=== PATIENT | male | born 1960 | race African-American/Black ===

== ENCOUNTER 2017-11-09 18:44 | Observation (INO) | payer SELFPAY ==
[~2017-11-09 18:44] MED LIST: ISOVUE-370 76%-LOCM 1 ML ONE
[2017-11-09 19:13] LABS: #Basophils 0.1 thou/uL (0.0-0.2); #Eosinphils 0.1 thou/uL (0.0-0.7); #Lymphocytes 1.9 thou/uL (1.20-3.40); #Monocytes 0.5 thou/uL (0.11-0.59); %Basophils 0.5 % (0.0-1.0); %Eosinophils 0.8 % (0.0-10.0); %Lymphocytes 18.4 % (21.0-51.0); %Monocytes 4.2 % (0.0-10.0); Hemoglobin 11.2 g/dL (14.0-18.0); Mean Corpuscular HGB CONC 32.8 g/dL (32.0-36.0); Mean Corpuscular Hemoglobin 28.1 pg (27.0-31.0); Mean Corpuscular Volume 85.7 fl (80.0-94.0); Mean Platelet Volume 6.6 fL (7.4-10.4); Platelet Count 538 thou/uL (130-400); RBC Distribution Width 12.1 % (11.5-14.5); White Blood Cell (WBC) Count 10.5 thou/uL (4.8-10.8)
[2017-11-09] MEDS ORDERED: Aspirin 81 mg Enteric Coated Tablet ONE (19:34)
[2017-11-09] MEDS ORDERED: Nitroglycerin 0.4 MG TAB (25 Tab Bottle) ONE (19:34)
[2017-11-09] MEDS ORDERED: Milk Of Magnesia 30 ML UDCUP ONE (19:34)
[2017-11-09] MEDS ORDERED: Lidocaine Viscous Sol 2% 15 ml UD Cup ONE ×2 (19:34→19:35)
[2017-11-09] MEDS ORDERED: Nitroglycerin 2% Ointment 1 INCH/1 GM Packet ONE (19:34)
[2017-11-09 19:37] LABS: ALT (SGPT) 12 U/L (8-55); AST (SGOT) 11 U/L (5-34); Albumin 4.2 g/dL (3.5-5.0); Alkaline Phosphatase 64 U/L (40-150); Anion Gap 16 mmol/L (10-20); BUN (Urea Nitrogen) 11 mg/dL (8.4-25.7); Bilirubin, Total 0.6 mg/dL (0.2-1.2); CK (CPK) 248 U/L (30-200); Calc. Creatinine Clearance 0 mL/min (70-130); Calcium 10.1 mg/dL (7.8-10.44); Carbon Dioxide 24 mmol/L (22-29); Chloride 96 mmol/L (98-107); Estimated GFR-MDRD 53; Globulin 4.1 g/dL (2.4-3.5); Glucose 246 mg/dL (70-105); Lipase 15 U/L (8-78); Potassium 3.9 mmol/L (3.5-5.1); Protein, Total 8.3 g/dL (6.0-8.3); Sodium 132 mmol/L (136-145)
--- NOTE | 2017-11-09 19:51 | RAD ---
CHEST ONE VIEW: History: Chest pain Comparison: 01-11-15 FINDINGS: Mild blunting of the left costophrenic sulcus is likely sequellae of mediastinal fat. Lungs are other delgado clear. No pneumothorax or effusion. Cardiomediastinal silhouette and mediastinal contours are no rmal. IMPRESSION: No acute intrathoracic abnormality. POS: [facility]
--- NOTE | 2017-11-09 21:19 | CT ---
CTA CHEST WITH CONTRAST: History: Chest pain. Comparison: Chest radiograph same day. FINDINGS: Pulmonary trunk size is upper limits of normal. The right and left main pulmonary arteries are mildly dilated. No pulmonary arterial filling defect. No pericardial effusion. Upper abdomen is unremarkable. Aortic size is normal. There is some bronchiectasis in the right lower lobe with patchy peripheral op acity. Skeleton is unremarkable. IMPRESSION: 1. Patchy airspace opacity in the left lower lobe. This has an unusual appearance and may represent a resolving pneumonia vs malignany process. Given its absence of visualization on radiography, a follo w up CT examination three months after treatment is recommended. 2. No proximal pulmonary arterial filling defect. 3. The left and right pulmonary artery are upper limits of normal in size and may reflect early pulmo nary arterial hypertension. POS: [facility]
[2017-11-09 23:08] LABS: Troponin I 0.023 ng/mL (< 0.028)
[2017-11-09 23:40] VITALS: BMI 34.9
[2017-11-09] MEDS ORDERED: Acetaminophen 325 MG TAB PO PRN (23:55)
[2017-11-09] MEDS ORDERED: Ondansetron ODT 4 MG TAB SL PRN (23:55)
[2017-11-09] MEDS ORDERED: Ondansetron HCl/PF 4 MG/2 ML Vial IVP PRN (23:55)
[2017-11-10 01:31] LABS: Troponin I 0.021 ng/mL (< 0.028)
[2017-11-10] MEDS ORDERED: Nitroglycerin 2% Ointment 1 INCH/1 GM Packet TOP SCH (06:00)
--- NOTE | 2017-11-10 06:41 | HP ---
CHIEF COMPLAINT: Chest pain. HISTORY OF PRESENT ILLNESS: He is 57-year-old man with history of hypertension , diabetes. He came in because of some chest pain starting this morning. Chest pain is in the left side of the chest. He said it feels like dull in nature and 5/10 radiation to the left arm and there is no relationship with activity. No diaphoresis, no nausea, no vomiting, no pain, no orthopnea. Pain is associated with some kind of cough symptom. When he came to the ER, his vital signs, pulse 88, blood pressure 155/85, respirations 16, temperature 98.4. In the ER, he was given nitroglycerin, aspirin, and pain relieved to some extent. PAST MEDICAL HISTORY: History of hypertension, hyperlipidemia. PAST SURGICAL HISTORY: No surgical history. SOCIAL HISTORY: Denies alcohol, drug use, no smoking history. FAMILY HISTORY: Positive for heart disease in the mother. ALLERGIES: He is not allergic to any medications. CURRENT MEDICATIONS: He is taking lisinopril 20/25 daily, amlodipine 10 mg daily, aspirin 81 daily, hydralazine 50 mg 3 times daily, atorvastatin 40 mg daily, Coreg 12.5 daily, glimepiride 2 mg daily, metformin 1000 daily. REVIEW OF SYSTEMS: Constitutional: Denies any fever. No chills, low grade fever. Denies any malaise. ENT: Denies any rhinorrhea, sore throat or vision changes. Cardiovascular: Has some chest pain. Respiratory: Some cough, no short of breath, no wheezing. Gastrointestinal: No nausea, no vomiting, no abdominal pain. Genitourinary: Denies any dysuria, urgency. Endocrine: Denies any polydipsia. Skin: Denies any rash. PHYSICAL EXAMINATION: GENERAL: He is a middle aged male lying in the bed, not in distress. VITAL SIGNS: Pulse 80, blood pressure 147/86, respiration rate 14, temperature 98.8, saturation 95 on room air. HEENT: Head is atraumatic, normocephalic. Eyes: Pupils are round and reactive. Extraocular muscles are intact. Ear, nose, and throat normal. Tongue mucosa moist. NECK: Supple, no JVD, no thyromegaly, no carotid bruit. LUNGS: Chest has normal vesicular breathing, no added sound. No chest wall tenderness noted. CARDIOVASCULAR: S1, S2 audible. No S3 or S4. ABDOMEN: Soft. Bowel sounds audible, no organomegaly, no guarding, no rigidity. EXTREMITIES: No pedal edema. No cyanosis or clubbing. CENTRAL NERVOUS SYSTEM: Alert and oriented x3. No focal deficit. Cranial nerves II through 12 normal. SKIN: Normal turgor, no rash. PSYCHIATRIC: Normal affect and judgment. LABORATORY DATA: Her lab shows WBC of 10.5, hemoglobin 11.2, hematocrit 34.2, platelets 538. D-dimer 0.7. Sodium 132, potassium 3.9, chloride 96, carbon dioxide 24, anion gap of 16, creatinine 1.6, BUN 11, GFR 53, glucose 246, calcium 10.1, total bilirubin 0.6, AST 11, AST 12. Creatine kinase 248. Troponin 0.023. Serum total protein 8.3, albumin 4.2, globulin 4.1, lipase 15. Chest x-ray shows no acute intrathoracic abnormality. Chest CT shows patchy airspace opacity in the left lower lobe, may be pneumonia or malignancy. Followup CT scan needed. No pulmonary or filling defect, pulmonary hypertension possible. ASSESSMENT AND PLAN: 1. Chest pain with history of respect to hypertension, diabetes. We will plan to rule out myocardial infarction by serial CK and troponin. Echocardiogram in the morning. Use aspirin and nitroglycerin p.r.n., IV morphine and continue Coreg. 2. Possible pneumonia with a CT scan finding with history of mild cough and short of breath. We will continue Rocephin 1 gram daily. Follow him closely. 3. Type 2 diabetes. Continue sliding scale, holding metformin because contrast to prevent contrast nephropathy. 4. Hyperlipidemia. Continue his Lipitor. 5. Acute kidney injury on chronic kidney disease stage 3. We will continue to monitor. 6. Deep venous thrombosis prophylaxis, Lovenox. [facility]
[2017-11-10 08:04] VITALS: TEMP 98
[2017-11-10 08:09] VITALS: BP 175/85
[2017-11-10] MEDS ORDERED: FLU VACC QS2017-18 36 mo. & older 0.5 ML SYRINGE IM ONE (09:00)
[2017-11-10] MEDS ORDERED: Enoxaparin Sodium 40 MG/0.4 ML SYRINGE SC SCH (09:00)
[2017-11-10] MEDS ORDERED: Carvedilol 3.125 MG TAB PO SCH (09:00)
[2017-11-10] MEDS ORDERED: Aspirin 325 MG TAB PO SCH (09:00)
--- NOTE | 2017-11-10 10:15 | PDOC.PN ---
- Subjective Encounter Start Date: 11/10/17 Encounter Start Time: 10:13 Mr. Ndiaye was seen today in follow-up of chest pain. He says the pain is much better. He denies any shortness of breath. - Objective MAR Reviewed: Yes Vital Signs & Weight: Vital Signs (12 hours) Temp Pulse Resp BP BP Pulse Ox 11/10/17 08:00 98 F 71 18 11/10/17 07:14 98.3 F 55 L 18 175/85 H 95 11/10/17 04:15 71 18 157/89 H Result Diagrams: 11/09/17 19:09 11/09/17 19:09 Phys Exam - Physical Examination HEENT: PERRLA + rhonchi / rales in the left upper chest Cardiovascular: RRR, no significant murmur, no rub Gastrointestinal: soft, non-tender, positive bowel sounds Musculoskeletal: no edema Dx/Plan (1) Chest pain Code(s): R07.9 - CHEST PAIN, UNSPECIFIED Status: Acute (2) Pneumonia, community acquired Code(s): J18.9 - PNEUMONIA, UNSPECIFIED ORGANISM Status: Acute (3) Dyslipidemia Code(s): E78.5 - HYPERLIPIDEMIA, UNSPECIFIED Status: Acute (4) Diabetes mellitus type 2 in obese Code(s): E11.69 - TYPE 2 DIABETES MELLITUS WITH OTHER SPECIFIED COMPLICATION; E66.9 - OBESITY, UNSPECIFIED Status: Acute (5) Hypertension Code(s): I10 - ESSENTIAL (PRIMARY) HYPERTENSION Status: Chronic - Plan * Pneumonia- Community Acquired- improved overnight * Troponins, have trended back down- old records reviewed, and he had a negative stress test a few years back. * Echo pending * HTN- blood pressure is elevated- but he has not bee re-started on his home medications * stable for discharge home, with close outpatient follow-up.
--- NOTE | 2017-11-10 10:55 | DIS ---
PRIMARY CARE PHYSICIAN: Patient does not remember the name. DATE OF ADMISSION: 11/09/2017 DATE OF DISCHARGE: 11/10/2017 DISCHARGE DISPOSITION: Home. PRIMARY DISCHARGE DIAGNOSES: 1. Chest pain. 2. Community-acquired pneumonia. 3. Hypertension. 4. Hyperlipidemia. 5. Diabetes mellitus, type 2. DISCHARGE MEDICATIONS: Omnicef 300 mg twice a day for 7 days as well as Zithromax Z-Corey at discharge . He is to continue Zantac 150 mg daily, thiamine 250 mg daily, metformin 500 mg twice a day, memant ine 5 mg daily, lisinopril/hydrochlorothiazide 20/25 daily, hydralazine 50 mg t.i.d., Amaryl 2 mg yoni ly, Lexapro 10 mg daily, vitamin B12 1000 mcg daily, carvedilol 12.5 mg twice a day, Lipitor 40 mg da eugene, aspirin 81 mg daily, amlodipine 10 mg daily, acetaminophen as needed. PROCEDURES DONE DURING ADMISSION: The patient had a CT angiogram of the chest which was positive for patchy airspace opacity in the left lower lobe. It had an unusual appearance and could be resolving pneumonia versus malignancy and recommended followup in [address] There was no pulmonar y embolism. The patient also had an echocardiogram, which was pending at the time of discharge. CODE STATUS: FULL CODE. ALLERGIES: No known drug allergies. HOSPITAL COURSE: Mr. Ndiaye is a pleasant 57-year-old gentleman who presented to the emergency room wi th complaints of chest pain. No associated symptoms. Apparently, the pain was associated with cough . CT angiogram demonstrated left lower lobe pneumonia. Suspected that this was likely the cause of the patient's symptoms. He will be treated with oral antibiotics if the patient is afebrile. There is no significant leukocytosis. His oxygen saturations have been 95% on room air. He is ambulatory and keeping food down. He will need to have a followup CT scan in 2-3 months to make sure the pneumo anatoliy has completely resolved. He will also need to follow up on the echo results as well. It was not ed that the patient had a normal stress test back in 2014.
[2017-11-10] MEDS ORDERED: cefTRIAXone\\ROCEPHIN 1 GM in Sodium Chloride 0.9% 100 ML IVPB SCH (19:30)
[2017-11-10] MEDS ORDERED: cefTRIAXone\\ROCEPHIN 1 GM, Syringe 0.4 ML in Sterile Water 9.6 ML SLOW IVP SCH (20:00)
== END 2017-11-10 12:34 | disposition home or self-care (01) ==
LOC: ERS 18:44 → 2SW 23:34
PROVIDERS: ADMIT Family Medicine; ATTEND Family Medicine
DX: R07.9 Chest pain, unspecified (principal); J18.9 Pneumonia, unspecified organism; E78.5 Hyperlipidemia, unspecified; I12.9 Hypertensive chronic kidney disease with stage 1 through stage 4 chronic kidney disease, or unspecified chronic kidney disease; E11.22 Type 2 diabetes mellitus with diabetic chronic kidney disease; N18.3 Chronic kidney disease, stage 3 (moderate); N17.9 Acute kidney failure, unspecified; I25.10 Atherosclerotic heart disease of native coronary artery without angina pectoris; I25.2 Old myocardial infarction; E66.9 Obesity, unspecified; Z68.35 Body mass index [BMI] 35.0-35.9, adult; Z79.82 Long term (current) use of aspirin; Z79.84 Long term (current) use of oral hypoglycemic drugs; Z79.899 Other long term (current) drug therapy
CPT/HCPCS: 36415; 71045; 71275; 80053; 80061; 82553; 83690; 84484; 85025; 85379; 93005; 93306; 94760; 96374; G0378; J0696

== ENCOUNTER 2019-01-19 16:35 | Inpatient (IN) | payer SELFPAY ==
--- NOTE | 2019-01-19 16:57 | CT ---
FCT brain noncontrast: 01/19/2019 4:47 PM HISTORY: 58-year-old male with acute stroke: Acute onset left upper extremity weakness, left lower extremity w eakness, and left facial droop. Dr. Ring verbally gave this acute Level One stroke protocol report to Dr. Hernandez of the emergency Depart ment at 4:52 PM on 01/19/2019. COMPARISON: 08/05/2010 FINDINGS: Since the previous CT, there is a new finding of multiple small and tiny old lacunar infarctions invo lving the bilateral basal ganglia, bilateral caudate heads, and left external capsule. There has been interval involutional changes of the brain since the previous CT. No obstructive hydrocephalus, mass effect, midline shift, or extra-axial fluid collection. Interval development of patchy small focal h ypodense lesions in the deep cerebral white matter consistent with chronic ischemic white matter martínez ges due to microvascular atherosclerosis. No acute intra-axial or extra-axial hemorrhage. Calvarium i s intact. IMPRESSION: 1. No acute intracranial hemorrhage or mass effect. 2. Large number of small old lacunar infarctions in the bilateral basal ganglia and caudate nuclei. 3. Involutional changes and chronic ischemic white matter changes.
[2019-01-19] MEDS ORDERED: Aspirin Chewable 81 MG TAB ONE (17:12)
[2019-01-19 17:16] LABS: #Basophils 0.1 thou/uL (0.0-0.2); #Lymphocytes 1.7 thou/uL (1.20-3.40); #Monocytes 0.7 thou/uL (0.11-0.59); #Neutrophils 9.1 thou/uL (1.40-6.50); %Basophils 0.8 % (0.0-1.0); %Eosinophils 0.2 % (0.0-10.0); %Lymphocytes 14.6 % (21.0-51.0); %Monocytes 5.9 % (0.0-10.0); %Neutrophils 78.5 % (42.0-75.0); Hemoglobin 13.3 g/dL (14.0-18.0); Mean Corpuscular HGB CONC 33.3 g/dL (32.0-36.0); Mean Corpuscular Hemoglobin 27.7 pg (27.0-31.0); Mean Corpuscular Volume 83.1 fL (78.0-98.0); Mean Platelet Volume 8.4 fL (7.4-10.4); Platelet Count 303 thou/uL (130-400); RBC Distribution Width 10.9 % (11.5-14.5); Red Blood Cell (RBC) Count 4.79 mill/uL (4.70-6.10); White Blood Cell (WBC) Count 11.6 thou/uL (4.8-10.8)
--- NOTE | 2019-01-19 17:23 | RAD ---
CHEST ONE VIEW: 01/19/19 Chest pain. COMPARISON: 11/09/17. FINDINGS: The cardiac silhouette and is magnified and enlarged. Pulmonary vasculature is unremarkable. Mediasti num is midline. No lobar consolidation or evidence of pneumothorax. The gambling monitor leads overlie the chest. IMPRESSION: Cardiomegaly. No active cardiopulmonary abnormalities are otherwise demonstrated. POS: [facility]
[2019-01-19 17:24] LABS: PTT 29.5 SEC (22.9-36.1); Prothrombin Time 14.3 SEC (12.0-14.7)
[2019-01-19 17:25] LABS: INR-International Normal Ratio 1.1
[2019-01-19 17:30] LABS: ALT (SGPT) 13 U/L (8-55); AST (SGOT) 14 U/L (5-34); Albumin 4.5 g/dL (3.5-5.0); Alkaline Phosphatase 98 U/L (40-150); Anion Gap 15 mmol/L (10-20); BUN (Urea Nitrogen) 11 mg/dL (8.4-25.7); Bilirubin, Total 0.9 mg/dL (0.2-1.2); CK (CPK) 435 U/L (30-200); Calc. Creatinine Clearance 0 mL/min (70-130); Calcium 10.2 mg/dL (7.8-10.44); Carbon Dioxide 26 mmol/L (22-29); Chloride 98 mmol/L (98-107); Estimated GFR-MDRD 58; Globulin 3.5 g/dL (2.4-3.5); Glucose 367 mg/dL (70-105); Potassium 3.5 mmol/L (3.5-5.1); Sodium 135 mmol/L (136-145)
[2019-01-19] MEDS ORDERED: Aspirin 300 MG Suppository ONE (17:30)
[2019-01-19 17:53] LABS: CKMB 3.4 ng/mL (0-6.6)
[2019-01-19 20:06] LABS: Troponin I 0.052 ng/mL (< 0.028)
[2019-01-19] MEDS ORDERED: Senokot S 8.6-50 MG TAB PO PRN (20:16)
[2019-01-19] MEDS ORDERED: Nitroglycerin 0.4 MG TAB (25 Tab Bottle) SL PRN (20:16)
[2019-01-19] MEDS ORDERED: Dextrose 50% Abboject 50 ML SYRINGE SLOW IVP PRN (20:16)
[2019-01-19] MEDS ORDERED: Ondansetron ODT 4 MG TAB PO PRN (20:16)
[2019-01-19] MEDS ORDERED: Ondansetron PF 4 MG/2 ML Vial IVP PRN (20:16)
[2019-01-19] MEDS ORDERED: Acetaminophen 650 MG Suppository PR PRN (20:16)
[2019-01-19] MEDS ORDERED: hydrALAZINE 20 MG/ML VIAL SLOW IVP PRN (20:16)
[2019-01-19] MEDS ORDERED: Dextrose 5% in Water 1,000 ML IV PRN (20:16)
[2019-01-19] MEDS ORDERED: Labetalol HCl 100 MG/20 ML VIAL SLOW IVP PRN (20:16)
[2019-01-19] MEDS ORDERED: Guaifenesin DM 100-10/5 ML UDCUP PO PRN (20:16)
[2019-01-19] MEDS ORDERED: Famotidine 20 MG TAB ONE (21:25)
[2019-01-19] MEDS: Famotidine 20 MG TAB PO SCH (21:30)
[2019-01-19] MEDS: Atorvastatin Calcium 40 MG TAB PO SCH (21:34)
[2019-01-19] MEDS: Carvedilol 6.25 MG TAB PO SCH (21:35)
--- NOTE | 2019-01-19 21:58 | HP ---
PRIMARY CARE PHYSICIAN: Dr. Luann Davenport. CHIEF COMPLAINT: Weakness and falls. HISTORY OF PRESENT ILLNESS: This is a 58-year-old male with a known history of diabetes, hypertension, and a previous stroke in the last year with no residuals. The patient reports that he went to bed at about 10 p.m. last night, was in his normal state of health. When he woke up this morning somewhere before 7 a.m., he tried to get out of bed and fell and his daughter noticed he had some slurred speech and facial droop at that time. Family reports the patient fell twice during the day, second time was around 2 p.m. in the afternoon. After the second fall, he was lying in the bathroom for approximately 30 to 40 minutes where he was found, so he was brought into the emergency room. He is on a baby aspirin daily. In the emergency room, the patient was found to have left facial droop and dysarthria, and some weakness in his left lower extremity. He also had elevated blood pressure and a CT scan done which showed some old lacunar infarcts and involution changes, but no acute stroke. He also had a CTA of the head, neck, and chest, which showed no significant abnormalities of the blood vessels of the aortic arch, carotids, or intracerebral vessels. The patient was given aspirin in the emergency room, given rectally secondary to his facial symptoms. PAST MEDICAL HISTORY: 1. Hypertension. 2. Hyperlipidemia. 3. Diabetes mellitus type 2, previously on oral hypoglycemics though not currently on them now. 4. Possible chronic kidney disease. 5. Gastroesophageal reflux disease. 6. Notation in the chart as systolic congestive heart failure with an EF of 45% in 2009, though the patient does not remember this. 7. Coronary artery disease with LAD stenosis of 40% in 2007. 8. Possible dementia. The patient is on Namenda daily. PAST SURGICAL HISTORY: Cardiac catheterization x2. SOCIAL HISTORY: No tobacco, alcohol, or illicit drug use. The patient is single, lives with his daughter who is his medical power of manager paper. Her name is Romy Ndiaye. ALLERGIES: NO KNOWN DRUG ALLERGIES. CURRENT MEDICATIONS: 1. Memantine 5 mg daily. 2. Lisinopril/hydrochlorothiazide 20/25 mg daily. 3. Vitamin B1 250 mg daily. 4. Amlodipine 10 mg daily. 5. Aspirin 81 mg daily. 6. Hydralazine 50 mg 3 times a day. 7. Atorvastatin 40 mg daily. 8. Lexapro 10 mg daily. 9. Vitamin B12 of 1000 mcg daily. 10. Carvedilol 12.5 mg twice a day. REVIEW OF SYSTEMS: CONSTITUTIONAL: No fevers, no chills. EYES: He has had some blurred vision, but nothing significantly new today. ENT: No congestion, drainage, or sore throat. He does have dysarthria and facial droop, but has not noticed any trouble swallowing. CARDIOVASCULAR: No chest pain. No palpitations or racing heart. He does report some right lower chest pressure to the right of sternum that he has had during the day today as well. Nothing seems to affect this. PULMONARY: No coughing, wheezing, or shortness of breath. GASTROINTESTINAL: He has had a little bit of suprapubic burning pain, but no pain with urination. No dysuria. No nausea or vomiting. No diarrhea or constipation. GENITOURINARY: No dysuria or hematuria. MUSCULOSKELETAL: No muscle aches or joint pains. SKIN: No rashes he has noted. Some flaky skin in his groin area that is not itching or painful. NEUROLOGIC: See HPI. PHYSICAL EXAMINATION: VITAL SIGNS: Blood pressure 193/94, pulse 87, respirations 17, temperature 98.9 , O2 saturation 97% on room air. GENERAL: This is a well-developed, obese male, in no acute distress. HEENT: Pupils are equal, round, and reactive to light. Oropharynx is clear without lesions, erythema, or exudate. NECK: Supple. No lymphadenopathy. No thyroid nodules or enlargement. No JVD. HEART: Regular rate and rhythm. No murmurs, rubs, or gallops. LUNGS: Clear to auscultation bilaterally. No wheezes, crackles, or rhonchi. No chest wall tenderness to palpation. GASTROINTESTINAL: Abdomen nontender to palpation diffusely. No guarding, no rebound tenderness. No masses or hepatosplenomegaly. His abdomen is soft and he has normal bowel sounds. EXTREMITIES: No clubbing, cyanosis, or edema SKIN: No rashes noted. NEUROLOGIC: The patient has left facial droop. His extraocular movements are intact and equal bilaterally. He has some dysarthria, though he is able to speak clear enough to be understood. He takes some time to find words, though he is eventually able to find them. The patient has intact strength 5/5 in bilateral upper extremities, 5/5 in right lower extremity and 4/5 in left lower extremity. He has some impairment to rapid alternating movements and to finger-nose with his left upper extremity. PSYCHIATRIC: Alert and oriented x3. Normal mood and affect. LABORATORY DATA: CBC with a white blood cell count of 11,000, hemoglobin 13.3, hematocrit 39.8, platelet count 303. Coagulation profile normal. Complete metabolic panel notable for sodium of 135, creatinine of 1.51, which is similar to the check we got one year ago when he was then at 1.63, glucose was 367. Creatine kinase was 435. The rest of the complete metabolic panel was normal. His 1st troponin was indeterminate at 0.035. Chest x-ray, I did review the chest x-ray done in the emergency room along with the radiologist's report. It does show cardiomegaly, but no acute congestive changes. No infiltrate. No other acute cardiopulmonary process. CT of the brain and the angiography of the head and neck as per the HPI. EKG done in the emergency room shows normal sinus rhythm with some minimal voltage criteria for left ventricular hypertrophy and some nonspecific T-wave abnormalities, similar to EKG done one year ago. ASSESSMENT: 1. Acute ischemic stroke. We will continue the patient on full-dose aspirin daily. We will get an MRI of the brain. We will get neurology consult and stroke team consult. We will have Nursing try a bedside swallow test if he is able to swallow safely in that he can eat, otherwise he will need to stay n.p.o. until Speech Therapy can see him. 2. Hypertension with severe elevations. We will allow permissive hypertension and just treat if it gets over 220/110. We will go ahead and slowly reintroduce his home blood pressure medications starting with carvedilol for protection of heart , but we will be careful to allow his blood pressure to remain elevated for now. 3. History of coronary artery disease with indeterminate troponin and some chest pressure. The patient does not have any acute change on EKG. We will trend his troponins to make sure they do not bump and we will get Cardiology to see him. Also get an echocardiogram to follow up on his previous reported congestive heart failure. 4. Chronic kidney disease, uncertain of the patient's baseline though this lab is currently similar to what it was a year ago, so he may be at his baseline. We will monitor closely and eventually we will go on to resume his MIRELLA inhibitor after his blood pressure allows. 5. Gastrointestinal prophylaxis and history of gastroesophageal reflux disease. We will put the patient on Pepcid twice a day. 6. History of diabetes mellitus type 2. The patient does not list any of his diabetes medications on his current active medication list. He is not on insulin, however, he has elevated blood sugars here. We will start him on low insulin sliding scale and will likely need to reintroduce some oral hypoglycemics while he is in the hospital as well. 7. Deep venous thrombosis prophylaxis. We will put the patient on Lovenox subcu daily and SCDs while in bed. 8. Code status. I did discuss this with the patient. He is a full code. Should he be incapacitated, his daughter would be his medical decision maker, her name is Romy Ndiaye. Job ID: [id number] [facility]
[2019-01-19 23:54] LABS: Troponin I 0.068 ng/mL (< 0.028)
[2019-01-20 03:40] VITALS: BMI 33.0
[2019-01-20 05:52] LABS: #Basophils 0.1 thou/uL (0.0-0.2); #Eosinphils 0.1 thou/uL (0.0-0.7); #Lymphocytes 2.2 thou/uL (1.20-3.40); #Monocytes 0.8 thou/uL (0.11-0.59); #Neutrophils 4.9 thou/uL (1.40-6.50); %Basophils 0.9 % (0.0-1.0); %Eosinophils 1.6 % (0.0-10.0); %Lymphocytes 26.5 % (21.0-51.0); %Monocytes 9.9 % (0.0-10.0); Hemoglobin 12.6 g/dL (14.0-18.0); Mean Corpuscular Hemoglobin 27.9 pg (27.0-31.0); Mean Corpuscular Volume 84.7 fL (78.0-98.0); Mean Platelet Volume 8.3 fL (7.4-10.4); Platelet Count 273 thou/uL (130-400); RBC Distribution Width 10.9 % (11.5-14.5); Red Blood Cell (RBC) Count 4.52 mill/uL (4.70-6.10); White Blood Cell (WBC) Count 8.1 thou/uL (4.8-10.8)
[2019-01-20 06:14] LABS: Anion Gap 15 mmol/L (10-20); BUN (Urea Nitrogen) 9 mg/dL (8.4-25.7); Calc. Creatinine Clearance 104 mL/min (70-130); Calcium 9.9 mg/dL (7.8-10.44); Carbon Dioxide 25 mmol/L (22-29); Chloride 102 mmol/L (98-107); Cholesterol 342 mg/dl (< 200 Desired); Estimated GFR-MDRD 71; Glucose 279 mg/dL (70-105); HDL Cholesterol 43 mg/dL (>60 Neg Risk); LDL Cholesterol, Calculated 281 mg/dL; Potassium 3.6 mmol/L (3.5-5.1); Sodium 138 mmol/L (136-145); Triglycerides 90 mg/dL (Less than 150)
--- NOTE | 2019-01-20 07:30 | CT ---
CT ARTERIOGRAM CHEST WITH IV CONTRAST AND 3D MIP IMAGING CT ARTERIOGRAM HEAD WITH IV CONTRAST AND 3D MIP IMAGING CT BRAIN WITH IV CONTRAST 01/19/19 HISTORY: Recent fall. Left facial droop. FINDINGS: There is bovine origin of the great vessels at the aortic arch with good flow into each carotid and v ertebral system. No significant plaque visible. Each carotid bifurcation is widely patent. [place] is intact. Good flow into each cerebral and cerebellar system. No focal filling defe cts are apparent. No enhancing lesions intracranially. No significant arterial calcification. IMPRESSION: No acute vascular abnormalities are demonstrated. Findings were called to Dr. Hernandez in the Emergency Department at 1708 hours. Code CR POS: [facility]
[2019-01-20] MEDS: HumaLOG 300 UNITS/3 ML VIAL SC PRN ×4 (07:33→21:58)
--- NOTE | 2019-01-20 08:33 | PDOC.PN ---
- Subjective Encounter Start Date: 01/20/19 Encounter Start Time: 09:50 Subjective: Patient with some improvement in strength in LLE, side of face, and -: speech. Failed bedside swallow so awaiting speech therapy. - Objective Resuscitation Status - Order Detail: 01/19/19 19:25 Resuscitation Status Routine Resuscitation Status: FULL: Full Resuscitation Discussed with: Patient ARMIDA Reviewed: Yes Vital Signs & Weight: Vital Signs (12 hours) Temp Pulse Resp BP BP Pulse Ox 01/20/19 07:59 98 F 69 16 201/108 H 100 01/20/19 07:55 97 01/20/19 02:57 98.3 F 71 20 206/107 H 97 01/19/19 21:35 194/95 H Weight Weight 250 lb 3.2 oz Result Diagrams: 01/20/19 05:27 01/20/19 05:27 Additional Labs: Accuchecks 01/20/19 01/19/19 01/19/19 05:46 23:45 16:46 POC Glucose 240 H 311 H 372 H Phys Exam - Physical Examination Constitutional: NAD HEENT: moist MMs Respiratory: no wheezing, no rales, no rhonchi, clear to auscultation bilateral Cardiovascular: RRR, no significant murmur Gastrointestinal: soft, positive bowel sounds Musculoskeletal: no edema LLE 4.5/5, LUE with mild discoordination but good strength, left facial droop somewhat improved, speech more clear this AM Psychiatric: normal affect, A&O x 3 Dx/Plan (1) Acute ischemic stroke Code(s): I63.9 - CEREBRAL INFARCTION, UNSPECIFIED Status: Acute (2) Hypertension Code(s): I10 - ESSENTIAL (PRIMARY) HYPERTENSION Status: Chronic Comment: Allowing permissive hypertension, will slowly reintroduce BP meds over the next few days (3) Diabetes mellitus type 2 in obese Code(s): E11.69 - TYPE 2 DIABETES MELLITUS WITH OTHER SPECIFIED COMPLICATION; E66.9 - OBESITY, UNSPECIFIED Status: Chronic Comment: uncontrolled, will add low dose Metformin now that creatinine improved and low dose Lantus (4) Dyslipidemia Code(s): E78.5 - HYPERLIPIDEMIA, UNSPECIFIED Status: Chronic Comment: LDL in 200s, will increase Atorvastatin to 80mg daily (5) Acute renal failure superimposed on stage 2 chronic kidney disease Code(s): N17.9 - ACUTE KIDNEY FAILURE, UNSPECIFIED; N18.2 - CHRONIC KIDNEY DISEASE, STAGE 2 (MILD) Status: Acute Comment: improving (6) GERD (gastroesophageal reflux disease) Code(s): K21.9 - GASTRO-ESOPHAGEAL REFLUX DISEASE WITHOUT ESOPHAGITIS Status: Chronic (7) CAD (coronary artery disease) Code(s): I25.10 - ATHSCL HEART DISEASE OF [place] CORONARY ARTERY W/O ANG PCTRS Status: Chronic Comment: mild disease of LAD on last cath in 2007 (8) Elevated troponin Code(s): R74.8 - ABNORMAL LEVELS OF OTHER SERUM ENZYMES Status: Acute Comment: indeterminate troponins, possibly troponin leak due to severe BP elevations (9) Dysphagia Code(s): R13.10 - DYSPHAGIA, UNSPECIFIED Status: Acute Comment: awaiting speech therapy eval - Plan cont current plan of care, PT/OT Neuro and Cardiology consults, ECHO pending * . - Discharge Day Encounter end time: 10:00
[2019-01-20] MEDS ORDERED: metFORMIN 500 MG TAB PO SCH (08:45)
[2019-01-20] MEDS: Enoxaparin Sodium 40 MG/0.4 ML SYRINGE SC SCH (10:16)
[2019-01-20] MEDS: Carvedilol 6.25 MG TAB PO SCH ×2 (10:33→20:24)
[2019-01-20] MEDS: Aspirin 325 mg Enteric Coated Tablet PO SCH (10:34)
--- NOTE | 2019-01-20 10:36 | MRI ---
MRI BRAIN WITHOUT CONTRAST: HISTORY: CVA. FINDINGS: Correlation is made with the previous day's CT scan. There is a focal area of restricted diffusion in the right thalamus consistent with acute infarction. There is an old infarction in the anterior right basal ganglia with blood products (hemosiderin) on the gradient echo sequences that are consistent with old hemorrhage. There are foci of T2 prolongat ion in the periventricular white matter consistent with chronic small-vessel ischemic disease. No mi dline shift or abnormal extraaxial fluid collections are seen. The ventricular size is appropriate a nd the basilar cisterns patent. The visualized paranasal sinuses and mastoid air cells are well aera sanjeev. There is intramuscular lipoma in the left posterior lower head likely within the trapezius musc ulature. IMPRESSION: 1. Acute right thalamic infarction. 2. Old hemorrhagic right anterior basal ganglia infarction. 3. Chronic small-vessel ischemic disease. The study was interpreted in consultation with Dr. Leland Meyers (neuroradiologist) who concurs. POS: [facility]
[2019-01-20] MEDS: Insulin Glargine 10 UNITS in Pre-Filled Syringe 1 EACH SC SCH (10:42)
[2019-01-20] MEDS: Escitalopram Oxalate 10 mg Tablet PO SCH (10:42)
[2019-01-20] MEDS: Famotidine 20 MG TAB PO SCH ×2 (10:42→20:25)
--- NOTE | 2019-01-20 13:56 | RAD ---
FModified barium swallow with speech pathologist: 01/20/2019 HISTORY: 58-year-old male with oral dysphagia and pharyngeal dysphagia due to stroke. Hemorrhagic cerebral inf arction. FINDINGS: There is very slow oral phase with thyroglossal discoordination and great difficulty in forming a jordi us. Premature free spillage into the vallecula and piriform sinuses. Significantly delayed swallow tr igger. Penetration and initially silent aspiration during chin tuck with thin liquid and nectar. Much delayed cough reflex. Anterior bridging osteophytes protruding into the prevertebral space anteriorl y displacing the posterior pharyngeal wall at C4-5. Difficulty initiating repeat second swallow with some effectiveness in clearing the residue in the piriform sinuses and vallecula. Please see complete report by speech pathologist. IMPRESSION: Profound oropharyngeal dysphagia including silent penetration and aspiration.
--- NOTE | 2019-01-20 14:49 | CON ---
DATE OF CONSULTATION: HISTORY OF PRESENT ILLNESS: The patient is an unfortunate 58-year-old gentleman, who presents with left-sided weakness and difficulty speaking. The patient has a previous history of coronary artery disease. He underwent a cardiac catheterization in 2007. He was found to have a 40% LAD lesion. The patient also has a long history of hypertension. The patient states he has been out of his medication for the past week. He suddenly had difficulty speaking and noticed being weak on his left side. He presented to the emergency room for further evaluation. The patient denied having any chest discomfort. PAST MEDICAL HISTORY: 1. Coronary artery disease. 2. Hypertension. 3. Diabetes mellitus. 4. Dyslipidemia. 5. Possible dementia. PAST SURGICAL HISTORY: None. SOCIAL HISTORY: Nonsmoker. MEDICATIONS: See nursing list. ALLERGIES: NO KNOWN DRUG ALLERGIES. REVIEW OF SYSTEMS: Ten-point system otherwise unremarkable. FAMILY HISTORY: No strong family history of heart disease. PHYSICAL EXAMINATION: GENERAL: This is an ill-appearing gentleman with a blood pressure of 187/103. NECK: Full. LUNGS: Clear to auscultation. HEART: Regular rate and rhythm. Normal S1 and S2. No murmurs. ABDOMEN: Nondistended. EXTREMITIES: No edema. VASCULAR: Radial pulses are 2+. NEUROLOGIC: He has aphasia and left-sided weakness. LABORATORY DATA: Sodium 138, potassium 3.6, chloride 102, bicarbonate 25, BUN 9, creatinine is 1.26, glucose 279. Troponin 0.068. His white blood cell count was 8.1, hemoglobin 12.6, hematocrit 38.3, platelets were 273. INR is 1.1. Cholesterol was 342, LDL 281. IMPRESSION: 1. Cerebrovascular accident. 2. Diabetes mellitus. 3. Hypertension. 4. Marked dyslipidemia. 5. History of coronary artery disease. This unfortunate gentleman suffered a significant cerebrovascular accident. He has very poorly controlled cholesterol. It is unclear whether he was taking his lipid-lowering medication. He also been out of his antihypertensive medications as the patient undergoing a Neurology evaluation from a cardiac standpoint. He is on aspirin and lipid-lowering medication. We will check the patient's echocardiogram. We will follow this patient with you through his hospitalization. Job ID: [id number]
[2019-01-20] MEDS: Nitroglycerin 2% Ointment 1 INCH/1 GM Packet TOP SCH ×2 (14:51→22:03)
[2019-01-20] MEDS: Acetaminophen 325 MG TAB PO PRN (18:44)
[2019-01-20] MEDS: metFORMIN 500 MG TAB PO SCH (18:45)
[2019-01-20] MEDS: Atorvastatin Calcium 40 MG TAB PO SCH (20:24)
[2019-01-21] MEDS: HumaLOG 300 UNITS/3 ML VIAL SC PRN ×4 (05:37→21:26)
[2019-01-21] MEDS: Acetaminophen 325 MG TAB PO PRN (05:38)
[2019-01-21 07:13] LABS: #Basophils 0.1 thou/uL (0.0-0.2); #Eosinphils 0.2 thou/uL (0.0-0.7); #Lymphocytes 2.5 thou/uL (1.20-3.40); #Monocytes 0.6 thou/uL (0.11-0.59); #Neutrophils 6.1 thou/uL (1.40-6.50); %Basophils 0.9 % (0.0-1.0); %Eosinophils 1.7 % (0.0-10.0); %Lymphocytes 26.2 % (21.0-51.0); %Monocytes 6.4 % (0.0-10.0); %Neutrophils 64.9 % (42.0-75.0); Hemoglobin 13.1 g/dL (14.0-18.0); Mean Corpuscular HGB CONC 33.2 g/dL (32.0-36.0); Mean Corpuscular Hemoglobin 28.3 pg (27.0-31.0); Mean Corpuscular Volume 85.2 fL (78.0-98.0); Mean Platelet Volume 8.6 fL (7.4-10.4); Platelet Count 285 thou/uL (130-400); Red Blood Cell (RBC) Count 4.63 mill/uL (4.70-6.10); White Blood Cell (WBC) Count 9.4 thou/uL (4.8-10.8)
[2019-01-21 07:32] LABS: Anion Gap 14 mmol/L (10-20); BUN (Urea Nitrogen) 15 mg/dL (8.4-25.7); Calc. Creatinine Clearance 82 mL/min (70-130); Calcium 9.8 mg/dL (7.8-10.44); Carbon Dioxide 23 mmol/L (22-29); Chloride 103 mmol/L (98-107); Estimated GFR-MDRD 55; Glucose 220 mg/dL (70-105); Potassium 3.4 mmol/L (3.5-5.1); Sodium 137 mmol/L (136-145)
--- NOTE | 2019-01-21 08:35 | PDOC.PN ---
- Subjective Encounter Start Date: 01/21/19 Encounter Start Time: 10:10 Subjective: Patient has had some fluctuations in strength in his left arm and leg. Did -: PT this AM, feeling weaker and tired after that. - Objective Resuscitation Status - Order Detail: 01/19/19 19:25 Resuscitation Status Routine Resuscitation Status: FULL: Full Resuscitation Discussed with: Patient ARMIDA Reviewed: Yes Vital Signs & Weight: Vital Signs (12 hours) Temp Pulse Resp BP BP Pulse Ox 01/21/19 07:43 98.4 F 66 20 171/98 H 97 01/21/19 06:00 158/90 H 01/21/19 05:49 72 197/107 H 01/21/19 05:30 98.9 F 72 20 197/107 H 96 01/21/19 00:00 155/107 H Weight Admit Weight 250 lb 3.2 oz Weight 250 lb 3.2 oz I&O: 01/20/19 01/21/19 01/22/19 06:59 06:59 06:59 Intake Total 290 Balance 290 Result Diagrams: 01/21/19 06:46 01/21/19 06:46 Additional Labs: Accuchecks 01/20/19 01/20/19 01/20/19 21:53 16:40 10:49 POC Glucose 344 H 229 H 290 H Phys Exam - Physical Examination Constitutional: NAD HEENT: moist MMs Respiratory: no wheezing, no rales, no rhonchi Cardiovascular: RRR, no significant murmur Gastrointestinal: soft, positive bowel sounds 3/5 strength LUE, 3.5/5 strength in LLE, left facial droop Deviation from normal: flattened affect Dx/Plan (1) Acute ischemic stroke Code(s): I63.9 - CEREBRAL INFARCTION, UNSPECIFIED Status: Acute (2) Hypertension Code(s): I10 - ESSENTIAL (PRIMARY) HYPERTENSION Status: Chronic Comment: Allowing permissive hypertension, will slowly reintroduce BP meds over the next few days (3) Diabetes mellitus type 2 in obese Code(s): E11.69 - TYPE 2 DIABETES MELLITUS WITH OTHER SPECIFIED COMPLICATION; E66.9 - OBESITY, UNSPECIFIED Status: Chronic Comment: uncontrolled, will add low dose Metformin now that creatinine improved and low dose Lantus (4) Dyslipidemia Code(s): E78.5 - HYPERLIPIDEMIA, UNSPECIFIED Status: Chronic Comment: LDL in 200s, will increase Atorvastatin to 80mg daily (5) Acute renal failure superimposed on stage 2 chronic kidney disease Code(s): N17.9 - ACUTE KIDNEY FAILURE, UNSPECIFIED; N18.2 - CHRONIC KIDNEY DISEASE, STAGE 2 (MILD) Status: Acute Comment: improving (6) GERD (gastroesophageal reflux disease) Code(s): K21.9 - GASTRO-ESOPHAGEAL REFLUX DISEASE WITHOUT ESOPHAGITIS Status: Chronic (7) CAD (coronary artery disease) Code(s): I25.10 - ATHSCL HEART DISEASE OF [place] CORONARY ARTERY W/O ANG PCTRS Status: Chronic Comment: mild disease of LAD on last cath in 2007 (8) Elevated troponin Code(s): R74.8 - ABNORMAL LEVELS OF OTHER SERUM ENZYMES Status: Acute Comment: indeterminate troponins, possibly troponin leak due to severe BP elevations (9) Dysphagia Code(s): R13.10 - DYSPHAGIA, UNSPECIFIED Status: Acute Comment: patient with profound oropharyngeal dysphagia with silent aspiration on MBS, currently on honey thick liquids and puree, speech reassessment today and if not able to get adequate intake will need NG tube and consideration for PEG - Plan cont current plan of care, PT/OT, DVT proph w/lovenox, DVT proph w/SCDs appreciate consultants assistance -: patient unfunded, looking into [facility] -: took meds orally this AM and taking some po food, may be able to avoid -: NG tube * . - Discharge Day Encounter end time: 10:20
[2019-01-21] MEDS: metFORMIN 500 MG TAB PO SCH ×2 (09:17→17:57)
[2019-01-21] MEDS: Nitroglycerin 2% Ointment 1 INCH/1 GM Packet TOP SCH ×3 (09:17→21:26)
[2019-01-21] MEDS: Aspirin 300 MG Suppository PR SCH (09:19)
[2019-01-21] MEDS: Escitalopram Oxalate 10 mg Tablet PO SCH (09:34)
[2019-01-21] MEDS: Carvedilol 6.25 MG TAB PO SCH ×2 (09:35→21:24)
[2019-01-21] MEDS: Famotidine 20 MG TAB PO SCH ×2 (09:37→21:26)
[2019-01-21] MEDS: Aspirin 325 mg Enteric Coated Tablet PO SCH (09:37)
[2019-01-21] MEDS: Enoxaparin Sodium 40 MG/0.4 ML SYRINGE SC SCH (09:38)
[2019-01-21] MEDS: Insulin Glargine 10 UNITS in Pre-Filled Syringe 1 EACH SC SCH (09:39)
[2019-01-21] MEDS: Simethicone Chewable 80 MG TAB PO PRN (14:14)
--- NOTE | 2019-01-21 16:36 | CON ---
DATE OF CONSULTATION: 01/21/2019 CONSULTING PHYSICIAN: Hospitalist Service. IMPRESSION: 1. Right large subcortical infarct resulting in left hemiparesis and dysphagia, which appears to be improving. 2. Diabetes. 3. Hyperlipidemia. 4. Aspirin failure. PLAN: 1. Add Plavix when he is able to swallow. 2. See if rehab opportunities are available. HISTORY OF PRESENT ILLNESS: Mr. Ndiaye is a 58-year-old man, who presented with acute onset of left-sided weakness and dysarthria and dysphagia. Initial CT scan did not show any bleed. MRI of the brain showed a moderate size right periventricular infarct. His CTA did not show any large vessel stenosis. His cholesterol ratio is 8.6. PAST MEDICAL HISTORY: As listed above. ALLERGIES: NONE. SOCIAL HISTORY: Unremarkable. FAMILY HISTORY: Noncontributory. REVIEW OF SYSTEMS: Otherwise, negative. PHYSICAL EXAMINATION: GENERAL: He is a well-nourished, middle-aged man, sitting up in bed, in no acute distress. VITAL SIGNS: Have been stable. He is afebrile. HEENT: Pupils are equal and reactive. Conjunctivae are clear. Oropharynx clear. NECK: Supple. No lymphadenopathy. EXTREMITIES: No cyanosis. NEUROLOGIC: He is alert and cooperative. His speech is fluent, but dysarthric. He follows commands appropriately. Cranial nerve exam shows a left facial droop. Motor exam shows left left-sided weakness, only partial antigravity strength. Sensations are intact. No abnormal movements are seen. Gait was not tested. IMAGING DATA: EKG shows a sinus rhythm. SUMMARY: This is an unfortunate middle-aged man with fairly severe deficit on the left. Given that the infarct is not extremely large, I would be optimistic he will show signs of improvement. I would be happy to follow up with him as an outpatient. Job ID: [id number]
[2019-01-21] MEDS: Atorvastatin Calcium 40 MG TAB PO SCH (21:24)
[2019-01-22] MEDS: HumaLOG 300 UNITS/3 ML VIAL SC PRN ×4 (06:41→21:14)
[2019-01-22] MEDS ORDERED: Amlodipine 5 MG TAB PO SCH (09:04)
[2019-01-22] MEDS: Aspirin 300 MG Suppository PR SCH (09:33)
[2019-01-22] MEDS: Insulin Glargine 10 UNITS in Pre-Filled Syringe 1 EACH SC SCH (09:34)
[2019-01-22] MEDS: Enoxaparin Sodium 40 MG/0.4 ML SYRINGE SC SCH (09:35)
[2019-01-22] MEDS: Nitroglycerin 2% Ointment 1 INCH/1 GM Packet TOP SCH ×3 (09:37→21:13)
[2019-01-22] MEDS: Escitalopram Oxalate 10 mg Tablet PO SCH (09:37)
[2019-01-22] MEDS: Amlodipine 5 MG TAB PO SCH (09:37)
[2019-01-22] MEDS: Aspirin 325 mg Enteric Coated Tablet PO SCH (09:37)
[2019-01-22] MEDS: Carvedilol 6.25 MG TAB PO SCH ×2 (09:38→21:11)
[2019-01-22] MEDS: Famotidine 20 MG TAB PO SCH ×2 (09:39→21:12)
[2019-01-22] MEDS: metFORMIN 500 MG TAB PO SCH ×2 (09:39→18:02)
[2019-01-22] MEDS ORDERED: Lisinopril 20 MG TAB PO SCH (15:45)
--- NOTE | 2019-01-22 15:50 | PDOC.PN ---
- Subjective Encounter Start Date: 01/22/19 Encounter Start Time: 15:48 Subjective: Admitted with acute CVA. -: Having penile whitish discharge. -: No fever. - Objective Resuscitation Status - Order Detail: 01/19/19 19:25 Resuscitation Status Routine Resuscitation Status: FULL: Full Resuscitation Discussed with: Patient Vital Signs & Weight: Vital Signs (12 hours) Temp Pulse Resp BP BP BP Pulse Ox 01/22/19 15:33 98.3 F 68 17 164/86 H 95 01/22/19 11:41 98.4 F 67 16 158/86 H 96 01/22/19 10:21 173/81 H 01/22/19 09:38 191/89 H 01/22/19 09:37 78 01/22/19 08:30 97 01/22/19 08:00 98.9 F 64 18 191/89 H 97 01/22/19 04:12 168/81 H 01/22/19 04:00 98.5 F 66 16 168/81 H 95 Weight Admit Weight 250 lb 3.2 oz Weight 250 lb 3.2 oz I&O: 01/21/19 01/22/19 01/23/19 06:59 06:59 06:59 Intake Total 290 953 120 Balance 290 953 120 Result Diagrams: 01/21/19 06:46 01/21/19 06:46 Additional Labs: Accuchecks 01/22/19 01/22/19 01/21/19 10:37 05:23 20:03 POC Glucose 292 H 204 H 300 H 01/21/19 01/21/19 01/21/19 17:15 17:08 05:36 POC Glucose 312 H 337 H 232 H Phys Exam - Physical Examination obese, afebrile HEENT: PERRLA, moist MMs Neck: supple fair air entry bilaterally Cardiovascular: RRR Gastrointestinal: soft, no distention, positive bowel sounds Musculoskeletal: no edema, pulses present Left hemiparesis and lower left facial weakness noted dysarthria noted Dx/Plan (1) Acute ischemic stroke Code(s): I63.9 - CEREBRAL INFARCTION, UNSPECIFIED Status: Acute (2) Dysphagia Code(s): R13.10 - DYSPHAGIA, UNSPECIFIED Status: Acute Comment: patient with profound oropharyngeal dysphagia with silent aspiration on MBS, currently on honey thick liquids and puree, speech reassessment today and if not able to get adequate intake will need NG tube and consideration for PEG (3) CAD (coronary artery disease) Code(s): I25.10 - ATHSCL HEART DISEASE OF [place] CORONARY ARTERY W/O ANG PCTRS Status: Chronic Comment: mild disease of LAD on last cath in 2007 (4) GERD (gastroesophageal reflux disease) Code(s): K21.9 - GASTRO-ESOPHAGEAL REFLUX DISEASE WITHOUT ESOPHAGITIS Status: Chronic (5) Dyslipidemia Code(s): E78.5 - HYPERLIPIDEMIA, UNSPECIFIED Status: Chronic Comment: LDL in 200s, will increase Atorvastatin to 80mg daily (6) Hypertension Code(s): I10 - ESSENTIAL (PRIMARY) HYPERTENSION Status: Chronic Comment: Allowing permissive hypertension, will slowly reintroduce BP meds over the next few days (7) Urinary incontinence Code(s): R32 - UNSPECIFIED URINARY INCONTINENCE Status: Acute (8) Penile discharge, without blood Code(s): R36.9 - URETHRAL DISCHARGE, UNSPECIFIED Status: Acute (9) Acute left hemiparesis Code(s): G81.94 - HEMIPLEGIA, UNSPECIFIED AFFECTING LEFT NONDOMINANT SIDE Status: Acute (10) Physical deconditioning Code(s): R53.81 - OTHER MALAISE Status: Acute (11) Gait instability Code(s): R26.81 - UNSTEADINESS ON FEET Status: Acute (12) Elevated troponin Code(s): R74.8 - ABNORMAL LEVELS OF OTHER SERUM ENZYMES Status: Acute Comment: indeterminate troponins, possibly troponin leak due to severe BP elevations (13) Diabetes mellitus type 2 in obese Code(s): E11.69 - TYPE 2 DIABETES MELLITUS WITH OTHER SPECIFIED COMPLICATION; E66.9 - OBESITY, UNSPECIFIED Status: Chronic Comment: uncontrolled, will add low dose Metformin now that creatinine improved and low dose Lantus - Plan Add lisinopril to amlodipine and coreg. -: add glipizide to metformin. -: Get penile drainage culture. -: Start plavix for secondary CVa prophylaxis. -: monitor renal function with restart of lisinopril. Get Hba1c * .
[2019-01-22] MEDS: Atorvastatin Calcium 40 MG TAB PO SCH (21:11)
[2019-01-22] MEDS: Lisinopril 20 MG TAB PO SCH (21:13)
[2019-01-23 05:36] LABS: Hemoglobin A1c 11.4 % (4.0-6.0)
[2019-01-23 05:50] LABS: Anion Gap 16 mmol/L (10-20); BUN (Urea Nitrogen) 29 mg/dL (8.4-25.7); Calc. Creatinine Clearance 76 mL/min (70-130); Carbon Dioxide 23 mmol/L (22-29); Chloride 106 mmol/L (98-107); Estimated GFR-MDRD 50; Potassium 3.5 mmol/L (3.5-5.1); Sodium 141 mmol/L (136-145)
[2019-01-23 05:51] LABS: Albumin 4.2 g/dL (3.5-5.0); BUN/Creatinine Ratio 16.86; Calcium 10.2 mg/dL (7.8-10.44); Glucose 243 mg/dL (70-105); Phosphorus 3.7 mg/dL (2.3-4.7)
[2019-01-23] MEDS: HumaLOG 300 UNITS/3 ML VIAL SC PRN ×4 (06:26→20:34)
[2019-01-23] MEDS: Nitroglycerin 2% Ointment 1 INCH/1 GM Packet TOP SCH ×3 (10:12→20:33)
[2019-01-23] MEDS: Insulin Glargine 10 UNITS in Pre-Filled Syringe 1 EACH SC SCH (10:13)
[2019-01-23] MEDS: Clopidogrel Bisulfate 75 MG TAB PO SCH (10:13)
[2019-01-23] MEDS: Lisinopril 20 MG TAB PO SCH ×2 (10:14→20:33)
[2019-01-23] MEDS: Aspirin 325 mg Enteric Coated Tablet PO SCH (10:14)
[2019-01-23] MEDS: Escitalopram Oxalate 10 mg Tablet PO SCH (10:14)
[2019-01-23] MEDS: Famotidine 20 MG TAB PO SCH ×2 (10:14→20:33)
[2019-01-23] MEDS: Carvedilol 6.25 MG TAB PO SCH ×2 (10:16→20:32)
[2019-01-23] MEDS: Enoxaparin Sodium 40 MG/0.4 ML SYRINGE SC SCH (10:17)
[2019-01-23] MEDS: Amlodipine 5 MG TAB PO SCH (10:17)
[2019-01-23] MEDS: metFORMIN 500 MG TAB PO SCH (10:17)
[2019-01-23] MEDS ORDERED: Labetalol HCl 100 MG/20 ML VIAL SLOW IVP PRN (10:36)
[2019-01-23] MEDS ORDERED: metFORMIN 500 MG TAB PO SCH (10:39)
--- NOTE | 2019-01-23 10:54 | PDOC.PN ---
- Subjective Encounter Start Date: 01/23/19 Encounter Start Time: 10:52 Subjective: No new problem. Reportedly had elevated NIH score earlier which was back -: baseline 2 hours later. -: Denied chest pain, nausea, SOB or fever - Objective Resuscitation Status - Order Detail: 01/19/19 19:25 Resuscitation Status Routine Resuscitation Status: FULL: Full Resuscitation Discussed with: Patient Vital Signs & Weight: Vital Signs (12 hours) Temp Pulse Pulse Resp Resp BP BP 01/23/19 10:17 66 01/23/19 10:16 157/79 H 01/23/19 10:14 157/79 H 01/23/19 07:21 74 18 157/80 H 01/23/19 07:20 98.5 F 73 20 01/23/19 04:00 99.2 F 84 16 01/23/19 00:00 99.5 F 81 16 BP Pulse Ox Pulse Ox 01/23/19 10:17 01/23/19 10:16 01/23/19 10:14 01/23/19 07:21 100 01/23/19 07:20 157/80 H 94 L 01/23/19 04:00 184/83 H 97 01/23/19 00:00 147/68 H 95 Weight Admit Weight 250 lb 3.2 oz Weight 250 lb 3.2 oz I&O: 01/22/19 01/23/19 01/24/19 06:59 06:59 06:59 Intake Total 953 595 Balance 953 595 Result Diagrams: 01/21/19 06:46 01/23/19 05:00 Additional Labs: Accuchecks 01/23/19 01/23/19 01/22/19 07:18 05:48 20:33 POC Glucose 259 H 250 H 333 H 01/22/19 16:53 POC Glucose 238 H Phys Exam - Physical Examination obese, no distress HEENT: moist MMs Neck: supple fair aair entry bilaterally. Cardiovascular: RRR Gastrointestinal: soft, non-tender, no distention, positive bowel sounds Musculoskeletal: no edema, pulses present left hemiparesis. power 2-3/5 STEPHAN, 1-2/5 LLL, 5/5 R limbs Psychiatric: A&O x 3 Dx/Plan (1) Acute ischemic stroke Code(s): I63.9 - CEREBRAL INFARCTION, UNSPECIFIED Status: Acute (2) Dysphagia Code(s): R13.10 - DYSPHAGIA, UNSPECIFIED Status: Acute Comment: patient with profound oropharyngeal dysphagia with silent aspiration on MBS, currently on honey thick liquids and puree, speech reassessment today and if not able to get adequate intake will need NG tube and consideration for PEG (3) CAD (coronary artery disease) Code(s): I25.10 - ATHSCL HEART DISEASE OF [place] CORONARY ARTERY W/O ANG PCTRS Status: Chronic Comment: mild disease of LAD on last cath in 2007 (4) GERD (gastroesophageal reflux disease) Code(s): K21.9 - GASTRO-ESOPHAGEAL REFLUX DISEASE WITHOUT ESOPHAGITIS Status: Chronic (5) Dyslipidemia Code(s): E78.5 - HYPERLIPIDEMIA, UNSPECIFIED Status: Chronic Comment: LDL in 200s, will increase Atorvastatin to 80mg daily (6) Hypertension Code(s): I10 - ESSENTIAL (PRIMARY) HYPERTENSION Status: Chronic Comment: Allowing permissive hypertension, will slowly reintroduce BP meds over the next few days (7) Urinary incontinence Code(s): R32 - UNSPECIFIED URINARY INCONTINENCE Status: Acute (8) Penile discharge, without blood Code(s): R36.9 - URETHRAL DISCHARGE, UNSPECIFIED Status: Acute (9) Acute left hemiparesis Code(s): G81.94 - HEMIPLEGIA, UNSPECIFIED AFFECTING LEFT NONDOMINANT SIDE Status: Acute (10) Physical deconditioning Code(s): R53.81 - OTHER MALAISE Status: Acute (11) Gait instability Code(s): R26.81 - UNSTEADINESS ON FEET Status: Acute (12) Elevated troponin Code(s): R74.8 - ABNORMAL LEVELS OF OTHER SERUM ENZYMES Status: Acute Comment: indeterminate troponins, possibly troponin leak due to severe BP elevations (13) Diabetes mellitus type 2 in obese Code(s): E11.69 - TYPE 2 DIABETES MELLITUS WITH OTHER SPECIFIED COMPLICATION; E66.9 - OBESITY, UNSPECIFIED Status: Chronic Comment: uncontrolled, will add low dose Metformin now that creatinine improved and low dose Lantus (14) PRAMOD (acute kidney injury) Code(s): N17.9 - ACUTE KIDNEY FAILURE, UNSPECIFIED Status: Acute - Plan Increase lantus to 24 units. DC metformin and glipizide -: continue sliding scale insulin. Hba1c 11. -: Monitor BP and increase amlodipine to get adequate BP control. -: get UA, urine culture and urine electrolytes. -: PT/OT/RELIGIOUS LEADER to continue. Continue duaal antiplatelets. * .
[2019-01-23] MEDS ORDERED: Insulin Glargine 14 UNITS in Pre-Filled Syringe 1 EACH SC SCH (12:30)
[2019-01-23 15:51] LABS: Bilirubin Small (Negative); Blood, Urine Negative (Negative); Clarity CLEAR (Clear); Glucose, Urine (Dipstick) 250 mg/dL (Negative); Leukocyte Trace (Negative); Nitrite Negative (Negative); Protein, Urine (Dipstick) 30 mg/dL (Neg-Trace); Urobilinogen 0.2 mg/dL (0.2-1.0)
[2019-01-23 15:54] LABS: Bacteria/HPF None Seen HPF (None Seen); Pathc Cast-AUWi Flag 3.67 (0-2.49); RBC/HPF 0-3 HPF (0-3); Squamous Epithelial 0-3 HPF (0-3); WBC/HPF 0-3 HPF (0-3)
[2019-01-23] MEDS: Simethicone Chewable 80 MG TAB PO PRN (15:55)
[2019-01-23 16:05] LABS: Hyaline Casts/LPF 0-3 HYALINE CAST LPF (0-3 Hyaline); Renal Epithelial None Seen HPF (0-3); Transitional Epithelial 0-3 HPF (0-3)
[2019-01-23 16:06] LABS: Urine Culture Reflex Yes Yes
[2019-01-23 16:09] LABS: Creatinine, Urine Greater than 430.00 mg/dL (63-166); Protein, Urine Random Quant 37 mg/dL (1-14); Sodium, Urine Less than 20 mmol/L (Not Available)
[2019-01-23 16:19] LABS: Urea Nitrogen, Random Urine Greater than 1200 mg/dl
[2019-01-23] MEDS: Atorvastatin Calcium 40 MG TAB PO SCH (20:32)
--- NOTE | 2019-01-23 21:02 | EKG ---
Test Reason : STROKE Blood Pressure : / mmHG Vent. Rate : 089 BPM Atrial Rate : 089 BPM P-R Int : 180 ms QRS Dur : 104 ms QT Int : 378 ms P-R-T Axes : 065 -21 018 degrees QTc Int : 459 ms Normal sinus rhythm Minimal voltage criteria for LVH, may be normal variant Nonspecific T wave abnormality Abnormal ECG Similar to 14-NOV-2017 Confirmed by CONOR CRYSTAL DO ([id number]), newspaper editor managing MEREDITH NEAL ([id number]) on 01/23/2019 9:01:55 PM Referred By: Confirmed By:CONOR CRYSTAL DO
[2019-01-24 05:38] LABS: #Basophils 0.1 thou/uL (0.0-0.2); #Neutrophils 9.4 thou/uL (1.40-6.50); %Basophils 0.5 % (0.0-1.0); %Eosinophils 0.4 % (0.0-10.0); %Lymphocytes 16.3 % (21.0-51.0); %Monocytes 7.7 % (0.0-10.0); %Neutrophils 75.1 % (42.0-75.0); Hemoglobin 12.1 g/dL (14.0-18.0); Mean Corpuscular HGB CONC 32.4 g/dL (32.0-36.0); Mean Corpuscular Volume 86.4 fL (78.0-98.0); Mean Platelet Volume 8.5 fL (7.4-10.4); Platelet Count 285 thou/uL (130-400); RBC Distribution Width 11.1 % (11.5-14.5); Red Blood Cell (RBC) Count 4.33 mill/uL (4.70-6.10); White Blood Cell (WBC) Count 12.5 thou/uL (4.8-10.8)
[2019-01-24] MEDS: HumaLOG 300 UNITS/3 ML VIAL SC PRN ×3 (05:54→17:35)
[2019-01-24] MEDS: Enoxaparin Sodium 40 MG/0.4 ML SYRINGE SC SCH (08:57)
[2019-01-24] MEDS: Escitalopram Oxalate 10 mg Tablet PO SCH (08:58)
[2019-01-24] MEDS: Amlodipine 5 MG TAB PO SCH (08:58)
[2019-01-24] MEDS: Famotidine 20 MG TAB PO SCH ×2 (08:59→20:56)
[2019-01-24] MEDS: Carvedilol 6.25 MG TAB PO SCH ×2 (08:59→20:56)
[2019-01-24] MEDS: Lisinopril 20 MG TAB PO SCH ×2 (08:59→20:52)
[2019-01-24] MEDS: Aspirin 325 mg Enteric Coated Tablet PO SCH (08:59)
[2019-01-24] MEDS: Clopidogrel Bisulfate 75 MG TAB PO SCH (08:59)
[2019-01-24] MEDS ORDERED: Insulin Glargine 24 UNITS in Pre-Filled Syringe 1 EACH SC SCH (09:00)
[2019-01-24] MEDS: Nitroglycerin 2% Ointment 1 INCH/1 GM Packet TOP SCH (12:04)
[2019-01-24] MEDS ORDERED: Amlodipine 5 MG TAB PO SCH (14:00)
--- NOTE | 2019-01-24 14:19 | PDOC.PN ---
- Subjective Encounter Start Date: 01/24/19 Encounter Start Time: 14:16 Subjective: No new problem. -: No chest pain or fever or dysuria - Objective Resuscitation Status - Order Detail: 01/19/19 19:25 Resuscitation Status Routine Resuscitation Status: FULL: Full Resuscitation Discussed with: Patient Vital Signs & Weight: Vital Signs (12 hours) Temp Pulse Resp BP BP Pulse Ox 01/24/19 11:43 98.4 F 62 20 149/72 H 97 01/24/19 08:59 161/81 H 97 01/24/19 08:58 61 161/81 H 01/24/19 08:00 98.7 F 61 20 161/81 H 97 01/24/19 04:00 98.3 F 62 16 154/76 H 98 Weight Admit Weight 250 lb 3.2 oz Weight 250 lb 3.2 oz I&O: 01/23/19 01/24/19 01/25/19 06:59 06:59 06:59 Intake Total 595 485 Output Total 240 Balance 595 245 Result Diagrams: 01/24/19 04:23 01/23/19 05:00 Additional Labs: Accuchecks 01/24/19 01/24/19 01/23/19 10:44 05:00 20:33 POC Glucose 232 H 180 H 242 H 01/23/19 16:39 POC Glucose 180 H Phys Exam - Physical Examination obese male in no obvious distress HEENT: PERRLA, moist MMs Neck: supple Respiratory: no rhonchi fair air entry bilaterally Cardiovascular: RRR Gastrointestinal: soft, no distention, positive bowel sounds Musculoskeletal: no edema power 5/5 right limbs and 1/5 left limbs. Psychiatric: A&O x 3 Dx/Plan (1) Acute ischemic stroke Code(s): I63.9 - CEREBRAL INFARCTION, UNSPECIFIED Status: Acute (2) Dysphagia Code(s): R13.10 - DYSPHAGIA, UNSPECIFIED Status: Acute Comment: patient with profound oropharyngeal dysphagia with silent aspiration on MBS, currently on honey thick liquids and puree (3) CAD (coronary artery disease) Code(s): I25.10 - ATHSCL HEART DISEASE OF [place] CORONARY ARTERY W/O ANG PCTRS Status: Chronic Comment: mild disease of LAD on last cath in 2007 (4) GERD (gastroesophageal reflux disease) Code(s): K21.9 - GASTRO-ESOPHAGEAL REFLUX DISEASE WITHOUT ESOPHAGITIS Status: Chronic (5) Dyslipidemia Code(s): E78.5 - HYPERLIPIDEMIA, UNSPECIFIED Status: Chronic Comment: LDL in 200s, will increase Atorvastatin to 80mg daily (6) Hypertension Code(s): I10 - ESSENTIAL (PRIMARY) HYPERTENSION Status: Chronic Comment: BP control better but still suboptimal. (7) Urinary incontinence Code(s): R32 - UNSPECIFIED URINARY INCONTINENCE Status: Acute (8) Penile discharge, without blood Code(s): R36.9 - URETHRAL DISCHARGE, UNSPECIFIED Status: Acute Comment: Culture grew strep agalactiae, kleb and candidida (9) Acute left hemiparesis Code(s): G81.94 - HEMIPLEGIA, UNSPECIFIED AFFECTING LEFT NONDOMINANT SIDE Status: Acute (10) Physical deconditioning Code(s): R53.81 - OTHER MALAISE Status: Acute (11) Gait instability Code(s): R26.81 - UNSTEADINESS ON FEET Status: Acute (12) Elevated troponin Code(s): R74.8 - ABNORMAL LEVELS OF OTHER SERUM ENZYMES Status: Acute Comment: indeterminate troponins, possibly troponin leak due to severe BP elevations (13) Diabetes mellitus type 2 in obese Code(s): E11.69 - TYPE 2 DIABETES MELLITUS WITH OTHER SPECIFIED COMPLICATION; E66.9 - OBESITY, UNSPECIFIED Status: Chronic Comment: uncontrolled with Hba1c of 11. Better with increased lantus. (14) PRAMOD (acute kidney injury) Code(s): N17.9 - ACUTE KIDNEY FAILURE, UNSPECIFIED Status: Acute Comment: Fena of 0.06 is consistent with prerenal. (15) Genital candidiasis in male Code(s): B37.49 - OTHER UROGENITAL CANDIDIASIS Status: Acute - Plan Increase amlodipine to 10 daily. -: Substitute nitro paste with sisosorbide dinitrate -: Start gentle IV hydration for PRAMOD -: Start levaquin and nystatin powder for UTI/genital infection and candidiasi -: Monitor vitals and renal function. * .
[2019-01-24] MEDS ORDERED: Insulin Glargine 6 UNITS in Pre-Filled Syringe 1 EACH SC SCH (14:30)
[2019-01-24 15:09] LABS: Anion Gap 12 mmol/L (10-20); BUN (Urea Nitrogen) 38 mg/dL (8.4-25.7); Calc. Creatinine Clearance 79 mL/min (70-130); Calcium 10.1 mg/dL (7.8-10.44); Carbon Dioxide 27 mmol/L (22-29); Chloride 109 mmol/L (98-107); Estimated GFR-MDRD 52; Glucose 210 mg/dL (70-105); Potassium 3.2 mmol/L (3.5-5.1); Sodium 145 mmol/L (136-145)
[2019-01-24] MEDS: Atorvastatin Calcium 40 MG TAB PO SCH (20:56)
[2019-01-24] MEDS: Isosorbide Dinitrate 20 MG TAB PO SCH (20:56)
[2019-01-24] MEDS: Nystatin Powder 15 GM BOT TOP SCH (21:24)
[2019-01-25 05:28] LABS: Anion Gap 13 mmol/L (10-20); BUN (Urea Nitrogen) 38 mg/dL (8.4-25.7); Calc. Creatinine Clearance 83 mL/min (70-130); Calcium 9.8 mg/dL (7.8-10.44); Carbon Dioxide 26 mmol/L (22-29); Chloride 109 mmol/L (98-107); Estimated GFR-MDRD 55; Glucose 195 mg/dL (70-105); Potassium 3.1 mmol/L (3.5-5.1); Sodium 145 mmol/L (136-145)
[2019-01-25] MEDS: Carvedilol 6.25 MG TAB PO SCH ×2 (09:05→20:35)
[2019-01-25] MEDS: Aspirin 325 mg Enteric Coated Tablet PO SCH (09:05)
[2019-01-25] MEDS: Clopidogrel Bisulfate 75 MG TAB PO SCH (09:05)
[2019-01-25] MEDS: Isosorbide Dinitrate 20 MG TAB PO SCH ×2 (09:06→20:34)
[2019-01-25] MEDS: Escitalopram Oxalate 10 mg Tablet PO SCH (09:06)
[2019-01-25] MEDS: Amlodipine 10 MG TAB PO SCH (09:06)
[2019-01-25] MEDS: Lisinopril 20 MG TAB PO SCH ×2 (09:06→20:35)
[2019-01-25] MEDS: Enoxaparin Sodium 40 MG/0.4 ML SYRINGE SC SCH (09:07)
[2019-01-25] MEDS: Nystatin Powder 15 GM BOT TOP SCH ×2 (09:07→20:35)
[2019-01-25] MEDS: Famotidine 20 MG TAB PO SCH ×2 (09:07→20:34)
[2019-01-25] MEDS: Insulin Glargine 30 UNITS in Pre-Filled Syringe 1 EACH SC SCH (09:23)
[2019-01-25] MEDS: HumaLOG 300 UNITS/3 ML VIAL SC PRN ×2 (12:04→17:34)
--- NOTE | 2019-01-25 13:36 | PDOC.PN ---
- Subjective Encounter Start Date: 01/25/19 Encounter Start Time: 10:00 Subjective: awake, sitting in chair -: just worked with PT and stood up for a few minutes -: family at bedside - Objective Resuscitation Status - Order Detail: 01/19/19 19:25 Resuscitation Status Routine Resuscitation Status: FULL: Full Resuscitation Discussed with: Patient MAR Reviewed: Yes Vital Signs & Weight: Vital Signs (12 hours) Temp Pulse Pulse Pulse Resp BP BP 01/25/19 11:36 98.3 F 81 18 01/25/19 09:42 85 90 148/75 H 01/25/19 09:06 76 01/25/19 09:05 162/82 H 01/25/19 07:38 98.4 F 76 18 01/25/19 03:20 98.7 F 77 16 BP BP Pulse Ox 01/25/19 11:36 118/71 93 L 01/25/19 09:42 142/74 H 01/25/19 09:06 01/25/19 09:05 01/25/19 07:38 162/82 H 92 L 01/25/19 03:20 152/70 H 95 Weight Admit Weight 250 lb 3.2 oz Weight 250 lb 3.2 oz I&O: 01/24/19 01/25/19 01/26/19 06:59 06:59 06:59 Intake Total 485 Output Total 240 Balance 245 Result Diagrams: 01/24/19 04:23 01/25/19 04:22 Additional Labs: Accuchecks 01/25/19 01/25/19 01/24/19 11:06 06:16 20:17 POC Glucose 263 H 217 H 178 H 01/24/19 16:49 POC Glucose 227 H Phys Exam - Physical Examination HEENT: PERRLA, moist MMs Neck: no JVD, supple Respiratory: no wheezing, no rales Cardiovascular: RRR, no significant murmur Gastrointestinal: soft, non-tender, positive bowel sounds Musculoskeletal: no edema, pulses present left hemiplegia, dysphagia Psychiatric: normal affect, A&O x 3 Dx/Plan (1) Acute ischemic stroke Code(s): I63.9 - CEREBRAL INFARCTION, UNSPECIFIED Status: Acute Comment: acute right thalamic cva with left hemiplegia, dysphagia (2) PRAMOD (acute kidney injury) Code(s): N17.9 - ACUTE KIDNEY FAILURE, UNSPECIFIED Status: Acute Comment: likely has ckd#2 (3) H/O: CVA (cerebrovascular accident) Code(s): Z86.73 - PRSNL HX OF TIA (TIA), AND CEREB INFRC W/O RESID DEFICITS Status: Chronic Comment: prior hemorrhagic right basal ganglia infarct with no residual per family (4) Dysphagia Code(s): R13.10 - DYSPHAGIA, UNSPECIFIED Status: Acute Comment: patient with profound oropharyngeal dysphagia with silent aspiration on MBS, currently on honey thick liquids and puree (5) CAD (coronary artery disease) Code(s): I25.10 - ATHSCL HEART DISEASE OF [place] CORONARY ARTERY W/O ANG PCTRS Status: Chronic Qualifiers: Coronary Disease-Associated Artery/Lesion type: [place] artery Comment: mild disease of LAD on last cath in 2007 (6) GERD (gastroesophageal reflux disease) Code(s): K21.9 - GASTRO-ESOPHAGEAL REFLUX DISEASE WITHOUT ESOPHAGITIS Status: Chronic Qualifiers: Esophagitis presence: esophagitis presence not specified Qualified Code(s) : K21.9 - Gastro-esophageal reflux disease without esophagitis (7) Diabetes mellitus type 2 in obese Code(s): E11.69 - TYPE 2 DIABETES MELLITUS WITH OTHER SPECIFIED COMPLICATION; E66.9 - OBESITY, UNSPECIFIED Status: Chronic Comment: uncontrolled with Hba1c of 11. Better with increased lantus. (8) Dyslipidemia Code(s): E78.5 - HYPERLIPIDEMIA, UNSPECIFIED Status: Chronic Comment: LDL in 200s, on Atorvastatin 80mg daily (9) Hypertension Code(s): I10 - ESSENTIAL (PRIMARY) HYPERTENSION Status: Chronic Qualifiers: Hypertension type: essential hypertension Qualified Code(s): I10 - Essential (primary) hypertension Comment: has severe lvh on echo, ef of 55% - Plan is on asp, plavix, lipitor, coreg, lisinopril, norvasc, isordil -: levaquin for penile discharge, lantus 30 u daily -: to mobilize more with PT/OT -: awaiting placement, d/w family and patient at bedside -: renal function is holding up on current lisinopril, no diuretics * . Review of Systems - Medications/Allergies Allergies/Adverse Reactions: Allergies Allergy/AdvReac Type Severity Reaction Status Date / Time No Known Allergies Allergy Verified 01/20/19 04:50 Medications: Current Medications Acetaminophen (Tylenol) 650 mg PO Q4H PRN PRN Reason: Headache/Fever/Mild Pain (1-3) Last Admin: 01/21/19 05:38 Dose: 650 mg Acetaminophen (Tylenol) 650 mg [place] Q4H PRN PRN Reason: Headache/Fever/Mild Pain (1-3) Amlodipine Besylate (Norvasc) 10 mg PO DAILY [facility] Last Admin: 01/25/19 09:06 Dose: 10 mg Aspirin (Ecotrin) 325 mg PO DAILY [facility] Last Admin: 01/25/19 09:05 Dose: 325 mg Atorvastatin Calcium (Lipitor) 80 mg PO HS [facility] Last Admin: 01/24/19 20:56 Dose: 80 mg Carvedilol (Coreg) 12.5 mg PO BID [facility] Last Admin: 01/25/19 09:05 Dose: 12.5 mg Clopidogrel Bisulfate (Plavix) 75 mg PO DAILY [facility] Last Admin: 01/25/19 09:05 Dose: 75 mg Dextrose/Water (Dextrose 50%) 25 gm SLOW IVP PRN PRN PRN Reason: Hypoglycemia Enoxaparin Sodium (Lovenox) 40 mg SC 0900 [facility] Last Admin: 01/25/19 09:07 Dose: 40 mg Escitalopram Oxalate (Lexapro) 10 mg PO DAILY [facility] Last Admin: 01/25/19 09:06 Dose: 10 mg Famotidine (Pepcid) 20 mg PO BID [facility] Last Admin: 01/25/19 09:07 Dose: 20 mg Glucagon (Glucagon) 1 mg IM PRN PRN PRN Reason: Hypoglycemia Guaifenesin/Dextromethorphan (Robitussin Dm) 15 ml PO Q4H PRN PRN Reason: Cough Hydralazine HCl (Apresoline) 10 mg SLOW IVP Q4H PRN PRN Reason: BP > 220/110 Dextrose/Water (D5w) 1,000 mls @ 0 mls/hr IV .Q0M PRN PRN Reason: Hypoglycemia Insulin Glargine 30 units/ (Miscellaneous Medication) 0.3 mls @ 0 mls/hr SC QAM [facility] Last Admin: 01/25/19 09:23 Dose: 0.3 mls Insulin Human Lispro (Humalog) 0 units SC .MILD SLIDING SCALE PRN PRN Reason: Mild Correctional Scale Last Admin: 01/25/19 12:04 Dose: 4 unit Insulin Human Lispro (Humalog) 0 units SC .BEDTIME SLIDING SC PRN PRN Reason: Bedtime Correctional Scale Last Admin: 01/23/19 20:34 Dose: 2 unit Isosorbide Dinitrate (Isordil) 10 mg PO BID [facility] Last Admin: 01/25/19 09:06 Dose: 10 mg Labetalol HCl (Normodyne) 20 mg SLOW IVP Q1H PRN PRN Reason: Hypertension Levofloxacin (Levaquin) 500 mg PO 0600 [facility] Last Admin: 01/25/19 06:16 Dose: 500 mg Lisinopril (Zestril) 20 mg PO BID [facility] Last Admin: 01/25/19 09:06 Dose: 20 mg Memantine (Namenda) 5 mg PO DAILY [facility] Last Admin: 01/25/19 09:07 Dose: 5 mg Nitroglycerin (Nitrostat) 0.4 mg SL Q5MIN PRN PRN Reason: Chest Pain Nystatin (Mycostatin Powder) 1 gm TOP BID [facility] Last Admin: 01/25/19 09:07 Dose: 1 applic Senna/Docusate Sodium (Senokot S) 2 tab PO BID PRN PRN Reason: Constipation Simethicone (Mylicon Chewable) 80 mg PO PCHS PRN PRN Reason: Gas Pain Last Admin: 01/23/19 15:55 Dose: 80 mg Sodium Chloride (Flush - Normal Saline) 10 ml IVF PRN PRN PRN Reason: Saline Flush Last Admin: 01/23/19 10:12 Dose: 10 ml
[2019-01-25] MEDS: Atorvastatin Calcium 40 MG TAB PO SCH (20:34)
[2019-01-26] MEDS: HumaLOG 300 UNITS/3 ML VIAL SC PRN ×2 (05:40→11:11)
[2019-01-26] MEDS: Carvedilol 6.25 MG TAB PO SCH (08:59)
[2019-01-26] MEDS: Isosorbide Dinitrate 20 MG TAB PO SCH (08:59)
[2019-01-26] MEDS: Nystatin Powder 15 GM BOT TOP SCH (09:00)
[2019-01-26] MEDS: Clopidogrel Bisulfate 75 MG TAB PO SCH (09:00)
[2019-01-26] MEDS: Aspirin 325 mg Enteric Coated Tablet PO SCH (09:00)
[2019-01-26] MEDS: Enoxaparin Sodium 40 MG/0.4 ML SYRINGE SC SCH (09:00)
[2019-01-26] MEDS: Famotidine 20 MG TAB PO SCH (09:00)
[2019-01-26] MEDS: Escitalopram Oxalate 10 mg Tablet PO SCH (09:00)
[2019-01-26] MEDS: Lisinopril 20 MG TAB PO SCH (09:00)
[2019-01-26] MEDS: Amlodipine 10 MG TAB PO SCH (09:00)
[2019-01-26] MEDS: Insulin Glargine 30 UNITS in Pre-Filled Syringe 1 EACH SC SCH (09:01)
[2019-01-26 12:07] VITALS: BP 128/68; TEMP 98.3
--- NOTE | 2019-01-26 13:19 | PDOC.PN ---
- Subjective Encounter Start Date: 01/26/19 Encounter Start Time: 09:00 Subjective: is moving a bit of left lower extremities this am just above the bed -: no chest pain or sob or palp - Objective Resuscitation Status - Order Detail: 01/19/19 19:25 Resuscitation Status Routine Resuscitation Status: FULL: Full Resuscitation Discussed with: Patient ARMIDA Reviewed: Yes Vital Signs & Weight: Vital Signs (12 hours) Temp Pulse Pulse Pulse Resp BP BP 01/26/19 12:00 98.3 F 72 20 01/26/19 09:27 94 97 140/80 01/26/19 09:00 75 01/26/19 08:59 165/86 H 01/26/19 07:56 99.5 F 75 20 01/26/19 03:34 98.6 F 75 16 BP BP Pulse Ox 01/26/19 12:00 128/68 93 L 01/26/19 09:27 104/81 01/26/19 09:00 01/26/19 08:59 92 L 01/26/19 07:56 165/86 H 92 L 01/26/19 03:34 145/73 H 93 L Weight Admit Weight 250 lb 3.2 oz Weight 250 lb 3.2 oz Result Diagrams: 01/24/19 04:23 01/25/19 04:22 Additional Labs: Accuchecks 01/26/19 01/26/19 01/25/19 10:46 05:36 20:23 POC Glucose 299 H 243 H 217 H 01/25/19 16:09 POC Glucose 259 H Phys Exam - Physical Examination HEENT: PERRLA, moist MMs Neck: no JVD, supple Respiratory: no wheezing, no rales Cardiovascular: RRR, no significant murmur Gastrointestinal: soft, non-tender, positive bowel sounds Musculoskeletal: no edema, pulses present Neurological: moves all 4 limbs left hemiparesis, aphasia, dysphagia Psychiatric: normal affect, A&O x 3 Dx/Plan (1) Acute ischemic stroke Code(s): I63.9 - CEREBRAL INFARCTION, UNSPECIFIED Status: Acute Comment: acute right thalamic cva with left hemiplegia, dysphagia (2) PRAMOD (acute kidney injury) Code(s): N17.9 - ACUTE KIDNEY FAILURE, UNSPECIFIED Status: Acute Comment: likely has ckd#2 (3) H/O: CVA (cerebrovascular accident) Code(s): Z86.73 - PRSNL HX OF TIA (TIA), AND CEREB INFRC W/O RESID DEFICITS Status: Chronic Comment: prior hemorrhagic right basal ganglia infarct with no residual per family (4) Dysphagia Code(s): R13.10 - DYSPHAGIA, UNSPECIFIED Status: Acute Comment: patient with profound oropharyngeal dysphagia with silent aspiration on MBS, currently on honey thick liquids and puree (5) CAD (coronary artery disease) Code(s): I25.10 - ATHSCL HEART DISEASE OF [place] CORONARY ARTERY W/O ANG PCTRS Status: Chronic Qualifiers: Coronary Disease-Associated Artery/Lesion type: [place] artery Comment: mild disease of LAD on last cath in 2007 (6) GERD (gastroesophageal reflux disease) Code(s): K21.9 - GASTRO-ESOPHAGEAL REFLUX DISEASE WITHOUT ESOPHAGITIS Status: Chronic Qualifiers: Esophagitis presence: esophagitis presence not specified Qualified Code(s) : K21.9 - Gastro-esophageal reflux disease without esophagitis (7) Diabetes mellitus type 2 in obese Code(s): E11.69 - TYPE 2 DIABETES MELLITUS WITH OTHER SPECIFIED COMPLICATION; E66.9 - OBESITY, UNSPECIFIED Status: Chronic Comment: uncontrolled with Hba1c of 11. Better with increased lantus. (8) Dyslipidemia Code(s): E78.5 - HYPERLIPIDEMIA, UNSPECIFIED Status: Chronic Comment: LDL in 200s, on Atorvastatin 80mg daily (9) Hypertension Code(s): I10 - ESSENTIAL (PRIMARY) HYPERTENSION Status: Chronic Qualifiers: Hypertension type: essential hypertension Qualified Code(s): I10 - Essential (primary) hypertension Comment: has severe lvh on echo, ef of 55% - Plan hemo neuro stable -: may dc pt to [facility] bed -: d/w pt and family at bedside * . Review of Systems - Medications/Allergies Allergies/Adverse Reactions: Allergies Allergy/AdvReac Type Severity Reaction Status Date / Time No Known Allergies Allergy Verified 01/20/19 04:50
[2019-01-26] MEDS ORDERED: Insulin Glargine 10 UNITS in Pre-Filled Syringe 1 EACH SC SCH (21:00)
--- NOTE | 2019-01-27 13:31 | DIS ---
DATE OF ADMISSION: 01/19/2019 DATE OF DISCHARGE: 01/26/2019 DISCHARGE DISPOSITION: [facility]. PRIMARY DISCHARGE DIAGNOSES: 1. Acute right thalamic cerebrovascular accident with left hemiplegia and dysphagia. 2. Acute kidney injury. 3. Prior history of hemorrhagic cerebrovascular accident in the right basal ganglia with no residual prior to arrival. 4. Dysphagia. 5. Coronary artery disease with prior mild left anterior descending disease. 6. Gastroesophageal reflux disease. 7. Diabetes mellitus type 2. 8. Dyslipidemia. 9. Hypertension. 10. Non-ST elevation myocardial infarction type 2. PROCEDURES DONE DURING HOSPITALIZATION: CT angio of the brain done showed no acute vascular anomalies. CT of brain without contrast showed no acute intracranial hemorrhage or mass effect. There were large number of small old lacunar infarcts in bilateral basal ganglia and caudate nuclei with involutional changes and chronic ischemic white matter changes seen. MRI of brain without contrast done, showed acute right thalamic infarct, old hemorrhagic right anterior basal ganglia infarct, chronic small vessel ischemic changes were seen. Echo with 2D Doppler showed EF of 50% to 55%, severe concentric LVH was seen. No thrombus was seen in the cardiac chambers. Penile discharge grew Streptococcus agalactiae, Lisa albicans, Klebsiella pneumoniae, and Staphylococcus aureus. Urine culture, no growth. LABORATORY DATA: H and H of 12 and 37, platelet count 285, MCV is 86 with 75% neutrophils. Discharge BUN and creatinine are 38 and 1.5. HbA1c 11.4. Total cholesterol 342, triglycerides 90, LDL 281, HDL 43. Troponin-I was indeterminate, peaking up to 0.06. CK-MB 3.4. DISCHARGE MEDICATIONS: 1. Coreg 12.5 mg p.o. twice daily. 2. Vitamin B12 p.o. daily. 3. Escitalopram 10 mg p.o. daily. 4. Namenda 5 mg p.o. daily. 5. Vitamin p.o. daily. 6. Norvasc 10 mg p.o. daily. 7. Aspirin 81 mg p.o. daily. 8. Lipitor 80 mg p.o. at bedtime. 9. Plavix 75 mg p.o. daily. 10. Lantus 30 units subcu q.a.m. 11. Isordil 10 mg twice daily. 12. Levaquin 500 mg p.o. daily for another 4 days. 13. Lisinopril 20 mg p.o. twice daily. 14. Senna 2 tablets p.o. twice daily. ALLERGIES: NO KNOWN DRUG ALLERGIES. INPATIENT CONSULTS: 1. Dr. Green for Cardiology. 2. Dr. Adames for Neurology. DISCHARGE PLAN: The patient to follow up with primary care physician in 1 week. BRIEF COURSE DURING HOSPITALIZATION: The patient initially came to ER after having multiple falls at home and was found to have had left-sided weakness with facial droop on arrival. He has had a CT angio of brain done, which showed no abnormalities. Initial CT of brain without contrast done, showed no acute infarct. MRI done, showed findings as mentioned above. The patient had left hemiplegia and dysphagia and aphasia as well. He had a barium swallow done, which showed gross findings of aspiration. He is on a modified diet at present and is tolerating it. Prior to discharge, the patient is trying to participate with physical therapy and occupational therapy. He has been barely able to stand. He is being accepted to [facility] for further recuperation prior to going home. The patient was also evaluated by Dr. Adames for Neurology and Dr. Green for Cardiology. His medications were optimized during his stay here. A total of 35 minutes was spent on discharge plan. Please see a [id number] documentation for the day of discharge on [facility]. Job ID: [id number]
== END 2019-01-26 12:16 | DRG 65 ==
LOC: ERS 16:35 → ERHOLD 19:22 → 2SE 01-20 02:09
PROVIDERS: ADMIT Emergency Medicine; ATTEND Emergency Medicine
DX: I63.59 Cerebral infarction due to unspecified occlusion or stenosis of other cerebral artery (principal); N17.9 Acute kidney failure, unspecified; G81.94 Hemiplegia, unspecified affecting left nondominant side; R29.810 Facial weakness; I25.10 Atherosclerotic heart disease of native coronary artery without angina pectoris; E78.5 Hyperlipidemia, unspecified; R29.705 NIHSS score 5; R47.1 Dysarthria and anarthria; K21.9 Gastro-esophageal reflux disease without esophagitis; F03.90 Unspecified dementia, unspecified severity, without behavioral disturbance, psychotic disturbance, mood disturbance, and anxiety; E66.9 Obesity, unspecified; E11.69 Type 2 diabetes mellitus with other specified complication; N18.2 Chronic kidney disease, stage 2 (mild); E11.22 Type 2 diabetes mellitus with diabetic chronic kidney disease; I12.9 Hypertensive chronic kidney disease with stage 1 through stage 4 chronic kidney disease, or unspecified chronic kidney disease; R74.8 Abnormal levels of other serum enzymes; R13.10 Dysphagia, unspecified; Z68.33 Body mass index [BMI] 33.0-33.9, adult; Z79.82 Long term (current) use of aspirin; Z79.84 Long term (current) use of oral hypoglycemic drugs; Z79.899 Other long term (current) drug therapy
CPT/HCPCS: 36415; 36416; 70450; 70496; 70498; 70551; 71045; 74230; 80048; 80053; 80061; 80069; 81001; 82550; 82553; 82570; 83036; 84156; 84300; 84484; 84540; 85025; 85610; 85730; 86850; 86900; 86901; 87070; 87077; 87086; 87186; 90471; 90686; 90732; 93005; 93306; G0008; G0009; J0360; J1650; J1825; J2405; Q0162; Q9966

== ENCOUNTER 2019-02-04 14:53 | Inpatient (IN) | payer SELFPAY ==
[2019-02-04 15:53] LABS: Hemoglobin 11.4 g/dL (14.0-18.0); Mean Corpuscular HGB CONC 31.9 g/dL (32.0-36.0); Mean Corpuscular Hemoglobin 28.2 pg (27.0-31.0); Mean Corpuscular Volume 88.4 fL (78.0-98.0); Mean Platelet Volume 10.5 fL (7.4-10.4); Platelet Count 268 thou/uL (130-400); RBC Distribution Width 12.9 % (11.5-14.5); Red Blood Cell (RBC) Count 4.04 mill/uL (4.70-6.10); White Blood Cell (WBC) Count 21.4 thou/uL (4.8-10.8)
[2019-02-04 16:16] LABS: Band 2 % (5-11); Lymphocytes 3 % (21-51); MDiff Complete? YES; Monocytes 2 % (0-10); Neutrophil 93 % (42-75); Platelet Morphology Comment Appears Adequate
--- NOTE | 2019-02-04 16:29 | RAD ---
EXAM: Single view of the chest HISTORY: Chest pain and shortness of breath COMPARISON: 01/19/2019 FINDINGS: Single view of the chest shows a normal sized cardiomediastinal silhouette. There is no kristin dence of consolidation, mass, or pleural effusion. The bones are unremarkable. IMPRESSION: No evidence of acute cardiopulmonary disease
--- NOTE | 2019-02-04 16:45 | CT ---
CT Brain WO Con History: [Altered mental status] Comparison: CT brain January 19, 2019 Findings: Multifocal right periventricular and dempsey radiata chronic infarctions are unchanged. Old left white matter chronic infarctions. No midline shift or mass effect. Mild bifrontal atrophy. Calvarium is intact. Paranasal sinuses and mastoids are clear. Impression: Chronic findings. No acute intracranial abnormality.
[2019-02-04 17:30] LABS: ALT (SGPT) 17 U/L (8-55); AST (SGOT) 28 U/L (5-34); Albumin 3.9 g/dL (3.5-5.0); Alkaline Phosphatase 70 U/L (40-150); Anion Gap 19 mmol/L (10-20); BUN (Urea Nitrogen) 114 mg/dL (8.4-25.7); Bilirubin, Total 2.6 mg/dL (0.2-1.2); Calc. Creatinine Clearance 0 mL/min (70-130); Calcium 10.4 mg/dL (7.8-10.44); Carbon Dioxide 20 mmol/L (22-29); Chloride 125 mmol/L (98-107); Estimated GFR-MDRD 20; Globulin 4.3 g/dL (2.4-3.5); Glucose 215 mg/dL (70-105); Potassium 2.8 mmol/L (3.5-5.1); Protein, Total 8.2 g/dL (6.0-8.3); Sodium 161 mmol/L (136-145)
[2019-02-04 17:58] LABS: Bilirubin Negative (Negative); Blood, Urine Moderate (Negative); Clarity TURBID (Clear); Glucose, Urine (Dipstick) Negative (Negative); Leukocyte Negative (Negative); Nitrite Negative (Negative); Protein, Urine (Dipstick) 30 mg/dL (Neg-Trace); Specific Gravity, Urine 1.016 (1.002-1.036); Urobilinogen 0.2 mg/dL (0.2-1.0)
[2019-02-04 18:01] LABS: RBC/HPF 0-3 HPF (0-3); Squamous Epithelial 0-3 HPF (0-3); WBC/HPF 0-3 HPF (0-3)
[2019-02-04 18:03] LABS: Pathc Cast-AUWi Flag 2.85 (0-2.49)
[2019-02-04 18:14] LABS: Hyaline Casts/LPF 0-3 HYALINE CAST LPF (0-3 Hyaline)
[2019-02-04 18:15] LABS: Bacteria/HPF Rare-Few HPF (None Seen)
--- NOTE | 2019-02-04 19:14 | CT ---
CT ABDOMEN AND PELVIS WITHOUT CONTRAST: 02/04/19 HISTORY: Abnormal labs. FINDINGS: There is a mild infiltrate at the left lung base. No free air or free fluid is seen in the abdomen or pelvis. Absence of oral and IV contrast reduces the sensitivity of the exam, particularly for the evaluation of solid organs and bowel. No calculi is seen in the kidneys, ureters, or the urinary bladder. No hydroureteronephrosis is noted on either side. An 18 mm cyst is seen in the right kidney. The small bowel loops are not abnormally dilated. There is fecal material in the colon and rectum. Th ere are vascular calcifications without evidence of aneurysmal dilatation of the abdominal aorta. The re are degenerative changes in the spine. IMPRESSION: 1. No CT evidence of urinary tract calculi or obstruction. 2. Mild infiltrate at the left lung base. 3. Right renal cyst. POS: ANNY
[2019-02-04] MEDS ORDERED: Potassium Chloride 20 MEQ TAB ONE (20:26)
[2019-02-04] MEDS ORDERED: Potassium Chloride 20 MEQ/100 ML PREMIX BAG ONE (20:28)
[2019-02-04] MEDS ORDERED: hydrALAZINE 20 MG/ML VIAL SLOW IVP PRN (23:18)
[2019-02-04] MEDS ORDERED: Dextrose 5% in Water 1,000 ML IV PRN (23:18)
[2019-02-04] MEDS ORDERED: Sodium Chloride 0.9% 500 ML IV SCH (23:18)
[2019-02-04] MEDS ORDERED: 1/2 NS w/KCL 20 mEq 1,000 ML IV SCH (23:18)
[2019-02-04] MEDS ORDERED: Dextrose 50% Abboject 50 ML SYRINGE SLOW IVP PRN (23:18)
[2019-02-05] MEDS ORDERED: Piperacillin/Tazobactam 2.25 GM VIAL ONE (01:49)
[2019-02-05] MEDS ORDERED: Heparin 1,000 UNITS/ML VIAL ONE (01:53)
[2019-02-05] MEDS: Piperacillin/Tazobactam 2.25 GM in Sodium Chloride 0.9% 100 ML IVPB SCH ×4 (02:16→21:07)
[2019-02-05] MEDS: Heparin 5,000 UNITS/ML VIAL SC SCH ×4 (02:51→21:06)
[2019-02-05 04:20] LABS: Anion Gap 19 mmol/L (10-20); BUN (Urea Nitrogen) 119 mg/dL (8.4-25.7); Calc. Creatinine Clearance 37 mL/min (70-130); Calcium 9.9 mg/dL (7.8-10.44); Carbon Dioxide 18 mmol/L (22-29); Chloride 129 mmol/L (98-107); Estimated GFR-MDRD 22; Glucose 177 mg/dL (70-105); Potassium 3.7 mmol/L (3.5-5.1); Sodium 162 mmol/L (136-145)
[2019-02-05 04:44] LABS: Band 2 % (5-11); Eosinophils 1 % (0-10); Hemoglobin 10.8 g/dL (14.0-18.0); Lymphocytes 10 % (21-51); MDiff Complete? YES; Mean Corpuscular HGB CONC 31.6 g/dL (32.0-36.0); Mean Corpuscular Hemoglobin 28.8 pg (27.0-31.0); Mean Corpuscular Volume 91.2 fL (78.0-98.0); Mean Platelet Volume 10.3 fL (7.4-10.4); Monocytes 2 % (0-10); Neutrophil 85 % (42-75); Platelet Count 233 thou/uL (130-400); RBC Distribution Width 11.8 % (11.5-14.5); Red Blood Cell (RBC) Count 3.75 mill/uL (4.70-6.10); White Blood Cell (WBC) Count 22.8 thou/uL (4.8-10.8)
--- NOTE | 2019-02-05 08:10 | HP ---
PRIMARY CARE PHYSICIAN: Dr. Luann Davenport. CHIEF COMPLAINT: [facility] at the prison. HISTORY OF PRESENT ILLNESS: Mr. Ndiaye is an unfortunate 59-year-old gentleman, who was recently admitted to our facility after he was found to have a right periventricular and dempsey radiata cerebrovascular accident. This left him with essentially dysphagia and left-sided paresis. He was treated and then discharged to [facility]. There, he had some routine lab work done and it was found that he had an extremely elevated sodium and he was also hypokalemic and in acute renal failure, and for this reason, he is being admitted to the hospital. The patient is essentially nonverbal and is unable to give me any additional history. He does open his eyes and he appears to be trying to face some words, but it is unintelligible. REVIEW OF SYSTEMS: This is unobtainable due to his aphasia. PAST MEDICAL HISTORY: Significant for hypertension, hyperlipidemia, diabetes mellitus, recent cerebrovascular accident, chronic kidney disease, gastroesophageal reflux disease, and coronary artery disease. PAST SURGICAL HISTORY: He has had a cardiac catheterization. ALLERGIES: NO KNOWN DRUG ALLERGIES. FAMILY HISTORY: Unobtainable due to aphasia. SOCIAL HISTORY: He is single. He lives with his daughter. No history of tobacco or alcohol abuse and his last code status is listed as a full code as well as in the prison records. MEDICATIONS: Medications are taken from the prison records and include, 1. Aspirin 81 mg daily. 2. Coreg 12.5 mg twice a day. 3. Humalog insulin on a sliding scale. 4. Isosorbide 10 mg twice a day. 5. Lantus insulin. 6. Lexapro 10 mg daily. 7. Lipitor 80 mg nightly. 8. Namenda 5 mg daily. 9. Norvasc 10 mg once a day. 10. Plavix 75 mg once daily. 11. Senokot 8.6/50 two tablets twice a day. 12. Vitamin 250 mg daily. 13. Zestril 20 mg daily. PHYSICAL EXAMINATION: GENERAL: He is awake and alert. He is well developed and well nourished. He is chronically ill in appearance. VITAL SIGNS: His blood pressure was 135/75, heart rate 88, respiratory rate of 20, and temperature is 98.1. HEENT: His pupils are equal, round, and reactive. Throat, there was extreme dry mucous membranes and poor dentition. NECK: There is no adenopathy. No bruits. LUNGS: He has bilateral rhonchi and a bit of wheezing. CARDIOVASCULAR: He has a normal S1 and S2. I did not appreciate an S3 or S4. No murmurs, clicks, or rubs. ABDOMEN: Obese, it is soft, nontender, and nondistended. Positive for bowel sounds. No rebound or guarding. EXTREMITIES: There is no edema. NEUROLOGIC: He has a flaccid paralysis in the left upper and lower extremities. The reflexes are diminished on the left side. The right side, he has good muscle strength, that is 5/5. He also has a facial droop and also the left eyelid is a bit drooping as well. SKIN AND INTEGUMENT: He has some areas of hyperpigmentation on the lower extremities, but otherwise no significant skin lesions. LABORATORY DATA AND DIAGNOSTIC STUDIES: The sodium is 161, potassium 2.8, chloride is 125, CO2 is 20, BUN of 114, creatinine 3.86, and glucose is 215. White blood cell count is 21.4, hemoglobin 11.4, hematocrit is 35.7, and platelet count is 268. Urinalysis is essentially negative. Also, he had a chest x-ray that was essentially negative except for cardiomegaly. This is by my reading. CT scan of the brain shows no significant change other than the right periventricular and dempsey radiata infarcts and some old left white matter infarct. CT scan of the abdomen and pelvis showed a possible left lung infiltrate. ASSESSMENT: 1. Hypernatremia. This is likely due to poor oral intake due to his dysphagia. He has been given a liter of normal saline in the ER. We will likely give him another 500 of normal saline bolus and then start him on half-normal and recheck his sodium in the a.m. We will start the rate relatively slow at 100 mL an hour, not to correct his sodium too quickly. 2. Hypokalemia. This will be corrected with the fluid resuscitation. 3. Probable aspiration pneumonia. We will place him on Zosyn for this and also get a speech therapy consult. I suspect that if he wants to continue to be a full code, then need to consider PEG tube placement. 4. Diabetes mellitus. We will place him on a sliding scale insulin. We will hold off on any scheduled insulin until we sort out his swallowing situation. 5. For the hypertension, we will place him on p.r.n. medications as needed. Job ID: [id number]
[2019-02-05] MEDS ORDERED: Famotidine/PF 20 mg/2ml Vial ONE (12:04)
[2019-02-05] MEDS: Famotidine/PF 20 mg/2ml Vial SLOW IVP SCH (12:15)
[2019-02-05 12:22] LABS: Anion Gap 17 mmol/L (10-20); BUN (Urea Nitrogen) 118 mg/dL (8.4-25.7); Calc. Creatinine Clearance 41 mL/min (70-130); Calcium 9.8 mg/dL (7.8-10.44); Carbon Dioxide 21 mmol/L (22-29); Chloride 129 mmol/L (98-107); Estimated GFR-MDRD 25; Glucose 219 mg/dL (70-105); Sodium 164 mmol/L (136-145)
[2019-02-05] MEDS: Dextrose 5% in Water 1,000 ML IV SCH ×2 (13:09→20:27)
--- NOTE | 2019-02-05 17:27 | PDOC.PN ---
- Subjective Encounter Start Date: 02/05/19 Encounter Start Time: 11:00 Mr. Ndiaye was see today in follow-up of Hypernatremia. He is awake and alert. He indicates no problems. - Objective Resuscitation Status - Order Detail: 02/04/19 20:39 Resuscitation Status Routine Resuscitation Status: FULL: Full Resuscitation MAR Reviewed: Yes Vital Signs & Weight: Vital Signs (12 hours) Temp Pulse Resp BP Pulse Ox 02/05/19 08:00 97.8 F 75 16 131/71 95 Weight Weight 250 lb 0.067 oz Result Diagrams: 02/05/19 03:48 02/05/19 11:38 Additional Labs: Accuchecks 02/05/19 00:13 POC Glucose 197 H Phys Exam - Physical Examination HEENT: PERRLA + left facial droop Respiratory: no wheezing, no rales, no rhonchi, clear to auscultation bilateral Cardiovascular: RRR, no significant murmur, no rub Gastrointestinal: soft, non-tender, no distention, positive bowel sounds Musculoskeletal: pulses present, edema present + left sided weakness Left facial droop Dx/Plan (1) Hypernatremia Code(s): E87.0 - HYPEROSMOLALITY AND HYPERNATREMIA Status: Acute (2) Acute kidney injury Code(s): N17.9 - ACUTE KIDNEY FAILURE, UNSPECIFIED Status: Acute (3) Dysphagia Code(s): R13.10 - DYSPHAGIA, UNSPECIFIED Status: Acute Comment: patient with profound oropharyngeal dysphagia with silent aspiration on MBS, currently on honey thick liquids and puree (4) Diabetes mellitus type 2 in obese Code(s): E11.69 - TYPE 2 DIABETES MELLITUS WITH OTHER SPECIFIED COMPLICATION; E66.9 - OBESITY, UNSPECIFIED Status: Chronic Comment: uncontrolled with Hba1c of 11. Better with increased lantus. (5) H/O: CVA (cerebrovascular accident) Code(s): Z86.73 - PRSNL HX OF TIA (TIA), AND CEREB INFRC W/O RESID DEFICITS Status: Chronic Comment: prior hemorrhagic right basal ganglia infarct with no residual per family (6) Hypertension Code(s): I10 - ESSENTIAL (PRIMARY) HYPERTENSION Status: Chronic Qualifiers: Hypertension type: essential hypertension Qualified Code(s): I10 - Essential (primary) hypertension Comment: has severe lvh on echo, ef of 55% - Plan * Hypernatremia- his serum sodium has not improved- will change from 1/2 NS to D5W * Will monitor serum sodium closely * Hypokalemia- improved * Acute kidney injury- suspect from volume depletion- will continue with IV hydration * Dysphagia- late effect from the CVA- will consult Speech therapy- he may need PEG tube, and if not then consider Palliative Care * HTN- blood pressure is stable.
[2019-02-05] MEDS ORDERED: Potassium Chloride 20 MEQ in Premix Bag 1 BAG IVPB SCH (17:45)
[2019-02-05 17:50] LABS: Anion Gap 17 mmol/L (10-20); BUN (Urea Nitrogen) 114 mg/dL (8.4-25.7); Calc. Creatinine Clearance 45 mL/min (70-130); Calcium 9.8 mg/dL (7.8-10.44); Carbon Dioxide 21 mmol/L (22-29); Chloride 129 mmol/L (98-107); Estimated GFR-MDRD 27; Glucose 310 mg/dL (70-105); Potassium 2.9 mmol/L (3.5-5.1); Sodium 164 mmol/L (136-145)
[2019-02-05] MEDS ORDERED: Dextrose 5% in Water 1,000 ML IV SCH ×2 (18:54→23:30)
[2019-02-05] MEDS ORDERED: Lorazepam 2 MG/ML VIAL SLOW IVP PRN (20:20)
[2019-02-05] MEDS: HumaLOG 300 UNITS/3 ML VIAL SC PRN (21:43)
[2019-02-05] MEDS ORDERED: Potassium Chloride 20 MEQ/100 ML PREMIX BAG IVPB SCH (23:00)
[2019-02-06] MEDS: Potassium Chloride 40 MEQ in Dextrose 5% in Water 1,000 ML IV SCH ×2 (00:06→10:26)
[2019-02-06 00:32] LABS: Sodium 160 mmol/L (136-145)
[2019-02-06] MEDS: HumaLOG 300 UNITS/3 ML VIAL SC PRN ×3 (00:59→18:44)
--- NOTE | 2019-02-06 04:06 | CON ---
DATE OF CONSULTATION: CONSULTING PHYSICIAN: Chema Encinas MD REQUESTING PHYSICIAN: Dr. Mancilla. REASON FOR CONSULTATION: Electrolyte derangement. IMPRESSION: 1. Severe hypernatremia in the context of free water deficit. 2. Hypokalemia. 3. Acute on chronic kidney disease, hemodynamically mediated. PLAN: 1. Aggressive free water repletion as the patient is severely in deficit. 2. Renally dose all medications and avoid potentially nephrotoxic agents. 3. We will replete the potassium with free water, therefore to place this patient on D5W with potassium. 4. Serial sodium monitoring to evaluate the degree of correction as I would not like more than one point for every 2 hours. 5. No restriction of fluid. HISTORY OF PRESENT ILLNESS: 59-year-old gentleman with recent CVA, who was noted with some abnormal labs in the place where he was staying and sent over for further management. The patient noted with sodium of above 160 and continue to rise. As a result of these findings, decision has been taken to involve Renal in the management of this case. PAST MEDICAL HISTORY: Significant for hypertension, dyslipidemia, type 2 diabetes, CVA. REVIEW OF SYSTEMS: As documented in the body of the history. ALLERGIES: NO KNOWN DRUG ALLERGIES. FAMILY HISTORY: Not significantly related to present illness. REVIEW OF SYSTEMS: Could not be obtained from this patient who is nonverbal. PHYSICAL EXAMINATION: GENERAL: The patient was found not to be in any obvious distress. VITAL SIGNS: Noted with the following vital signs, afebrile, temperature 97.9; pulse 77; respiratory rate 16; O2 sat 93% with blood pressure 104/74. HEENT: Unremarkable. CARDIOVASCULAR: First and second heart sounds were heard. RESPIRATORY: Clear to auscultation. DIGESTIVE: Revealed a benign abdomen. Positive bowel sounds. EXTREMITIES: No peripheral edema. SKIN: No new gross rash. LYMPHATICS: No peripheral lymphadenopathy. Job ID: [id number]
[2019-02-06] MEDS: Piperacillin/Tazobactam 2.25 GM in Sodium Chloride 0.9% 100 ML IVPB SCH ×3 (04:54→21:08)
[2019-02-06 08:37] LABS: Anion Gap 14 mmol/L (10-20); BUN (Urea Nitrogen) 96 mg/dL (8.4-25.7); Calc. Creatinine Clearance 43 mL/min (70-130); Calcium 9.5 mg/dL (7.8-10.44); Carbon Dioxide 22 mmol/L (22-29); Chloride 129 mmol/L (98-107); Estimated GFR-MDRD 30; Glucose 300 mg/dL (70-105); Potassium 3.4 mmol/L (3.5-5.1); Sodium 162 mmol/L (136-145)
[2019-02-06] MEDS: Heparin 5,000 UNITS/ML VIAL SC SCH ×3 (09:27→21:09)
[2019-02-06] MEDS: Famotidine/PF 20 mg/2ml Vial SLOW IVP SCH (09:27)
--- NOTE | 2019-02-06 10:10 | PDOC.PN ---
- Subjective Encounter Start Date: 02/06/19 Encounter Start Time: 10:07 Patient seen and examined. No new complaints. No overnight events. pt alert and no complaints. failed speech eval yesterday. - Objective Resuscitation Status - Order Detail: 02/04/19 20:39 Resuscitation Status Routine Resuscitation Status: FULL: Full Resuscitation MAR Reviewed: Yes Vital Signs & Weight: Vital Signs (12 hours) Temp Pulse Resp BP Pulse Ox 02/06/19 07:59 97.9 F 85 18 129/89 93 L 02/06/19 03:53 97.8 F 78 16 149/82 H 92 L 02/05/19 23:48 97.4 F L 73 16 150/81 H 95 Weight Weight 222 lb 14.4 oz Result Diagrams: 02/05/19 03:48 02/06/19 07:38 Additional Labs: Accuchecks 02/06/19 02/06/19 02/06/19 06:39 06:01 00:56 POC Glucose 282 H 305 H 352 H 02/05/19 20:56 POC Glucose 306 H Phys Exam - Physical Examination Constitutional: NAD HEENT: sclera anicteric Neck: supple Respiratory: no wheezing, no rales Cardiovascular: no significant murmur Gastrointestinal: soft Musculoskeletal: no edema Neurological: normal sensation Psychiatric: normal affect Skin: no rash Dx/Plan (1) Acute kidney injury Code(s): N17.9 - ACUTE KIDNEY FAILURE, UNSPECIFIED Status: Acute (2) Hypernatremia Code(s): E87.0 - HYPEROSMOLALITY AND HYPERNATREMIA Status: Acute (3) Acute renal failure superimposed on stage 2 chronic kidney disease Code(s): N17.9 - ACUTE KIDNEY FAILURE, UNSPECIFIED; N18.2 - CHRONIC KIDNEY DISEASE, STAGE 2 (MILD) Status: Acute Comment: improving (4) Dysphagia Code(s): R13.10 - DYSPHAGIA, UNSPECIFIED Status: Acute Comment: patient with profound oropharyngeal dysphagia with silent aspiration on MBS, currently on honey thick liquids and puree (5) CAD (coronary artery disease) Code(s): I25.10 - ATHSCL HEART DISEASE OF [place] CORONARY ARTERY W/O ANG PCTRS Status: Chronic Qualifiers: Coronary Disease-Associated Artery/Lesion type: [place] artery Comment: mild disease of LAD on last cath in 2007 (6) Diabetes mellitus type 2 in obese Code(s): E11.69 - TYPE 2 DIABETES MELLITUS WITH OTHER SPECIFIED COMPLICATION; E66.9 - OBESITY, UNSPECIFIED Status: Chronic Comment: uncontrolled with Hba1c of 11. Better with increased lantus. (7) H/O: CVA (cerebrovascular accident) Code(s): Z86.73 - PRSNL HX OF TIA (TIA), AND CEREB INFRC W/O RESID DEFICITS Status: Chronic Comment: prior hemorrhagic right basal ganglia infarct with no residual per family (8) History of hyperlipidemia Code(s): Z86.39 - PERSONAL HISTORY OF ENDO, NUTRITIONAL AND METABOLIC DISEASE Status: Chronic (9) Hypertension Code(s): I10 - ESSENTIAL (PRIMARY) HYPERTENSION Status: Chronic Qualifiers: Hypertension type: essential hypertension Qualified Code(s): I10 - Essential (primary) hypertension Comment: has severe lvh on echo, ef of 55% - Plan * . Na remains high. D5W increased to 200cc/hr per nephrology replete K monitor K, Mg and phos will add lantus 10 units qam, home dose of 30 units qam. monitor BS and on SSI f/u speech therapy recs- failed eval yesterday ? need PEG AM labs.
[2019-02-06] MEDS ORDERED: Potassium Chloride 40 MEQ in Dextrose 5% in Water 1,000 ML IV SCH (10:15)
[2019-02-06] MEDS ORDERED: Potassium Chloride 40 MEQ in Sodium Chloride 0.9% 250 ML 250 ML IV SCH (10:30)
[2019-02-06] MEDS ORDERED: Insulin Glargine 10 UNITS in Pre-Filled Syringe 1 EACH SC SCH (10:30)
--- NOTE | 2019-02-06 14:21 | EKG ---
Test Reason : Blood Pressure : / mmHG Vent. Rate : 082 BPM Atrial Rate : 082 BPM P-R Int : 158 ms QRS Dur : 118 ms QT Int : 396 ms P-R-T Axes : 046 -21 088 degrees QTc Int : 462 ms Normal sinus rhythm Left ventricular hypertrophy with QRS widening Nonspecific ST and T wave abnormality Prolonged QT Abnormal ECG Confirmed by CHRISTEL EARL DO ([id number]), industrial editor PING ARMAS ([id number]) on 02/06/2019 2:20:58 PM Referred By: Confirmed By:CHRISTEL EARL DO
[2019-02-06 20:18] LABS: Anion Gap 16 mmol/L (10-20); BUN (Urea Nitrogen) 78 mg/dL (8.4-25.7); Calc. Creatinine Clearance 48 mL/min (70-130); Calcium 9.3 mg/dL (7.8-10.44); Carbon Dioxide 18 mmol/L (22-29); Chloride 134 mmol/L (98-107); Estimated GFR-MDRD 34; Glucose 315 mg/dL (70-105); Potassium 4.4 mmol/L (3.5-5.1); Sodium 164 mmol/L (136-145)
[2019-02-06] MEDS: Dextrose 5% in Water 1,000 ML IV SCH (21:08)
--- NOTE | 2019-02-06 21:25 | PRG ---
DATE OF SERVICE: 02/06/2019 SUBJECTIVE: The patient seems to be doing much better today. OBJECTIVE: VITAL SIGNS: Noted with the following vital signs; afebrile, temperature 97.8, pulse 98, respiratory rate of 16, O2 saturations 96% with blood pressure of 160/91. HEENT: Unremarkable. CARDIOVASCULAR SYSTEM: First and second heart sounds were heard. RESPIRATORY SYSTEM: Clear to auscultation. DIGESTIVE: Revealed a benign abdomen. Positive bowel sounds. EXTREMITIES: No peripheral edema. SKIN: No new gross rash. LYMPHATICS: No peripheral lymphadenopathy. IMPRESSION: Severe hypernatremia in the context of free water deficit. PLAN: 1. Continue aggressive free water repletion. 2. Please repeat the sodium level and make necessary adjustment to the free water repletion rate. Job ID: [id number]
--- NOTE | 2019-02-06 21:57 | CON ---
DATE OF CONSULTATION: CHIEF COMPLAINT: Possible seizures. HISTORY OF PRESENT ILLNESS: No one was available to give medical history. The patient was in bed and he is completely aphasic with expressive aphasia, but he can also follow commands. Per EMS, the patient has left hemiplegia. correction did not specifically say why he was brought. There was a question of whether a family member saw seizures, and Neurology consult was requested. PAST MEDICAL HISTORY: He has coronary artery disease, myocardial infarction, diabetes, previous history of stroke in December with left hemiparesis, and hypertension. PAST SURGICAL HISTORY: No prior surgical history noted. SOCIAL HISTORY: He lives in a [place] [facility]. ALLERGIES: NO KNOWN DRUG ALLERGIES. HOME MEDICATIONS: Include aspirin. REVIEW OF SYSTEMS: Very difficult to obtain because of patient's aphasia. CURRENT LABORATORY DATA: White count 22.8, hemoglobin 10.8, hematocrit 34.2, platelets 233. Chemistry; sodium 162, potassium 3.4, chloride 129, bicarb 22, BUN 96, creatinine 2.7, glucose 300. Urinalysis is abnormal and his MRI from January 20 shows acute right thalamic infarct and old hemorrhagic right anterior basal ganglia infarct, and his current head CT from this admission shows chronic findings including multifocal right periventricular and dempsey radiata infarctions. In December, he also had CT angiography and [place], which did not show any vascular abnormalities. His most recent echocardiogram is not available for review. PHYSICAL EXAMINATION: VITAL SIGNS: Temperature was 97.9, pulse 85, respiratory rate 18, blood pressure 129/89. GENERAL APPEARANCE: Well-built, well-nourished gentleman, who is in bed. He can follow commands, but he has severe expressive aphasia. NEUROLOGIC: Cranial nerves normal extraocular movements. Pupils 2 mm, reactive to light. Normal facial sensation bilaterally. Tongue midline. No atrophy noted. Normal elevation of palate. Motor exam; bulk normal, tone normal. Strength 5/5 on the right side in upper and lower extremities. On the left side, his strength was 0/5. He had 1+ reflexes throughout and muscle groups tested are deltoid, biceps, triceps, wrist extension and flexion, finger extension and flexion, iliopsoas, hamstrings, quadriceps, ankle dorsiflexion and plantar flexion bilaterally. Sensory, normal to touch on the right side. Cerebellar, normal [id number] on the right side. IMPRESSION: The patient is a 59-year-old man with right thalamic anterior infarct which caused his left-sided weakness and he has had dysphagia, hemiparesis, along with aphasia per chart. He is unable to give any medical history. There was no recorded medical history of seizures per chart, but nurse has informed me that one family member noted possible seizures. At this time, the patient has severe aphasia with residual left-sided weakness. RECOMMENDATIONS: Consider PEG tube and palliative care for SNF placement and please continue anti-platelet agents for his stroke prophylaxis along with statin. I will see him again tomorrow. Job ID: [id number]
[2019-02-07] MEDS: Dextrose 5% in Water 1,000 ML IV SCH ×6 (00:11→20:57)
[2019-02-07] MEDS: HumaLOG 300 UNITS/3 ML VIAL SC PRN ×3 (00:14→18:16)
[2019-02-07] MEDS: Piperacillin/Tazobactam 2.25 GM in Sodium Chloride 0.9% 100 ML IVPB SCH ×3 (04:08→20:50)
[2019-02-07 06:28] LABS: Albumin 3.3 g/dL (3.5-5.0); Anion Gap 14 mmol/L (10-20); BUN (Urea Nitrogen) 64 mg/dL (8.4-25.7); BUN/Creatinine Ratio 28.83; Calc. Creatinine Clearance 52 mL/min (70-130); Calcium 9.1 mg/dL (7.8-10.44); Carbon Dioxide 21 mmol/L (22-29); Chloride 131 mmol/L (98-107); Estimated GFR-MDRD 37; Glucose 353 mg/dL (70-105); Phosphorus 2.7 mg/dL (2.3-4.7); Potassium 3.5 mmol/L (3.5-5.1); Sodium 162 mmol/L (136-145)
[2019-02-07] MEDS ORDERED: Clopidogrel Bisulfate 75 MG TAB PO SCH (09:00)
[2019-02-07] MEDS ORDERED: Carvedilol 3.125 MG TAB PO SCH (09:00)
[2019-02-07] MEDS ORDERED: Insulin Glargine 20 UNITS in Pre-Filled Syringe 1 EACH SC SCH (09:00)
[2019-02-07] MEDS ORDERED: Cyanocobalamin (Vitamin B-12) 1,000 MCG TAB PO SCH (09:00)
[2019-02-07] MEDS ORDERED: Isosorbide Dinitrate 20 MG TAB PO SCH (09:00)
[2019-02-07] MEDS ORDERED: Insulin Glargine 10 UNITS in Pre-Filled Syringe 1 EACH SC SCH ×2 (09:00→10:00)
[2019-02-07] MEDS ORDERED: Escitalopram Oxalate 10 mg Tablet PO SCH (09:00)
[2019-02-07] MEDS ORDERED: Thiamine 100 MG TAB PO SCH (09:00)
[2019-02-07] MEDS ORDERED: Amlodipine 10 MG TAB PO SCH (09:00)
--- NOTE | 2019-02-07 09:24 | PDOC.PN ---
- Subjective Encounter Start Date: 02/07/19 Encounter Start Time: 09:22 -: non-verbal Patient seen and examined. No overnight events pt with expressive aphasia. family decided to have PEG tube placement and transfer to [place]. - Objective Resuscitation Status - Order Detail: 02/04/19 20:39 Resuscitation Status Routine Resuscitation Status: FULL: Full Resuscitation MAR Reviewed: Yes Vital Signs & Weight: Vital Signs (12 hours) Temp Pulse Resp BP Pulse Ox 02/07/19 08:00 98.8 F 80 18 168/93 H 92 L 02/07/19 03:57 98.6 F 86 16 154/96 H 92 L 02/07/19 00:10 95 02/06/19 23:51 98.7 F 88 16 164/88 H 90 L Weight Admit Weight 222 lb 14.4 oz Weight 225 lb 4.8 oz I&O: 02/06/19 02/07/19 02/08/19 06:59 06:59 06:59 Intake Total 3000 Balance 3000 Result Diagrams: 02/05/19 03:48 02/07/19 05:08 Additional Labs: Accuchecks 02/07/19 02/06/19 02/06/19 00:11 16:50 10:53 POC Glucose 277 H 231 H 294 H Phys Exam - Physical Examination Constitutional: NAD HEENT: sclera anicteric Neck: supple Respiratory: no wheezing, no rales Cardiovascular: RRR Gastrointestinal: soft Musculoskeletal: no edema left sided weakness and expressive aphasia Deviation from normal: depressed Skin: no rash Dx/Plan (1) Acute kidney injury Code(s): N17.9 - ACUTE KIDNEY FAILURE, UNSPECIFIED Status: Acute (2) Hypernatremia Code(s): E87.0 - HYPEROSMOLALITY AND HYPERNATREMIA Status: Acute (3) Acute renal failure superimposed on stage 2 chronic kidney disease Code(s): N17.9 - ACUTE KIDNEY FAILURE, UNSPECIFIED; N18.2 - CHRONIC KIDNEY DISEASE, STAGE 2 (MILD) Status: Acute Comment: improving (4) Dysphagia Code(s): R13.10 - DYSPHAGIA, UNSPECIFIED Status: Acute Comment: patient with profound oropharyngeal dysphagia with silent aspiration on MBS, currently on honey thick liquids and puree (5) CAD (coronary artery disease) Code(s): I25.10 - ATHSCL HEART DISEASE OF [place] CORONARY ARTERY W/O ANG PCTRS Status: Chronic Qualifiers: Coronary Disease-Associated Artery/Lesion type: [place] artery Comment: mild disease of LAD on last cath in 2007 (6) Diabetes mellitus type 2 in obese Code(s): E11.69 - TYPE 2 DIABETES MELLITUS WITH OTHER SPECIFIED COMPLICATION; E66.9 - OBESITY, UNSPECIFIED Status: Chronic Comment: uncontrolled with Hba1c of 11. Better with increased lantus. (7) H/O: CVA (cerebrovascular accident) Code(s): Z86.73 - PRSNL HX OF TIA (TIA), AND CEREB INFRC W/O RESID DEFICITS Status: Chronic Comment: prior hemorrhagic right basal ganglia infarct with no residual per family (8) History of hyperlipidemia Code(s): Z86.39 - PERSONAL HISTORY OF ENDO, NUTRITIONAL AND METABOLIC DISEASE Status: Chronic (9) Hypertension Code(s): I10 - ESSENTIAL (PRIMARY) HYPERTENSION Status: Chronic Qualifiers: Hypertension type: essential hypertension Qualified Code(s): I10 - Essential (primary) hypertension Comment: has severe lvh on echo, ef of 55% - Plan cont current plan of care, PT/OT, social services director, DVT proph w/heparin * . D5W increased to 250cc/hr per nephrology. Monitor CMP, Mg and phos plan to have PEG tube placement and GI consulted CM consult for DC planning - NH placement will increase lantus to 20 units qam. Monitor BS. Selected home meds and monitor BP. AM labs.
[2019-02-07] MEDS: Heparin 5,000 UNITS/ML VIAL SC SCH ×3 (09:46→20:50)
[2019-02-07] MEDS: Famotidine/PF 20 mg/2ml Vial SLOW IVP SCH (09:46)
[2019-02-07] MEDS ORDERED: Sodium Bicarbonate Tab 325 MG TAB PER TUBE PRN (10:02)
[2019-02-07] MEDS ORDERED: Pancrelipase DR 12000 1 CAP FS PRN (10:02)
[2019-02-07] MEDS: Aspirin 325 MG TAB PO SCH (11:14)
[2019-02-07 18:22] LABS: Anion Gap 15 mmol/L (10-20); BUN (Urea Nitrogen) 48 mg/dL (8.4-25.7); Calc. Creatinine Clearance 58 mL/min (70-130); Carbon Dioxide 16 mmol/L (22-29); Chloride 128 mmol/L (98-107); Estimated GFR-MDRD 42; Glucose 405 mg/dL (70-105); Potassium 4.3 mmol/L (3.5-5.1); Sodium 155 mmol/L (136-145)
--- NOTE | 2019-02-07 18:48 | PRG ---
DATE OF SERVICE: 02/07/2019 INTERVAL HISTORY: The patient has been doing slightly better since yesterday. He is talking some, but not full sentences. He can say yes at this point. He is still following commands. He is, I believe, planned for PEG tube placement and discharge back to the custodial. Current lab work, no further seizures or any involuntary movements were noted. LABORATORY WORK: White count 22.8, hemoglobin 10.8, hematocrit 34.2, platelet count 233. Sodium 162, chloride 131, bicarb 21, BUN 64, creatinine 2.22 PHYSICAL EXAMINATION: VITAL SIGNS: Temperature 98.8, blood pressure was 168/93, pulse is 80, and respiratory rate 18. NEUROLOGIC: Examination showed neurological examination showed the patient being more alert and following all commands. Cranial nerves, left facial droop. Motor examination, strength based 5/5 on the right side, left is 0/5, and deep tendon reflexes were absent. The verbal output was the word yes. IMPRESSION: The patient with possible altered mental status potentially and hypernatremia and there was some note of family member witnessing involuntary movements, possible seizure. He has not had any further events since hospitalization. I suspect this could be due to the complex presentation with significant hypernatremia. At this point, he is more alert and less confused and he seems to be back to his baseline and continues to have left-sided weakness and aphasia. RECOMMENDATIONS: Agree with correction of sodium slowly and plans for PEG tube placement and discharge to custodial. Please call Neurology for any further questions regarding this patient. Job ID: [id number]
[2019-02-07] MEDS: Carvedilol 3.125 MG TAB PER TUBE SCH (21:01)
[2019-02-07] MEDS: Atorvastatin Calcium 40 MG TAB PER TUBE SCH (21:01)
[2019-02-07] MEDS: Isosorbide Dinitrate 20 MG TAB PER TUBE SCH (21:02)
--- NOTE | 2019-02-07 21:15 | PRG ---
DATE OF SERVICE: 02/07/2019 SUBJECTIVE: The patient is seen and examined, seems to be improving. OBJECTIVE: HEENT: Unremarkable. CARDIOVASCULAR SYSTEM: First and second heart sounds were heard. RESPIRATORY SYSTEM: Clear to auscultation. DIGESTIVE SYSTEM: Revealed a benign abdomen. Positive bowel sounds. EXTREMITIES: No peripheral edema. SKIN: No new gross rash. LYMPHATICS: No peripheral lymphadenopathy. IMPRESSION: 1. Hypernatremia which seems to be responding to free water repletion. 2. [place]-xa-kyxbagl kidney disease in the context of free water deficit. PLAN: 1. The patient will continue with free water repletion pending definitive route of feeding and rehydrating this patient. 2. The patient likely to benefit from PEG tube placement as far as parenteral free water repletion is not sustainable. 3. Further management to be dependent on the clinical course. Job ID: [id number]
[2019-02-08] MEDS: HumaLOG 300 UNITS/3 ML VIAL SC PRN ×3 (00:08→18:56)
--- NOTE | 2019-02-08 00:47 | CON ---
DATE OF CONSULTATION: REASON FOR CONSULT: Request for PEG tube placement. HISTORY OF PRESENT ILLNESS: Mr. Ndiaye is a 59-year-old gentleman who was recently here in the hospital and discharged on 01/27/2019 to [facility] the [facility]. He had had a right thalamic CVA with left hemiplegia, dysphagia and dysarthria. He is taking p.o., was readmitted on 02/04 secondary to hyponatremia and hypokalemia as well as prerenal azotemia and he was readmitted for IV fluids. He was really having difficulty speaking and swallowing. He has been rehydrated and re-evaluated by speech pathology who felt that he has some aspiration risk. He has been treated for an aspiration pneumonia. On this admission, also had a concern that he really just cannot get enough nutrients and liquids in. After evaluating him over the past several days, yesterday it seems that they talked to the family about PEG tube placement, risks and benefits, and everyone has decided to proceed along those lines and I have been asked to see to place a PEG tube. PAST MEDICAL HISTORY: Recent CVA, coronary disease, prior [place], hypertension. PAST SURGICAL HISTORY: Cardiac catheterization and other surgeries. ALLERGIES: NONE KNOWN. FAMILY HISTORY: Unable to obtain due to dysphagia. SOCIAL HISTORY: He is single, lives with daughter. H and P states, he has had no history of alcohol or tobacco use. MEDICATIONS: At [facility]: 1. Aspirin. 2. Coreg. 3. Humalog. 4. Isosorbide. 5. Lantus insulin. 6. Lexapro. 7. Lipitor. 8. Namenda. 9. Norvasc. 10. Plavix. 11. Senokot. 12. Vitamin. 13. Zestril. MEDICATIONS HERE: 1. Tylenol. 2. Norvasc. 3. Creon. 4. Aspirin. 5. Lipitor. 6. Coreg. 7. Plavix. 8. Cyanocobalamin. 9. Lexapro. 10. Pepcid. Heparin subcu. 1. Insulin sliding scale. 2. Isosorbide. 3. P.r.n. Ativan. 4. Namenda. 5. Zosyn. PHYSICAL EXAMINATION: GENERAL: He is resting comfortably in bed. The patient is aphasic. He can speak a little bit. He does seem to understand what I am saying. VITAL SIGNS: Temperature 99, pulse 90, respirations were 18, O2 saturation 93% on room air, blood pressure 154/92. NECK: Supple. No adenopathy. LUNGS: Clear with decreased breath sounds at bases. HEART: Regular rhythm. ABDOMEN: Soft and nontender without rebound or guarding. IMAGING: Review of old CT scan of the abdomen and pelvis from 02/04/2019, there is no abnormalities. The stomach appeared opposed to the abdominal wall fairly well. LABORATORY DATA: White count 22,000, hemoglobin 10.8, platelet count 233, that was from the . On 01/19, he had INR of 1.1. Sodium today was still 162, chloride 131, BUN 64, creatinine 2.2. ASSESSMENT: The patient is a good candidate for a percutaneous endoscopic gastrostomy tube placement, sodium of 162. Anesthesia was going to put him to sleep. We will see, if they will or not, but otherwise electrolyte abnormalities be fixed first. It may reasonable to an nasogastric tube for some free water first. according to my experience, the anesthesia does not want to sedate people with sodium quite this high. If they will, I have got it on the first schedule tomorrow. Job ID: [id number]
[2019-02-08] MEDS: Dextrose 5% in Water 1,000 ML IV SCH ×6 (01:52→18:58)
[2019-02-08] MEDS: Piperacillin/Tazobactam 2.25 GM in Sodium Chloride 0.9% 100 ML IVPB SCH ×3 (04:52→20:13)
[2019-02-08 06:19] LABS: Phosphorus 3.2 mg/dL (2.3-4.7)
[2019-02-08 06:23] LABS: ALT (SGPT) 15 U/L (8-55); AST (SGOT) 24 U/L (5-34); Albumin 3.2 g/dL (3.5-5.0); Alkaline Phosphatase 65 U/L (40-150); Anion Gap 12 mmol/L (10-20); BUN (Urea Nitrogen) 40 mg/dL (8.4-25.7); BUN/Creatinine Ratio 20.83; Bilirubin, Total 1.5 mg/dL (0.2-1.2); Calc. Creatinine Clearance 61 mL/min (70-130); Calcium 8.8 mg/dL (7.8-10.44); Carbon Dioxide 22 mmol/L (22-29); Chloride 123 mmol/L (98-107); Estimated GFR-MDRD 44; Glucose 380 mg/dL (70-105); Magnesium 2.5 mg/dL (1.6-2.6); Phosphorus 3.3 mg/dL (2.3-4.7); Potassium 3.3 mmol/L (3.5-5.1); Protein, Total 7.2 g/dL (6.0-8.3); Sodium 154 mmol/L (136-145)
[2019-02-08] MEDS: Insulin Glargine 20 UNITS in Pre-Filled Syringe 1 EACH SC SCH (09:25)
[2019-02-08] MEDS: Heparin 5,000 UNITS/ML VIAL SC SCH ×3 (09:25→20:13)
[2019-02-08] MEDS: Famotidine/PF 20 mg/2ml Vial SLOW IVP SCH (11:02)
[2019-02-08] MEDS: Aspirin 325 MG TAB PO SCH (11:28)
[2019-02-08] MEDS: Clopidogrel Bisulfate 75 MG TAB PER TUBE SCH (11:28)
[2019-02-08] MEDS: Amlodipine 10 MG TAB PER TUBE SCH (11:28)
[2019-02-08] MEDS: Carvedilol 3.125 MG TAB PER TUBE SCH ×2 (11:28→21:38)
[2019-02-08] MEDS: Isosorbide Dinitrate 20 MG TAB PER TUBE SCH ×2 (11:29→21:38)
[2019-02-08] MEDS: Cyanocobalamin (Vitamin B-12) 1,000 MCG TAB PER TUBE SCH (11:29)
[2019-02-08] MEDS: Escitalopram Oxalate 10 mg Tablet PER TUBE SCH (11:29)
[2019-02-08] MEDS: Thiamine 100 MG TAB PER TUBE SCH (11:30)
[2019-02-08] MEDS ORDERED: Lidocaine 1% PF 5 ML VIAL ONE (13:00)
[2019-02-08] MEDS ORDERED: PROPOFOL 200 MG/20 ML VIAL ONE (13:00)
[2019-02-08] MEDS ORDERED: Promethazine HCl 25 MG/ML VIAL SLOW IVP PRN (13:33)
[2019-02-08] MEDS ORDERED: Promethazine HCl 25 MG/ML VIAL IM PRN (13:33)
[2019-02-08] MEDS ORDERED: Ondansetron HCl/PF 4 MG/2 ML Vial IVP PRN (13:33)
--- NOTE | 2019-02-08 15:50 | OP ---
DATE OF PROCEDURE: 02/08/2019 PREPROCEDURE DIAGNOSES: 1. Cerebrovascular accident. 2. Oropharyngeal dysphagia. 3. Aspiration pneumonia. 4. Dehydration with electrolyte abnormalities. POSTPROCEDURE DIAGNOSES: 1. Normal esophagogastroduodenoscopy. 2. Percutaneous endoscopic gastrostomy tube placement by Ponsky pull technique with no complications. ANESTHESIA: TIVA. ANTIBIOTICS: The patient is already on Zosyn, did not get any extra prophylactic antibiotics. PROCEDURE IN DETAIL: The patient was informed of the risks, benefits, and possible complications of endoscopy including perforation, reaction to medication, and aspiration, informed consent was obtained. The patient was brought to the endoscopy suite, where he was sedated in gradual fashion. When he was comfortable, bite block was placed inside the orifice. The endoscope was advanced through the esophagus, stomach, and the second and third portion of the duodenum and slowly removed. The stomach was fully distended and adequate place for PEG tube placement was identified by finger indentation and transillumination. The PEG tube was in place after the abdomen was prepped and draped in sterile fashion by Ponsky pull technique, second-look confirmed good placement and no evidence of trauma or bleeding or hematoma. The patient tolerated the procedure well, was brought to recovery room in stable condition. Job ID: [id number]
--- NOTE | 2019-02-08 18:07 | PDOC.PN ---
- Subjective Encounter Start Date: 02/08/19 Encounter Start Time: 18:00 Subjective: f/u for CVA, severe dehydration and hypernatremia s/p PEG placement -: 02/08/19. Continues on D5W IVF. - Objective Resuscitation Status - Order Detail: 02/04/19 20:39 Resuscitation Status Routine Resuscitation Status: FULL: Full Resuscitation MAR Reviewed: Yes Vital Signs & Weight: Vital Signs (12 hours) Temp Pulse Pulse Pulse Resp BP BP 02/08/19 14:25 80 18 02/08/19 13:20 78 80 155/89 H 151/92 H 02/08/19 11:28 85 02/08/19 11:23 98.2 F 85 18 02/08/19 10:22 78 80 155/89 H 151/92 H 02/08/19 09:30 02/08/19 09:14 02/08/19 07:42 99 F 73 16 BP Pulse Ox 02/08/19 14:25 160/85 H 99 02/08/19 13:20 02/08/19 11:28 02/08/19 11:23 135/93 H 93 L 02/08/19 10:22 02/08/19 09:30 93 L 02/08/19 09:14 93 L 02/08/19 07:42 159/86 H 90 L Weight Admit Weight 222 lb 14.4 oz Weight 225 lb 3.2 oz I&O: 02/07/19 02/08/19 02/09/19 06:59 06:59 06:59 Intake Total 3000 5395 Balance 3000 5395 Result Diagrams: 02/05/19 03:48 02/08/19 05:05 Additional Labs: Accuchecks 02/08/19 02/08/19 02/08/19 13:43 12:53 11:21 POC Glucose 297 H 296 H 339 H 02/08/19 02/08/19 02/07/19 05:39 00:03 18:08 POC Glucose 369 H 349 H 362 H 02/07/19 06:06 POC Glucose 352 H Laboratory Tests 02/04/19 02/05/19 02/06/19 15:35 03:48 00:07 WBC 21.4 H Hgb 11.4 L Neutrophils % (Manual) 93 H 85 H Sodium 160 H Phosphorus 02/06/19 02/06/19 02/07/19 07:38 19:47 05:08 WBC Hgb Neutrophils % (Manual) Sodium 162 H* 164 H* 162 H* Phosphorus 02/07/19 02/08/19 17:56 05:05 WBC Hgb Neutrophils % (Manual) Sodium 155 H Phosphorus 3.3 EKG Reviewed by me: Yes (Tele - SR) Phys Exam - Physical Examination Constitutional: NAD alert, aphasic HEENT: PERRLA, sclera anicteric, oral pharynx no lesions Neck: no nodes, no JVD, supple, full ROM scattered basilar rhonchi S1, S2 Cardiovascular: RRR, no significant murmur, no rub, gallop PEG tube in place Gastrointestinal: soft, non-tender, no distention, positive bowel sounds mild LE edema Musculoskeletal: pulses present L hemiparesis, aphasic, dysphagia Skin: normal turgor, cap refill <2 seconds Dx/Plan (1) Hypernatremia Code(s): E87.0 - HYPEROSMOLALITY AND HYPERNATREMIA Status: Acute Comment: Improved with additional free-H2O administration, decrease D5W 150ml/h, increase free-H2O via PEG tube, repeat Na+ level in am (2) PRAMOD (acute kidney injury) Code(s): N17.9 - ACUTE KIDNEY FAILURE, UNSPECIFIED Status: Acute Comment: likely has ckd#2, resolving (3) Acute ischemic stroke Code(s): I63.9 - CEREBRAL INFARCTION, UNSPECIFIED Status: Acute Comment: s/ p right thalamic cva with left hemiplegia, dysphagia (4) Dysphagia Code(s): R13.10 - DYSPHAGIA, UNSPECIFIED Status: Acute Comment: patient with profound oropharyngeal dysphagia with silent aspiration on MBS, s/p PEG tube placement 02/08/19 (5) Diabetes mellitus type 2 in obese Code(s): E11.69 - TYPE 2 DIABETES MELLITUS WITH OTHER SPECIFIED COMPLICATION; E66.9 - OBESITY, UNSPECIFIED Status: Chronic Comment: uncontrolled with Hba1c of 11. Better with increased lantus. (6) Hypertension Code(s): I10 - ESSENTIAL (PRIMARY) HYPERTENSION Status: Chronic Qualifiers: Hypertension type: essential hypertension Qualified Code(s): I10 - Essential (primary) hypertension Comment: has severe lvh on echo, ef of 55% - Plan plan discussed w/ family, continue antibiotics, PT/OT, social worker palliative care, speech therapy, DVT proph w/SCDs Stable currently -: Start TF's today -: Decrease IVF's D5W 150ml/h -: ST/PT/OT evaluation -: AM lab: BMP, CBC * .
--- NOTE | 2019-02-08 19:22 | PRG ---
DATE OF SERVICE: 02/08/2019 SUBJECTIVE: The patient is seen and examined, seems to be doing much better, noted with the following vital signs. OBJECTIVE: VITAL SIGNS: Afebrile, pulse 80, respiratory rate of 18, blood pressure 155/89. HEENT: Unremarkable. CARDIOVASCULAR SYSTEM: First and second heart sounds were heard. RESPIRATORY SYSTEM: Clear to auscultation. DIGESTIVE: Revealed a benign abdomen with a PEG tube in place. EXTREMITIES: No peripheral edema. LABORATORY INVESTIGATION: Showed a sodium of 154. IMPRESSION: 1. Hypernatremia in the context of free water deficit. 2. Acute kidney injury. All the above conditions are improving with free water repletion. PLAN: 1. Now that the patient has PEG tube, we will begin to transition free water repletion via the PEG tube and begin to deescalate the parenteral free water repletion. 2. Further management will be dependent on the clinical course. Job ID: [id number]
[2019-02-08 20:18] LABS: Magnesium 2.3 mg/dL (1.6-2.6); Phosphorus 3.1 mg/dL (2.3-4.7)
[2019-02-08] MEDS: Atorvastatin Calcium 40 MG TAB PER TUBE SCH (21:40)
[2019-02-09] MEDS: HumaLOG 300 UNITS/3 ML VIAL SC PRN ×4 (00:32→18:43)
[2019-02-09] MEDS: Dextrose 5% in Water 1,000 ML IV SCH ×4 (00:32→20:19)
[2019-02-09] MEDS: Piperacillin/Tazobactam 2.25 GM in Sodium Chloride 0.9% 100 ML IVPB SCH ×3 (03:06→20:14)
[2019-02-09 07:28] LABS: Hemoglobin 8.8 g/dL (14.0-18.0); Mean Corpuscular HGB CONC 31.1 g/dL (32.0-36.0); Mean Corpuscular Hemoglobin 28.4 pg (27.0-31.0); Mean Corpuscular Volume 91.4 fL (78.0-98.0); Mean Platelet Volume 9.8 fL (7.4-10.4); Platelet Count 219 thou/uL (130-400); RBC Distribution Width 11.6 % (11.5-14.5); Red Blood Cell (RBC) Count 3.09 mill/uL (4.70-6.10); White Blood Cell (WBC) Count 13.8 thou/uL (4.8-10.8)
[2019-02-09 08:03] LABS: Band 4 % (5-11); Eosinophils 1 % (0-10); Lymphocytes 16 % (21-51); MDiff Complete? YES; Monocytes 1 % (0-10); Neutrophil 76 % (42-75); Platelet Morphology Comment Appears Adequate; Polychromasia SLIGHT = 2-3 cells (100X) (0-2/hpf); Reactive Lymphocytes 2 % (0-10)
[2019-02-09 08:08] LABS: Albumin 3.1 g/dL (3.5-5.0); Anion Gap 11 mmol/L (10-20); BUN (Urea Nitrogen) 30 mg/dL (8.4-25.7); BUN/Creatinine Ratio 17.75; Calc. Creatinine Clearance 69 mL/min (70-130); Calcium 8.8 mg/dL (7.8-10.44); Carbon Dioxide 23 mmol/L (22-29); Chloride 119 mmol/L (98-107); Estimated GFR-MDRD 51; Glucose 311 mg/dL (70-105); Sodium 150 mmol/L (136-145)
[2019-02-09] MEDS: Heparin 5,000 UNITS/ML VIAL SC SCH ×2 (09:06→20:12)
[2019-02-09] MEDS: Famotidine/PF 20 mg/2ml Vial SLOW IVP SCH (09:07)
[2019-02-09] MEDS: Insulin Glargine 20 UNITS in Pre-Filled Syringe 1 EACH SC SCH (09:07)
[2019-02-09] MEDS: Escitalopram Oxalate 10 mg Tablet PER TUBE SCH (09:09)
[2019-02-09] MEDS: Thiamine 100 MG TAB PER TUBE SCH (09:09)
[2019-02-09] MEDS: Amlodipine 10 MG TAB PER TUBE SCH (09:11)
[2019-02-09] MEDS: Carvedilol 3.125 MG TAB PER TUBE SCH ×2 (09:12→20:13)
[2019-02-09] MEDS: Clopidogrel Bisulfate 75 MG TAB PER TUBE SCH (09:13)
[2019-02-09] MEDS: Cyanocobalamin (Vitamin B-12) 1,000 MCG TAB PER TUBE SCH (09:13)
[2019-02-09] MEDS: Aspirin 325 MG TAB PO SCH (09:14)
[2019-02-09] MEDS: Isosorbide Dinitrate 20 MG TAB PER TUBE SCH ×2 (09:15→20:14)
[2019-02-09 11:26] VITALS: BMI 29.6
--- NOTE | 2019-02-09 13:49 | PDOC.PN ---
- Subjective Encounter Start Date: 02/09/19 Encounter Start Time: 13:35 Subjective: f/u for severe hypernatremia, dehydration. s/p PEG placement -: 02/08/19 tolerating low-volume TF's. No new complaints. - Objective Resuscitation Status - Order Detail: 02/04/19 20:39 Resuscitation Status Routine Resuscitation Status: FULL: Full Resuscitation MAR Reviewed: Yes Vital Signs & Weight: Vital Signs (12 hours) Temp Pulse Resp BP BP Pulse Ox 02/09/19 11:34 98.2 F 81 16 125/78 92 L 02/09/19 09:11 76 142/89 H 02/09/19 08:53 96 02/09/19 07:50 98.6 F 76 18 142/89 H 96 02/09/19 03:10 98.4 F 76 20 142/80 H 97 Weight Admit Weight 222 lb 14.4 oz Weight 224 lb 8 oz I&O: 02/08/19 02/09/19 02/10/19 06:59 06:59 06:59 Intake Total 5395 4560 30 Balance 5395 4560 30 Result Diagrams: 02/09/19 07:16 02/09/19 07:16 Additional Labs: Accuchecks 02/09/19 02/09/19 02/09/19 12:38 06:00 00:00 POC Glucose 325 H 308 H 257 H 02/08/19 02/08/19 02/08/19 18:02 13:43 11:21 POC Glucose 308 H 297 H 339 H Laboratory Tests 02/04/19 02/05/19 02/06/19 15:35 03:48 00:07 WBC 21.4 H Hgb 11.4 L Neutrophils % (Manual) 93 H 85 H Sodium 160 H Phosphorus 02/06/19 02/06/19 02/07/19 07:38 19:47 05:08 WBC Hgb Neutrophils % (Manual) Sodium 162 H* 164 H* 162 H* Phosphorus 02/07/19 02/08/19 17:56 05:05 WBC Hgb Neutrophils % (Manual) Sodium 155 H Phosphorus 3.3 EKG Reviewed by me: Yes (Tele - SR) Phys Exam - Physical Examination alert, mumbles, nods to questions HEENT: PERRLA, sclera anicteric, oral pharynx no lesions Neck: no nodes, no JVD, supple, full ROM Respiratory: no wheezing, no rales, no rhonchi, clear to auscultation bilateral S1, S2 Cardiovascular: RRR, no significant murmur, no rub, gallop + PEG in place Gastrointestinal: soft, non-tender, no distention, positive bowel sounds Musculoskeletal: pulses present L hemiparesis, dysphagia, aphasia Skin: normal turgor, cap refill <2 seconds Dx/Plan (1) Hypernatremia Code(s): E87.0 - HYPEROSMOLALITY AND HYPERNATREMIA Status: Acute Comment: Improved with additional free-H2O administration, decrease D5W 150ml/h, increase free-H2O via PEG tube, repeat Na+ level in am (2) PRAMOD (acute kidney injury) Code(s): N17.9 - ACUTE KIDNEY FAILURE, UNSPECIFIED Status: Acute Comment: likely has ckd#2, resolving (3) Acute ischemic stroke Code(s): I63.9 - CEREBRAL INFARCTION, UNSPECIFIED Status: Acute Comment: 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 Better with increased lantus. (6) Hypertension Code(s): I10 - ESSENTIAL (PRIMARY) HYPERTENSION Status: Chronic Qualifiers: Hypertension type: essential hypertension Qualified Code(s): I10 - Essential (primary) hypertension Comment: has severe lvh on echo, ef of 55% - Plan PT/OT, social welfare research worker, speech therapy, DVT proph w/SCDs Stable currently -: continue D5W @ 150ml/h another 24h -: Nutritional support with TF's -: PT/OT for mobilization -: AM lab: BMP, CBC * Likely to SNF in am 02/10/19
[2019-02-09] MEDS: Acetaminophen 650 MG Suppository PR PRN (14:32)
[2019-02-09] MEDS: Atorvastatin Calcium 40 MG TAB PER TUBE SCH (20:13)
[2019-02-10] MEDS: HumaLOG 300 UNITS/3 ML VIAL SC PRN ×4 (00:04→18:16)
[2019-02-10] MEDS: Piperacillin/Tazobactam 2.25 GM in Sodium Chloride 0.9% 100 ML IVPB SCH ×3 (04:14→20:40)
[2019-02-10] MEDS: Dextrose 5% in Water 1,000 ML IV SCH ×3 (04:16→18:07)
[2019-02-10 05:33] LABS: Anion Gap 10 mmol/L (10-20); BUN (Urea Nitrogen) 24 mg/dL (8.4-25.7); Calc. Creatinine Clearance 71 mL/min (70-130); Calcium 8.7 mg/dL (7.8-10.44); Carbon Dioxide 27 mmol/L (22-29); Chloride 116 mmol/L (98-107); Estimated GFR-MDRD 53; Glucose 268 mg/dL (70-105); Sodium 150 mmol/L (136-145)
[2019-02-10 05:35] LABS: Band 1 % (5-11); Eosinophils 2 % (0-10); Hemoglobin 8.5 g/dL (14.0-18.0); Large Platelets SLIGHT; Lymphocytes 18 % (21-51); MDiff Complete? YES; Mean Corpuscular HGB CONC 31.8 g/dL (32.0-36.0); Mean Corpuscular Hemoglobin 28.1 pg (27.0-31.0); Mean Corpuscular Volume 88.5 fL (78.0-98.0); Mean Platelet Volume 9.3 fL (7.4-10.4); Monocytes 2 % (0-10); Neutrophil 77 % (42-75); Platelet Count 226 thou/uL (130-400); Platelet Morphology Comment Appears Adequate; RBC Distribution Width 11.6 % (11.5-14.5); Red Blood Cell (RBC) Count 3.01 mill/uL (4.70-6.10); White Blood Cell (WBC) Count 11.4 thou/uL (4.8-10.8)
[2019-02-10 05:50] LABS: Potassium 2.9 mmol/L (3.5-5.1)
[2019-02-10] MEDS: Famotidine/PF 20 mg/2ml Vial SLOW IVP SCH (08:43)
[2019-02-10] MEDS: Heparin 5,000 UNITS/ML VIAL SC SCH ×2 (08:43→20:30)
[2019-02-10] MEDS: Carvedilol 3.125 MG TAB PER TUBE SCH ×2 (08:43→20:31)
[2019-02-10] MEDS: Cyanocobalamin (Vitamin B-12) 1,000 MCG TAB PER TUBE SCH (08:45)
[2019-02-10] MEDS: Thiamine 100 MG TAB PER TUBE SCH (08:45)
[2019-02-10] MEDS: Aspirin 325 MG TAB PO SCH (08:46)
[2019-02-10] MEDS: Clopidogrel Bisulfate 75 MG TAB PER TUBE SCH (08:47)
[2019-02-10] MEDS: Escitalopram Oxalate 10 mg Tablet PER TUBE SCH (08:47)
[2019-02-10] MEDS: Insulin Glargine 20 UNITS in Pre-Filled Syringe 1 EACH SC SCH (08:48)
[2019-02-10] MEDS: Isosorbide Dinitrate 20 MG TAB PER TUBE SCH ×2 (08:48→20:31)
[2019-02-10] MEDS: Amlodipine 10 MG TAB PER TUBE SCH (08:48)
--- NOTE | 2019-02-10 10:55 | PDOC.PN ---
- Subjective Encounter Start Date: 02/10/19 Encounter Start Time: 10:45 Subjective: f/u for severe hypernatremia and dehydration currently receiving TF' s -: near goal rate of 65ml/h. Na+ remains elevated but improved. - Objective Resuscitation Status - Order Detail: 02/04/19 20:39 Resuscitation Status Routine Resuscitation Status: FULL: Full Resuscitation MAR Reviewed: Yes Vital Signs & Weight: Vital Signs (12 hours) Temp Pulse Resp BP BP BP Pulse Ox 02/10/19 08:48 83 02/10/19 08:44 152/91 H 160/77 H 02/10/19 08:00 98.9 F 83 16 160/77 H 94 L 02/10/19 03:47 97.7 F 71 16 147/81 H 92 L 02/10/19 00:06 97.7 F 85 16 131/78 92 L Weight Admit Weight 222 lb 14.4 oz Weight 228 lb 3.2 oz I&O: 02/09/19 02/10/19 02/11/19 06:59 06:59 06:59 Intake Total 4560 1350 Balance 4560 1350 Result Diagrams: 02/10/19 04:53 02/10/19 04:53 Additional Labs: Accuchecks 02/10/19 02/09/19 02/09/19 05:34 23:43 18:07 POC Glucose 275 H 270 H 310 H 02/09/19 12:38 POC Glucose 325 H Laboratory Tests 02/04/19 02/05/19 02/06/19 15:35 03:48 00:07 WBC 21.4 H Hgb 11.4 L Neutrophils % (Manual) 93 H 85 H Sodium 160 H Phosphorus 02/06/19 02/06/19 02/07/19 07:38 19:47 05:08 WBC Hgb Neutrophils % (Manual) Sodium 162 H* 164 H* 162 H* Phosphorus 02/07/19 02/08/19 17:56 05:05 WBC Hgb Neutrophils % (Manual) Sodium 155 H Phosphorus 3.3 EKG Reviewed by me: Yes (Tele - SR) Phys Exam - Physical Examination Constitutional: NAD aphasic HEENT: PERRLA, sclera anicteric, oral pharynx no lesions Neck: no nodes, no JVD, supple, full ROM Respiratory: no wheezing, no rales, no rhonchi, clear to auscultation bilateral S1, S2 Cardiovascular: RRR, no significant murmur, no rub, gallop + PEG in place Gastrointestinal: soft, non-tender, no distention, positive bowel sounds Musculoskeletal: pulses present L hemiparesis, aphasic, dysphagia RUE movement alert, nods Skin: normal turgor, cap refill <2 seconds Dx/Plan (1) Hypernatremia Code(s): E87.0 - HYPEROSMOLALITY AND HYPERNATREMIA Status: Acute Comment: Slow improvement, increase additional free-H2O administration with enteral flushes 100ml q4h, decrease D5W 150ml/h, repeat Na+ level in am (2) PRAMOD (acute kidney injury) Code(s): N17.9 - ACUTE KIDNEY FAILURE, UNSPECIFIED Status: Acute Comment: likely has ckd#2, resolving (3) Acute ischemic stroke Code(s): I63.9 - CEREBRAL INFARCTION, UNSPECIFIED Status: Acute Comment: 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 Better with increased lantus. (6) Hypertension Code(s): I10 - ESSENTIAL (PRIMARY) HYPERTENSION Status: Chronic Qualifiers: Hypertension type: essential hypertension Qualified Code(s): I10 - Essential (primary) hypertension Comment: has severe lvh on echo, ef of 55% (7) Hypokalemia Code(s): E87.6 - HYPOKALEMIA Status: Acute Comment: KCL replacement via PEG tube, serial K+ monitoring, check Mg++/PO3 in am - Plan PT/OT, social economist, speech therapy, DVT proph w/SCDs Stable currently -: Increasing TF's to goal rate 65ml/h -: KCL replacement -: Increase free-H2O to 100ml q4h via PEG -: AM lab: CMP, CBC, Mg++, PO3 * Likely back to SNF in am
[2019-02-10] MEDS: Acetaminophen 650 MG Suppository PR PRN (14:53)
[2019-02-10] MEDS: Atorvastatin Calcium 40 MG TAB PER TUBE SCH (20:31)
[2019-02-11] MEDS: HumaLOG 300 UNITS/3 ML VIAL SC PRN ×3 (00:40→13:22)
[2019-02-11] MEDS: Dextrose 5% in Water 1,000 ML IV SCH ×3 (04:44→18:27)
[2019-02-11] MEDS: Piperacillin/Tazobactam 2.25 GM in Sodium Chloride 0.9% 100 ML IVPB SCH ×2 (04:44→12:19)
[2019-02-11 05:43] LABS: ALT (SGPT) 22 U/L (8-55); AST (SGOT) 28 U/L (5-34); Albumin 2.9 g/dL (3.5-5.0); Alkaline Phosphatase 62 U/L (40-150); Anion Gap 13 mmol/L (10-20); BUN (Urea Nitrogen) 18 mg/dL (8.4-25.7); Calc. Creatinine Clearance 77 mL/min (70-130); Calcium 8.7 mg/dL (7.8-10.44); Carbon Dioxide 25 mmol/L (22-29); Chloride 113 mmol/L (98-107); Estimated GFR-MDRD 57; Globulin 3.8 g/dL (2.4-3.5); Glucose 305 mg/dL (70-105); Magnesium 2.2 mg/dL (1.6-2.6); Phosphorus 2.7 mg/dL (2.3-4.7); Potassium 3.2 mmol/L (3.5-5.1); Protein, Total 6.7 g/dL (6.0-8.3); Sodium 148 mmol/L (136-145)
[2019-02-11] MEDS ORDERED: Aspirin Chewable 81 MG TAB PO SCH (09:00)
[2019-02-11] MEDS: Heparin 5,000 UNITS/ML VIAL SC SCH (09:52)
[2019-02-11] MEDS: Insulin Glargine 20 UNITS in Pre-Filled Syringe 1 EACH SC SCH (09:53)
[2019-02-11] MEDS: Thiamine 100 MG TAB PER TUBE SCH (09:53)
[2019-02-11] MEDS: Clopidogrel Bisulfate 75 MG TAB PER TUBE SCH (09:55)
[2019-02-11] MEDS: Amlodipine 10 MG TAB PER TUBE SCH (09:55)
[2019-02-11] MEDS: Cyanocobalamin (Vitamin B-12) 1,000 MCG TAB PER TUBE SCH (09:55)
[2019-02-11] MEDS: Escitalopram Oxalate 10 mg Tablet PER TUBE SCH (09:57)
[2019-02-11] MEDS: Isosorbide Dinitrate 20 MG TAB PER TUBE SCH (09:59)
[2019-02-11] MEDS: Carvedilol 3.125 MG TAB PER TUBE SCH (10:00)
[2019-02-11] MEDS: Famotidine/PF 20 mg/2ml Vial SLOW IVP SCH (10:01)
--- NOTE | 2019-02-11 11:29 | PDOC.PN ---
- Subjective Encounter Start Date: 02/11/19 Encounter Start Time: 11:27 Mr. Ndiaye was seen today in follow-up of Severe dehydration and hypernatremia. He is awake and alert. He appears comfortable. - Objective Resuscitation Status - Order Detail: 02/04/19 20:39 Resuscitation Status Routine Resuscitation Status: FULL: Full Resuscitation MAR Reviewed: Yes Vital Signs & Weight: Vital Signs (12 hours) Temp Pulse Pulse Pulse Resp BP BP 02/11/19 09:57 77 78 161/78 H 02/11/19 09:55 77 161/78 H 02/11/19 07:39 98.4 F 80 20 02/11/19 03:47 98.2 F 78 16 02/10/19 23:38 97.9 F 86 16 BP BP Pulse Ox 02/11/19 09:57 162/93 H 02/11/19 09:55 02/11/19 07:39 152/83 H 94 L 02/11/19 03:47 150/81 H 91 L 02/10/19 23:38 136/77 93 L Weight Admit Weight 222 lb 14.4 oz Weight 239 lb 1.6 oz I&O: 02/10/19 02/11/19 02/12/19 06:59 06:59 06:59 Intake Total 1350 5697 Balance 1350 5697 Result Diagrams: 02/10/19 04:53 02/11/19 05:06 Additional Labs: Accuchecks 02/11/19 02/11/19 02/10/19 06:02 00:08 18:12 POC Glucose 304 H 272 H 294 H 02/10/19 02/10/19 17:57 14:54 POC Glucose 306 H 329 H Phys Exam - Physical Examination HEENT: PERRLA Respiratory: no wheezing, no rales, no rhonchi, clear to auscultation bilateral Cardiovascular: RRR, no significant murmur, no rub Gastrointestinal: soft, non-tender, no distention, positive bowel sounds Musculoskeletal: no edema, pulses present Left sided weakness, and aphasia Dx/Plan (1) Hypernatremia Code(s): E87.0 - HYPEROSMOLALITY AND HYPERNATREMIA Status: Acute Comment: Slow improvement, increase additional free-H2O administration with enteral flushes 100ml q4h, decrease D5W 150ml/h, repeat Na+ level in am (2) Acute kidney injury Code(s): N17.9 - ACUTE KIDNEY FAILURE, UNSPECIFIED Status: Acute (3) Dysphagia Code(s): R13.10 - DYSPHAGIA, UNSPECIFIED Status: Acute Comment: patient with profound oropharyngeal dysphagia with silent aspiration on MBS, s/p PEG tube placement 02/08/19, titrating TF's to goal rate (4) Diabetes mellitus type 2 in obese Code(s): E11.69 - TYPE 2 DIABETES MELLITUS WITH OTHER SPECIFIED COMPLICATION; E66.9 - OBESITY, UNSPECIFIED Status: Chronic Comment: uncontrolled with Hba1c of 11. Better with increased lantus. (5) H/O: CVA (cerebrovascular accident) Code(s): Z86.73 - PRSNL HX OF TIA (TIA), AND CEREB INFRC W/O RESID DEFICITS Status: Chronic Comment: prior hemorrhagic right basal ganglia infarct with no residual per family (6) Hypertension Code(s): I10 - ESSENTIAL (PRIMARY) HYPERTENSION Status: Chronic Qualifiers: Hypertension type: essential hypertension Qualified Code(s): I10 - Essential (primary) hypertension Comment: has severe lvh on echo, ef of 55% - Plan * Hypernatremia- much improved after free water replacement * Acute CVA- with Dysphagia and Aphasia- he is s/p PEG tube placement * HTN- blood pressure is a bit elevated- will titrate medications * stable for discharge back to the [facility]- will increase the free water through his PEG tube, as he will no longer be receiving D5W.
[2019-02-11] MEDS: Aspirin 325 MG TAB PO SCH (13:22)
--- NOTE | 2019-02-11 13:29 | DIS ---
DATE OF ADMISSION: 02/04/2019 DATE OF DISCHARGE: 02/11/2019 PRIMARY CARE PHYSICIAN: Dr. Luann Davenport. DISCHARGE DISPOSITION: To the [facility] in [place]. DISCHARGE DIAGNOSES: 1. Hypernatremia. 2. Severe dehydration. 3. Recent cerebrovascular accident with dysphagia and aphasia. 4. Hypertension. 5. Hypokalemia. 6. Diabetes mellitus. 7. Acute on chronic kidney disease. DISCHARGE MEDICATIONS: Include; 1. Sodium bicarb 650 mg per tube daily. 2. Potassium chloride 40 mEq daily. 3. Creon 1200 units daily. 4. Lisinopril 20 mg daily. 5. Isordil 10 mg twice a day. 6. Lantus insulin 30 units daily. 7. Plavix 75 mg daily. 8. Lipitor 80 mg at bedtime. 9. Aspirin 81 mg daily. 10. Amlodipine 10 mg daily. 11. Thiamine 250 mg daily. 12. Namenda 5 mg daily. 13. Lexapro 10 mg daily. 14. Vitamin B12 1000 mcg daily. 15. Carvedilol 12.5 mg twice a day. PROCEDURES DONE DURING ADMISSION: The patient had a CT scan of the abdomen and pelvis, in which there was no evidence of any urinary tract stone or obstruction. There was a mild infiltrate in the left lung base and a right renal cyst. The patient had a CT scan of the brain and showing chronic findings and no acute intracranial abnormalities. CODE STATUS: Full code. ALLERGIES: NO KNOWN DRUG ALLERGIES. HOSPITAL COURSE: Mr. Ndiaye is a 59-year-old gentleman, who unfortunately suffered a severe stroke on his previous admission. This left him with aphasia as well as dysphagia and left-sided weakness. He was treated and released to the [facility]. However, there on routine lab work, it was found that his sodium was extremely elevated at 162, and for this reason, he was transferred to our facility for treatment. He had some significant dysphagia and it is suspected that he was not able to keep up with his dietary and fluid needs in the intermediate due to his dysphagia and for this reason, GI was consulted. He underwent PEG tube placement and correction of the sodium with free water and fluid resuscitation. At the time of discharge, his sodium level is 148. He had fairly persistently low potassium levels and for this reason, potassium supplementation was added. He was also taken off his MIRELLA inhibitor lisinopril due to acute renal failure. However, this will be restarted however at a lower dose at discharge. Hopefully, this will help balance out his potassium level as well as his blood pressure. A BMP is being requested in 1 week to assess his renal function as well as his potassium post discharge, and he is being discharged today on February 11, 2019. Job ID: [id number]
[2019-02-11] MEDS ORDERED: Acetaminophen 325 MG TAB PER TUBE PRN (14:58)
--- NOTE | 2019-02-11 15:55 | PRG ---
DATE OF SERVICE: 02/09/2019 SUBJECTIVE: Mr. Ndiaye has been tolerating his tube feeds well. OBJECTIVE: VITAL SIGNS: Temperature is 96, pulse 76, blood pressure 143/89. ABDOMEN: Soft and nontender. PEG tube site is clean and dry. LABORATORY DATA: White count down to 13.8, hemoglobin 8.8, platelet count 219. Sodium 150, potassium 3, BUN and creatinine 30 and 1.6. ASSESSMENT: Oropharyngeal dysphagia and previous stroke. PEG tube placed. Tolerating feeds well. PEG tube site looks clean and dry. We will sign off. If could be of any further assistance, please do not hesitate to contact me. Job ID: [id number]
[2019-02-11 16:10] VITALS: BP 161/92; TEMP 99.2
--- NOTE | 2019-02-11 16:16 | PRG ---
DATE OF SERVICE: 02/11/2019 SUBJECTIVE: The patient is seen and examined. Noted with the following vital signs. OBJECTIVE: VITAL SIGNS: Afebrile, temperature 98.7, pulse 79, respiratory rate of 20, O2 saturation 93% with blood pressure 148/82. HEENT: Unremarkable. CARDIOVASCULAR SYSTEM: First and second heart sounds were heard. RESPIRATORY SYSTEM: Clear to auscultation. DIGESTIVE SYSTEM: Revealed a benign abdomen with positive bowel sounds. EXTREMITIES: No peripheral edema. SKIN: No new gross rash. LYMPHATICS: No peripheral lymphadenopathy. LABORATORY INVESTIGATION: Showed sodium of 148, potassium 3.2, and creatinine 1.53. IMPRESSION: 1. Hypernatremia which seems to be improving. 2. Hypokalemia. 3. Acute on chronic kidney disease, improving. PLAN: 1. Replete potassium. 2. Increase free water through the PEG tube and deescalate IV fluid. 3. Further management will be dependent on the clinical course. Job ID: [id number]
== END 2019-02-11 19:14 | DRG 683 ==
LOC: ERS 14:53 → ERHOLD 20:38 → T4-B 02-05 18:11 → 2SE 02-05 22:02
PROVIDERS: ADMIT Internal Medicine; ATTEND Internal Medicine
PROC: 0DH63UZ Insertion of Feeding Device into Stomach, Percutaneous Approach (ICD-10-PCS; principal; 2019-02-08)
DX: N17.9 Acute kidney failure, unspecified (principal); E87.0 Hyperosmolality and hypernatremia; I69.354 Hemiplegia and hemiparesis following cerebral infarction affecting left non-dominant side; I25.10 Atherosclerotic heart disease of native coronary artery without angina pectoris; E78.5 Hyperlipidemia, unspecified; E66.9 Obesity, unspecified; E87.6 Hypokalemia; I12.9 Hypertensive chronic kidney disease with stage 1 through stage 4 chronic kidney disease, or unspecified chronic kidney disease; E11.22 Type 2 diabetes mellitus with diabetic chronic kidney disease; N18.2 Chronic kidney disease, stage 2 (mild); E86.0 Dehydration; I25.2 Old myocardial infarction; Z79.82 Long term (current) use of aspirin; I69.320 Aphasia following cerebral infarction; I69.391 Dysphagia following cerebral infarction; Z79.4 Long term (current) use of insulin; Z79.01 Long term (current) use of anticoagulants; Z79.899 Other long term (current) drug therapy; Z68.31 Body mass index [BMI] 31.0-31.9, adult; R13.12 Dysphagia, oropharyngeal phase; E11.69 Type 2 diabetes mellitus with other specified complication; E11.65 Type 2 diabetes mellitus with hyperglycemia; K21.9 Gastro-esophageal reflux disease without esophagitis
CPT/HCPCS: 36415; 36416; 51701; 70450; 71045; 74176; 80048; 80053; 80069; 81003; 81015; 83735; 84100; 85007; 85025; 85027; 93005; 96361; 96365; 96366; J0690; J1644; J1825; J2001; J2543; J2704; J3480; J3490; J7050; J7070; S0028

== ENCOUNTER 2019-02-23 14:40 | Inpatient (IN) | payer MEDICARE, SELFPAY ==
[2019-02-23 16:01] LABS: Hemoglobin 9.3 g/dL (14.0-18.0); Mean Corpuscular HGB CONC 29.5 g/dL (32.0-36.0); Mean Corpuscular Hemoglobin 28.7 pg (27.0-31.0); Mean Corpuscular Volume 97.1 fL (78.0-98.0); Mean Platelet Volume 10.2 fL (7.4-10.4); Platelet Count 290 thou/uL (130-400); Red Blood Cell (RBC) Count 3.24 mill/uL (4.70-6.10); White Blood Cell (WBC) Count 14.1 thou/uL (4.8-10.8)
[2019-02-23 16:02] LABS: #Basophils 0.1 thou/uL (0.0-0.2); #Eosinphils 0.2 thou/uL (0.0-0.7); #Lymphocytes 1.9 thou/uL (1.20-3.40); #Monocytes 0.6 thou/uL (0.11-0.59); #Neutrophils 11.3 thou/uL (1.40-6.50); %Basophils 0.7 % (0.0-1.0); %Eosinophils 1.6 % (0.0-10.0); %Lymphocytes 13.4 % (21.0-51.0); %Monocytes 4.3 % (0.0-10.0)
[2019-02-23 16:24] LABS: Bilirubin Negative (Negative); Blood, Urine Negative (Negative); Clarity CLOUDY (Clear); Glucose, Urine (Dipstick) Negative (Negative); Leukocyte Negative (Negative); Nitrite Negative (Negative); Protein, Urine (Dipstick) Negative (Neg-Trace); Urobilinogen 0.2 mg/dL (0.2-1.0)
[2019-02-23 16:56] LABS: ALT (SGPT) 55 U/L (8-55); AST (SGOT) 31 U/L (5-34); Albumin 3.4 g/dL (3.5-5.0); Alkaline Phosphatase 94 U/L (40-150); Anion Gap 17 mmol/L (10-20); BUN (Urea Nitrogen) 74 mg/dL (8.4-25.7); Bilirubin, Total 0.5 mg/dL (0.2-1.2); Calc. Creatinine Clearance 0 mL/min (70-130); Calcium 9.6 mg/dL (7.8-10.44); Carbon Dioxide 27 mmol/L (22-29); Chloride 131 mmol/L (98-107); Estimated GFR-MDRD 44; Globulin 4.7 g/dL (2.4-3.5); Glucose 225 mg/dL (70-105); Potassium 4.2 mmol/L (3.5-5.1); Protein, Total 8.1 g/dL (6.0-8.3); Sodium 171 mmol/L (136-145)
[2019-02-23 17:14] LABS: CKMB 1.7 ng/mL (0-6.6)
[2019-02-23] MEDS ORDERED: Aspirin 300 MG Suppository ONE (17:26)
[2019-02-23] MEDS ORDERED: Acetaminophen 325 MG TAB PO PRN (19:23)
[2019-02-23] MEDS ORDERED: Bisacodyl 10 MG SUPP PR PRN (19:23)
[2019-02-23] MEDS ORDERED: Ondansetron PF 4 MG/2 ML Vial IVP PRN (19:23)
[2019-02-23] MEDS ORDERED: Acetaminophen 650 MG Suppository PR PRN (19:23)
--- NOTE | 2019-02-23 19:48 | RAD ---
CHEST ONE VIEW: 02/23/19 HISTORY: Cough and chest congestion. COMPARISON: 02/04/19. FINDINGS: Monitor leads overlie the chest. Heart size is within normal limits. Less than optimal inspiration. N o confluent pneumonia, overt edema, or pleural effusion. IMPRESSION: No significant acute intrathoracic disease. Stable from prior study. POS: RRE
[2019-02-23] MEDS ORDERED: Dextrose 50% Abboject 50 ML SYRINGE SLOW IVP PRN (19:49)
[2019-02-23] MEDS ORDERED: Dextrose 5% in Water 1,000 ML IV PRN (19:49)
[2019-02-23] MEDS ORDERED: HumaLOG 300 UNITS/3 ML VIAL SC PRN (19:49)
--- NOTE | 2019-02-23 20:48 | HP ---
CHIEF COMPLAINT: Hypernatremia. HISTORY OF PRESENT ILLNESS: Mr. Ndiaye is a 59-year-old man, who was brought in from [facility] due to an elevated sodium noted with his morning labs. His sodium was elevated at 171. He has a history of previous admission with hypernatremia approximately 2 weeks ago, associated with severe dehydration, which resolved following IV hydration. The patient is believed to be once again severely dehydrated. He has been at [facility] for approximately 1 month since being discharged following a CVA that resulted in residual left-sided weakness. The patient has complete dysphagia and remains n.p.o. with a feeding tube in place. The family states he absolutely has not taken anything by mouth. He has been without any major complaints. Though he is not verbally communicative, he is able to provide responses through head nodding if he experiences pain or feels unwell. Per family, he has not exhibited any signs of infection such as fevers, chills, or sweats. He has not had any changes with his bowel movements. He underwent a urinalysis in the ED that was negative. He has not had any cough; however, one family member states it seems he has been trying to clear mucus and has sounded somewhat congested. The patient was seen by his primary care physician recently and determined to be in his usual state of health with normal blood tests last week. Laboratory studies done in the ED have demonstrated an elevated white count of 14. He is anemic with a hemoglobin of 9.3, which is stable. Lactic acid was 2.7. He was also noted to have an indeterminate troponin of 0.038; however, this has actually improved from previous levels. No other electrolyte abnormalities noted. LFTs are unremarkable. PAST MEDICAL HISTORY: 1. Type 2 diabetes mellitus. 2. Left-sided hemiplegia following CVA. 3. Coronary artery disease. 4. History of AR. 5. Hyperlipidemia. 6. Hypertension. 7. Complete dysphagia, on tube feedings. PAST SURGICAL HISTORY: Previous PEG tube placement. SOCIAL HISTORY: No history of heavy alcohol use. No history of tobacco use. No history of illicit drug use. Currently living at [facility]. ALLERGIES: NO KNOWN DRUG ALLERGIES. CURRENT MEDICATIONS: 1. Amlodipine. 2. Aspirin. 3. Isosorbide mononitrate. 4. Plavix. 5. Lantus. 6. Lexapro. 7. Lipitor. 8. Lisinopril. 9. Namenda. 10. Potassium chloride. 11. Senokot. 12. Thiamine. PHYSICAL EXAMINATION: GENERAL: The patient appears well developed, well nourished, in no apparent distress. Noncommunicative, but able to answer by head nodding. VITAL SIGNS: Temperature 98.8, pulse 71, blood pressure 113/71, respirations 14, and O2 saturations 97% on room air. HEENT: Normocephalic and atraumatic. Pupils are equal, round, and reactive to light. Extraocular movements are intact. Sclerae are without icterus. Oropharynx is notable for dry mucous membranes. NECK: Supple. LUNGS: Clear to auscultation bilaterally. CARDIAC: Regular rate and rhythm. ABDOMEN: Soft, nontender, nondistended. No guarding or rigidity. Normoactive bowel sounds present. PEG tube in place. No evidence of purulent discharge or surrounding erythema. EXTREMITIES: Without edema or calf tenderness. NEUROLOGIC: The patient is alert, but noncommunicative at baseline. Able to point and nod his head yes or now. Able to follow commands. SKIN: Without rash or jaundice. INVESTIGATIONS: As mentioned above in HPI. IMPRESSION AND PLAN: Mr. Ndiaye is a 59-year-old man with left hemiplegia following recent CVA one month ago, who is being admitted for management of the following. 1. Hypernatremia. The patient has received IV hydration in the ER. We will continue with IV fluids and monitor sodium. He will be admitted to inpatient tele. 2. Leukocytosis. No clinical evidence of underlying infection thus far. Urinalysis negative. We will obtain a chest x-ray as family reports he has had some chest congestion, difficulty bringing sputum; however, no cough. 3. Acute kidney injury. As mentioned above, we will continue with IV fluids. 4. Type 2 diabetes mellitus. Resume home medications. Monitor glucose and initiate insulin sliding scale. 5. Hypertension. Resume home medications and monitor blood pressure. 6. Diet. Resume tube feedings. Maintain n.p.o. 7. Gastrointestinal prophylaxis. 8. Deep venous thrombosis prophylaxis with mechanical SCDs. 9. Full code status. His surrogate decision maker is his sister, Ling Ndiaye. The patient's case was discussed with Dr. Arias, who agrees with plan of care as described above. Job ID: [id number]
[2019-02-23] MEDS ORDERED: Famotidine/PF 20 mg/2ml Vial ONE (20:58)
[2019-02-23] MEDS: Famotidine/PF 20 mg/2ml Vial SLOW IVP SCH (21:05)
[2019-02-23 21:17] LABS: Lactic Acid 1.1 mmol/L (0.5-2.2)
[2019-02-23 21:27] LABS: Troponin I 0.052 ng/mL (< 0.028)
[2019-02-24 00:13] LABS: Troponin I 0.052 ng/mL (< 0.028)
[2019-02-24 04:44] LABS: Anion Gap 11 mmol/L (10-20); BUN (Urea Nitrogen) 65 mg/dL (8.4-25.7); Calc. Creatinine Clearance 0 mL/min (70-130); Carbon Dioxide 26 mmol/L (22-29); Chloride 138 mmol/L (98-107); Estimated GFR-MDRD 50; Glucose 39 mg/dL (70-105); Potassium 3.9 mmol/L (3.5-5.1); Sodium 171 mmol/L (136-145)
[2019-02-24] MEDS ORDERED: Dextrose 50% Abboject 50 ML SYRINGE ONE (04:50)
[2019-02-24 04:51] LABS: #Basophils 0.1 thou/uL (0.0-0.2); #Eosinphils 0.3 thou/uL (0.0-0.7); #Lymphocytes 2.4 thou/uL (1.20-3.40); #Monocytes 0.8 thou/uL (0.11-0.59); #Neutrophils 11.8 thou/uL (1.40-6.50); %Basophils 0.6 % (0.0-1.0); %Eosinophils 1.8 % (0.0-10.0); %Lymphocytes 15.7 % (21.0-51.0); %Monocytes 5.1 % (0.0-10.0); %Neutrophils 76.9 % (42.0-75.0); Anisocytosis SLIGHT = 6-15 cells (100X) (0-5/hpf); Hemoglobin 8.6 g/dL (14.0-18.0); MDiff Complete? YES; Mean Corpuscular HGB CONC 29.9 g/dL (32.0-36.0); Mean Corpuscular Volume 96.8 fL (78.0-98.0); Mean Platelet Volume 10.6 fL (7.4-10.4); Platelet Count 269 thou/uL (130-400); Platelet Morphology Comment Appears Adequate; RBC Distribution Width 15.1 % (11.5-14.5); Red Blood Cell (RBC) Count 2.98 mill/uL (4.70-6.10); White Blood Cell (WBC) Count 15.3 thou/uL (4.8-10.8)
[2019-02-24] MEDS ORDERED: Famotidine/PF 20 mg/2ml Vial ONE (08:45)
[2019-02-24] MEDS: Famotidine/PF 20 mg/2ml Vial SLOW IVP SCH ×2 (08:53→21:03)
--- NOTE | 2019-02-24 10:15 | PRG ---
DATE OF SERVICE: 02/24/2019 SUBJECTIVE: The patient is seen and examined at bedside. He is not very responsive to me. He opens his eyes. He looks at me, but he does not follow my commands. OBJECTIVE: GENERAL: He is not in any distress during my visit. VITAL SIGNS: Blood pressure is 124/71, pulse is 69, respiratory rate is 14, O2 saturation is 96% on room air, temperature is 98.8. HEENT: His pupils are responding to light properly. Sclerae are nonicteric. Oral mucosa is dry. LUNGS: Clear. HEART: S1 and S2 normal. ABDOMEN: Soft and nontender. PEG tube is in place. Bowel sounds present. No organomegaly. EXTREMITIES: No clubbing, cyanosis, or edema. NEUROLOGIC: Postponed since he is not able to respond to me and follow my commands. He is in somewhat comatose state. LABORATORY DATA: Showed white count of 15.3, hemoglobin 8.6, hematocrit 28.8, RDW 15.1, platelet count 269. Sodium of 171, potassium 3.9, chloride 138, CO2 of 26, BUN 65, creatinine 1.70, glucose , calcium 9.0. Second troponin 0.052. IMPRESSION: 1. Severe hypernatremia with severe hyperchloremia. The patient is going to have D5 water with free water flushes through the PEG. We will follow his sodium and chloride closely. We will get dietitian involved to calculate his free water requirements. 2. Coronary artery disease. 3. Cerebrovascular accident with left-sided hemiplegia. 4. Type 2 diabetes mellitus. 5. History of myocardial infarction. 6. Hyperlipidemia. 7. Hypertension. 8. Complete dysphagia, on tube feeding. 9. Leukocytosis. I believe it is related to dehydration, which is severe, so the patient is at high risk of mortality. At this point, his status is guarded. Job ID: [id number]
[2019-02-24] MEDS: Dextrose 5% in Water 1,000 ML IV SCH ×3 (11:48→21:03)
[2019-02-25] MEDS: Dextrose 5% in Water 1,000 ML IV SCH ×3 (05:08→19:30)
[2019-02-25 06:17] LABS: Anion Gap 13 mmol/L (10-20); BUN (Urea Nitrogen) 45 mg/dL (8.4-25.7); Calc. Creatinine Clearance 79 mL/min (70-130); Calcium 8.6 mg/dL (7.8-10.44); Carbon Dioxide 23 mmol/L (22-29); Chloride 132 mmol/L (98-107); Estimated GFR-MDRD 57; Glucose 368 mg/dL (70-105); Potassium 4.3 mmol/L (3.5-5.1); Sodium 164 mmol/L (136-145)
[2019-02-25] MEDS ORDERED: Sodium Chloride 0.9% 10 ML ONE (08:05)
[2019-02-25] MEDS: Famotidine/PF 20 mg/2ml Vial SLOW IVP SCH ×2 (09:58→21:45)
[2019-02-25] MEDS: HumaLOG 300 UNITS/3 ML VIAL SC PRN ×3 (09:58→17:34)
[2019-02-25] MEDS ORDERED: Sodium Bicarbonate Tab 325 MG TAB PER TUBE PRN (10:18)
[2019-02-25] MEDS ORDERED: Non-Formulary Item 1 EACH (Acetaminophen [Tylenol] 650 MG) PO PRN (10:18)
[2019-02-25] MEDS ORDERED: Senokot S 8.6-50 MG TAB PO PRN (10:18)
[2019-02-25] MEDS ORDERED: Pancrelipase DR 12000 1 CAP FS PRN (10:18)
[2019-02-25] MEDS ORDERED: GLUCAGON HCL 1 MG IM PRN (10:18)
--- NOTE | 2019-02-25 13:34 | PRG ---
DATE OF SERVICE: 02/25/2019 SUBJECTIVE: The patient is seen and examined at the bedside. He seems to be slightly better today, but he is still not very responsive to me, but he is definitely more awake. OBJECTIVE: VITAL SIGNS: Blood pressure is 158/76, pulse is 75, temperature is 97.7, respirations 18, O2 saturation is 95% on room air. HEENT: His pupils are responding to light properly. Sclerae are nonicteric. LUNGS: Clear. HEART: S1 and S2 are normal. ABDOMEN: Soft. PEG tube is in place. EXTREMITIES: No clubbing, cyanosis, or edema. NEUROLOGIC: He does not follow my commands. He is not very verbal with me. LABORATORY DATA: Showed sodium of 164, potassium 4.3, chloride 132, BUN of 45, creatinine of 1.53, glycemia is ranging from 280 to 368. Microbiology, none. IMPRESSION: 1. Severe dehydration, severe hypernatremia, and severe hyperchloremia. The patient is getting D5 water. He was on 100 mL/hour. Now, I am going to cut back to 50 since he is getting a full dose of feeding through his PEG at 65 mL/hour along with 200 mL of free water flushes every 6 hours. His sodium is decreased to 164, and chloride is decreased to 132. 2. Renal insufficiency. This is most likely prerenal because with IV fluids, creatinine is going down. 3. Uncontrolled diabetes mellitus, most likely related to additional heavy load of dextrose required to correct his hypernatremia and hyperchloremia status. 4. Elevated white count. We will obtain the CBC tomorrow morning, and I think that is related to his severe dehydration, and it should be getting corrected by itself. 5. Hypertension. 6. Hyperlipidemia. 7. History of myocardial infarction. 8. History of cerebrovascular accident with left-sided hemiplegia. 9. Coronary artery disease. 10. Complete dysphagia, on tube feeding. We will continue his labs monitoring closely, and dietitian is going to calculate how much free water he is going to need after he is discharged to the residential. Job ID: [id number]
[2019-02-25 13:48] LABS: #Basophils 0.1 thou/uL (0.0-0.2); #Eosinphils 0.2 thou/uL (0.0-0.7); #Lymphocytes 1.7 thou/uL (1.20-3.40); #Monocytes 0.6 thou/uL (0.11-0.59); #Neutrophils 9.9 thou/uL (1.40-6.50); %Basophils 0.6 % (0.0-1.0); %Eosinophils 1.8 % (0.0-10.0); %Lymphocytes 13.8 % (21.0-51.0); %Monocytes 4.6 % (0.0-10.0); %Neutrophils 79.2 % (42.0-75.0); Hemoglobin 9.9 g/dL (14.0-18.0); Mean Corpuscular HGB CONC 29.5 g/dL (32.0-36.0); Mean Corpuscular Volume 94.9 fL (78.0-98.0); Mean Platelet Volume 10.1 fL (7.4-10.4); Platelet Count 265 thou/uL (130-400); Red Blood Cell (RBC) Count 3.53 mill/uL (4.70-6.10); White Blood Cell (WBC) Count 12.5 thou/uL (4.8-10.8)
[2019-02-25] MEDS: Isosorbide Dinitrate 20 MG TAB PER TUBE SCH (21:45)
[2019-02-25] MEDS: Atorvastatin Calcium 40 MG TAB PER TUBE SCH (21:45)
[2019-02-25] MEDS: Carvedilol 3.125 MG TAB PER TUBE SCH (21:45)
[2019-02-25] MEDS: Insulin Glargine 50 UNITS in Pre-Filled Syringe 1 EACH SC SCH (21:47)
[2019-02-26 05:56] LABS: #Eosinphils 0.3 thou/uL (0.0-0.7); #Lymphocytes 1.7 thou/uL (1.20-3.40); #Monocytes 0.4 thou/uL (0.11-0.59); #Neutrophils 9.5 thou/uL (1.40-6.50); %Basophils 0.1 % (0.0-1.0); %Eosinophils 2.2 % (0.0-10.0); %Lymphocytes 14.6 % (21.0-51.0); %Neutrophils 80.1 % (42.0-75.0); Hemoglobin 9.5 g/dL (14.0-18.0); Mean Corpuscular HGB CONC 29.3 g/dL (32.0-36.0); Mean Corpuscular Hemoglobin 27.8 pg (27.0-31.0); Mean Corpuscular Volume 94.7 fL (78.0-98.0); Mean Platelet Volume 9.9 fL (7.4-10.4); Platelet Count 247 thou/uL (130-400); RBC Distribution Width 14.8 % (11.5-14.5); Red Blood Cell (RBC) Count 3.41 mill/uL (4.70-6.10); White Blood Cell (WBC) Count 11.9 thou/uL (4.8-10.8)
[2019-02-26 06:06] LABS: Anion Gap 11 mmol/L (10-20); BUN (Urea Nitrogen) 30 mg/dL (8.4-25.7); Calc. Creatinine Clearance 91 mL/min (70-130); Calcium 9.1 mg/dL (7.8-10.44); Carbon Dioxide 27 mmol/L (22-29); Estimated GFR-MDRD 69; Glucose 310 mg/dL (70-105); Potassium 3.8 mmol/L (3.5-5.1); Sodium 160 mmol/L (136-145)
[2019-02-26 06:11] LABS: Chloride 126 mmol/L (98-107)
[2019-02-26] MEDS: Aspirin Chewable 81 MG TAB PO SCH (09:25)
[2019-02-26] MEDS: Amlodipine 10 MG TAB PER TUBE SCH (09:25)
[2019-02-26] MEDS: Clopidogrel Bisulfate 75 MG TAB PER TUBE SCH (09:26)
[2019-02-26] MEDS: Cyanocobalamin (Vitamin B-12) 1,000 MCG TAB PER TUBE SCH (09:26)
[2019-02-26] MEDS: Carvedilol 3.125 MG TAB PER TUBE SCH ×2 (09:26→21:54)
[2019-02-26] MEDS: Escitalopram Oxalate 10 mg Tablet PER TUBE SCH (09:26)
[2019-02-26] MEDS: Insulin Glargine 50 UNITS in Pre-Filled Syringe 1 EACH SC SCH ×2 (09:27→21:55)
[2019-02-26] MEDS: Isosorbide Dinitrate 20 MG TAB PER TUBE SCH ×2 (09:27→21:54)
[2019-02-26] MEDS: Famotidine/PF 20 mg/2ml Vial SLOW IVP SCH ×2 (09:27→21:54)
[2019-02-26] MEDS: Lisinopril 20 MG TAB PER TUBE SCH (09:29)
[2019-02-26] MEDS: Thiamine 100 MG TAB PER TUBE SCH (09:29)
[2019-02-26] MEDS: HumaLOG 300 UNITS/3 ML VIAL SC PRN ×2 (13:05→17:10)
--- NOTE | 2019-02-26 13:23 | PRG ---
DATE OF SERVICE: 02/26/2019 SUBJECTIVE: The patient is seen and examined at the bedside. He is more awake and more responsive today. OBJECTIVE: VITAL SIGNS: Blood pressure is 144/78, temperature is 97.4, pulse is 71, respirations 16, O2 saturation is 96% on room air. GENERAL: He still does not follow much of my commands, but definitely he is more responsive. He looks around and watches TV this morning. HEENT: His sclerae are nonicteric. NECK: Supple. LUNGS: Clear. HEART: S1, S2, somewhat irregular. No S3. No S4. ABDOMEN: Soft. The PEG tube is in place. EXTREMITIES: No clubbing, cyanosis, or edema. NEUROLOGICAL EXAMINATION: He still does not follow much of my commands. He has left-sided hemiparesis from the previous stroke, unchanged. SKIN: No rash or erythema. LABORATORY DATA: Labs showed white count of 11.9, hemoglobin of 9.5, hematocrit 32.3, platelet count 247,000. Chemistry showed sodium of 160, potassium 3.8, chloride 126, CO2 of 27, BUN 30, creatinine 1.3. Glycemia is ranging from 159 to 288. Calcium is 9.1. Microbiology, C. difficile toxins and antigen negative on his stool. IMPRESSION: 1. Severe dehydration. 2. Severe hypernatremia and hyperchloremia. 3. Renal insufficiency, improving with fluids. 4. Uncontrolled diabetes mellitus, that is most likely secondary to use of D5 water. 5. Elevated white count, which is improving with fluid resuscitation. 6. Hypertension. 7. Hyperlipidemia. 8. History of myocardial infarction. 9. History of cerebrovascular accident with left-sided hemiplegia. 10. Coronary artery disease. 11. Complete dysphagia, on tube feeding. PLAN: We are going to continue 50 mL of D5 water IV for his dehydration and hyponatremia. We will give him 200 mL of free water every 4 hours through the tube. We will recheck his BMP tomorrow morning. He seems to be doing better every day with rehydration. Job ID: [id number]
[2019-02-26] MEDS: Dextrose 5% in Water 1,000 ML IV SCH (17:00)
[2019-02-26] MEDS: Atorvastatin Calcium 40 MG TAB PER TUBE SCH (21:53)
[2019-02-27 06:50] LABS: #Eosinphils 0.5 thou/uL (0.0-0.7); #Lymphocytes 2.1 thou/uL (1.20-3.40); #Monocytes 0.5 thou/uL (0.11-0.59); #Neutrophils 10.6 thou/uL (1.40-6.50); %Eosinophils 3.6 % (0.0-10.0); %Lymphocytes 15.3 % (21.0-51.0); %Monocytes 3.8 % (0.0-10.0); %Neutrophils 77.2 % (42.0-75.0); Hemoglobin 7.7 g/dL (14.0-18.0); Mean Corpuscular HGB CONC 30.5 g/dL (32.0-36.0); Mean Corpuscular Hemoglobin 28.4 pg (27.0-31.0); Mean Corpuscular Volume 93.1 fL (78.0-98.0); Mean Platelet Volume 10.6 fL (7.4-10.4); Platelet Count 237 thou/uL (130-400); Red Blood Cell (RBC) Count 2.72 mill/uL (4.70-6.10); White Blood Cell (WBC) Count 13.7 thou/uL (4.8-10.8)
[2019-02-27 07:24] LABS: Anion Gap 16 mmol/L (10-20); BUN (Urea Nitrogen) 25 mg/dL (8.4-25.7); Calc. Creatinine Clearance 100 mL/min (70-130); Carbon Dioxide 25 mmol/L (22-29); Chloride 124 mmol/L (98-107); Estimated GFR-MDRD 75; Glucose 213 mg/dL (70-105); Potassium 4.8 mmol/L (3.5-5.1); Sodium 160 mmol/L (136-145)
[2019-02-27] MEDS: Aspirin Chewable 81 MG TAB PO SCH (09:53)
[2019-02-27] MEDS: Thiamine 100 MG TAB PER TUBE SCH (09:53)
[2019-02-27] MEDS: Famotidine/PF 20 mg/2ml Vial SLOW IVP SCH ×2 (09:53→22:10)
[2019-02-27] MEDS: Carvedilol 3.125 MG TAB PER TUBE SCH ×2 (09:54→22:12)
[2019-02-27] MEDS: Lisinopril 20 MG TAB PER TUBE SCH (09:54)
[2019-02-27] MEDS: Clopidogrel Bisulfate 75 MG TAB PER TUBE SCH (09:54)
[2019-02-27] MEDS: Escitalopram Oxalate 10 mg Tablet PER TUBE SCH (09:54)
[2019-02-27] MEDS: Amlodipine 10 MG TAB PER TUBE SCH (09:54)
[2019-02-27] MEDS: Cyanocobalamin (Vitamin B-12) 1,000 MCG TAB PER TUBE SCH (09:54)
[2019-02-27] MEDS: Insulin Glargine 50 UNITS in Pre-Filled Syringe 1 EACH SC SCH ×2 (09:55→22:13)
[2019-02-27] MEDS: Isosorbide Dinitrate 20 MG TAB PER TUBE SCH ×2 (09:55→22:13)
[2019-02-27] MEDS: HumaLOG 300 UNITS/3 ML VIAL SC PRN (10:07)
[2019-02-27] MEDS: Dextrose 5% in Water 1,000 ML IV SCH ×3 (11:52→22:23)
--- NOTE | 2019-02-27 12:20 | PRG ---
DATE OF SERVICE: 02/27/2019 SUBJECTIVE: The patient is seen and examined at bedside. He is more responsive to me. He is not verbal. I am not sure what is his baseline, but he has a history of previous stroke and his left side is hemiplegic and most likely he is nonverbal from that. OBJECTIVE: VITAL SIGNS: Blood pressure is 146/81, pulse is 68, temperature is 97.9, respiratory rate is 14, and O2 saturation is 96% on room air. His maximal temperature is 98.2. He is 96% on room air. HEENT: His pupils are responding to light properly. Sclerae are nonicteric. LUNGS: Clear. HEART: S1 and S2. Slightly distant. No S3. No S4. ABDOMEN: Soft and nontender. The PEG tube is in place. EXTREMITIES: No clubbing, cyanosis, or edema. NEUROLOGIC: He has left-sided hemiplegia. He tries to follow my basic commands, but that is very limited. SKIN: No rash or erythema. LABORATORY DATA: Labs showed white count of 13.7, hemoglobin of 7.7, hematocrit 25.3, and platelet count is 237. Chemistry showed sodium of 160, potassium 4.8, chloride 124, CO2 of 25, BUN 25, creatinine 1.20, glycemia is ranging from 221 to 275, and calcium 9.0. IMPRESSION: 1. Severe dehydration. 2. Severe hypernatremia and hyperchloremia, improving gradually slowly. 3. Renal insufficiency, improving with fluids. 4. Uncontrolled diabetes mellitus secondary to use of D5 water. 5. Elevated white cell count, which is felt to be related to his severe dehydration. 6. Hypertension. 7. Hyperlipidemia. 8. History of myocardial infarction. 9. History of cerebrovascular accident with left-sided hemiplegia. 10. Coronary artery disease. 11. Complete dysphagia on tube feeding. PLAN: Plan is to increase his IV fluids D5 water to 100 mL/h. Stop his feeding completely for 24 hours except for water flushes 200 mL of free water every 4 hours. We will check his sodium, chloride, and creatinine tomorrow and I hope he will be back to his normal range by tomorrow on his sodium and chloride, so we can restart his regular feeding with water flushes and stop his IV fluids. Job ID: [id number]
[2019-02-27] MEDS: Acetaminophen 325 MG TAB PER TUBE PRN (14:19)
[2019-02-27] MEDS: Atorvastatin Calcium 40 MG TAB PER TUBE SCH (22:10)
[2019-02-28] MEDS: Thiamine 100 MG TAB PER TUBE SCH (08:42)
[2019-02-28] MEDS: Amlodipine 10 MG TAB PER TUBE SCH (08:43)
[2019-02-28] MEDS: Isosorbide Dinitrate 20 MG TAB PER TUBE SCH ×2 (08:43→21:00)
[2019-02-28] MEDS: Carvedilol 3.125 MG TAB PER TUBE SCH ×2 (08:43→20:59)
[2019-02-28] MEDS: Escitalopram Oxalate 10 mg Tablet PER TUBE SCH (08:43)
[2019-02-28] MEDS: Lisinopril 20 MG TAB PER TUBE SCH (08:43)
[2019-02-28] MEDS: Clopidogrel Bisulfate 75 MG TAB PER TUBE SCH (08:43)
[2019-02-28] MEDS: Insulin Glargine 50 UNITS in Pre-Filled Syringe 1 EACH SC SCH ×2 (08:44→21:00)
[2019-02-28] MEDS: Cyanocobalamin (Vitamin B-12) 1,000 MCG TAB PER TUBE SCH (08:44)
[2019-02-28] MEDS: Famotidine/PF 20 mg/2ml Vial SLOW IVP SCH ×2 (08:44→20:59)
[2019-02-28] MEDS: Aspirin Chewable 81 MG TAB PO SCH (08:44)
[2019-02-28] MEDS: Dextrose 5% in Water 1,000 ML IV SCH ×2 (08:44→20:58)
[2019-02-28] MEDS: Acetaminophen 325 MG TAB PER TUBE PRN (08:45)
[2019-02-28 11:15] LABS: #Eosinphils 0.2 thou/uL (0.0-0.7); #Lymphocytes 1.8 thou/uL (1.20-3.40); #Monocytes 0.4 thou/uL (0.11-0.59); %Basophils 0.6 % (0.0-1.0); %Eosinophils 2.1 % (0.0-10.0); %Lymphocytes 21.3 % (21.0-51.0); Mean Corpuscular HGB CONC 30.7 g/dL (32.0-36.0); Mean Corpuscular Hemoglobin 28.6 pg (27.0-31.0); Mean Platelet Volume 9.2 fL (7.4-10.4); Platelet Count 187 thou/uL (130-400); RBC Distribution Width 14.8 % (11.5-14.5); White Blood Cell (WBC) Count 8.5 thou/uL (4.8-10.8)
[2019-02-28 11:38] LABS: Anion Gap 10 mmol/L (10-20); BUN (Urea Nitrogen) 16 mg/dL (8.4-25.7); Calc. Creatinine Clearance 124 mL/min (70-130); Carbon Dioxide 29 mmol/L (22-29); Chloride 117 mmol/L (98-107); Estimated GFR-MDRD Greater than 90; Glucose 122 mg/dL (70-105); Potassium 3.5 mmol/L (3.5-5.1); Sodium 152 mmol/L (136-145)
--- NOTE | 2019-02-28 13:01 | PRG ---
DATE OF SERVICE: 02/28/2019 SUBJECTIVE: The patient is seen and examined at the bedside. He is not very responsive to me this morning. OBJECTIVE: VITAL SIGNS: Blood pressure is 142/92, pulse is 67, temperature is 98.4, respirations 16, and O2 saturation is 97% on room air. LUNGS: Clear. HEART: S1-S2 normal. No S3. No S4. ABDOMEN: Soft and nondistended. EXTREMITIES: No clubbing, cyanosis, or edema. NEUROLOGICAL: Postponed since he is in sleep during my visit. LABORATORY DATA: Labs showed sodium of 152, potassium 3.5, chloride 117, BUN 16, CO2 of 29, creatinine 0.97, and glycemia is ranging from 123 to 181. His white count is down to 8.5, hemoglobin 8.0, hematocrit 26.0, and platelet count is 187,000. IMPRESSION: 1. Severe dehydration. 2. Severe hypernatremia and hyperchloremia. 3. Renal insufficiency. 4. Uncontrolled diabetes mellitus. 5. Hypertension. 6. Hyperlipidemia. 7. History of myocardial infarction. 8. History of cerebrovascular accident with left-sided hemiplegia. 9. Coronary artery disease. 10. Complete dysphagia on tube feeding. So, yesterday we stopped his enteral feeding and just he is getting D5 water. I am planning to continue the same regimen since we still trying to rehydrate him and get his sodium and chloride to the normal range. We will most likely restart his feeding tomorrow. Job ID: [id number]
[2019-02-28] MEDS: Atorvastatin Calcium 40 MG TAB PER TUBE SCH (20:59)
[2019-03-01] MEDS: Dextrose 5% in Water 1,000 ML IV SCH ×2 (04:09→14:05)
[2019-03-01 07:27] LABS: Anion Gap 12 mmol/L (10-20); BUN (Urea Nitrogen) 13 mg/dL (8.4-25.7); Calc. Creatinine Clearance 118 mL/min (70-130); Calcium 9.2 mg/dL (7.8-10.44); Carbon Dioxide 27 mmol/L (22-29); Chloride 111 mmol/L (98-107); Estimated GFR-MDRD Greater than 90; Glucose 70 mg/dL (70-105); Potassium 3.5 mmol/L (3.5-5.1); Sodium 146 mmol/L (136-145)
[2019-03-01] MEDS: Carvedilol 3.125 MG TAB PER TUBE SCH ×2 (08:58→19:46)
[2019-03-01] MEDS: Isosorbide Dinitrate 20 MG TAB PER TUBE SCH ×2 (08:58→19:46)
[2019-03-01] MEDS: Famotidine/PF 20 mg/2ml Vial SLOW IVP SCH ×2 (08:58→19:46)
[2019-03-01] MEDS: Lisinopril 20 MG TAB PER TUBE SCH (08:59)
[2019-03-01] MEDS: Cyanocobalamin (Vitamin B-12) 1,000 MCG TAB PER TUBE SCH (08:59)
[2019-03-01] MEDS: Amlodipine 10 MG TAB PER TUBE SCH (08:59)
[2019-03-01] MEDS: Aspirin Chewable 81 MG TAB PO SCH (08:59)
[2019-03-01] MEDS: Clopidogrel Bisulfate 75 MG TAB PER TUBE SCH (08:59)
[2019-03-01] MEDS: Thiamine 100 MG TAB PER TUBE SCH (08:59)
[2019-03-01] MEDS: Insulin Glargine 50 UNITS in Pre-Filled Syringe 1 EACH SC SCH ×2 (09:00→20:29)
--- NOTE | 2019-03-01 14:21 | PRG ---
DATE OF SERVICE: 03/01/2019 SUBJECTIVE: The patient is seen and examined at the bedside. He is slightly more awake this morning. He tries to respond to my commands. OBJECTIVE: VITAL SIGNS: Blood pressure is 136/82, pulse is 80, temperature is 98.1, respiratory rate is 16, O2 saturation is 97% on room air. HEENT: His pupils are responding to light properly, similar bilaterally. Sclerae are nonicteric. Oral mucosa is moist. LUNGS: Breath sounds somewhat diminished at both bases. HEART S1 and S2 normal. No S3. No S4. ABDOMEN: Soft, nontender. The PEG tube is in place. No guarding. No masses. EXTREMITIES: No clubbing, cyanosis, or edema. NEUROLOGICAL: He has left-sided hemiplegia from the previous stroke. He tries to follow my commands. LABORATORY DATA: White counts of 8.5, hemoglobin 8.0, hematocrit 26.0, platelet count is 187,000. Chemistry; sodium of 146, potassium 3.5, chloride 111, CO2 of 27, BUN 13, creatinine 1.02, glycemia is ranging from 84 to 110, calcium is 9.2. IMPRESSION: 1. Severe dehydration. 2. Severe hypernatremia and hyperchloremia. 3. Renal insufficiency. 4. Uncontrolled diabetes mellitus. 5. Hypertension. 6. Hyperlipidemia. 7. History of myocardial infarction. 8. History of cerebrovascular accident with left-sided hemiplegia. 9. Coronary artery disease. 10. Complete dysphagia, currently on tube feeding. PLAN: We are going to decrease his D5 water IV drip to 50 mL/hour. We are restarting his tube feeding with water flushes 200 mL every four. We will check his sodium, potassium, and creatinine tomorrow morning. We see correction of those numbers significant for the last few days with gradual rehydration of the patient. He seems to be doing fine, and he should be able to go back to the intermediate as soon as he is rehydrated, which is going to be most likely tomorrow or after tomorrow. Job ID: [id number]
[2019-03-01] MEDS: HumaLOG 300 UNITS/3 ML VIAL SC PRN (16:13)
[2019-03-01] MEDS: Atorvastatin Calcium 40 MG TAB PER TUBE SCH (19:46)
--- NOTE | 2019-03-01 22:53 | PDOC.EVN ---
Event Note - Event Note Event Note: Hypoxemia, mildly tachypneic, O2 sat 88%, improved with O2; martin De Oliveira nurse says patient's abdomen more distended. Upon exam, Positive bowel sounds and mildly tense/distended. Will obtain BNP, as well as CXR and abdominal series. Beth Arevalo PA-C
--- NOTE | 2019-03-02 08:19 | RAD ---
KUB AND LEFT LATERAL DECUBITUS VIEW OF THE ABDOMEN PA CHEST: History: Abdominal pain and tachypnea. FINDINGS: The bowel gas pattern is nonobstructed with gaseous distention of the colon. No free air is demonstra sanjeev. Arthritic changes of the spine and hips are noted. AP CHEST: Heart size is enlarged. Mediastinal structures appear unremarkable. The lungs are clear of infiltrate s. IMPRESSION: 1. Mild gaseous distention of the abdomen without signs of free air. No obstruction. 2. Cardiomegaly. POS: H
[2019-03-02 09:32] LABS: Anion Gap 12 mmol/L (10-20); BUN (Urea Nitrogen) 18 mg/dL (8.4-25.7); Calc. Creatinine Clearance 112 mL/min (70-130); Calcium 9.1 mg/dL (7.8-10.44); Carbon Dioxide 26 mmol/L (22-29); Chloride 109 mmol/L (98-107); Estimated GFR-MDRD 83; Glucose 200 mg/dL (70-105); Potassium 3.3 mmol/L (3.5-5.1); Sodium 144 mmol/L (136-145)
[2019-03-02] MEDS: Amlodipine 10 MG TAB PER TUBE SCH (10:00)
[2019-03-02] MEDS: Carvedilol 3.125 MG TAB PER TUBE SCH ×2 (10:00→20:43)
[2019-03-02] MEDS: Aspirin Chewable 81 MG TAB PO SCH (10:00)
[2019-03-02] MEDS: Clopidogrel Bisulfate 75 MG TAB PER TUBE SCH (10:00)
[2019-03-02] MEDS: Insulin Glargine 50 UNITS in Pre-Filled Syringe 1 EACH SC SCH ×2 (10:00→20:44)
[2019-03-02] MEDS: Cyanocobalamin (Vitamin B-12) 1,000 MCG TAB PER TUBE SCH (10:00)
[2019-03-02] MEDS: Famotidine/PF 20 mg/2ml Vial SLOW IVP SCH ×2 (10:00→20:46)
[2019-03-02] MEDS: Lisinopril 20 MG TAB PER TUBE SCH (10:00)
[2019-03-02] MEDS: Isosorbide Dinitrate 20 MG TAB PER TUBE SCH ×2 (10:01→20:44)
[2019-03-02] MEDS: Dextrose 5% in Water 1,000 ML IV SCH (10:05)
[2019-03-02] MEDS ORDERED: Potassium Chloride 10 MEQ/100 ML PREMIX BAG IVPB SCH (12:30)
[2019-03-02] MEDS: Thiamine 100 MG TAB PER TUBE SCH (13:11)
--- NOTE | 2019-03-02 16:10 | PRG ---
DATE OF SERVICE: 03/02/2019 SUBJECTIVE: The patient is seen and examined at the bedside. He is gradually getting better. He is rehydrated and getting close to the discharge. OBJECTIVE: VITAL SIGNS: Blood pressure is 131/72, pulse is 80, O2 saturation is 94% on room air, temperature is 98.5. Apparently, there was some episode of hypoxemia yesterday and his abdomen was distended. He was seen by PA and x-ray of the abdomen was done, which showed mild gaseous distention of the abdomen without signs of free air. No obstruction. HEENT: Sclerae are nonicteric. NECK: Supple. LUNGS: Breath sounds somewhat diminished at both bases. HEART: S1 and S2. Irregular. No S3. No S4. ABDOMEN: Soft, nondistended. PEG tube is in place. EXTREMITIES: No clubbing, cyanosis, or edema. NEUROLOGICAL: He does not follow my commands, although, he tries, but falls short very quickly. He has left-sided hemiplegia from previous stroke. LABORATORY DATA: Labs showed sodium of 144, potassium 3.3, chloride 109, CO2 of 26, BUN 18, creatinine 1.1. Glycemia is ranging from 183 to 212, calcium is 9.1. BNP is 65.2. Microbiology, nothing new. IMPRESSION: 1. Severe dehydration. 2. Severe hypernatremia and hyperchloremia. 3. Renal insufficiency. 4. Uncontrolled diabetes mellitus. 5. Hypertension. 6. Hyperlipidemia. 7. History of myocardial infarction. 8. Respiratory distress, resolved. 9. History of cerebrovascular accident with left-sided hemiplegia. 10. Coronary artery disease. 11. Complete dysphagia, currently on tube feeding. 12. Hypokalemia. He will have potassium chloride 1K run at 10 mEq done today. PLAN: Plan is to finish up his potassium supplementation. Stop his IV fluids. Continue his tube feeding with flushes and observe him additional 24 hours to make sure that abdominal distention does not come back and he should be able to go back to his intermediate tomorrow. Job ID: [id number]
[2019-03-02] MEDS: Atorvastatin Calcium 40 MG TAB PER TUBE SCH (20:43)
[2019-03-03] MEDS: Dextrose 5% in Water 1,000 ML IV SCH (02:27)
[2019-03-03 08:27] LABS: Anion Gap 11 mmol/L (10-20); BUN (Urea Nitrogen) 15 mg/dL (8.4-25.7); Calc. Creatinine Clearance 116 mL/min (70-130); Calcium 9.4 mg/dL (7.8-10.44); Carbon Dioxide 29 mmol/L (22-29); Chloride 108 mmol/L (98-107); Estimated GFR-MDRD 87; Glucose 105 mg/dL (70-105); Potassium 3.3 mmol/L (3.5-5.1); Sodium 145 mmol/L (136-145)
[2019-03-03] MEDS: Insulin Glargine 50 UNITS in Pre-Filled Syringe 1 EACH SC SCH ×2 (09:25→21:15)
[2019-03-03] MEDS: Carvedilol 3.125 MG TAB PER TUBE SCH ×2 (09:26→21:12)
[2019-03-03] MEDS: Aspirin Chewable 81 MG TAB PO SCH (09:26)
[2019-03-03] MEDS: Amlodipine 10 MG TAB PER TUBE SCH (09:26)
[2019-03-03] MEDS: Cyanocobalamin (Vitamin B-12) 1,000 MCG TAB PER TUBE SCH (09:27)
[2019-03-03] MEDS: Famotidine/PF 20 mg/2ml Vial SLOW IVP SCH ×2 (09:27→21:15)
[2019-03-03] MEDS: Clopidogrel Bisulfate 75 MG TAB PER TUBE SCH (09:27)
[2019-03-03] MEDS: Isosorbide Dinitrate 20 MG TAB PER TUBE SCH ×2 (09:27→21:12)
[2019-03-03] MEDS: Lisinopril 20 MG TAB PER TUBE SCH (09:28)
[2019-03-03] MEDS: Thiamine 100 MG TAB PER TUBE SCH (09:28)
--- NOTE | 2019-03-03 11:59 | PDOC.PN ---
- Subjective Encounter Start Date: 03/03/19 Encounter Start Time: 11:58 Mr. Ndiaye was seen today in follow-up of Hypernatremia. He is essentially non- verbal from his prior stroke. He appears comfortable. - Objective Resuscitation Status - Order Detail: 02/23/19 19:23 Resuscitation Status Routine Co-Sign Provider: Resuscitation Status: FULL: Full Resuscitation MAR Reviewed: Yes Vital Signs & Weight: Vital Signs (12 hours) Temp Pulse Resp BP Pulse Ox 03/03/19 11:46 98.5 F 82 16 129/62 99 03/03/19 07:50 98.8 F 79 14 158/70 H 97 03/03/19 04:05 98.4 F 79 18 139/71 95 Weight Admit Weight 230 lb 2 oz Weight 238 lb I&O: 03/02/19 03/03/19 03/04/19 06:59 06:59 06:59 Intake Total 3960 3480 400 Output Total 2100 3800 Balance 1860 -320 400 Result Diagrams: 02/28/19 11:05 03/03/19 07:36 Additional Labs: Accuchecks 03/03/19 03/03/19 03/03/19 08:26 04:14 00:34 POC Glucose 110 121 H 179 H 03/02/19 03/02/19 20:07 16:57 POC Glucose 214 H 197 H Phys Exam - Physical Examination HEENT: PERRLA Respiratory: no wheezing + rhonchi bilaterally, Cardiovascular: RRR, no significant murmur, no rub Gastrointestinal: soft, non-tender, no distention, positive bowel sounds Musculoskeletal: pulses present, edema present + left sided weakness Dx/Plan (1) Hypernatremia Code(s): E87.0 - HYPEROSMOLALITY AND HYPERNATREMIA Status: Acute Comment: Slow improvement, increase additional free-H2O administration with enteral flushes 100ml q4h, decrease D5W 150ml/h, repeat Na+ level in am (2) CVA (cerebral vascular accident) Code(s): I63.9 - CEREBRAL INFARCTION, UNSPECIFIED Status: Chronic (3) Dysphagia Code(s): R13.10 - DYSPHAGIA, UNSPECIFIED Status: Chronic Comment: patient with profound oropharyngeal dysphagia with silent aspiration on MBS, s/p PEG tube placement 02/08/19, titrating TF's to goal rate (4) Diabetes mellitus type 2 in obese Code(s): E11.69 - TYPE 2 DIABETES MELLITUS WITH OTHER SPECIFIED COMPLICATION; E66.9 - OBESITY, UNSPECIFIED Status: Chronic Comment: uncontrolled with Hba1c of 11. Better with increased lantus. (5) Hypertension Code(s): I10 - ESSENTIAL (PRIMARY) HYPERTENSION Status: Chronic Qualifiers: Hypertension type: essential hypertension Qualified Code(s): I10 - Essential (primary) hypertension Comment: has severe lvh on echo, ef of 55% - Plan * Hypernatremia- this has been corrected- will discontinue IV fluids, and see if his serum sodium will remain consistent with flushes per the PEG tube * HTN- blood pressure is stable * DM-blood glucose is overall stable * recent CVA with Left sided hemiparesis- continue PT/OT.
[2019-03-03 13:53] VITALS: BMI 31.4
--- NOTE | 2019-03-03 13:55 | PQF ---
DATE: 03-03-19 ATTN: DR. MARY BIRD Please exercise your independent, professional judgment in responding to the clarification form. Clinical indicators are provided on the bottom of this form for your review Please check appropriate box(s): [ ] NSTEMI due to Demand Ischemia (AMI Type II) [ X ] Demand Ischemia without MT [ ] Other diagnosis [ ] Unable to determine In addition, please specify: Present on Admission (POA): [ X ] Yes [ ] No [ ] Unable to determine CLINICAL INDICATORS - SIGNS / SYMPTOMS / LABS: ER: HX DM 2, CAD, MT, HYPERLIPIDEMIA, HTN ER DX: HYPERNATREMIA, PRAMOD, ELEVATED TROPONIN TROPONIN: 02-23-19: 0.038 0.052 0.052 RISKS: ER: HX DM 2, CAD, MT, HYPERLIPIDEMIA, HTN TREATMENTS: ER: ASA PO CARDIAC MONITORING (This form is maintained as a part of the permanent medical record) 2014 [employer]. All Rights Reserved [email or web address] Office: [phone] RALPH
[2019-03-03] MEDS: Atorvastatin Calcium 40 MG TAB PER TUBE SCH (21:12)
[2019-03-04 06:38] LABS: Anion Gap 11 mmol/L (10-20); BUN (Urea Nitrogen) 15 mg/dL (8.4-25.7); Calc. Creatinine Clearance 118 mL/min (70-130); Carbon Dioxide 28 mmol/L (22-29); Chloride 108 mmol/L (98-107); Estimated GFR-MDRD 89; Glucose 140 mg/dL (70-105); Potassium 3.2 mmol/L (3.5-5.1); Sodium 144 mmol/L (136-145)
[2019-03-04] MEDS: Insulin Glargine 50 UNITS in Pre-Filled Syringe 1 EACH SC SCH (08:35)
[2019-03-04] MEDS: Clopidogrel Bisulfate 75 MG TAB PER TUBE SCH (08:36)
[2019-03-04] MEDS: Aspirin Chewable 81 MG TAB PO SCH (08:36)
[2019-03-04] MEDS: Famotidine/PF 20 mg/2ml Vial SLOW IVP SCH (08:36)
[2019-03-04] MEDS: Carvedilol 3.125 MG TAB PER TUBE SCH (08:36)
[2019-03-04] MEDS: Cyanocobalamin (Vitamin B-12) 1,000 MCG TAB PER TUBE SCH (08:36)
[2019-03-04] MEDS: Isosorbide Dinitrate 20 MG TAB PER TUBE SCH (08:36)
[2019-03-04] MEDS: Amlodipine 10 MG TAB PER TUBE SCH (08:36)
[2019-03-04] MEDS: Thiamine 100 MG TAB PER TUBE SCH (08:38)
[2019-03-04] MEDS: Lisinopril 20 MG TAB PER TUBE SCH (08:38)
--- NOTE | 2019-03-04 12:39 | PDOC.PN ---
- Subjective Encounter Start Date: 03/04/19 Encounter Start Time: 12:37 Mr. Ndiaye was seen today in follow-up of hypernatremia. He is non-verbal from a recent stroke. He appears stable - Objective Resuscitation Status - Order Detail: 02/23/19 19:23 Resuscitation Status Routine Co-Sign Provider: Resuscitation Status: FULL: Full Resuscitation MAR Reviewed: Yes Vital Signs & Weight: Vital Signs (12 hours) Temp Pulse Resp BP Pulse Ox 03/04/19 11:34 97.6 F 69 17 127/65 99 03/04/19 07:24 98.8 F 85 15 144/77 H 98 03/04/19 04:00 99.7 F H 82 16 143/72 H 93 L Weight Admit Weight 230 lb 2 oz Weight 238 lb I&O: 03/03/19 03/04/19 03/05/19 06:59 06:59 06:59 Intake Total 3480 2870 450 Output Total 3800 750 Balance -320 2120 450 Result Diagrams: 02/28/19 11:05 03/04/19 05:50 Additional Labs: Accuchecks 03/04/19 03/04/19 03/04/19 08:32 04:04 00:59 POC Glucose 121 H 152 H 164 H 03/03/19 03/03/19 03/03/19 20:09 15:29 12:43 POC Glucose 87 114 H 142 H Phys Exam - Physical Examination HEENT: PERRLA Respiratory: no wheezing, no rales, no rhonchi, clear to auscultation bilateral Cardiovascular: RRR, no significant murmur, no rub Gastrointestinal: soft, non-tender, no distention, positive bowel sounds Musculoskeletal: pulses present, edema present trace pedal edema Dx/Plan (1) Hypernatremia Code(s): E87.0 - HYPEROSMOLALITY AND HYPERNATREMIA Status: Acute Comment: Slow improvement, increase additional free-H2O administration with enteral flushes 100ml q4h, decrease D5W 150ml/h, repeat Na+ level in am (2) CVA (cerebral vascular accident) Code(s): I63.9 - CEREBRAL INFARCTION, UNSPECIFIED Status: Chronic (3) Dysphagia Code(s): R13.10 - DYSPHAGIA, UNSPECIFIED Status: Chronic Comment: patient with profound oropharyngeal dysphagia with silent aspiration on MBS, s/p PEG tube placement 02/08/19, titrating TF's to goal rate (4) Diabetes mellitus type 2 in obese Code(s): E11.69 - TYPE 2 DIABETES MELLITUS WITH OTHER SPECIFIED COMPLICATION; E66.9 - OBESITY, UNSPECIFIED Status: Chronic Comment: uncontrolled with Hba1c of 11. Better with increased lantus. (5) Hypertension Code(s): I10 - ESSENTIAL (PRIMARY) HYPERTENSION Status: Chronic Qualifiers: Hypertension type: essential hypertension Qualified Code(s): I10 - Essential (primary) hypertension Comment: has severe lvh on echo, ef of 55% - Plan * Hypernatremia- resolved. His serum sodium level stayed stable overnight, off the D5W drip * Hypokalemia- will continue to replace. * HTN- blood pressure has been stable * He can be transitioned to Rehab
[2019-03-04 16:20] VITALS: BP 138/69; TEMP 98.1
--- NOTE | 2019-03-05 03:33 | DIS ---
DATE OF ADMISSION: 02/23/2019 DATE OF DISCHARGE: 03/04/2019 DISCHARGE DISPOSITION: Inpatient rehab. DISCHARGE DIAGNOSES: 1. Hypernatremia. 2. Dysphagia secondary to recent stroke. 3. Diabetes mellitus type 2. 4. Coronary artery disease. 5. Hyperlipidemia. 6. Hypertension. 7. Recent CVA with left hemiplegia. 8. Hypokalemia. DISCHARGE MEDICATIONS: 1. Aspirin 81 mg daily. 2. Lipitor 80 mg q.h.s. 3. Carvedilol 12.5 mg twice a day. 4. Plavix 75 mg daily. 5. Vitamin B12 1000 mcg daily. 6. Lexapro 10 mg daily. 7. Lantus insulin 50 units twice a day. 8. Isosorbide dinitrate 10 mg twice daily. 9. Lisinopril 20 mg daily. 10. Namenda 5 mg daily. 11. Sodium bicarbonate 650 mg q.6. 12. Thiamine 250 mg daily. 13. Amlodipine 10 mg daily. 14. Pancrelipase per protocol. 15. Senokot as needed. CODE STATUS: Full code. ALLERGIES: NO KNOWN DRUG ALLERGIES. HOSPITAL COURSE: Mr. Ndiaye is a pleasant 59-year-old gentleman, who was admitted to the hospital from the long-term after he was found to have hypernatremia, on routine lab work. His serum sodium was 171 on admission. He was admitted and underwent fluid resuscitation. He was also found to have an acute renal failure as well, which resolved with hydration. The amount of fluid flushes was adjusted and increased to 220 mL of free water flush every 4 hours. He also had a tendency to run a low potassium, and for this reason, his potassium supplementation was increased to 40 mEq twice daily. His magnesium level was normal at 1.9. On this discharge, the patient was sent to inpatient rehab to help with improving his muscle strength, and to aid in the deficits that have been suffered with his more recent stroke. Therefore, he was discharged on 03/04/2019 to the inpatient rehab facility. Job ID: [id number]
== END 2019-03-04 17:55 | DRG 683 ==
LOC: ERS 14:40 → ERHOLD 17:33 → 2NO 02-24 10:49
PROVIDERS: ADMIT Internal Medicine; ATTEND Internal Medicine
DX: N17.9 Acute kidney failure, unspecified (principal); E87.0 Hyperosmolality and hypernatremia; I69.354 Hemiplegia and hemiparesis following cerebral infarction affecting left non-dominant side; I24.8 Other forms of acute ischemic heart disease; E86.0 Dehydration; I25.10 Atherosclerotic heart disease of native coronary artery without angina pectoris; I25.2 Old myocardial infarction; E78.5 Hyperlipidemia, unspecified; I10 Essential (primary) hypertension; R13.10 Dysphagia, unspecified; E87.8 Other disorders of electrolyte and fluid balance, not elsewhere classified; D72.829 Elevated white blood cell count, unspecified; E87.6 Hypokalemia; R06.03 Acute respiratory distress; E11.69 Type 2 diabetes mellitus with other specified complication; E66.9 Obesity, unspecified; Z79.4 Long term (current) use of insulin; Z79.82 Long term (current) use of aspirin; Z68.31 Body mass index [BMI] 31.0-31.9, adult; Z79.899 Other long term (current) drug therapy; Z93.1 Gastrostomy status; I69.391 Dysphagia following cerebral infarction
CPT/HCPCS: 36415; 36416; 51701; 71045; 74022; 80048; 81003; 82553; 83605; 83735; 83880; 84484; 85025; 87324; 87449; 93005; 96360; 96361; J1825; J3480; S0028

== ENCOUNTER 2019-03-07 14:22 | Inpatient (IN) | payer MEDICARE ==
[~2019-03-07 14:22] MED LIST changes: -ISOVUE-370 76%-LOCM 1 ML ONE; +Iopamidol 370 76% 100 ML VIAL ONE
[2019-03-07 15:08] LABS: Hemoglobin 8.5 g/dL (14.0-18.0); Mean Corpuscular HGB CONC 31.2 g/dL (32.0-36.0); Mean Corpuscular Hemoglobin 28.4 pg (27.0-31.0); Mean Corpuscular Volume 90.9 fL (78.0-98.0); Mean Platelet Volume 8.5 fL (7.4-10.4); Platelet Count 325 thou/uL (130-400); RBC Distribution Width 14.7 % (11.5-14.5); Red Blood Cell (RBC) Count 2.99 mill/uL (4.70-6.10); White Blood Cell (WBC) Count 20.5 thou/uL (4.8-10.8)
--- NOTE | 2019-03-07 15:19 | RAD ---
Chest AP view INDICATION: Chest pain COMPARISON: March 06, 2019 FINDINGS: Lungs:Worsening bibasilar opacities Cardiac silhouette pulmonary vasculature:Worsening cardiomegaly with pulmonary vascular congestion. T here are edema Pleural spaces:Worsening small bilateral pleural effusions Upper abdomen:No abnormality seen. Osseous structures: No acute osseous abnormality. Additional findings:None. IMPRESSION: Worsening CHF and bibasilar airspace opacities
--- NOTE | 2019-03-07 15:19 | RAD ---
Abdomen one view INDICATION: Abdominal pain COMPARISON: March 01, 2019 FINDINGS: Bowel gas: Moderate gaseous distention of the colon is improved from the prior. Mild amount of retain ed stool seen in colon. Lung bases: Bibasilar opacities Additional findings: No suspicious calcification demonstrated. Osseous structures: There is scattered degenerative and osteoarthritic change present. IMPRESSION: 1. Moderate disc gaseous distention of the colon is improved from prior dated March 01, 2019
[2019-03-07 15:29] LABS: ALT (SGPT) 16 U/L (8-55); AST (SGOT) 12 U/L (5-34); Albumin 3.2 g/dL (3.5-5.0); Alkaline Phosphatase 86 U/L (40-150); Anion Gap 12 mmol/L (10-20); BUN (Urea Nitrogen) 19 mg/dL (8.4-25.7); Bilirubin, Total 0.7 mg/dL (0.2-1.2); CK (CPK) 67 U/L (30-200); Calc. Creatinine Clearance 0 mL/min (70-130); Carbon Dioxide 28 mmol/L (22-29); Chloride 110 mmol/L (98-107); Estimated GFR-MDRD Greater than 90; Globulin 3.9 g/dL (2.4-3.5); Lipase 91 U/L (8-78); Potassium 3.6 mmol/L (3.5-5.1); Protein, Total 7.1 g/dL (6.0-8.3); Sodium 146 mmol/L (136-145)
[2019-03-07] MEDS ORDERED: Piperacillin/Tazobactam 4.5 GM VIAL ONE (15:29)
[2019-03-07] MEDS ORDERED: Sodium Chloride 0.9% 100 ML ONE (15:30)
[2019-03-07 15:34] LABS: Glucose 59 mg/dL (70-105)
[2019-03-07 15:37] LABS: Anisocytosis SLIGHT = 6-15 cells (100X) (0-5/hpf); Band 5 % (5-11); Eosinophils 2 % (0-10); Hypochromia SLIGHT = 6-15 cells (100X) (0-5/hpf); Lymphocytes 10 % (21-51); MDiff Complete? YES; Monocytes 3 % (0-10); Neutrophil 79 % (42-75); Platelet Morphology Comment Appears Adequate
[2019-03-07] MEDS ORDERED: Dextrose 50% Abboject 50 ML SYRINGE ONE (15:43)
[2019-03-07 15:45] LABS: Bilirubin Negative (Negative); Blood, Urine Large (Negative); Clarity TURBID (Clear); Glucose, Urine (Dipstick) Negative (Negative); Leukocyte Large (Negative); Nitrite Negative (Negative); Protein, Urine (Dipstick) 30 mg/dL (Neg-Trace); pH, Urine 5.5 (5.0-9.0)
[2019-03-07 15:47] LABS: Squamous Epithelial 0-3 HPF (0-3)
[2019-03-07 15:48] LABS: Pathc Cast-AUWi Flag 9.82 (0-2.49)
[2019-03-07 15:52] LABS: CKMB 0.9 ng/mL (0-6.6)
[2019-03-07 15:55] LABS: Bacteria/HPF 1+ HPF (None Seen); Hyaline Casts/LPF NONE SEEN LPF (0-3 Hyaline); Yeast-All Forms 3+ HPF (None Seen)
[2019-03-07 15:56] LABS: Crystals/HPF None Seen HPF (Negative); Manual Microscopic Reviewed? No Path Casts Seen
[2019-03-07] MEDS ORDERED: Acetaminophen 325 MG Suppository ONE (16:22)
--- NOTE | 2019-03-07 16:53 | CT ---
Exam: CT angiogram of the chest HISTORY: Chest pain COMPARISON: None TECHNIQUE: CT angiogram of the chest is performed in the axial plane. Three-dimensional reformatted i mages are submitted for interpretation FINDINGS: Mediastinum: No mass, lymphadenopathy or hematoma. HEART: Normal size. No significant pericardial fluid. Aorta: No aneurysm or dissection Upper solid abdominal viscera: No abnormality enhancement. Trachea and central bronchi: Patent Pleural spaces: Small bilateral pleural effusions Lung parenchyma: Consolidation with air bronchograms in both lower lobes as well as the lobe. Correla te for aspiration, pneumonia, atelectasis. Pneumothorax: None Osseous structures: No lytic or blastic lesions Pulmonary arteries:Adequate contrast opacification pulmonary arterial system to the level of the loba r arteries. There is no evidence of a filling defect in the left pulmonary arterial system. There is a filling defect involving a lobar artery supplying the right lower lobe. IMPRESSION: 1. Bilateral pleural effusions with multifocal lung consolidation due to atelectasis, pneumonia or as piration 2. Right lower lobe pulmonary artery embolism 3. Results study discussed with Ashanti Moe 03/07/2019 at 4:48 PM Code CR
[2019-03-07] MEDS ORDERED: Enoxaparin Sodium 100 MG/ML SYRINGE ONE (17:17)
[2019-03-07 17:23] LABS: INR-International Normal Ratio 1.3; Prothrombin Time 15.9 SEC (12.0-14.7)
[2019-03-07 17:24] LABS: PTT 22.2 SEC (22.9-36.1)
[2019-03-07] MEDS ORDERED: Dextrose 50% Abboject 50 ML SYRINGE SLOW IVP PRN (17:51)
[2019-03-07] MEDS ORDERED: Dextrose 5% in Water 1,000 ML IV PRN (17:51)
[2019-03-07 18:27] LABS: Troponin I 0.034 ng/mL (< 0.028)
[2019-03-07 19:17] VITALS: BMI 31.3
[2019-03-07] MEDS ORDERED: Vancomycin HCl 1 GM in Premix Bag 1 BAG IVPB SCH (19:30)
--- NOTE | 2019-03-07 19:42 | ULT ---
DOPPLER VENOUS ULTRASOUND OF BOTH LOWER EXTREMITIES: Indication: History of PE. TECHNIQUE: Seth scale, color Doppler, and vascular duplex with spectral analysis was performed of the deep venou s structures of both lower extremities. The common femoral vein, superficial femoral vein, popliteal vein, posterior tibial vein, proximal greater saphenous, and proximal profunda veins were assessed bi laterally. FINDINGS: There is normal compression, flow, and augmentation involving the deep venous structures of both lowe r extremities. IMPRESSION: No evidence of DVT. POS: BH
[2019-03-07] MEDS: Enoxaparin Sodium 100 MG/ML SYRINGE SC SCH (21:20)
[2019-03-07] MEDS: Dextrose 5 %-0.45 % NaCl 1,000 ML IV SCH (21:21)
[2019-03-07] MEDS: Piperacillin/Tazobactam 3.375 GM in Sodium Chloride 0.9% 100 ML IVPB SCH (21:21)
[2019-03-07 21:30] LABS: Troponin I 0.036 ng/mL (< 0.028)
--- NOTE | 2019-03-07 23:07 | HP ---
CHIEF COMPLAINT: Cough. HISTORY OF PRESENT ILLNESS: This patient is a 59-year-old male with a history of a CVA in December of this year, which left him with some left hemiplegia, some dysphagia and some aphasia as well, which is incomplete. Apparently, the patient has been in various rehab and back in the hospital a couple of times since then due to hypernatremia and dehydration, felt to be part of the adjustments of getting him on a good regimen of feeding. He did require a PEG tube based on significant aspiration and has had his free water flushes adjusted a couple of times. Typically these hypernatremias have been found on routine followup lab work. After this most recent admission on 02/23, the patient was discharged on 03/04 three days ago to inpatient rehab. The patient has apparently been having some coughing, although he is presently unable to give much history. They report the patient had some chest pain, which started today, although there are chest x-rays in the computer for the last 2 days with the indication being aspiration. The patient again is unable to contribute much history, but when asked if he was having some chest pain today, he did slightly nod yes. Apparently it was also noted that the patient was having some fever with a temp up to 100.4. REVIEW OF SYSTEMS: Unobtainable given the patient's mental incapacity. PAST MEDICAL HISTORY: Notable for the left-sided hemiplegia following CVA, dysphagia, expressive aphasia, type 2 diabetes, coronary disease with a history of NM, hyperlipidemia, hypertension. PAST SURGICAL HISTORY: PEG tube placement. SOCIAL HISTORY: Based on prior records, no history of significant alcohol or tobacco use. No history of illicit drugs. ALLERGIES: NONE. CURRENT MEDICATIONS: 1. Amlodipine 5 mg two p.o. per tube daily. Aspirin 81 mg per tube daily. 2. Isosorbide mononitrate 10 mg per tube b.i.d. Plavix 75 mg per tube daily. 3. Lantus 50 units subcu b.i.d. 4. Lisinopril 20 mg one per tube daily. 5. Namenda 5 mg per tube daily. 6. Thiamine 250 mg per tube daily. 7. B12 1000 mcg per tube daily. 8. Escitalopram 10 mg one p.o. per tube daily. 9. MiraLAX 17 g per tube daily. 10. Humulin 70/30 sliding scale. 11. Atorvastatin 80 mg one per tube daily. 12. Carvedilol 12.5 mg one per tube daily. PHYSICAL EXAMINATION: VITAL SIGNS: T-max in the emergency department is 100.7, most recent temp is 100.5, BP 164/91, pulse 88, respirations 24, O2 saturation 97% on 4 L nasal cannula. GENERAL APPEARANCE: This patient is a male who appears maybe slightly older than stated age. He appears to be asleep. When aroused, he will slowly open his eyes and make some eye contact. He does not verbally interact, appears to be somewhat encephalopathic, but apparently he is near his baseline functional capacity. HEENT: Pupils are reactive. His mouth has very dry oral mucosa. NECK: Supple and symmetric. HEART: Regular without murmurs, may be slightly hyperdynamic. LUNGS: Difficult to assess without deep breaths, but no substantial wheezes are appreciated. No substantial rales or rhonchi are appreciated. He does have rhonchi on the right side, which sounds like mostly upper airway noise. ABDOMEN: PEG is in place at the central upper abdomen. It appears to be healthy at the site. Abdomen is otherwise soft, nondistended with positive bowel sounds. No masses. No organomegaly. EXTREMITIES: No cyanosis, clubbing, or edema. NEUROLOGIC: Again, the patient appears to be a bit encephalopathic. He has left hemiplegia and is not verbal. He will however follow commands when asked to squeeze with his right hand and move his right foot. He does nod a little bit to some questions, but to others he does not respond to all. LABORATORY DATA: White count 20.5, hemoglobin 8.5, platelets 325. INR 1.3. Sodium 146, potassium 3.6, chloride 110, CO2 is 28, BUN 19, creatinine 1.0, glucose 59, lactic acid 1.3. LFTs normal. Troponin 0.033. Albumin 3.2. Urinalysis shows large blood, large leukocyte esterase, 7-10 red cells, greater than 50 white cells, 3+ bacteria. BNP of 82. IMAGING: Chest x-ray shows worsening CHF with basilar airspace disease. Abdomen moderate diffuse gaseous distention of the colon, improved from prior study on March 01. CTA of the chest reveals bilateral pleural effusions with multifocal lung consolidation due to atelectasis, pneumonia or aspiration. Right lower lobe pulmonary artery embolism. EKG showed some nonspecific T-wave changes. IMPRESSION AND PLAN: 1. Aspiration pneumonia. The patient has multifocal infiltrates in the lungs. He has dysphagia with a history of aspiration and now with cough, chest pain, and fever. All of this is consistent with aspiration pneumonia. He has a normal BNP and so this is not consistent with congestive heart failure, nor does he carry that history. The patient has received vancomycin, Levaquin and Zosyn in the emergency department. We will continue with the Zosyn and vancomycin for now. 2. Acute hypoxic respiratory failure. Continue with oxygen support. Obviously secondary to the aspiration pneumonia. 3. Possible urinary tract infection in a patient with an indwelling Corbett catheter. Suspect this has been the case since he had a stroke back in December. We will follow up on blood and urine cultures. This should be adequately covered with current antibiotics. 4. Equivocal troponin, which is consistent with the patient's prior numbers and suspect this is his normal baseline. I do not suspect significant ischemia. 5. Anemia of chronic disease consistent with his prior readings. 6. Hypernatremia. The patient has a history of this since his stroke in December. In fact, it was as high as 170s previously. We will give him some hydration. He is currently receiving D5 half-normal. 7. Mild hypoglycemia. The patient received an amp of D50 in the emergency department. We will continue with Accu-Cheks. 8. Diabetes mellitus. Accu-Cheks sliding scale as needed. 9. Pulmonary embolus. The patient has received 1 mg/kg of Lovenox in the emergency department. We will continue with that as well as get lower extremity Dopplers. 10. Code status. The patient's family has not been reached at this time. We will continue to keep him full code until we can get more specific direction, otherwise. 11. Hypertension. We will resume his usual home medications. 12. History of cerebrovascular accident with left hemiplegia. Continue with blood pressure control, aspirin and Plavix. Job ID: [id number]
[2019-03-08] MEDS: Piperacillin/Tazobactam 3.375 GM in Sodium Chloride 0.9% 100 ML IVPB SCH ×4 (03:14→21:35)
[2019-03-08] MEDS ORDERED: Lisinopril 20 MG TAB PER TUBE SCH (05:45)
[2019-03-08] MEDS ORDERED: Amlodipine 10 MG TAB PER TUBE SCH (05:45)
[2019-03-08] MEDS ORDERED: Carvedilol 25 MG TAB PER TUBE SCH (05:45)
[2019-03-08] MEDS: Acetaminophen 325 MG/10.15 ML UDCUP PER TUBE PRN ×2 (05:46→15:18)
[2019-03-08 07:20] LABS: Hemoglobin 8.3 g/dL (14.0-18.0); Mean Corpuscular HGB CONC 31.1 g/dL (32.0-36.0); Mean Corpuscular Hemoglobin 28.5 pg (27.0-31.0); Mean Corpuscular Volume 91.6 fL (78.0-98.0); Mean Platelet Volume 8.8 fL (7.4-10.4); Platelet Count 315 thou/uL (130-400); RBC Distribution Width 14.7 % (11.5-14.5); White Blood Cell (WBC) Count 22.2 thou/uL (4.8-10.8)
[2019-03-08 07:27] LABS: Anion Gap 13 mmol/L (10-20); BUN (Urea Nitrogen) 16 mg/dL (8.4-25.7); Calc. Creatinine Clearance 125 mL/min (70-130); Calcium 9.1 mg/dL (7.8-10.44); Carbon Dioxide 24 mmol/L (22-29); Chloride 110 mmol/L (98-107); Estimated GFR-MDRD Greater than 90; Glucose 89 mg/dL (70-105); Potassium 3.2 mmol/L (3.5-5.1); Sodium 144 mmol/L (136-145)
[2019-03-08 08:49] LABS: Band 7 % (5-11); Hypochromia SLIGHT = 6-15 cells (100X) (0-5/hpf); Lymphocytes 4 % (21-51); MDiff Complete? YES; Monocytes 6 % (0-10); Neutrophil 83 % (42-75); Platelet Morphology Comment Appears Adequate; Polychromasia SLIGHT = 2-3 cells (100X) (0-2/hpf)
[2019-03-08] MEDS: Dextrose 5 %-0.45 % NaCl 1,000 ML IV SCH ×2 (09:08→21:36)
[2019-03-08] MEDS: Enoxaparin Sodium 100 MG/ML SYRINGE SC SCH ×2 (09:08→21:00)
[2019-03-08] MEDS ORDERED: Morphine 4 MG/ML VIAL SLOW IVP PRN (13:12)
[2019-03-08] MEDS ORDERED: traMADol HCl 50 MG TAB PER TUBE PRN (13:12)
--- NOTE | 2019-03-08 13:14 | PDOC.PN ---
- Subjective Encounter Start Date: 03/08/19 Encounter Start Time: 15:30 Subjective: Patient opens eyes to stimulation but goes right back to sleep. -: Just got a dose of morphine for his chest pain. Appears comfortable -: now. - Objective Resuscitation Status - Order Detail: 03/07/19 17:40 Resuscitation Status Routine Resuscitation Status: FULL: Full Resuscitation MAR Reviewed: Yes Vital Signs & Weight: Vital Signs (12 hours) Temp Pulse Resp BP BP Pulse Ox 03/08/19 12:58 99.8 F H 98 20 153/75 H 99 03/08/19 11:00 100.4 F H 98 18 152/74 H 100 03/08/19 08:00 97 03/08/19 07:55 99.7 F H 85 18 134/69 97 03/08/19 05:47 106 H 162/94 H Weight Weight 237 lb 6.4 oz Most Recent Monitor Data Heart Rate from ECG 87 NIBP 137/75 NIBP BP-Mean 95 Respiration from ECG 14 I&O: 03/07/19 03/08/19 03/09/19 06:59 06:59 06:59 Intake Total 950 Output Total 1000 Balance -50 Result Diagrams: 03/08/19 06:05 03/08/19 06:05 Additional Labs: Accuchecks 03/08/19 03/08/19 03/07/19 11:46 05:27 20:35 POC Glucose 124 H 84 94 03/07/19 16:48 POC Glucose 89 Phys Exam - Physical Examination Constitutional: NAD HEENT: moist MMs Respiratory: no wheezing, no rales, no rhonchi Cardiovascular: RRR Gastrointestinal: soft, positive bowel sounds Deviation from normal: somnolent, no distress Dx/Plan (1) Sepsis Code(s): A41.9 - SEPSIS, UNSPECIFIED ORGANISM Status: Acute Comment: due to aspiration pneumonia, leukocytosis, fever, tachycardia, treating with Zosyn and Vancomycin since 03/07/19 (2) Aspiration pneumonia Code(s): J69.0 - PNEUMONITIS DUE TO INHALATION OF FOOD AND VOMIT Status: Acute Qualifiers: Laterality: bilateral (3) Acute respiratory failure with hypoxia Code(s): J96.01 - ACUTE RESPIRATORY FAILURE WITH HYPOXIA Status: Acute Comment: requiring 4L NC, not on O2 at skilled nursing (4) Pulmonary embolism Code(s): I26.99 - OTHER PULMONARY EMBOLISM WITHOUT ACUTE COR PULMONALE Status : Acute Qualifiers: Chronicity: acute Comment: RLL, on full dose Lovenox (5) Hypernatremia Code(s): E87.0 - HYPEROSMOLALITY AND HYPERNATREMIA Status: Acute Comment: resolved, needs large amounts of free water through PEG tube to prevent (6) Diabetes mellitus type 2 in obese Code(s): E11.69 - TYPE 2 DIABETES MELLITUS WITH OTHER SPECIFIED COMPLICATION; E66.9 - OBESITY, UNSPECIFIED Status: Chronic - Plan cont current plan of care, continue antibiotics, PT/OT, DVT proph w/lovenox 1/2 blood culture positive for Staph Epi, contaminent. -: attempted to call child Mica Hall at [phone] but no answer -: will try again later to update family * . - Discharge Day Encounter end time: 15:40
[2019-03-08] MEDS: Carvedilol 25 MG TAB PER TUBE SCH (16:51)
[2019-03-08] MEDS: HumaLOG 300 UNITS/3 ML VIAL SC PRN (17:00)
[2019-03-09] MEDS: Piperacillin/Tazobactam 3.375 GM in Sodium Chloride 0.9% 100 ML IVPB SCH ×4 (03:53→21:03)
[2019-03-09 06:10] LABS: Vancomycin, Trough 29.4 ug/mL
[2019-03-09 06:12] LABS: Anion Gap 9 mmol/L (10-20); BUN (Urea Nitrogen) 22 mg/dL (8.4-25.7); Calc. Creatinine Clearance 97 mL/min (70-130); Calcium 8.7 mg/dL (7.8-10.44); Carbon Dioxide 26 mmol/L (22-29); Chloride 112 mmol/L (98-107); Estimated GFR-MDRD 71; Glucose 279 mg/dL (70-105); Potassium 3.2 mmol/L (3.5-5.1); Sodium 144 mmol/L (136-145)
[2019-03-09] MEDS: HumaLOG 300 UNITS/3 ML VIAL SC PRN ×4 (06:36→20:28)
[2019-03-09 06:44] LABS: Hemoglobin 7.6 g/dL (14.0-18.0); Mean Corpuscular HGB CONC 30.7 g/dL (32.0-36.0); Mean Corpuscular Hemoglobin 27.8 pg (27.0-31.0); Mean Corpuscular Volume 90.5 fL (78.0-98.0); Mean Platelet Volume 8.5 fL (7.4-10.4); Platelet Count 326 thou/uL (130-400); RBC Distribution Width 14.8 % (11.5-14.5); Red Blood Cell (RBC) Count 2.73 mill/uL (4.70-6.10); White Blood Cell (WBC) Count 20.3 thou/uL (4.8-10.8)
[2019-03-09 08:59] LABS: Band 9 % (5-11); Lymphocytes 6 % (21-51); MDiff Complete? YES; Monocytes 6 % (0-10); Neutrophil 78 % (42-75); Platelet Morphology Comment Appears Adequate; Polychromasia SLIGHT = 2-3 cells (100X) (0-2/hpf); Reactive Lymphocytes 1 % (0-10)
[2019-03-09] MEDS: Lisinopril 20 MG TAB PER TUBE SCH (09:16)
[2019-03-09] MEDS: Enoxaparin Sodium 100 MG/ML SYRINGE SC SCH ×2 (09:16→20:11)
[2019-03-09] MEDS: Dextrose 5 %-0.45 % NaCl 1,000 ML IV SCH (09:16)
[2019-03-09] MEDS: Carvedilol 25 MG TAB PER TUBE SCH ×2 (09:17→17:44)
[2019-03-09] MEDS: Amlodipine 10 MG TAB PER TUBE SCH (09:17)
--- NOTE | 2019-03-09 10:15 | PDOC.PN ---
- Subjective Encounter Start Date: 03/09/19 Encounter Start Time: 12:50 Subjective: Patient feeling a bit better. More responsive. No fever. No SOB. -: No currently chest pain. Still on O2. - Objective Resuscitation Status - Order Detail: 03/07/19 17:40 Resuscitation Status Routine Resuscitation Status: FULL: Full Resuscitation MAR Reviewed: Yes Vital Signs & Weight: Vital Signs (12 hours) Temp Pulse Resp BP BP Pulse Ox 03/09/19 09:17 98 169/81 H 03/09/19 09:16 169/81 H 03/09/19 07:53 99.0 F 95 16 169/81 H 94 L 03/09/19 04:50 98.4 F 94 20 129/73 100 03/08/19 23:50 98.3 F 92 20 152/72 H 100 Weight Admit Weight 237 lb 6.4 oz Weight 237 lb 6.4 oz Most Recent Monitor Data Heart Rate from ECG 87 NIBP 137/75 NIBP BP-Mean 95 Respiration from ECG 14 I&O: 03/08/19 03/09/19 03/10/19 06:59 06:59 06:59 Intake Total 950 2950 Output Total 1000 2100 Balance -50 850 Result Diagrams: 03/09/19 05:42 03/09/19 05:42 Additional Labs: Accuchecks 03/09/19 03/08/19 03/08/19 04:50 20:37 16:28 POC Glucose 277 H 216 H 207 H 03/08/19 11:46 POC Glucose 124 H Phys Exam - Physical Examination Constitutional: NAD HEENT: moist MMs Respiratory: no wheezing, no rales, no rhonchi Cardiovascular: RRR, no significant murmur Gastrointestinal: soft, non-tender, positive bowel sounds Left sided paraplegia, slurred speech Deviation from normal: more alert today and talking, more understandable Dx/Plan (1) Sepsis Code(s): A41.9 - SEPSIS, UNSPECIFIED ORGANISM Status: Acute Comment: due to aspiration pneumonia, leukocytosis, last fever 03/08/19, tachycardia improving, treating with Zosyn and Vancomycin since 03/07/19 (2) Aspiration pneumonia Code(s): J69.0 - PNEUMONITIS DUE TO INHALATION OF FOOD AND VOMIT Status: Acute Qualifiers: Laterality: bilateral (3) Acute respiratory failure with hypoxia Code(s): J96.01 - ACUTE RESPIRATORY FAILURE WITH HYPOXIA Status: Acute Comment: requiring 4L NC, not on O2 at long term (4) Pulmonary embolism Code(s): I26.99 - OTHER PULMONARY EMBOLISM WITHOUT ACUTE COR PULMONALE Status : Acute Qualifiers: Chronicity: acute Comment: RLL, on full dose Lovenox (5) Hypernatremia Code(s): E87.0 - HYPEROSMOLALITY AND HYPERNATREMIA Status: Acute Comment: resolved, needs large amounts of free water through PEG tube to prevent (6) Diabetes mellitus type 2 in obese Code(s): E11.69 - TYPE 2 DIABETES MELLITUS WITH OTHER SPECIFIED COMPLICATION; E66.9 - OBESITY, UNSPECIFIED Status: Chronic (7) Hypokalemia Code(s): E87.6 - HYPOKALEMIA Status: Acute Comment: KCL replacement via PEG tube, serial K+ monitoring, check Mg++/PO3 in am (8) UTI (urinary tract infection) due to Enterococcus Code(s): N39.0 - URINARY TRACT INFECTION, SITE NOT SPECIFIED; B95.2 - ENTEROCOCCUS THE CAUSE OF DISEASES CLASSIFIED ELSEWHERE Status: Acute Comment: growing enterococcus in urine culture, awaiting final ID and sensitivities - Plan cont current plan of care, continue antibiotics, PT/OT, DVT proph w/lovenox * . - Discharge Day Encounter end time: 13:00
[2019-03-09 16:28] LABS: Vancomycin, Random 17.9 ug/mL (See Comment)
[2019-03-09] MEDS: Vancomycin HCl 1.25 GM in Sodium Chloride 0.9% 250 ML 250 ML IVPB SCH (17:43)
[2019-03-10] MEDS: Dextrose 5 %-0.45 % NaCl 1,000 ML IV SCH (03:41)
[2019-03-10] MEDS: Piperacillin/Tazobactam 3.375 GM in Sodium Chloride 0.9% 100 ML IVPB SCH ×4 (03:42→21:56)
[2019-03-10] MEDS: Vancomycin HCl 1.25 GM in Sodium Chloride 0.9% 250 ML 250 ML IVPB SCH ×2 (04:52→16:49)
[2019-03-10] MEDS: HumaLOG 300 UNITS/3 ML VIAL SC PRN ×4 (06:10→20:25)
[2019-03-10 08:03] LABS: Anion Gap 12 mmol/L (10-20); BUN (Urea Nitrogen) 16 mg/dL (8.4-25.7); Calc. Creatinine Clearance 114 mL/min (70-130); Calcium 8.9 mg/dL (7.8-10.44); Carbon Dioxide 28 mmol/L (22-29); Chloride 113 mmol/L (98-107); Estimated GFR-MDRD 85; Glucose 303 mg/dL (70-105); Magnesium 2.1 mg/dL (1.6-2.6); Sodium 150 mmol/L (136-145)
[2019-03-10 08:08] LABS: Potassium 2.9 mmol/L (3.5-5.1)
[2019-03-10] MEDS: Amlodipine 10 MG TAB PER TUBE SCH (08:10)
[2019-03-10] MEDS: Carvedilol 25 MG TAB PER TUBE SCH ×2 (08:10→16:49)
[2019-03-10 08:11] LABS: Phosphorus 1.7 mg/dL (2.3-4.7)
[2019-03-10] MEDS: Lisinopril 20 MG TAB PER TUBE SCH (08:11)
[2019-03-10] MEDS: Enoxaparin Sodium 100 MG/ML SYRINGE SC SCH (08:11)
[2019-03-10 08:14] LABS: #Eosinphils 0.1 thou/uL (0.0-0.7); #Lymphocytes 1.6 thou/uL (1.20-3.40); #Monocytes 0.8 thou/uL (0.11-0.59); #Neutrophils 15.5 thou/uL (1.40-6.50); %Basophils 0.3 % (0.0-1.0); %Eosinophils 0.5 % (0.0-10.0); %Lymphocytes 8.7 % (21.0-51.0); %Monocytes 4.5 % (0.0-10.0); %Neutrophils 86.1 % (42.0-75.0); Hemoglobin 7.4 g/dL (14.0-18.0); Hypochromia SLIGHT = 6-15 cells (100X) (0-5/hpf); MDiff Complete? YES; Mean Corpuscular HGB CONC 28.2 g/dL (32.0-36.0); Mean Corpuscular Hemoglobin 25.6 pg (27.0-31.0); Mean Corpuscular Volume 90.6 fL (78.0-98.0); Mean Platelet Volume 8.2 fL (7.4-10.4); Platelet Count 407 thou/uL (130-400); Platelet Morphology Comment Appears Increased; Polychromasia SLIGHT = 2-3 cells (100X) (0-2/hpf); RBC Distribution Width 14.8 % (11.5-14.5); Red Blood Cell (RBC) Count 2.89 mill/uL (4.70-6.10)
--- NOTE | 2019-03-10 11:58 | PDOC.PN ---
- Subjective Encounter Start Date: 03/10/19 Encounter Start Time: 12:20 Subjective: Patient doing ok off O2 this AM. No fever. A bit sleepy this AM. No new -: events. - Objective Resuscitation Status - Order Detail: 03/07/19 17:40 Resuscitation Status Routine Resuscitation Status: FULL: Full Resuscitation MAR Reviewed: Yes Vital Signs & Weight: Vital Signs (12 hours) Temp Pulse Resp BP BP BP Pulse Ox 03/10/19 11:28 98.1 F 95 18 157/78 H 93 L 03/10/19 08:11 162/84 H 03/10/19 08:10 98 162/84 H 03/10/19 08:05 97 03/10/19 07:54 97.9 F 98 16 162/84 H 97 03/10/19 05:47 98.8 F 97 20 168/82 H 94 L 03/10/19 00:00 98.7 F 99 20 127/71 93 L Weight Admit Weight 237 lb 6.4 oz Weight 237 lb 6.4 oz Most Recent Monitor Data Heart Rate from ECG 87 NIBP 137/75 NIBP BP-Mean 95 Respiration from ECG 14 I&O: 03/09/19 03/10/19 03/11/19 06:59 06:59 06:59 Intake Total 2950 1890 1745 Output Total 2100 1500 2500 Balance 850 390 -755 Result Diagrams: 03/10/19 07:15 03/10/19 07:15 Additional Labs: Accuchecks 03/10/19 03/09/19 03/09/19 04:34 20:06 16:40 POC Glucose 297 H 291 H 284 H 03/09/19 11:44 POC Glucose 273 H Phys Exam - Physical Examination Constitutional: NAD HEENT: moist MMs Respiratory: no wheezing, no rales, no rhonchi Cardiovascular: RRR Gastrointestinal: soft, positive bowel sounds facial droop and severe dysarthria Psychiatric: normal affect Dx/Plan (1) Sepsis Code(s): A41.9 - SEPSIS, UNSPECIFIED ORGANISM Status: Acute Comment: due to aspiration pneumonia, leukocytosis, last fever 03/08/19, tachycardia improving, treating with Zosyn and Vancomycin since 03/07/19, consider transition to oral abx soon (2) Aspiration pneumonia Code(s): J69.0 - PNEUMONITIS DUE TO INHALATION OF FOOD AND VOMIT Status: Acute Qualifiers: Laterality: bilateral (3) Acute respiratory failure with hypoxia Code(s): J96.01 - ACUTE RESPIRATORY FAILURE WITH HYPOXIA Status: Acute Comment: weaning off O2 (4) Pulmonary embolism Code(s): I26.99 - OTHER PULMONARY EMBOLISM WITHOUT ACUTE COR PULMONALE Status : Acute Qualifiers: Chronicity: acute Comment: RLL, on full dose Lovenox--> transition to Eliquis (5) Hypernatremia Code(s): E87.0 - HYPEROSMOLALITY AND HYPERNATREMIA Status: Acute Comment: needs large amounts of free water through PEG tube to prevent 220mL [id number] (6) Diabetes mellitus type 2 in obese Code(s): E11.69 - TYPE 2 DIABETES MELLITUS WITH OTHER SPECIFIED COMPLICATION; E66.9 - OBESITY, UNSPECIFIED Status: Chronic (7) Hypokalemia Code(s): E87.6 - HYPOKALEMIA Status: Acute Comment: KCL replacement via PEG tube, serial K+ monitoring, Mg normal, K+ dropped, will increase replacement (8) UTI (urinary tract infection) due to Enterococcus Code(s): N39.0 - URINARY TRACT INFECTION, SITE NOT SPECIFIED; B95.2 - ENTEROCOCCUS THE CAUSE OF DISEASES CLASSIFIED ELSEWHERE Status: Acute Comment: growing enterococcus in urine culture, awaiting final ID and sensitivities (9) Anemia Code(s): D64.9 - ANEMIA, UNSPECIFIED Status: Chronic Comment: monitor on blood thinners - Plan cont current plan of care, continue antibiotics, PT/OT Maybe one more day of IV abx and can consider transition to oral and rehab -: tomorrow * . - Discharge Day Encounter end time: 12:40
[2019-03-10] MEDS: Apixaban 5 MG TAB PO SCH (20:17)
[2019-03-11] MEDS: Piperacillin/Tazobactam 3.375 GM in Sodium Chloride 0.9% 100 ML IVPB SCH ×2 (03:40→11:47)
[2019-03-11 05:20] LABS: #Basophils 0.1 thou/uL (0.0-0.2); #Eosinphils 0.1 thou/uL (0.0-0.7); #Lymphocytes 2.1 thou/uL (1.20-3.40); #Neutrophils 12.6 thou/uL (1.40-6.50); %Basophils 0.5 % (0.0-1.0); %Eosinophils 0.6 % (0.0-10.0); %Monocytes 6.2 % (0.0-10.0); %Neutrophils 79.8 % (42.0-75.0); Hemoglobin 7.7 g/dL (14.0-18.0); Mean Corpuscular HGB CONC 30.4 g/dL (32.0-36.0); Mean Corpuscular Hemoglobin 27.4 pg (27.0-31.0); Mean Corpuscular Volume 90.1 fL (78.0-98.0); Mean Platelet Volume 7.8 fL (7.4-10.4); Platelet Count 390 thou/uL (130-400); RBC Distribution Width 15.5 % (11.5-14.5); Red Blood Cell (RBC) Count 2.81 mill/uL (4.70-6.10); White Blood Cell (WBC) Count 15.8 thou/uL (4.8-10.8)
[2019-03-11 05:31] LABS: Anion Gap 14 mmol/L (10-20); BUN (Urea Nitrogen) 14 mg/dL (8.4-25.7); Calc. Creatinine Clearance 118 mL/min (70-130); Carbon Dioxide 27 mmol/L (22-29); Chloride 115 mmol/L (98-107); Estimated GFR-MDRD 89; Glucose 302 mg/dL (70-105); Potassium 3.3 mmol/L (3.5-5.1); Sodium 153 mmol/L (136-145); Vancomycin, Trough 20.9 ug/mL
[2019-03-11] MEDS: HumaLOG 300 UNITS/3 ML VIAL SC PRN ×2 (06:16→13:18)
[2019-03-11] MEDS: Vancomycin HCl 1.25 GM in Sodium Chloride 0.9% 250 ML 250 ML IVPB SCH (06:17)
[2019-03-11] MEDS: Carvedilol 25 MG TAB PER TUBE SCH (08:26)
[2019-03-11] MEDS: Apixaban 5 MG TAB PO SCH (08:26)
[2019-03-11] MEDS: Amlodipine 10 MG TAB PER TUBE SCH (08:27)
[2019-03-11] MEDS: Lisinopril 20 MG TAB PER TUBE SCH (08:27)
[2019-03-11] MEDS ORDERED: Vancomycin HCl 1.25 GM in Sodium Chloride 0.9% 250 ML 250 ML IVPB SCH (09:00)
--- NOTE | 2019-03-11 11:33 | PDOC.PN ---
- Subjective Encounter Start Date: 03/11/19 Encounter Start Time: 11:00 Subjective: Patient without complaints. No events overnight. No fever. - Objective Resuscitation Status - Order Detail: 03/07/19 17:40 Resuscitation Status Routine Resuscitation Status: FULL: Full Resuscitation MAR Reviewed: Yes Vital Signs & Weight: Vital Signs (12 hours) Temp Pulse Resp BP BP BP Pulse Ox 03/11/19 11:27 98.5 F 92 20 169/96 H 94 L 03/11/19 08:27 95 162/80 H 03/11/19 08:24 94 L 03/11/19 07:58 98.3 F 95 18 162/80 H 94 L 03/11/19 04:00 99.0 F 99 18 164/87 H 93 L 03/11/19 00:00 98.2 F 96 18 148/102 H 93 L Weight Admit Weight 237 lb 6.4 oz Weight 237 lb 6.4 oz Most Recent Monitor Data Heart Rate from ECG 87 NIBP 137/75 NIBP BP-Mean 95 Respiration from ECG 14 I&O: 03/10/19 03/11/19 03/12/19 06:59 06:59 06:59 Intake Total 1890 5000 Output Total 1500 4050 Balance 390 950 Result Diagrams: 03/11/19 05:06 03/11/19 05:06 Additional Labs: Accuchecks 03/11/19 03/10/19 03/10/19 04:05 20:20 16:17 POC Glucose 303 H 291 H 283 H 03/10/19 11:29 POC Glucose 305 H Phys Exam - Physical Examination Constitutional: NAD HEENT: moist MMs Respiratory: no wheezing, no rales, no rhonchi Cardiovascular: RRR, no significant murmur Gastrointestinal: soft, non-tender, positive bowel sounds PEG in place left hemiplegia, slurred speech hard to understand Deviation from normal: sleepy but arousable, denies complaints Dx/Plan (1) Sepsis Code(s): A41.9 - SEPSIS, UNSPECIFIED ORGANISM Status: Acute Comment: due to aspiration pneumonia, leukocytosis resolving, last fever 03/08/19, tachycardia improved, treating with Zosyn and Vancomycin since 03/07/19, switch to Augmentin by tube and d/c to rehab (2) Aspiration pneumonia Code(s): J69.0 - PNEUMONITIS DUE TO INHALATION OF FOOD AND VOMIT Status: Acute Qualifiers: Laterality: bilateral (3) Acute respiratory failure with hypoxia Code(s): J96.01 - ACUTE RESPIRATORY FAILURE WITH HYPOXIA Status: Acute Comment: weaning off O2 (4) Pulmonary embolism Code(s): I26.99 - OTHER PULMONARY EMBOLISM WITHOUT ACUTE COR PULMONALE Status : Acute Qualifiers: Chronicity: acute Comment: RLL, on full dose Lovenox--> transition to Eliquis (5) Hypernatremia Code(s): E87.0 - HYPEROSMOLALITY AND HYPERNATREMIA Status: Acute Comment: needs large amounts of free water through PEG tube to prevent 220mL [id number] (6) Diabetes mellitus type 2 in obese Code(s): E11.69 - TYPE 2 DIABETES MELLITUS WITH OTHER SPECIFIED COMPLICATION; E66.9 - OBESITY, UNSPECIFIED Status: Chronic (7) Hypokalemia Code(s): E87.6 - HYPOKALEMIA Status: Acute Comment: KCL replacement via PEG tube, serial K+ monitoring, Mg normal, K+ dropped, will increase replacement (8) UTI (urinary tract infection) due to Enterococcus Code(s): N39.0 - URINARY TRACT INFECTION, SITE NOT SPECIFIED; B95.2 - ENTEROCOCCUS THE CAUSE OF DISEASES CLASSIFIED ELSEWHERE Status: Acute Comment: growing enterococcus in urine culture, awaiting final ID and sensitivities (9) Anemia Code(s): D64.9 - ANEMIA, UNSPECIFIED Status: Chronic Comment: monitor on blood thinners - Plan cont current plan of care, continue antibiotics discharge back to rehab * . - Discharge Day Encounter end time: 11:30
[2019-03-11] MEDS ORDERED: Amoxicillin/Potassium Clav 400 mg/5 ml Oral Suspension PER TUBE SCH (12:00)
[2019-03-11 15:21] VITALS: TEMP 98.1
[2019-03-11 15:27] VITALS: BP 167/92
--- NOTE | 2019-03-12 05:20 | DIS ---
DATE OF ADMISSION: 03/07/2019 DATE OF DISCHARGE: 03/11/2019 PRIMARY CARE PHYSICIAN: REASON FOR ADMISSION: Aspiration pneumonia. DIAGNOSES AT DISCHARGE: 1. Sepsis, resolved. 2. Bilateral aspiration pneumonia. 3. Pulmonary embolism, now on Eliquis. 4. Acute hypoxic respiratory failure, resolved. 5. Hypernatremia. 6. Diabetes mellitus type 2. 7. Urinary tract infection with Enterococcus sensitive to penicillins. 8. Hypokalemia requiring oral supplementation. 9. Anemia, stable. PROCEDURES: 1. CT of the chest and thorax with contrast showing bilateral pleural effusions and multifocal lung consolidation due to atelectasis, pneumonia or aspiration; also with a right lower lobe pulmonary artery embolism. 2. X-ray of the abdomen showing moderate gaseous distention of the colon, improved from previous. 3. Venogram of the lower extremity showing no evidence for DVT. CONSULTATIONS: None. SUMMARY OF HOSPITAL COURSE: This is a 59-year-old male, recently diagnosed with a large CVA in December of this year and left with left hemiplegia, dysphagia, and aphasia. He has had a PEG tube placed in and out of rehab since then and has come back to the hospital with dehydration and hypernatremia and had to be eventually switched to large free water flushes every 4 hours to prevent these. The patient began having coughing at the rehab and was sent here and was noted to have some evidence of aspiration with chest x-ray and a CT scan done with the above results. The patient had significant leukocytosis and a low-grade fever. He was started on broad-spectrum IV antibiotics. He also had low potassium and had to be replaced multiple times and eventually put on a large oral supplement via tube twice a day. He improved slowly over his hospitalization and he initially was requiring high doses of oxygen. This was eventually weaned off. His cough improved. He was transitioned over from Lovenox to Eliquis. He was tolerating his tube feeds and his free water flushes well, and he was transitioned off the IV antibiotics to oral Augmentin via his tube. On the day of discharge, he was afebrile and the white count down to 15, originally it was 30; potassium up to 3.3 with another dose given and sodium holding steady in the low 150s with large amounts of free water via his tube. The patient also did have a urine culture, it grew back Enterococcus faecalis along with Lisa albicans. The Enterococcus was sensitive to penicillins. DISCHARGE MANAGEMENT: Discharged back to inpatient rehabilitation. ACTIVITY: As tolerated. DIET: Tube feeding diet with free water flushes 220 mL q.4 hours. THERAPY: Occupational, physical, and speech therapy. EQUIPMENT SUPPLIES: PEG tube care. FOLLOWUP: Follow up with as needed. DISCHARGE MEDICATIONS: 1. Augmentin 400 mg per 5 mL, 10 mL per tube twice a day. 2. Eliquis 5 mg twice a day. 3. DuoNeb as needed. 4. Potassium chloride 40 mEq solution per tube twice a day. 5. Tramadol 50 mg every 4 hours as needed for pain. 6. Resume acetaminophen as needed. 7. Amlodipine 10 mg daily. 8. Aspirin 81 mg daily. 9. Atorvastatin 80 mg at night. 10. Carvedilol 12.5 mg twice a day. 11. Clopidogrel 75 mg daily. 12. Vitamin B12 1000 mcg daily. 13. Lexapro 10 mg daily. 14. Lantus 50 units subcu twice a day. 15. Insulin with sliding scale. 16. Isosorbide 10 mg per tube twice a day. 17. Lisinopril 20 mg per tube daily. 18. Namenda 5 mg daily. 19. Creon 12,000 units as needed for tube obstruction. 20. Senokot-S 2 tabs twice a day as needed for constipation. 21. Thiamine 250 mg daily. Arranging the details of this discharge took 35 minutes. Job ID: [id number]
--- NOTE | 2019-03-13 15:36 | EKG ---
Test Reason : Blood Pressure : / mmHG Vent. Rate : 089 BPM Atrial Rate : 089 BPM P-R Int : 166 ms QRS Dur : 090 ms QT Int : 374 ms P-R-T Axes : 023 -20 001 degrees QTc Int : 455 ms Normal sinus rhythm Moderate voltage criteria for LVH, may be normal variant Nonspecific T wave abnormality Abnormal ECG Confirmed by AMY Madrid, VINCE ([id number]), supervising editor trailer PING ARMAS ([id number]) on 03/13/2019 3:36:13 PM Referred By: Confirmed By:VINCE REYES M.D.
== END 2019-03-11 15:57 | DRG 871 ==
LOC: ERS 14:22 → IMCU/EMU 17:11 → T4-B 19:57
PROVIDERS: ADMIT Internal Medicine; ATTEND Internal Medicine
DX: A41.9 Sepsis, unspecified organism (principal); J96.01 Acute respiratory failure with hypoxia; I26.99 Other pulmonary embolism without acute cor pulmonale; J69.0 Pneumonitis due to inhalation of food and vomit; I69.354 Hemiplegia and hemiparesis following cerebral infarction affecting left non-dominant side; E87.0 Hyperosmolality and hypernatremia; N39.0 Urinary tract infection, site not specified; I25.10 Atherosclerotic heart disease of native coronary artery without angina pectoris; B95.2 Enterococcus as the cause of diseases classified elsewhere; E78.5 Hyperlipidemia, unspecified; I10 Essential (primary) hypertension; D63.8 Anemia in other chronic diseases classified elsewhere; E11.649 Type 2 diabetes mellitus with hypoglycemia without coma; E11.69 Type 2 diabetes mellitus with other specified complication; E66.9 Obesity, unspecified; E87.6 Hypokalemia; Z79.82 Long term (current) use of aspirin; I25.2 Old myocardial infarction; Z79.4 Long term (current) use of insulin; Z79.899 Other long term (current) drug therapy; Z68.31 Body mass index [BMI] 31.0-31.9, adult
CPT/HCPCS: 36415; 36416; 71045; 71275; 74018; 80048; 80202; 81003; 81015; 82550; 82553; 83605; 83690; 83735; 83880; 84100; 84484; 85025; 85610; 85730; 87040; 87077; 87086; 87149; 87186; 87324; 87449; 93005; 93970; 94640; 94760; 96365; 96367; 96372; 96375; J1650; J1956; J2270; J2543; J3370; J3490; J7050; J7620; Q9967

== ENCOUNTER 2019-03-31 12:46 | Observation (INO) | payer MEDICARE ==
[2019-03-31 14:19] LABS: #Eosinphils 0.1 thou/uL (0.0-0.7); #Lymphocytes 1.4 thou/uL (1.20-3.40); #Monocytes 0.4 thou/uL (0.11-0.59); #Neutrophils 7.7 thou/uL (1.40-6.50); %Basophils 0.5 % (0.0-1.0); %Eosinophils 0.7 % (0.0-10.0); %Lymphocytes 14.2 % (21.0-51.0); %Monocytes 3.9 % (0.0-10.0); %Neutrophils 80.6 % (42.0-75.0); Hemoglobin 9.7 g/dL (14.0-18.0); Mean Corpuscular HGB CONC 31.7 g/dL (32.0-36.0); Mean Corpuscular Hemoglobin 27.6 pg (27.0-31.0); Mean Corpuscular Volume 87.2 fL (78.0-98.0); Mean Platelet Volume 7.5 fL (7.4-10.4); Platelet Count 434 thou/uL (130-400); RBC Distribution Width 16.8 % (11.5-14.5); White Blood Cell (WBC) Count 9.5 thou/uL (4.8-10.8)
[2019-03-31 14:41] LABS: ALT (SGPT) 20 U/L (8-55); AST (SGOT) 19 U/L (5-34); Albumin 3.7 g/dL (3.5-5.0); Alkaline Phosphatase 97 U/L (40-150); Anion Gap 13 mmol/L (10-20); BUN (Urea Nitrogen) 22 mg/dL (8.4-25.7); Bilirubin, Total 0.7 mg/dL (0.2-1.2); Calc. Creatinine Clearance 0 mL/min (70-130); Calcium 10.1 mg/dL (7.8-10.44); Carbon Dioxide 29 mmol/L (22-29); Chloride 98 mmol/L (98-107); Estimated GFR-MDRD 65; Globulin 4.8 g/dL (2.4-3.5); Glucose 204 mg/dL (70-105); Potassium 4.1 mmol/L (3.5-5.1); Protein, Total 8.5 g/dL (6.0-8.3); Sodium 136 mmol/L (136-145)
--- NOTE | 2019-03-31 15:10 | CT ---
CT BRAIN NONCONTRAST: 03/31/19 HISTORY: 59-year-old male with seizure. COMPARISON: 02/04/19. FINDINGS: There is no midline shift or any other mass effect. There is no evidence of acute intracranial hemor rhage, large cortical infarct, obstructive hydrocephalus, or extraaxial fluid collection. The calvar ium is intact. There is diffuse parenchymal volume loss. There are low attenuation areas in the whi te matter. These are nonspecific, but in a patient of this age, they are probably chronic ischemic w carlos matter changes due to microvascular atherosclerosis. There are multiple small old lacunar infarc tions of the bilateral caudate nuclei, basal ganglia, and the anterior portions of internal and exter nal capsules. There is no significant interval change overall. IMPRESSION: 1) No acute intracranial findings. 2) Involutional changes and chronic ischemic white matter changes. 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 4) No interval change overall since 02/04/19. heidy dobbins POS: NARESH
[2019-03-31] MEDS ORDERED: Morphine 2 MG/ML SYRINGE ONE (16:40)
[2019-03-31 17:17] LABS: Clarity Hazy (Clear)
[2019-03-31 17:18] LABS: Glucose, Urine (Dipstick) Negative (Negative); Leukocyte Large (Negative); Nitrite Negative (Negative); Protein, Urine (Dipstick) 100 mg/dL (Neg-Trace); pH, Urine 6.5 (5.0-9.0)
[2019-03-31 17:19] LABS: Bilirubin Negative (Negative); Blood, Urine Large (Negative); Urobilinogen 0.2 mg/dL (0.2-1.0)
[2019-03-31 17:34] LABS: Bacteria/HPF Rare-Few HPF (None Seen); RBC/HPF 21-50 HPF (0-3); Squamous Epithelial 0-3 HPF (0-3); Yeast-All Forms 4+ HPF (None Seen)
[2019-03-31 17:35] LABS: Hyaline Casts/LPF 0-3 HYALINE CAST LPF (0-3 Hyaline)
[2019-03-31] MEDS ORDERED: cefTRIAXone\\ROCEPHIN 1 GM VIAL ONE (19:27)
[2019-03-31] MEDS ORDERED: Acetaminophen 325 MG TAB PO PRN (21:43)
[2019-03-31] MEDS ORDERED: Ondansetron PF 4 MG/2 ML Vial IVP PRN (21:43)
[2019-03-31] MEDS ORDERED: Ondansetron ODT 4 MG TAB SL PRN (21:43)
[2019-03-31] MEDS ORDERED: Acetaminophen 500 MG TAB PO PRN (22:48)
[2019-03-31] MEDS ORDERED: traMADol HCl 50 MG TAB PER TUBE PRN (22:48)
[2019-03-31] MEDS ORDERED: Senokot S 8.6-50 MG TAB PO PRN (22:48)
[2019-03-31] MEDS ORDERED: Dextrose 50% Abboject 50 ML SYRINGE SLOW IVP PRN (22:51)
[2019-03-31] MEDS ORDERED: HumaLOG 300 UNITS/3 ML VIAL SC PRN (22:51)
[2019-03-31] MEDS ORDERED: Dextrose 5% in Water 1,000 ML IV PRN (22:51)
[2019-03-31] MEDS: Sodium Chloride 0.9% 1,000 ML IV SCH (23:57)
[2019-04-01 06:16] LABS: #Basophils 0.1 thou/uL (0.0-0.2); #Eosinphils 0.1 thou/uL (0.0-0.7); #Lymphocytes 2.2 thou/uL (1.20-3.40); #Monocytes 0.9 thou/uL (0.11-0.59); #Neutrophils 10.7 thou/uL (1.40-6.50); %Basophils 0.5 % (0.0-1.0); %Eosinophils 0.4 % (0.0-10.0); %Lymphocytes 15.6 % (21.0-51.0); %Monocytes 6.7 % (0.0-10.0); %Neutrophils 76.8 % (42.0-75.0); Hemoglobin 8.9 g/dL (14.0-18.0); Mean Corpuscular HGB CONC 31.9 g/dL (32.0-36.0); Mean Corpuscular Hemoglobin 27.8 pg (27.0-31.0); Mean Platelet Volume 7.8 fL (7.4-10.4); Platelet Count 395 thou/uL (130-400); RBC Distribution Width 16.7 % (11.5-14.5); Red Blood Cell (RBC) Count 3.19 mill/uL (4.70-6.10); White Blood Cell (WBC) Count 13.9 thou/uL (4.8-10.8)
[2019-04-01 06:36] LABS: Anion Gap 12 mmol/L (10-20); BUN (Urea Nitrogen) 21 mg/dL (8.4-25.7); Calc. Creatinine Clearance 126 mL/min (70-130); Calcium 9.4 mg/dL (7.8-10.44); Carbon Dioxide 26 mmol/L (22-29); Chloride 103 mmol/L (98-107); Estimated GFR-MDRD Greater than 90; Glucose 62 mg/dL (70-105); Potassium 3.5 mmol/L (3.5-5.1); Sodium 137 mmol/L (136-145)
[2019-04-01] MEDS ORDERED: Lisinopril 20 MG TAB PER TUBE SCH (09:00)
[2019-04-01] MEDS: Carvedilol 6.25 MG TAB PER TUBE SCH ×2 (09:43→22:20)
[2019-04-01] MEDS: Escitalopram Oxalate 10 mg Tablet PER TUBE SCH (09:44)
[2019-04-01] MEDS: Thiamine 100 MG TAB PER TUBE SCH (09:44)
[2019-04-01] MEDS: Aspirin 81 mg Enteric Coated Tablet PER TUBE SCH (09:45)
[2019-04-01] MEDS: Cyanocobalamin (Vitamin B-12) 1,000 MCG TAB PER TUBE SCH (09:45)
[2019-04-01] MEDS: Clopidogrel Bisulfate 75 MG TAB PER TUBE SCH (09:45)
[2019-04-01] MEDS: Amlodipine 10 MG TAB PER TUBE SCH (09:46)
[2019-04-01] MEDS: Isosorbide Dinitrate 20 MG TAB PER TUBE SCH ×2 (09:46→22:20)
[2019-04-01] MEDS: Apixaban 5 MG TAB PO SCH ×2 (09:47→22:20)
[2019-04-01] MEDS: Insulin Glargine 25 UNITS in Pre-Filled Syringe 1 EACH SC SCH ×2 (09:47→22:21)
[2019-04-01] MEDS: levETIRAcetam 500 mg/5 ml Oral Solution PER TUBE SCH ×2 (09:56→22:19)
--- NOTE | 2019-04-01 11:34 | HP ---
PRIMARY CARE DOCTOR: Dr. Caryn Flores. CODE STATUS: Full code. TIME OF EVALUATION: 10:30 p.m. CHIEF COMPLAINT: Weakness. HISTORY OF PRESENT ILLNESS: This is a 59-year-old male patient with past medical history of recent stroke, and after the stroke, the patient has been having seizures. The patient in residential report was that the patient was having seizures for the past week. He had been started on Keppra and then he has been having a seizure on a daily basis every time the patient has to start doing the physical therapy. The seizure stopped by itself and it looks like a focal seizure not the grand mal seizure, the patient has also been developing gradually worsening weakness and for that reason he has been sent to the hospital. He is aphasic, does not give a good history, and the patient has also been diagnosed with the UTI, receiving treatment for it. REVIEW OF SYSTEMS: Unable to obtain. The patient is aphasic, establish very poor communication. PAST MEDICAL HISTORY: The patient has a history of diabetes type 2, left-sided hemiplegia due to stroke, dysphagia with a PEG tube, aphasia, coronary artery disease, history of [place], hyperlipidemia, and hypertension. PAST SURGICAL HISTORY: PEG tube placement. PSYCHIATRIC HISTORY: No previous psych history. FAMILY HISTORY: Reviewed, noncontributory to current presentation. SOCIAL HISTORY: No alcohol. No drugs. No smoking history. KNOWN ALLERGIES: No known drug allergies. REPORTED MEDICATIONS: 1. Amlodipine. 2. Aspirin. 3. Isosorbide. 4. Plavix. 5. Lantus. 6. Lisinopril. 7. Namenda. 8. Thiamine. 9. Cyanocobalamin. 10. Escitalopram. 11. Humulin. 12. Atorvastatin. 13. Carvedilol. PHYSICAL EXAMINATION: VITAL SIGNS: On presentation, blood pressure 117/71 with heart rate 66, and respiratory rate 18. Pain was 0/10. Oxygen saturation 94% on room air. GENERAL APPEARANCE: The patient is alert, unable to express himself due to aphasia. HEENT: Eyes; normal conjunctivae. Moist oral mucosa. Anicteric. No JVD. RESPIRATORY: Bilateral air entry. No rales. No wheezes. Symmetric expansion. CARDIOVASCULAR: Normal rate. Regular rhythm. No murmurs. No gallop. No edema. ABDOMEN: Soft. The patient has PEG tube. Normal bowel sounds. MUSCULOSKELETAL: Baseline range of motion and strength. SKIN: Warm, intact. No pallor. No rash. No redness. Peripheral pulses are present. Capillary refill seems to be intact. NEURO: No evidence of any new focal weakness. The patient has left-sided weakness that is residual from the previous stroke and also have an aphasia. PSYCH: The patient is in good mood. No anxiety. Suboptimal judgment. DIAGNOSTIC STUDIES: EKG was reviewed. The patient has normal sinus rhythm at the rate of 66, minimal voltage for LVH, prolonged QT. Brain CT was done. The patient has no acute intracranial findings. Involutional changes with chronic ischemic white matter changes. Multiple small old lacunar infarctions of bilateral corpus striatum. No interval change overall since 02/04/2019. LABORATORY DATA: Reviewed. The patient has a white count of 9.5, hemoglobin 9.7, MCV 87.2, and platelet count chemistry: Sodium 136, potassium 4.1, chloride 98, carbon dioxide 29, anion gap 13, BUN 22, creatinine 1.36, the previous creatinine was 1.33 before, today was 0.8. Calcium 10.1. Total bilirubin 0.7. LFTs were negative. Globulin 4.8. Serum total protein 8.5. Urine was done, it was positive with white count greater than 50, too numerous to count. ASSESSMENT AND PLAN: The patient will be placed in the hospital with following medical problems: 1. Reportedly the patient has seizures once on a daily basis related to therapy. The patient has been started on Keppra, but it is not resolving. We will consult Neurology. We will place the patient on seizure precautions. 2. Urinary tract infection. We will continue the patient on Rocephin, one dose being given in ER. We will follow cultures. We will adjust treatment as needed. 3. History of diabetes that is uncontrolled right now with glucose 204. Reconcile home medications. Start the patient on sliding scale. 4. Normocytic chronic anemia. This is stable, is mild, no need for any acute intervention as inpatient. This can be done as outpatient. 5. Acute kidney injury. The patient presented with an increase in creatinine more than 0.3 mg/dL. This could be related to dehydration. We will give some hydration to the patient. His intake depends on PEG tube feeding only. 6. History of deep vein thrombosis. The patient is on chronic anticoagulation. I will continue for now. 7. History of chronic pain. We will reconcile home medications. The patient is on tramadol. 8. Deep vein thrombosis prophylaxis. The patient is on chronic anticoagulation. Job ID: [id number] MTDD
[2019-04-01] MEDS: Sodium Chloride 0.9% 1,000 ML IV SCH (13:21)
--- NOTE | 2019-04-01 15:44 | PRG ---
DATE OF SERVICE: 04/01/2019 SUBJECTIVE: Mr. Ndiaye is a 59-year-old male with past medical history significant for debilitating CVA in December 2018 resulting in fairly profound debility, PEG tube placement, and indwelling Corbett catheter along with seizure disorder, who presented to the hospital from his custodial after custodial staff were noticing increasing frequency of seizures. The patient has had no further breakthrough seizures since his admission. He is resting comfortably, in no acute distress. He is arousable and oriented x1 to his name, which is his baseline. OBJECTIVE: VITAL SIGNS: Blood pressure 136/79, pulse 74, respirations 18, and O2 saturation is 95% on room air. GENERAL: The patient is in no acute distress, resting comfortably in bed. HEENT: Head is atraumatic and normocephalic. NECK: Supple. No lymphadenopathy. Trachea is midline. CV: S1 and S2. Regular rate and rhythm. No appreciable murmurs, rubs, or gallops. LUNGS: Regular respiratory rate and pattern. Diminished at the bases. Overall clear. ABDOMEN: Positive bowel sounds. PEG tube in place. EXTREMITIES: Trace edema bilaterally. Both lower extremities are warm and well perfused. SKIN: Warm and dry. No rashes or discolorations. NEUROLOGIC: The patient is able to follow some commands. He has known left-sided weakness from prior stroke. LABORATORY DATA: White blood cell count 13.9, hemoglobin 8.9, hematocrit 27.8, and platelets 395. Sodium 137, potassium 3.5, chloride 103, creatinine 0.94, and glucose 128. Urinalysis was positive for 4+ yeast, urine wbc, and large amount of blood. ASSESSMENT: 1. Breakthrough seizures in the setting of urinary tract infection, previous cultures positive for Lisa albicans. 2. Seizure disorder secondary to cerebrovascular accident in December 2018, prolactin positive this hospitalization, Keppra level therapeutic. 3. History of debilitating cerebrovascular accident in December 2018, with resulting dysphagia status post percutaneous endoscopic gastrostomy tube and left-sided weakness. 4. Hypertension. 5. Type 2 diabetes mellitus. 6. Stage 3 chronic kidney disease, stable. 7. Pulmonary embolism, diagnosed in February 2019, on Eliquis. PLAN: Given the patient's apparent lowered seizure threshold and leukocytosis, we will treat probable Lisa cystitis with Diflucan 200 mg daily x2 weeks. We will draw blood cultures as well. Recheck CBC tomorrow. The patient remains afebrile at this time. Continue tube feeds. Neurology consult pending. The care of this patient was discussed with Dr. Freeman, who agrees with the plan as outlined above. Job ID: [id number]
[2019-04-01] MEDS ORDERED: cefTRIAXone\\ROCEPHIN 1 GM in Sodium Chloride 0.9% 100 ML IVPB SCH (18:00)
[2019-04-01] MEDS ORDERED: Atorvastatin Calcium 40 MG TAB PER TUBE SCH (21:00)
--- NOTE | 2019-04-02 | CON ---
DATE OF CONSULTATION: 04/01/2019 CONSULTING PHYSICIAN: Hospitalist Service. IMPRESSION: 1. Probable recurrent seizure. 2. Recent history of stroke with left hemiparesis. 3. Diabetes. 4. Hypertension. 5. Subtherapeutic Keppra level. PLAN: 1. Increase Keppra to 1000 mg twice a day. 2. The patient can return to rehab. HISTORY OF PRESENT ILLNESS: Mr. Ndiaye is a 59-year-old black gentleman with a past history of a stroke back in December. He had a seizure in January and was readmitted, started on Keppra. He had previously failed aspirin and was also started on Plavix. He apparently had a recurrent seizure and was transferred back. His prolactin level was elevated at 20.3. His lab work was otherwise unremarkable. Repeat CT scan of the brain did not show any acute changes. His vital signs have been stable since admission. PAST MEDICAL HISTORY: Diabetes, hypertension, urinary tract infection, anemia, seizures. FAMILY HISTORY: Noncontributory. SOCIAL HISTORY: No tobacco or alcohol use. ALLERGIES: NONE. MEDICATION LIST: Reviewed. REVIEW OF SYSTEMS: A 10-system review of systems is otherwise negative. PHYSICAL EXAMINATION: GENERAL: He is a large, elderly middle-aged man, lying in bed, in no acute distress. VITAL SIGNS: Have been stable. He is afebrile. HEENT: Pupils are equal and reactive. Conjunctivae are clear. Oropharynx is clear. NECK: Supple. No lymphadenopathy. EXTREMITIES: No cyanosis. NEUROLOGIC: He was arousable and cooperative. He was not very verbal. He had a left nasolabial fold flattening. He had flaccid left upper extremity. He had some antigravity strength in the left leg. He moved the right side reasonably well. No abnormal movements were seen. SUMMARY: This gentleman appears to have had a recurrent seizure. His Keppra levels were subtherapeutic. We would increase his dose and he can be transferred back. Job ID: [id number]
[2019-04-02] MEDS: Sodium Chloride 0.9% 1,000 ML IV SCH (05:46)
[2019-04-02 05:47] LABS: #Eosinphils 0.1 thou/uL (0.0-0.7); #Monocytes 0.7 thou/uL (0.11-0.59); #Neutrophils 6.3 thou/uL (1.40-6.50); %Basophils 0.5 % (0.0-1.0); %Eosinophils 1.3 % (0.0-10.0); %Lymphocytes 21.6 % (21.0-51.0); %Neutrophils 68.6 % (42.0-75.0); Hemoglobin 7.9 g/dL (14.0-18.0); Mean Corpuscular HGB CONC 31.9 g/dL (32.0-36.0); Mean Corpuscular Hemoglobin 27.7 pg (27.0-31.0); Mean Corpuscular Volume 86.9 fL (78.0-98.0); Mean Platelet Volume 7.7 fL (7.4-10.4); Platelet Count 317 thou/uL (130-400); RBC Distribution Width 16.5 % (11.5-14.5); Red Blood Cell (RBC) Count 2.83 mill/uL (4.70-6.10); White Blood Cell (WBC) Count 9.2 thou/uL (4.8-10.8)
[2019-04-02 06:09] LABS: Anion Gap 7 mmol/L (10-20); BUN (Urea Nitrogen) 18 mg/dL (8.4-25.7); Calc. Creatinine Clearance 120 mL/min (70-130); Calcium 8.8 mg/dL (7.8-10.44); Carbon Dioxide 28 mmol/L (22-29); Chloride 107 mmol/L (98-107); Estimated GFR-MDRD Greater than 90; Glucose 107 mg/dL (70-105); Potassium 3.7 mmol/L (3.5-5.1)
[2019-04-02 06:10] LABS: Sodium 138 mmol/L (136-145)
[2019-04-02] MEDS ORDERED: Fluconazole 100 MG TAB PER TUBE SCH (09:00)
[2019-04-02] MEDS: Aspirin 81 mg Enteric Coated Tablet PER TUBE SCH (10:05)
[2019-04-02] MEDS: Cyanocobalamin (Vitamin B-12) 1,000 MCG TAB PER TUBE SCH (10:05)
[2019-04-02] MEDS: Apixaban 5 MG TAB PO SCH (10:06)
[2019-04-02] MEDS: Amlodipine 10 MG TAB PER TUBE SCH (10:06)
[2019-04-02] MEDS: Isosorbide Dinitrate 20 MG TAB PER TUBE SCH (10:07)
[2019-04-02] MEDS: Carvedilol 6.25 MG TAB PER TUBE SCH (10:08)
[2019-04-02] MEDS: Clopidogrel Bisulfate 75 MG TAB PER TUBE SCH (10:13)
[2019-04-02] MEDS: Thiamine 100 MG TAB PER TUBE SCH (10:13)
[2019-04-02] MEDS: Escitalopram Oxalate 10 mg Tablet PER TUBE SCH (10:15)
[2019-04-02] MEDS: levETIRAcetam 500 mg/5 ml Oral Solution PER TUBE SCH (10:15)
[2019-04-02] MEDS: Insulin Glargine 25 UNITS in Pre-Filled Syringe 1 EACH SC SCH (10:43)
[2019-04-02 11:32] VITALS: BP 153/80; TEMP 98.8
[2019-04-02 12:27] VITALS: BMI 29.9
--- NOTE | 2019-04-02 18:53 | DIS ---
DATE OF ADMISSION: 03/31/2019 DATE OF DISCHARGE: 04/02/2019 CHIEF COMPLAINT ON ADMISSION: Breakthrough seizures. DISCHARGE DIAGNOSES: 1. Breakthrough seizures in the setting of urinary tract infection, cultures positive for Lisa albicans. 2. Lisa cystitis, with leukocytosis and breakthrough seizures on admission, the patient initiated on Diflucan. 3. Seizure disorder secondary to cerebrovascular accident in December 2018, Keppra dose increased to 1000 mg p.o. b.i.d. per Neurology. 4. History of debilitating CVA in December 2018 with resulting dysphagia status post PEG tube and left-sided weakness. 5. Hypertension. 6. Type 2 diabetes mellitus. 7. Stage 3 chronic kidney disease, stable. 8. Pulmonary embolism, diagnosed in February 2019, on Eliquis. BRIEF HOSPITAL COURSE: The patient is a 59-year-old male with past medical history as outlined above, who presented to the ER from [facility], as staff had noticed some increased weakness as well as some seizure activity over the past week. Apparently, seizures had been witnessed by staff as they were initiating physical therapy. Seizures presented as focal rather than grand mal, but over the week, he continued to progressively get weaker per their assessment, and so the patient was brought to the hospital for further workup and treatment. On arrival to our facility, his prolactin level was elevated at 20.33. His white count was elevated at 13,000. Urinalysis was positive for large amount of leukocyte esterase, RBC, urine white blood cell and 4+ urine. The patient does have an indwelling Corbett catheter, however, in the setting of white count and breakthrough seizures, decision was made to treat the Lisa cystitis with Diflucan. The patient was initiated on therapy and has done well. He was seen in consultation with Neurology and his Keppra was increased. The patient is severely debilitated by his stroke, however, he is back to baseline functioning at this time. He is awake and alert and can answer yes and no questions appropriately. He can form some words and follow commands. Vital signs were stable throughout his stay, and plan is for discharge back to rehab today. DISCHARGE DISPOSITION: [facility]. DISCHARGE CONDITION: Stable. DISCHARGE INSTRUCTIONS AND FOLLOWUP CARE: The patient will continue physical therapy and occupational therapy at the rehab. MEDICATIONS: Medication changes during this hospitalization include a 2-week course of Diflucan for 200 mg 1 dose daily per PEG tube along with increase in Keppra dose from 750 mg b.i.d. to 1000 mg b.i.d. His other medications will stay the same and include the following; 1. Amlodipine 10 mg daily. 2. Aspirin 81 mg daily. 3. Atorvastatin 80 mg at bedtime. 4. Carvedilol 12.5 mg b.i.d. 5. Plavix 75 mg daily. 6. Vitamin B12 of 1000 mcg daily. 7. Lexapro 10 mg daily. 8. Lantus 50 units subcu b.i.d. 9. Sliding scale regular insulin. 10. Isordil 10 mg b.i.d. 11. Lisinopril 20 mg daily. 12. Memantine 5 mg daily. 13. Macrobid 2 caps p.o. daily. 14. Apixaban 5 mg p.o. b.i.d. 15. P.r.n. DuoNebs. 16. Potassium chloride 40 mEq b.i.d. 17. Tramadol 50 mg p.r.n. q.4 hours. The care of this patient has been discussed with Dr. Freeman, who agrees with discharge as above. The patient does obviously have numerous comorbidities including indwelling PEG and Corbett catheter. He will continue his therapy at rehab with the hopes of continued improvement. Job ID: [id number]
--- NOTE | 2019-04-03 11:24 | EKG ---
Test Reason : Blood Pressure : / mmHG Vent. Rate : 066 BPM Atrial Rate : 066 BPM P-R Int : 182 ms QRS Dur : 092 ms QT Int : 452 ms P-R-T Axes : 024 -20 -04 degrees QTc Int : 473 ms Normal sinus rhythm Minimal voltage criteria for LVH, may be normal variant Nonspecific T wave abnormality Prolonged QT Abnormal ECG Confirmed by ISIDRA LATIF, CAROLYN Aguero ([id number]), associate entertainment editor PING ARMAS ([id number]) on 04/03/2019 11:23:57 AM Referred By: Confirmed By:CAROLYN MINER MD
== END 2019-04-02 14:40 ==
LOC: ERS 12:46 → T4-A 18:40 → 2SE 23:26
PROVIDERS: ADMIT Internal Medicine; ATTEND Internal Medicine
DX: I69.398 Other sequelae of cerebral infarction (principal); G40.909 Epilepsy, unspecified, not intractable, without status epilepticus; I69.391 Dysphagia following cerebral infarction; R13.10 Dysphagia, unspecified; I12.9 Hypertensive chronic kidney disease with stage 1 through stage 4 chronic kidney disease, or unspecified chronic kidney disease; E11.22 Type 2 diabetes mellitus with diabetic chronic kidney disease; N18.3 Chronic kidney disease, stage 3 (moderate); D63.1 Anemia in chronic kidney disease; N17.9 Acute kidney failure, unspecified; B37.41 Candidal cystitis and urethritis; I69.354 Hemiplegia and hemiparesis following cerebral infarction affecting left non-dominant side; I25.10 Atherosclerotic heart disease of native coronary artery without angina pectoris; I25.2 Old myocardial infarction; E78.5 Hyperlipidemia, unspecified; Z86.711 Personal history of pulmonary embolism; Z79.02 Long term (current) use of antithrombotics/antiplatelets; Z79.4 Long term (current) use of insulin; Z79.82 Long term (current) use of aspirin; Z79.899 Other long term (current) drug therapy
CPT/HCPCS: 51702; 70450; 80048 ×2; 80053; 80177; 82962 ×2; 84146; 85025 ×3; 87040; 87086; 87149 ×2; 93005; 96361 ×3; 96365; 96375 ×2; 96376; 99285; G0378 ×3; 36415; 36416; 81003; 81015; J0696; J1825; J2270; J3490

== ENCOUNTER 2019-05-31 13:52 | Inpatient (IN) | payer MEDICARE ==
[2019-05-31 14:27] LABS: #Eosinphils 0.1 thou/uL (0.0-0.7); #Lymphocytes 1.4 thou/uL (1.20-3.40); #Monocytes 0.3 thou/uL (0.11-0.59); #Neutrophils 5.3 thou/uL (1.40-6.50); %Basophils 0.6 % (0.0-1.0); %Eosinophils 1.1 % (0.0-10.0); %Lymphocytes 20.1 % (21.0-51.0); %Neutrophils 74.3 % (42.0-75.0); Hemoglobin 9.3 g/dL (14.0-18.0); Mean Corpuscular HGB CONC 31.6 g/dL (32.0-36.0); Mean Corpuscular Hemoglobin 26.5 pg (27.0-31.0); Mean Corpuscular Volume 83.9 fL (78.0-98.0); Mean Platelet Volume 8.5 fL (7.4-10.4); Platelet Count 256 thou/uL (130-400); RBC Distribution Width 15.8 % (11.5-14.5); White Blood Cell (WBC) Count 7.2 thou/uL (4.8-10.8)
[2019-05-31] MEDS ORDERED: Ondansetron PF 4 MG/2 ML Vial ONE (14:32)
[2019-05-31 14:50] LABS: ALT (SGPT) 20 U/L (8-55); AST (SGOT) 19 U/L (5-34); Albumin 3.4 g/dL (3.5-5.0); Alkaline Phosphatase 64 U/L (40-150); Anion Gap 12 mmol/L (10-20); BUN (Urea Nitrogen) 18 mg/dL (8.4-25.7); Bilirubin, Total 1.1 mg/dL (0.2-1.2); Calc. Creatinine Clearance 0 mL/min (70-130); Calcium 8.6 mg/dL (7.8-10.44); Carbon Dioxide 22 mmol/L (22-29); Chloride 110 mmol/L (98-107); Estimated GFR-MDRD Greater than 90; Globulin 3.3 g/dL (2.4-3.5); Glucose 187 mg/dL (70-105); Potassium 3.4 mmol/L (3.5-5.1); Protein, Total 6.7 g/dL (6.0-8.3); Sodium 141 mmol/L (136-145)
[2019-05-31 14:51] LABS: Bilirubin Negative (Negative); Blood, Urine Trace (Negative); Clarity Extra Turbid (Clear); Glucose, Urine (Dipstick) Normal (Negative); Leukocyte 250 Leu/uL (Negative); Nitrite 2+ (Negative); Protein, Urine (Dipstick) 10 mg/dL (Neg-Trace); Squamous Epithelial 0-3 HPF (0-3); Urobilinogen Normal mg/dL (Less than 2)
[2019-05-31 14:53] LABS: Bacteria/HPF 1+ HPF (None Seen)
--- NOTE | 2019-05-31 15:10 | RAD ---
Exam: Chest one view HISTORY:Eval for aspiration. Comparison: 03/23/2019 FINDINGS: Cardiac silhouette: Normal Aorta: Unremarkable Pulmonary vessels: Normal Costophrenic angles: Clear LUNGS: Bibasilar interstitial and alveolar opacities. Correlate for atelectasis, aspiration or pneumo anatoliy. Pneumothorax: None Osseous abnormalities: None IMPRESSION: Bibasilar interstitial and alveolar opacities. Correlate for multi lobar pneumonia versus aspiration. Continued surveillance is recommended
[2019-05-31] MEDS ORDERED: Piperacillin/Tazobactam 3.375 GM VIAL ONE (16:32)
[2019-05-31] MEDS ORDERED: Ondansetron PF 4 MG/2 ML Vial IVP PRN (21:13)
[2019-05-31] MEDS ORDERED: Acetaminophen 325 MG TAB PO PRN (21:13)
[2019-05-31] MEDS ORDERED: Ondansetron ODT 4 MG TAB SL PRN (21:13)
[2019-05-31] MEDS ORDERED: NS 0.9% w/ 20 MEQ KCL 1,000 ML IV SCH (21:15)
[2019-05-31 22:05] VITALS: BMI 25.9
[2019-06-01] MEDS: Piperacillin/Tazobactam 3.375 GM in Sodium Chloride 0.9% 100 ML IVPB SCH ×5 (00:18→23:31)
[2019-06-01] MEDS ORDERED: NUT TX GLUC INTOLER LAC FR SOY PO SCH (00:30)
[2019-06-01] MEDS ORDERED: [UNRECOGNIZED DRUG - OTHER] PO SCH (00:30)
--- NOTE | 2019-06-01 02:50 | HP ---
CODE STATUS: Full code. TIME OF EVALUATION: 11:50 p.m. CHIEF COMPLAINT: Nausea, vomiting, and diarrhea. HISTORY OF PRESENT ILLNESS: This is a 59-year-old male patient with past medical history of diabetes, left-sided hemiplegia, dysphagia due to previous stroke, coronary artery disease, hyperlipidemia, acute [place], hypertension, UTI, epilepsy, hyperkalemia. The patient came to the hospital after having an episode of nausea, vomiting, diarrhea. Reportedly in the custodial, the patient has profuse projectile vomiting after receiving G-tube feeding this a.m. The blood pressure was normal. The patient again is change in mentation. REVIEW OF SYSTEMS: Unable to obtain since the patient is nonverbal. PAST MEDICAL HISTORY: The patient has diabetes type 2, coronary artery disease, hyperlipidemia, hypertension, UTI, epilepsy, dysphagia, aphasia, asthma, muscle weakness, hyperkalemia. PAST SURGICAL HISTORY: PEG tube placement. PSYCHIATRIC HISTORY: No previous psych history. SOCIAL HISTORY: No alcohol. No drugs. No smoking history. FAMILY HISTORY: Reviewed, noncontributory to current presentation. KNOWN ALLERGIES: No known drug allergies. REPORTED MEDICATIONS: 1. Aspirin. 2. Atorvastatin. 3. Isosorbide mononitrate. 4. Lisinopril. 5. Thiamine. 6. Cyanocobalamin. 7. Escitalopram oxalate. 8. Carvedilol. 9. Levetiracetam. 10. Amlodipine. 11. Eliquis. 12. Famotidine. 13. Clopidogrel. 14. Memantine. 15. Nystatin. 16. Potassium chloride. PHYSICAL EXAMINATION: VITAL SIGNS: Temperature 97.3, blood pressure 122/73 with heart rate 67, respiratory rate was 18, O2 saturation 97% on 2 L oxygen. GENERAL: The patient is aphasic, nonverbal. HEENT: Eyes, normal conjunctivae. Moist oral mucosa. Anicteric. No JVD. RESPIRATORY: Bilateral air entry. No rales. No wheezes. Symmetric expansion. CARDIOVASCULAR: Normal rate, regular rhythm. No murmurs. No gallop. No edema. ABDOMEN: Soft. The patient has PEG tube in place. MUSCULOSKELETAL: Baseline range of motion and strength. SKIN: Warm, intact. No pallor. No rash. No redness. Capillary refill seems to be intact. NEURO: No evidence of any new focal weakness. Cranial nerves seem to be intact. PSYCH: The patient is in good mood. No anxiety. Optimal judgment. DIAGNOSTIC STUDIES: EKG was reviewed. The patient has a 12-lead EKG showing normal sinus rhythm with a rate of 65, prolonged QT. QT correction is 480. RADIOLOGY: Chest x-ray, lobar infiltrate in the left lower lobe as well as the right lower lobe. LABORATORY DATA: Reviewed. The patient has white count 7.2, hemoglobin 9.3, MCV 83.9, platelet count 256. Chemistry; sodium 141, potassium 3.4, chloride 110, carbon dioxide 22, anion gap 12, BUN 18, creatinine 0.98, GFR greater than 90, glucose 187. Lactic acid 2.4, the second one is 2.0. Calcium 9.6, total bilirubin 1.1, AST 19, ALT 20, alkaline phosphatase 64. Serum total protein 6.7, albumin 3.4, globulin 3.3, albumin to globulin ratio is 1.0. Urine was done, was negative. White count 11 to 20. ASSESSMENT AND PLAN: The patient will be placed in the hospital with following medical problems: 1. Pneumonia, seen on chest x-ray. The patient is receiving antibiotics. We will follow cultures. We will adjust treatment as per sensitivity. 2. Normocytic anemia with hemoglobin 9.3, MCV 83.9. Monitor and treat accordingly. This can be followed as outpatient. 3. Hypokalemia with potassium 3.4. Monitor potassium. Replace electrolytes as needed. 4. Hyperglycemia with glucose 187. No history of diabetes. This could be due to underlying acute physical distress/glucose intolerance. We will monitor and treat accordingly. 5. Uncontrolled hypertension with systolic blood pressure in the 80s occasionally and also up in the 160s. We will monitor. We will not treat aggressively since the patient is at high risk for sepsis and presented with hypotension. 6. Deep vein thrombosis prophylaxis. Job ID: [id number]
[2019-06-01 06:29] LABS: Band 18 % (5-11); Hemoglobin 10.3 g/dL (14.0-18.0); Lymphocytes 14 % (21-51); MDiff Complete? YES; Mean Corpuscular HGB CONC 32.1 g/dL (32.0-36.0); Mean Corpuscular Hemoglobin 27.2 pg (27.0-31.0); Mean Corpuscular Volume 84.6 fL (78.0-98.0); Mean Platelet Volume 9.2 fL (7.4-10.4); Monocytes 3 % (0-10); Neutrophil 65 % (42-75); Platelet Count 268 thou/uL (130-400); Red Blood Cell (RBC) Count 3.78 mill/uL (4.70-6.10); White Blood Cell (WBC) Count 19.5 thou/uL (4.8-10.8)
[2019-06-01] MEDS ORDERED: levETIRAcetam 500 MG TAB PO SCH (09:00)
[2019-06-01] MEDS ORDERED: Lisinopril 20 MG TAB PER TUBE SCH (09:00)
[2019-06-01] MEDS ORDERED: Carvedilol 25 MG TAB PER TUBE SCH (09:00)
[2019-06-01] MEDS ORDERED: Apixaban 5 MG TAB PO SCH (09:00)
[2019-06-01] MEDS ORDERED: Enoxaparin Sodium 40 MG/0.4 ML SYRINGE SC SCH (09:00)
[2019-06-01] MEDS ORDERED: Amlodipine 10 MG TAB PER TUBE SCH (09:00)
[2019-06-01] MEDS ORDERED: Acetaminophen 650 MG Suppository PR PRN (09:21)
[2019-06-01] MEDS ORDERED: Loperamide HCl 2 MG CAP FS PRN (09:21)
[2019-06-01] MEDS ORDERED: Diabetic Tussin 200 MG/10 ML UDCUP PER TUBE PRN (09:21)
[2019-06-01] MEDS ORDERED: hydrALAZINE 20 MG/ML VIAL SLOW IVP PRN (09:21)
[2019-06-01] MEDS ORDERED: Bisacodyl 10 MG SUPP PR PRN (09:21)
[2019-06-01] MEDS ORDERED: Loratadine 10 MG TAB PER TUBE PRN (09:21)
[2019-06-01] MEDS ORDERED: Cepastat Lozenges 1 LOZ PO PRN (09:21)
[2019-06-01] MEDS ORDERED: Senokot S 8.6-50 MG TAB PER TUBE PRN (09:21)
[2019-06-01] MEDS ORDERED: Sodium Chloride 0.65% Nasal 44 ML BOT EA NARE PRN (09:21)
[2019-06-01] MEDS ORDERED: Acetaminophen 500 MG TAB PER TUBE PRN (09:21)
[2019-06-01] MEDS ORDERED: Artificial Tears 18 DROP/0.9 ML EA EYE PRN (09:21)
[2019-06-01] MEDS ORDERED: levETIRAcetam 500 MG TAB PER TUBE SCH ×2 (09:30→21:00)
[2019-06-01] MEDS ORDERED: Apixaban 5 MG TAB PER TUBE SCH (09:30)
[2019-06-01] MEDS ORDERED: Vancomycin HCl 1.75 GM in Sodium Chloride 0.9% 500 ML IVPB SCH (10:00)
[2019-06-01] MEDS: Escitalopram Oxalate 10 mg Tablet PER TUBE SCH (10:06)
[2019-06-01] MEDS: Thiamine 100 MG TAB PER TUBE SCH (10:06)
[2019-06-01] MEDS: Clopidogrel Bisulfate 75 MG TAB PER TUBE SCH (10:06)
[2019-06-01] MEDS: Famotidine 20 MG TAB PER TUBE SCH ×2 (10:07→19:52)
[2019-06-01] MEDS: Isosorbide Dinitrate 20 MG TAB PER TUBE SCH ×2 (10:07→19:51)
[2019-06-01] MEDS: Aspirin 81 mg Enteric Coated Tablet PER TUBE SCH (10:07)
[2019-06-01] MEDS: Nystatin 100,000 Units/mL UDCUP SSW SCH ×4 (10:08→19:52)
[2019-06-01] MEDS: Cyanocobalamin (Vitamin B-12) 1,000 MCG TAB PER TUBE SCH (10:08)
--- NOTE | 2019-06-01 12:45 | PDOC.HOSPP ---
- Subjective non-verbal Subjective: Patient seen and examined. No new complaints. No overnight events - Objective Vital Signs & Weight: Vital Signs (12 hours) Temp Pulse Resp BP Pulse Ox 06/01/19 07:45 98.2 F 63 14 130/71 97 06/01/19 04:49 98.7 F 79 18 106/62 98 Weight Weight 202 lb 3.2 oz I&O: 05/31/19 06/01/19 06/02/19 06:59 06:59 06:59 Output Total 150 Balance -150 Result Diagrams: 06/01/19 05:24 05/31/19 14:05 Additional Labs: Accuchecks 06/01/19 06/01/19 05/31/19 12:21 04:25 14:00 POC Glucose 138 H 149 H 226 H Radiology Reviewed by me: Yes ROS - Review of Systems ROS unobtainable: due to mental status All systems: All other ROS were reviewed and found negative. - Medication Medications: Active Medications Generic Name Dose Route Start Last Admin Trade Name Salvadorq PRN Reason Stop Dose Admin Aspirin 81 mg 06/01/19 09:00 06/01/19 10:07 Ecotrin PER TUBE 81 mg DAILY ACOSTA Administration Clopidogrel Bisulfate 75 mg 06/01/19 09:00 06/01/19 10:06 Plavix PER TUBE 75 mg DAILY ACOSTA Administration Cyanocobalamin 1,000 mcg 06/01/19 09:00 06/01/19 10:08 Vitamin B-12 PER TUBE 1,000 mcg DAILY ACOSTA Administration Escitalopram Oxalate 10 mg 06/01/19 09:00 06/01/19 10:06 Lexapro PER TUBE 10 mg DAILY ACOSTA Administration Famotidine 20 mg 06/01/19 09:00 06/01/19 10:07 Pepcid PER TUBE 20 mg BID ACOSTA Administration Piperacillin Sod/Tazobactam 100 mls @ 200 mls/hr 05/31/19 23:59 06/01/19 12: 12 Sod 3.375 gm/ Sodium Chloride IVPB 06/06/19 05:55 100 mls Q6HR ACOSTA Administration Isosorbide Dinitrate 10 mg 06/01/19 09:00 06/01/19 10:07 Isordil PER TUBE 10 mg BID ACOSTA Administration Nystatin 5 ml 06/01/19 09:00 06/01/19 12:35 Nystatin 100,000 Units/Ml SSW Not Given QID ACOSTA Ondansetron HCl 4 mg 05/31/19 21:13 05/31/19 21:48 Zofran IVP 06/05/19 05:55 4 mg Q6H PRN Administration Nausea/Vomiting Potassium Chloride 20 meq 06/01/19 09:00 06/01/19 10:05 Klor-Con PER TUBE 20 meq BID ACOSTA Administration Thiamine HCl 250 mg 06/01/19 09:00 06/01/19 10:06 Thiamine PER TUBE 250 mg DAILY ACOSTA Administration - Exam NAD, ill appearing Eye: PERRL, anicteric sclera ENT: normocephalic atraumatic, no oropharyngeal lesions Neck: supple, symmetric, no JVD Heart: RRR, no murmur, no gallops, no rubs Respiratory: rales Gastrointestinal: soft, non-tender, non-distended (peg tube in place) Extremities: no cyanosis, no clubbing, no edema Skin: normal turgor, no lesions Neurological: hemiplegia, speech deficit Musculoskeletal: normal tone, normal strength Psychiatric: normal affect Hosp A/P (1) Aspiration pneumonia Code(s): J69.0 - PNEUMONITIS DUE TO INHALATION OF FOOD AND VOMIT Status: Acute (2) Hypokalemia Code(s): E87.6 - HYPOKALEMIA Status: Acute (3) Sepsis Code(s): A41.9 - SEPSIS, UNSPECIFIED ORGANISM Status: Acute (4) UTI (urinary tract infection) due to urinary indwelling catheter Code(s): T83.511A - I/I REACT D/T INDWELLING URETHRAL CATHETER, INIT; N39.0 - URINARY TRACT INFECTION, SITE NOT SPECIFIED Status: Acute (5) Anemia, normocytic normochromic Code(s): D64.9 - ANEMIA, UNSPECIFIED Status: Chronic (6) CAD (coronary artery disease) Code(s): I25.10 - ATHSCL HEART DISEASE OF [place] CORONARY ARTERY W/O ANG PCTRS Status: Chronic (7) Chronic anticoagulation Code(s): Z79.01 - STEAM SHOVEL OILER (CURRENT) USE OF ANTICOAGULANTS Status: Chronic (8) DM2 (diabetes mellitus, type 2) Status: Chronic (9) Dyslipidemia Code(s): E78.5 - HYPERLIPIDEMIA, UNSPECIFIED Status: Chronic (10) GERD (gastroesophageal reflux disease) Code(s): K21.9 - GASTRO-ESOPHAGEAL REFLUX DISEASE WITHOUT ESOPHAGITIS Status: Chronic Qualifiers: (11) H/O: CVA (cerebrovascular accident) Code(s): Z86.73 - PRSNL HX OF TIA (TIA), AND CEREB INFRC W/O RESID DEFICITS Status: Chronic (12) History of pulmonary embolism Code(s): Z86.711 - PERSONAL HISTORY OF PULMONARY EMBOLISM Status: Chronic (13) Hypertension Code(s): I10 - ESSENTIAL (PRIMARY) HYPERTENSION Status: Chronic Qualifiers: (14) Oropharyngeal dysphagia Code(s): R13.12 - DYSPHAGIA, OROPHARYNGEAL PHASE Status: Chronic (15) Physical deconditioning Code(s): R53.81 - OTHER MALAISE Status: Chronic (16) Seizure as late effect of cerebrovascular accident (CVA) Code(s): I69.398 - OTHER SEQUELAE OF CEREBRAL INFARCTION; R56.9 - UNSPECIFIED CONVULSIONS Status: Chronic - Plan old records reviewed/req, continue antibiotics, respiratory therapy continue tube feeding add vancomycin continue zosyn will repeat labs follow on culture supportive care prognosis poor consult palliative care for goal of care [facility]
[2019-06-01] MEDS: Apixaban 5 MG TAB PER TUBE SCH (19:51)
[2019-06-01] MEDS: Atorvastatin Calcium 40 MG TAB PER TUBE SCH (19:52)
[2019-06-01] MEDS: levETIRAcetam 500 mg/5 ml Oral Solution PER TUBE SCH (20:52)
[2019-06-01] MEDS: Vancomycin HCl 1.25 GM in Sodium Chloride 0.9% 250 ML 250 ML IVPB SCH (20:55)
[2019-06-02] MEDS: Piperacillin/Tazobactam 3.375 GM in Sodium Chloride 0.9% 100 ML IVPB SCH ×4 (05:16→23:50)
[2019-06-02 07:10] LABS: #Eosinphils 0.3 thou/uL (0.0-0.7); #Lymphocytes 1.4 thou/uL (1.20-3.40); #Monocytes 0.8 thou/uL (0.11-0.59); #Neutrophils 11.7 thou/uL (1.40-6.50); %Basophils 0.3 % (0.0-1.0); %Eosinophils 2.2 % (0.0-10.0); %Lymphocytes 9.7 % (21.0-51.0); %Monocytes 5.9 % (0.0-10.0); Hemoglobin 9.6 g/dL (14.0-18.0); Mean Corpuscular HGB CONC 31.2 g/dL (32.0-36.0); Mean Corpuscular Hemoglobin 26.2 pg (27.0-31.0); Mean Corpuscular Volume 83.8 fL (78.0-98.0); Mean Platelet Volume 9.1 fL (7.4-10.4); Platelet Count 244 thou/uL (130-400); Red Blood Cell (RBC) Count 3.68 mill/uL (4.70-6.10); White Blood Cell (WBC) Count 14.3 thou/uL (4.8-10.8)
[2019-06-02 07:29] LABS: ALT (SGPT) 13 U/L (8-55); AST (SGOT) 13 U/L (5-34); Albumin 3.6 g/dL (3.5-5.0); Alkaline Phosphatase 59 U/L (40-150); Anion Gap 14 mmol/L (10-20); BUN (Urea Nitrogen) 22 mg/dL (8.4-25.7); Bilirubin, Total 1.4 mg/dL (0.2-1.2); Calc. Creatinine Clearance 123 mL/min (70-130); Calcium 9.7 mg/dL (7.8-10.44); Carbon Dioxide 22 mmol/L (22-29); Chloride 109 mmol/L (98-107); Estimated GFR-MDRD Greater than 90; Globulin 3.7 g/dL (2.4-3.5); Glucose 141 mg/dL (70-105); Potassium 3.5 mmol/L (3.5-5.1); Protein, Total 7.3 g/dL (6.0-8.3); Sodium 141 mmol/L (136-145)
--- NOTE | 2019-06-02 07:41 | PDOC.HOSPP ---
- Subjective Subjective: Patient seen and examined. No new complaints. No overnight events - Objective Vital Signs & Weight: Vital Signs (12 hours) Temp Pulse Resp BP Pulse Ox 06/02/19 07:12 98.6 F 75 20 146/69 H 95 06/02/19 06:23 79 16 97 06/02/19 00:30 98.5 F 73 18 155/65 H 06/02/19 00:21 77 16 94 L 06/01/19 20:00 98.5 F 69 18 125/67 97 Weight Admit Weight 202 lb 3.2 oz Weight 202 lb 3.2 oz I&O: 06/01/19 06/02/19 06/03/19 06:59 06:59 06:59 Intake Total 300 Output Total 150 600 Balance -150 -300 Result Diagrams: 06/02/19 06:47 06/02/19 06:47 Additional Labs: Accuchecks 06/02/19 06/01/19 06/01/19 04:10 20:58 16:19 POC Glucose 119 H 102 120 H 06/01/19 12:21 POC Glucose 138 H ROS - Review of Systems ROS unobtainable: due to mental status All systems: All other ROS were reviewed and found negative. - Medication Medications: Active Medications Generic Name Dose Route Start Last Admin Trade Name Freq PRN Reason Stop Dose Admin Albuterol/Ipratropium 3 ml 06/01/19 13:00 06/02/19 06:23 Duoneb NEB 3 ml [id number] ACOSTA Administration Apixaban 5 mg 06/01/19 21:00 06/01/19 19:51 Eliquis PER TUBE 5 mg BID ACOSTA Administration Aspirin 81 mg 06/01/19 09:00 06/01/19 10:07 Ecotrin PER TUBE 81 mg DAILY ACOSTA Administration Atorvastatin Calcium 80 mg 06/01/19 21:00 06/01/19 19:52 Lipitor PER TUBE 80 mg HS ACOSTA Administration Clopidogrel Bisulfate 75 mg 06/01/19 09:00 06/01/19 10:06 Plavix PER TUBE 75 mg DAILY ACOSTA Administration Cyanocobalamin 1,000 mcg 06/01/19 09:00 06/01/19 10:08 Vitamin B-12 PER TUBE 1,000 mcg DAILY ACOSTA Administration Escitalopram Oxalate 10 mg 06/01/19 09:00 06/01/19 10:06 Lexapro PER TUBE 10 mg DAILY ACOSTA Administration Famotidine 20 mg 06/01/19 09:00 06/01/19 19:52 Pepcid PER TUBE 20 mg BID ACOSTA Administration Piperacillin Sod/Tazobactam 100 mls @ 200 mls/hr 05/31/19 23:59 06/02/19 05: 16 Sod 3.375 gm/ Sodium Chloride IVPB 06/06/19 05:55 100 mls Q6HR ACOSTA Administration Vancomycin HCl 1.25 gm/ Sodium 250 mls @ 166.667 mls/hr 06/01/19 22:00 20:55 Chloride IVPB 250 mls 1000,2200 ACOSTA Administration Isosorbide Dinitrate 10 mg 06/01/19 09:00 06/01/19 19:51 Isordil PER TUBE 10 mg BID ACOSTA Administration Levetiracetam 1,000 mg 06/01/19 21:00 06/01/19 20:52 Keppra Oral Solution PER TUBE 1,000 mg BID ACOSTA Administration Ondansetron HCl 4 mg 05/31/19 21:13 05/31/19 21:48 Zofran IVP 06/05/19 05:55 4 mg Q6H PRN Administration Nausea/Vomiting Potassium Chloride 20 meq 06/01/19 09:00 06/01/19 19:52 Klor-Con PER TUBE 20 meq BID ACOSTA Administration Thiamine HCl 250 mg 06/01/19 09:00 06/01/19 10:06 Thiamine PER TUBE 250 mg DAILY ACOSTA Administration - Exam NAD, ill appearing Eye: PERRL, anicteric sclera ENT: normocephalic atraumatic, no oropharyngeal lesions Neck: supple, symmetric, no JVD Heart: RRR, no murmur, no gallops, no rubs Respiratory: CTAB, rales (few rales), rhonchi (few) Gastrointestinal: soft, non-tender, non-distended, normal bowel sounds (peg tube in place) Extremities: no cyanosis, no clubbing Skin: normal turgor, no lesions Neurological: hemiplegia (residual weakness, dysphagia) Musculoskeletal: normal strength Psychiatric: normal affect, normal behavior Hosp A/P (1) Aspiration pneumonia Code(s): J69.0 - PNEUMONITIS DUE TO INHALATION OF FOOD AND VOMIT Status: Acute (2) Hypokalemia Code(s): E87.6 - HYPOKALEMIA Status: Acute (3) Sepsis Code(s): A41.9 - SEPSIS, UNSPECIFIED ORGANISM Status: Acute (4) UTI (urinary tract infection) due to urinary indwelling catheter Code(s): T83.511A - I/I REACT D/T INDWELLING URETHRAL CATHETER, INIT; N39.0 - URINARY TRACT INFECTION, SITE NOT SPECIFIED Status: Acute (5) Anemia, normocytic normochromic Code(s): D64.9 - ANEMIA, UNSPECIFIED Status: Chronic (6) CAD (coronary artery disease) Code(s): I25.10 - ATHSCL HEART DISEASE OF [place] CORONARY ARTERY W/O ANG PCTRS Status: Chronic (7) Chronic anticoagulation Code(s): Z79.01 - PENITENTIARY (CURRENT) USE OF ANTICOAGULANTS Status: Chronic (8) DM2 (diabetes mellitus, type 2) Status: Chronic (9) Dyslipidemia Code(s): E78.5 - HYPERLIPIDEMIA, UNSPECIFIED Status: Chronic (10) GERD (gastroesophageal reflux disease) Code(s): K21.9 - GASTRO-ESOPHAGEAL REFLUX DISEASE WITHOUT ESOPHAGITIS Status: Chronic Qualifiers: (11) H/O: CVA (cerebrovascular accident) Code(s): Z86.73 - PRSNL HX OF TIA (TIA), AND CEREB INFRC W/O RESID DEFICITS Status: Chronic (12) History of pulmonary embolism Code(s): Z86.711 - PERSONAL HISTORY OF PULMONARY EMBOLISM Status: Chronic (13) Hypertension Code(s): I10 - ESSENTIAL (PRIMARY) HYPERTENSION Status: Chronic Qualifiers: (14) Oropharyngeal dysphagia Code(s): R13.12 - DYSPHAGIA, OROPHARYNGEAL PHASE Status: Chronic (15) Physical deconditioning Code(s): R53.81 - OTHER MALAISE Status: Chronic (16) Seizure as late effect of cerebrovascular accident (CVA) Code(s): I69.398 - OTHER SEQUELAE OF CEREBRAL INFARCTION; R56.9 - UNSPECIFIED CONVULSIONS Status: Chronic - Plan old records reviewed/req, harris catheter, continue antibiotics, PT/OT continue vancomycin and zosyn continue tube feeding medication reviewed as above symptomatic treatment slowly improving
[2019-06-02] MEDS: levETIRAcetam 500 mg/5 ml Oral Solution PER TUBE SCH ×2 (10:05→20:33)
[2019-06-02] MEDS: Thiamine 100 MG TAB PER TUBE SCH (10:06)
[2019-06-02] MEDS: Isosorbide Dinitrate 20 MG TAB PER TUBE SCH ×2 (10:06→20:35)
[2019-06-02] MEDS: Nystatin 500,000 UNITS/5 ML UDCUP SSW SCH ×4 (10:06→20:36)
[2019-06-02] MEDS: Aspirin 81 mg Enteric Coated Tablet PER TUBE SCH (10:07)
[2019-06-02] MEDS: Escitalopram Oxalate 10 mg Tablet PER TUBE SCH (10:07)
[2019-06-02] MEDS: Clopidogrel Bisulfate 75 MG TAB PER TUBE SCH (10:07)
[2019-06-02] MEDS: Apixaban 5 MG TAB PER TUBE SCH ×2 (10:07→20:34)
[2019-06-02] MEDS: Famotidine 20 MG TAB PER TUBE SCH ×2 (10:07→20:34)
[2019-06-02] MEDS: Saccharomyces boulardii 250 MG CAP PO SCH (10:07)
[2019-06-02] MEDS: Cyanocobalamin (Vitamin B-12) 1,000 MCG TAB PER TUBE SCH (10:07)
[2019-06-02] MEDS: Vancomycin HCl 1.25 GM in Sodium Chloride 0.9% 250 ML 250 ML IVPB SCH (10:08)
[2019-06-02] MEDS: Atorvastatin Calcium 40 MG TAB PER TUBE SCH (20:33)
[2019-06-03] MEDS: Piperacillin/Tazobactam 3.375 GM in Sodium Chloride 0.9% 100 ML IVPB SCH ×3 (05:50→16:55)
[2019-06-03] MEDS: levETIRAcetam 500 mg/5 ml Oral Solution PER TUBE SCH ×2 (09:47→21:04)
[2019-06-03] MEDS: Nystatin 500,000 UNITS/5 ML UDCUP SSW SCH ×4 (09:47→21:04)
[2019-06-03] MEDS: Cyanocobalamin (Vitamin B-12) 1,000 MCG TAB PER TUBE SCH (09:48)
[2019-06-03] MEDS: Escitalopram Oxalate 10 mg Tablet PER TUBE SCH (09:48)
[2019-06-03] MEDS: Famotidine 20 MG TAB PER TUBE SCH ×2 (09:48→21:01)
[2019-06-03] MEDS: Isosorbide Dinitrate 20 MG TAB PER TUBE SCH ×2 (09:49→21:02)
[2019-06-03] MEDS: Saccharomyces boulardii 250 MG CAP PO SCH (09:49)
[2019-06-03] MEDS: Thiamine 100 MG TAB PER TUBE SCH (09:49)
[2019-06-03] MEDS: Clopidogrel Bisulfate 75 MG TAB PER TUBE SCH (09:49)
[2019-06-03] MEDS: Aspirin 81 mg Enteric Coated Tablet PER TUBE SCH (09:50)
[2019-06-03] MEDS: Vancomycin HCl 1.25 GM in Sodium Chloride 0.9% 250 ML 250 ML IVPB SCH ×3 (09:50→21:05)
[2019-06-03] MEDS: Apixaban 5 MG TAB PER TUBE SCH ×2 (09:50→21:01)
[2019-06-03] MEDS ORDERED: Dextrose 50% Abboject 50 ML SYRINGE SLOW IVP PRN (13:12)
[2019-06-03] MEDS ORDERED: Insulin Regular 300 UNITS/3 ML VIAL SC PRN (13:12)
[2019-06-03] MEDS ORDERED: Dextrose 5% in Water 1,000 ML IV PRN (13:12)
--- NOTE | 2019-06-03 14:43 | PQF ---
CLINICAL DOCUMENTATION IMPROVEMENT CLARIFICATION FORM: ICD-10 Updated PLEASE DO AN ADDENDUM TO THE PROGRESS NOTE WITH ANY DOCUMENTATION UPDATES OR ADDITIONS AND CARRY THROUGH TO DC SUMMARY. THANK YOU. DATE: 06/03/2019 ATTN: Dr. Flowers Please exercise your independent, professional judgment in responding to the clarification form. Clinical indicators are provided on the bottom of this form for your review Please check appropriate box(es): [ ] Sepsis due to UTI due to urinary indwelling catheter. [ ] Sepsis due to UTI not due to urinary indwelling catheter. [ ] Sepsis due to Aspiration pneumonia. [ ] Sepsis not due to Aspiration pneumonia. [ ] Sepsis due to: [ ] Localized infection without sepsis [ ] Other diagnosis [ ] Unable to determine In addition, please specify: Present on Admission (POA): [ ] Yes [ ] No [ ] Unable to determine For continuity of documentation, please document condition throughout progress notes and discharge summary. Thank You. CLINICAL INDICATORS - SIGNS / SYMPTOMS / LABS H&P 05/31: Chest x-ray, lobar infiltrate in the left lower lobe as well as the right lobe. Lactic acid 2.4, the second one is 2.0 Pneumonia, seen on chest x-ray. Hyperglycemia with glucose 187. No history diabetes. PN 06/01-06/02: Aspiration pneumonia Sepsis UTI due to urinary indwelling catheter RISKS: H&P /: Hx of DM, left sided hemiplegia, dysphagia due to previous stroke, CAD. UTI. Pneumonia TREATMENT: MAR: Order 05/31: Zosyn 3.375 gm IV MAR: Order 06/01: Vancomycin HCL 1.25 gm IV Thank you, Marcia (This form is maintained as a part of the permanent medical record) 2015 [employer] All Rights Reserved Marcia Her RN, BSN [email or web address] Office: [phone] [facility]
--- NOTE | 2019-06-03 19:41 | PRG ---
DATE OF SERVICE: 06/03/2019 SUBJECTIVE: The patient is a 59-year-old male with diabetes mellitus type 2, hypertension, coronary artery disease, and history of CVA with residual left-sided hemiplegia, presented to the emergency room with nausea, vomiting, and diarrhea. He is currently on PEG tube feeding at the skilled nursing. His chest x-ray was consistent with multilobar pneumonia versus aspiration. His lowest blood pressure in the emergency room was 86/61. He received 1 dose of Zosyn along with 2 L of IV fluid in the emergency room. He was also found to have urinalysis showing 11 to 20 wbc's with 1+ bacteria. He was recently treated for Pseudomonas and Enterococcus UTI as outpatient. The patient denies any new complaints at this time. Overall symptomatically feels better. OBJECTIVE: CURRENT VITAL SIGNS: Temperature 98.4, pulse of 86, blood pressure of 166/82, O2 saturation 94% on room air, and respirations of 18. GENERAL: A 59-year-old male, in no apparent distress. LUNGS: Showed rales at bilateral bases with scattered rhonchi. HEART: S1 and S2 present. Regular. ABDOMEN: Soft and nontender. Bowel sounds present. PEG tube site without any erythema or drainage. EXTREMITIES: No edema or calf tenderness. GENITOURINARY: Corbett catheter noted. LABORATORY FINDINGS: Labs from yesterday showed WBC 14.3 with hemoglobin 9.6. CURRENT MEDICATIONS: Reviewed. IMAGING DATA: Chest x-ray by my review on admission as discussed above. IMPRESSION: 1. Sepsis with acute organ dysfunction secondary to aspiration pneumonia. 2. Catheter associated urinary tract infection. 3. Lactic acidosis on admission. 4. Hypokalemia. 5. History of cerebrovascular accident with residual left-sided hemiplegia. 6. Chronic anemia. 7. Hypertension. The patient was hypotensive in the emergency room. 8. Coronary artery disease. 9. Diabetes mellitus type 2. 10. Hypertension. 11. Hyperlipidemia. 12. Seizure disorder. 13. Mild intermittent asthma. PLAN: 1. The patient will continue IV vancomycin and Zosyn. We will recheck labs in a.m. He is currently on aspirin, Plavix, and Eliquis. We will continue potassium supplementation. We will add insulin sliding scale. Repeat chest x-ray as well as labs in a.m. 2. Monitor vancomycin level. Continue tube feeding. 3. Plan of care was discussed with the patient in detail, he stated understanding. Job ID: [id number]
[2019-06-03] MEDS: Atorvastatin Calcium 40 MG TAB PER TUBE SCH (21:01)
[2019-06-04] MEDS: Piperacillin/Tazobactam 3.375 GM in Sodium Chloride 0.9% 100 ML IVPB SCH ×5 (00:21→23:42)
[2019-06-04 04:57] LABS: #Eosinphils 0.2 thou/uL (0.0-0.7); #Lymphocytes 1.6 thou/uL (1.20-3.40); #Monocytes 0.9 thou/uL (0.11-0.59); #Neutrophils 6.9 thou/uL (1.40-6.50); %Basophils 0.5 % (0.0-1.0); %Eosinophils 1.8 % (0.0-10.0); %Lymphocytes 16.3 % (21.0-51.0); %Monocytes 9.8 % (0.0-10.0); %Neutrophils 71.6 % (42.0-75.0); Hemoglobin 9.5 g/dL (14.0-18.0); Mean Corpuscular HGB CONC 31.5 g/dL (32.0-36.0); Mean Corpuscular Hemoglobin 26.8 pg (27.0-31.0); Mean Corpuscular Volume 85.2 fL (78.0-98.0); Mean Platelet Volume 9.1 fL (7.4-10.4); Platelet Count 242 thou/uL (130-400); RBC Distribution Width 15.9 % (11.5-14.5); Red Blood Cell (RBC) Count 3.54 mill/uL (4.70-6.10); White Blood Cell (WBC) Count 9.6 thou/uL (4.8-10.8)
[2019-06-04 05:17] LABS: ALT (SGPT) 9 U/L (8-55); AST (SGOT) 10 U/L (5-34); Albumin 3.5 g/dL (3.5-5.0); Alkaline Phosphatase 67 U/L (40-150); Anion Gap 11 mmol/L (10-20); BUN (Urea Nitrogen) 14 mg/dL (8.4-25.7); Calc. Creatinine Clearance 131 mL/min (70-130); Calcium 9.8 mg/dL (7.8-10.44); Carbon Dioxide 30 mmol/L (22-29); Chloride 110 mmol/L (98-107); Estimated GFR-MDRD Greater than 90; Globulin 3.9 g/dL (2.4-3.5); Glucose 160 mg/dL (70-105); Potassium 3.5 mmol/L (3.5-5.1); Protein, Total 7.4 g/dL (6.0-8.3); Sodium 147 mmol/L (136-145)
[2019-06-04] MEDS: Insulin Regular 300 UNITS/3 ML VIAL SC PRN (05:32)
[2019-06-04] MEDS: Clopidogrel Bisulfate 75 MG TAB PER TUBE SCH (08:03)
[2019-06-04] MEDS: Famotidine 20 MG TAB PER TUBE SCH ×2 (08:03→21:17)
[2019-06-04] MEDS: Nystatin 500,000 UNITS/5 ML UDCUP SSW SCH ×4 (08:03→21:22)
[2019-06-04] MEDS: Isosorbide Dinitrate 20 MG TAB PER TUBE SCH ×2 (08:03→21:17)
[2019-06-04] MEDS: Cyanocobalamin (Vitamin B-12) 1,000 MCG TAB PER TUBE SCH (08:03)
[2019-06-04] MEDS: Escitalopram Oxalate 10 mg Tablet PER TUBE SCH (08:03)
[2019-06-04] MEDS: Aspirin 81 mg Enteric Coated Tablet PER TUBE SCH (08:03)
[2019-06-04] MEDS: Thiamine 100 MG TAB PER TUBE SCH (08:03)
[2019-06-04] MEDS: Apixaban 5 MG TAB PER TUBE SCH ×2 (08:03→21:16)
[2019-06-04] MEDS: Saccharomyces boulardii 250 MG CAP PO SCH (08:03)
--- NOTE | 2019-06-04 08:28 | RAD ---
CHEST 1 VIEW: Date: 06/04/19 HISTORY: Dyspnea. Aspiration. Pneumonia. Follow-up. COMPARISON: 05/31/19. FINDINGS: Cardiac silhouette is magnified and enlarged. Pulmonary vasculature upper limits of normal and accent uated by shallow inspiration. Mediastinum is midline. Mild bibasilar atelectasis. Infiltrate at the l eft base is less pronounced than on the prior study. No evidence of pneumothorax. IMPRESSION: Improved aeration of the left lung base. No new abnormalities are demonstrated. POS: MANPREET
[2019-06-04 09:19] LABS: Vancomycin, Trough 17.1 ug/mL
[2019-06-04] MEDS: levETIRAcetam 500 mg/5 ml Oral Solution PER TUBE SCH ×2 (10:05→21:19)
[2019-06-04] MEDS: Vancomycin HCl 1.25 GM in Sodium Chloride 0.9% 250 ML 250 ML IVPB SCH ×2 (10:06→21:19)
--- NOTE | 2019-06-04 11:46 | PDOC.HOSPP ---
- Subjective Encounter Date: 06/04/19 Encounter Time: 11:44 Subjective: Patient seen and examined for Aspiration Pneumonia. No N/V or fever. No new complaints. No overnight events - Objective Vital Signs & Weight: Vital Signs (12 hours) Temp Pulse Resp BP Pulse Ox 06/04/19 08:00 98.9 F 93 20 136/83 90 L 06/04/19 06:54 98 15 97 06/04/19 04:15 98.7 F 92 16 160/70 H 92 L 06/04/19 00:15 99.4 F 91 16 160/90 H 92 L Weight Admit Weight 202 lb 3.2 oz Weight 202 lb 3.2 oz I&O: 06/03/19 06/04/19 06/05/19 06:59 06:59 06:59 Intake Total 200 2155 Output Total 1575 1200 Balance -1375 955 Result Diagrams: 06/04/19 04:41 06/04/19 04:41 Additional Labs: Accuchecks 06/04/19 06/03/19 06/03/19 04:23 19:35 16:26 POC Glucose 173 H 147 H 161 H 06/03/19 12:01 POC Glucose 160 H Microbiology 05/31/19 14:45 Venous blood - Left Hand Blood Culture - Final Coagulase Neg Staphylococcus 05/31/19 13:55 Urine harris catheter Urine Culture - Final Coagulase Neg Staphylococcus 05/31/19 14:29 Venous blood - Right Hand Blood Culture - Preliminary NO GROWTH AT 48 HOURS Radiology Reviewed by me: Yes (CXR - improving) ROS - Review of Systems Respiratory: denies: cough, dry, shortness of breath, hemoptysis, SOB with excertion, pleuritic pain, sputum, wheezing, other Cardiovascular: denies: chest pain, palpitations, orthopnea, paroxysmal noc. dyspnea, edema, light headedness, other Gastrointestinal: denies: nausea, vomitting, abdominal pain, diarrhea, constipation, melena, hematochezia, other - Medication Medications: Active Medications Generic Name Dose Route Start Last Admin Trade Name Freq PRN Reason Stop Dose Admin Albuterol/Ipratropium 3 ml 06/01/19 13:00 06/04/19 06:54 Duoneb NEB 3 ml [id number] ACOSTA Administration Apixaban 5 mg 06/01/19 21:00 06/04/19 08:03 Eliquis PER TUBE 5 mg BID ACOSTA Administration Aspirin 81 mg 06/01/19 09:00 06/04/19 08:03 Ecotrin PER TUBE 81 mg DAILY ACOSTA Administration Atorvastatin Calcium 80 mg 06/01/19 21:00 06/03/19 21:01 Lipitor PER TUBE 80 mg HS ACOSTA Administration Clopidogrel Bisulfate 75 mg 06/01/19 09:00 06/04/19 08:03 Plavix PER TUBE 75 mg DAILY ACOSTA Administration Cyanocobalamin 1,000 mcg 06/01/19 09:00 06/04/19 08:03 Vitamin B-12 PER TUBE 1,000 mcg DAILY ACOSTA Administration Escitalopram Oxalate 10 mg 06/01/19 09:00 06/04/19 08:03 Lexapro PER TUBE 10 mg DAILY ACOSTA Administration Famotidine 20 mg 06/01/19 09:00 06/04/19 08:03 Pepcid PER TUBE 20 mg BID ACOSTA Administration Piperacillin Sod/Tazobactam 100 mls @ 200 mls/hr 05/31/19 23:59 06/04/19 05: 30 Sod 3.375 gm/ Sodium Chloride IVPB 06/06/19 05:55 100 mls Q6HR ACOSTA Administration Vancomycin HCl 1.25 gm/ Sodium 250 mls @ 166.667 mls/hr 06/01/19 22:00 10:06 Chloride IVPB 250 mls 1000,2200 ACOSTA Administration Insulin Human Regular 0 units 06/03/19 13:12 06/04/19 05:32 Humulin R SC 2 unit .MILD SLIDING SCALE PRN Administration Mild Correctional Scale Isosorbide Dinitrate 10 mg 06/01/19 09:00 06/04/19 08:03 Isordil PER TUBE 10 mg BID ACOSTA Administration Levetiracetam 1,000 mg 06/01/19 21:00 06/04/19 10:05 Keppra Oral Solution PER TUBE 1,000 mg BID ACOSTA Administration Memantine 5 mg 06/02/19 09:00 06/04/19 08:03 Namenda PER TUBE 5 mg DAILY ACOSTA Administration Nystatin 500,000 units 06/02/19 09:00 06/04/19 08:03 Mycostatin SSW 500,000 units QID ACOSTA Administration Ondansetron HCl 4 mg 05/31/19 21:13 05/31/19 21:48 Zofran IVP 06/05/19 05:55 4 mg Q6H PRN Administration Nausea/Vomiting Potassium Chloride 20 meq 06/01/19 09:00 06/04/19 08:02 Klor-Con PER TUBE 20 meq BID ACOSTA Administration Saccharomyces Boulardii 250 mg 06/02/19 09:00 06/04/19 08:03 Florastor PO 250 mg DAILY ACOSTA Administration Thiamine HCl 250 mg 06/01/19 09:00 06/04/19 08:03 Thiamine PER TUBE 250 mg DAILY ACOSTA Administration - Exam NAD Neck: no JVD Heart: RRR, no rubs Respiratory: CTAB, no rales Gastrointestinal: soft, non-tender, normal bowel sounds Neurological: no focal deficits Hosp A/P - Plan IMPRESSION: 1. Sepsis with acute organ dysfunction secondary to aspiration pneumonia. 2. Catheter associated urinary tract infection. 3. Lactic acidosis on admission. 4. Hypokalemia. 5. History of cerebrovascular accident with residual left-sided hemiplegia. 6. Chronic anemia. 7. Hypertension. The patient was hypotensive in the emergency room. 8. Coronary artery disease. 9. Diabetes mellitus type 2. 10. Hypertension. 11. Hyperlipidemia. 12. Seizure disorder. 13. Mild intermittent asthma. PLAN: Cont IV vancomycin and Zosyn. Monitor Vancomycin level On aspirin, Plavix, and Eliquis. Cont insulin sliding scale. Continue tube feeding. DC to Rehab in 1-2 days if stable
[2019-06-04] MEDS: Atorvastatin Calcium 40 MG TAB PER TUBE SCH (21:16)
[2019-06-05] MEDS: Piperacillin/Tazobactam 3.375 GM in Sodium Chloride 0.9% 100 ML IVPB SCH ×3 (05:13→18:37)
[2019-06-05] MEDS: Famotidine 20 MG TAB PER TUBE SCH ×2 (09:40→20:18)
[2019-06-05] MEDS: Aspirin 81 mg Enteric Coated Tablet PER TUBE SCH (09:40)
[2019-06-05] MEDS: Escitalopram Oxalate 10 mg Tablet PER TUBE SCH (09:40)
[2019-06-05] MEDS: Apixaban 5 MG TAB PER TUBE SCH ×2 (09:41→20:18)
[2019-06-05] MEDS: Clopidogrel Bisulfate 75 MG TAB PER TUBE SCH (09:41)
[2019-06-05] MEDS: Cyanocobalamin (Vitamin B-12) 1,000 MCG TAB PER TUBE SCH (09:41)
[2019-06-05] MEDS: Saccharomyces boulardii 250 MG CAP PO SCH (09:41)
[2019-06-05] MEDS: Thiamine 100 MG TAB PER TUBE SCH (09:44)
[2019-06-05] MEDS: levETIRAcetam 500 mg/5 ml Oral Solution PER TUBE SCH ×2 (09:44→20:19)
[2019-06-05] MEDS: Isosorbide Dinitrate 20 MG TAB PER TUBE SCH ×2 (09:45→20:19)
[2019-06-05] MEDS: Vancomycin HCl 1.25 GM in Sodium Chloride 0.9% 250 ML 250 ML IVPB SCH ×2 (09:46→22:49)
[2019-06-05] MEDS: Nystatin 500,000 UNITS/5 ML UDCUP SSW SCH ×4 (09:59→20:20)
--- NOTE | 2019-06-05 13:03 | PDOC.HOSPP ---
- Subjective Encounter Date: 06/05/19 Encounter Time: 12:30 Subjective: Patient seen and examined for Aspiration Pneumonia. Feels better. No fever or chills. Mild coughing without significant production. No new complaints. No overnight events - Objective Vital Signs & Weight: Vital Signs (12 hours) Temp Pulse Resp BP Pulse Ox 06/05/19 12:42 88 16 92 L 06/05/19 10:58 98.6 F 87 18 152/94 H 96 06/05/19 07:44 98.4 F 76 16 168/89 H 100 06/05/19 07:18 91 L 06/05/19 07:17 71 16 91 L 06/05/19 04:00 98.5 F 82 18 169/99 H 94 L Weight Admit Weight 202 lb 3.2 oz Weight 202 lb 3.2 oz I&O: 06/04/19 06/05/19 06/06/19 06:59 06:59 06:59 Intake Total 2155 2215 Output Total 1200 1800 Balance 955 415 Result Diagrams: 06/04/19 04:41 06/04/19 04:41 Additional Labs: Accuchecks 06/05/19 06/05/19 06/04/19 10:57 05:09 19:37 POC Glucose 182 H 165 H 155 H 06/04/19 16:06 POC Glucose 155 H Microbiology 05/31/19 14:45 Venous blood - Left Hand Blood Culture - Final Coagulase Neg Staphylococcus 05/31/19 13:55 Urine harris catheter Urine Culture - Final Coagulase Neg Staphylococcus 05/31/19 14:29 Venous blood - Right Hand Blood Culture - Preliminary NO GROWTH AT 48 HOURS ROS - Review of Systems Respiratory: reports: cough. denies: dry, shortness of breath, hemoptysis, SOB with excertion, pleuritic pain, sputum, wheezing, other Cardiovascular: denies: chest pain, palpitations, orthopnea, paroxysmal noc. dyspnea, edema, light headedness, other - Medication Medications: Active Medications Generic Name Dose Route Start Last Admin Trade Name Freq PRN Reason Stop Dose Admin Albuterol/Ipratropium 3 ml 06/01/19 13:00 06/05/19 12:42 Duoneb NEB 3 ml [id number] ACOSTA Administration Apixaban 5 mg 06/01/19 21:00 06/05/19 09:41 Eliquis PER TUBE 5 mg BID ACOSTA Administration Aspirin 81 mg 06/01/19 09:00 06/05/19 09:40 Ecotrin PER TUBE 81 mg DAILY ACOSTA Administration Atorvastatin Calcium 80 mg 06/01/19 21:00 06/04/19 21:16 Lipitor PER TUBE 80 mg HS ACOSTA Administration Clopidogrel Bisulfate 75 mg 06/01/19 09:00 06/05/19 09:41 Plavix PER TUBE 75 mg DAILY ACOSTA Administration Cyanocobalamin 1,000 mcg 06/01/19 09:00 06/05/19 09:41 Vitamin B-12 PER TUBE 1,000 mcg DAILY ACOSTA Administration Escitalopram Oxalate 10 mg 06/01/19 09:00 06/05/19 09:40 Lexapro PER TUBE 10 mg DAILY ACOSTA Administration Famotidine 20 mg 06/01/19 09:00 06/05/19 09:40 Pepcid PER TUBE 20 mg BID ACOSTA Administration Piperacillin Sod/Tazobactam 100 mls @ 200 mls/hr 05/31/19 23:59 06/05/19 12: 44 Sod 3.375 gm/ Sodium Chloride IVPB 06/06/19 05:55 100 mls Q6HR ACOSTA Administration Vancomycin HCl 1.25 gm/ Sodium 250 mls @ 166.667 mls/hr 06/01/19 22:00 09:46 Chloride IVPB 250 mls 1000,2200 ACOSTA Administration Insulin Human Regular 0 units 06/03/19 13:12 06/04/19 05:32 Humulin R SC 2 unit .MILD SLIDING SCALE PRN Administration Mild Correctional Scale Isosorbide Dinitrate 10 mg 06/01/19 09:00 06/05/19 09:45 Isordil PER TUBE 10 mg BID ACOSTA Administration Levetiracetam 1,000 mg 06/01/19 21:00 06/05/19 09:44 Keppra Oral Solution PER TUBE 1,000 mg BID ACOSTA Administration Memantine 5 mg 06/02/19 09:00 06/05/19 09:45 Namenda PER TUBE 5 mg DAILY ACOSTA Administration Nystatin 500,000 units 06/02/19 09:00 06/05/19 09:59 Mycostatin SSW 500,000 units QID ACOSTA Administration Potassium Chloride 20 meq 06/01/19 09:00 06/05/19 09:44 Klor-Con PER TUBE 20 meq BID ACOSTA Administration Saccharomyces Boulardii 250 mg 06/02/19 09:00 06/05/19 09:41 Florastor PO 250 mg DAILY ACOSTA Administration Thiamine HCl 250 mg 06/01/19 09:00 06/05/19 09:44 Thiamine PER TUBE 250 mg DAILY ACOSTA Administration - Exam NAD Neck: supple, no JVD Heart: RRR, no gallops Respiratory: rales (at bases), rhonchi Gastrointestinal: soft, non-tender, normal bowel sounds Hosp A/P - Plan IMPRESSION: 1. Sepsis with acute organ dysfunction secondary to Aspiration pneumonia/ CN Staph bacteremia 1 of 2 2. Catheter associated urinary tract infection - CN Staph 3. Lactic acidosis on admission. 4. Hypokalemia. 5. History of cerebrovascular accident with residual left-sided hemiplegia - On aspirin, Plavix, and Eliquis. 6. Chronic anemia. 7. Hypertension. (was hypotensive in the emergency room) 8. Coronary artery disease. 9. Diabetes mellitus type 2 - on insulin sliding scale. 10. Mild intermittent asthma. 11. Hyperlipidemia. 12. Seizure disorder. PLAN: Cont IV vancomycin and Zosyn. AM labs Consult ID due bacteremia Continue tube feeding. PT/OT Cont other meds as above DC to Rehab in 1-2 days if stable
[2019-06-05] MEDS: Atorvastatin Calcium 40 MG TAB PER TUBE SCH (20:18)
[2019-06-06] MEDS: Piperacillin/Tazobactam 3.375 GM in Sodium Chloride 0.9% 100 ML IVPB SCH (00:14)
[2019-06-06 06:03] LABS: Hemoglobin 9.9 g/dL (14.0-18.0); Platelet Count 265 thou/uL (130-400)
[2019-06-06 06:07] LABS: #Basophils 0.1 thou/uL (0.0-0.2); #Eosinphils 0.5 thou/uL (0.0-0.7); #Lymphocytes 1.9 thou/uL (1.20-3.40); #Monocytes 0.7 thou/uL (0.11-0.59); #Neutrophils 5.3 thou/uL (1.40-6.50); %Eosinophils 5.8 % (0.0-10.0); %Monocytes 8.6 % (0.0-10.0); %Neutrophils 62.6 % (42.0-75.0); Hemoglobin 9.8 g/dL (14.0-18.0); Mean Corpuscular Hemoglobin 26.6 pg (27.0-31.0); Mean Corpuscular Volume 85.8 fL (78.0-98.0); Mean Platelet Volume 9.1 fL (7.4-10.4); Platelet Count 272 thou/uL (130-400); RBC Distribution Width 15.9 % (11.5-14.5); Red Blood Cell (RBC) Count 3.67 mill/uL (4.70-6.10); White Blood Cell (WBC) Count 8.5 thou/uL (4.8-10.8)
[2019-06-06 06:31] LABS: Anion Gap 13 mmol/L (10-20); BUN (Urea Nitrogen) 14 mg/dL (8.4-25.7); Calc. Creatinine Clearance 129 mL/min (70-130); Carbon Dioxide 26 mmol/L (22-29); Chloride 109 mmol/L (98-107); Estimated GFR-MDRD Greater than 90; Glucose 136 mg/dL (70-105); Potassium 3.6 mmol/L (3.5-5.1); Sodium 144 mmol/L (136-145)
[2019-06-06] MEDS: levETIRAcetam 500 mg/5 ml Oral Solution PER TUBE SCH ×2 (08:57→20:54)
[2019-06-06] MEDS: Nystatin 500,000 UNITS/5 ML UDCUP SSW SCH ×4 (08:57→21:25)
[2019-06-06] MEDS: Apixaban 5 MG TAB PER TUBE SCH ×2 (08:59→20:55)
[2019-06-06] MEDS: Thiamine 100 MG TAB PER TUBE SCH (08:59)
[2019-06-06] MEDS: Cyanocobalamin (Vitamin B-12) 1,000 MCG TAB PER TUBE SCH (09:01)
[2019-06-06] MEDS: Saccharomyces boulardii 250 MG CAP PO SCH (09:01)
[2019-06-06] MEDS: Isosorbide Dinitrate 20 MG TAB PER TUBE SCH ×2 (09:01→20:55)
[2019-06-06] MEDS: Clopidogrel Bisulfate 75 MG TAB PER TUBE SCH (09:02)
[2019-06-06] MEDS: Escitalopram Oxalate 10 mg Tablet PER TUBE SCH (09:02)
[2019-06-06] MEDS: Vancomycin HCl 1.25 GM in Sodium Chloride 0.9% 250 ML 250 ML IVPB SCH ×2 (09:02→21:25)
[2019-06-06] MEDS: Famotidine 20 MG TAB PER TUBE SCH ×2 (09:02→20:55)
[2019-06-06] MEDS: Aspirin Chewable 81 MG TAB PER TUBE SCH (09:02)
--- NOTE | 2019-06-06 14:43 | CON ---
DATE OF CONSULTATION: 06/06/2019 REASON FOR CONSULTATION: Vomiting, UTI, and prior CVA. HISTORY OF PRESENT ILLNESS: A 59-year-old, who has a history of type 2 diabetes, coronary artery disease, hypertension, and recent right hemispheric cerebrovascular accident with dense left hemiplegia/paresis in December this year with quite significant swallowing dysfunction requiring gastrostomy tube feedings as well as urinary incontinence, which has been managed with an indwelling Corbett catheter for the past few months. The patient had also history of seizure activity in the past. He was at [facility] and developed nausea and vomiting after G-tube feedings. In the emergency room, his temperature is 97.3. The exam was remarkable for left-sided weakness. There is an infiltrate in the left lower lobe and right lower lobe. White cell count 7.2, hemoglobin 9.3, and platelets 256. Creatinine 0.98, lactic acid 2.4, and albumin 3.4. Urinalysis with 11 to 20 wbc's. Microbiology with coagulase negative Staph in one set of blood cultures and urine culture with coag-negative staph as well. The one in the blood was identified as Staph epidermidis and one in the urine was not further identified. Currently, Mr. Ndiaye is awake. He appears in no distress. He knows he is in [facility]. Denies any headaches. No visual symptoms. Same swallowing dysfunction. No respiratory symptoms. No abdominal pain. No diarrhea. Never had diarrhea in the custodial according to the nursing staff there. Still has a Corbett catheter in place. Dense left hemiplegia. He is able to move a little bit the left leg, but not much the left upper extremity. PAST MEDICAL HISTORY: Type 2 diabetes, coronary artery disease, hyperlipidemia, hypertension, prior UTIs, epilepsy, aphasia, asthma, prior CVA with a dense left hemiplegia, and swallowing dysfunction requiring gastrostomy tube feedings. PAST SURGICAL HISTORY: G-tube placement. SOCIAL HISTORY: Lives in [facility]. Never smoker. No alcoholic beverage use. FAMILY HISTORY: Noncontributory. ALLERGIES: NONE. CURRENT MEDICATIONS: 1. Tylenol. 2. DuoNeb. 3. Eliquis. 4. Aspirin. 5. Lipitor. 6. Dulcolax. 7. Plavix. 8. B12. 9. Lexapro. 10. Humulin R. 11. Imodium. 12. Mycostatin. 13. Vancomycin. PHYSICAL EXAMINATION: VITAL SIGNS: He has been afebrile in the hospital stay. BP 180/92, pulse 84, respirations 16, and O2 saturation 94. SKIN: Peripheral IV access. Corbett catheter in place. No lymphadenopathy. HEENT: Ocular movements conjugate. Oral cavity with numerous teeth in place in fairly decent shape. NECK: Supple. No jugular venous distention. LUNGS: Symmetric air entry. No wheezing or crackles. HEART: S1 and S2. Diminished heart sounds. No murmurs. No S3 or S4. Heart rate is regular. ABDOMEN: Soft, not distended or tender. : No bladder distention. EXTREMITIES: No joint inflammatory activity. Dense left hemiparesis/plegia. Pulses are 1+ in dorsalis pedis. Plantar responses are flexor on the right side and different on the left. No clonus. NEUROLOGIC: He is awake, recognizes family members in the room, knows he is in the hospital and the name of the hospital, but could not tell me the date. LABORATORY DATA: Latest values of labs; white cell count in the 8.5, hemoglobin 9.8, and platelets 272 with normal differential. Sodium 144 and creatinine 0.81. ASSESSMENT: 1. Type 2 diabetes. 2. Hypertension. 3. Recent cerebrovascular accident with a dense left hemiplegia. 4. Neurogenic bladder with a chronic indwelling Corbett catheter for few months now. 5. Coagulase-negative Staph bacteremia 1/2 sets with the same organism retrieved from the bladder associated with leukocytosis, vomiting. 6. Abnormal lung exam. DISCUSSION: The differential diagnosis includes invasive urinary tract infection with coagulase-negative Staph, which is Staph epidermidis. Ideally, one would like to identify the organism in the urine to see if we could establish a relationship between the urine isolate and the blood isolate, which would confirm to the idea of an invasive UTI. We will contact the Laboratory to see if they can still process it that way. The other possibility would be aspiration pneumonia associated with the gastrointestinal issues, maybe some element of gastroparesis. I have reviewed Dr. Saini's note from [facility]. He did not have any specific reason to maintain the Corbett catheter in place. He gave options to the family in terms of in and out catheterization, but it is not clear to me the patient had urinary retention identified. Could attempt a voiding trial to see if the catheter can be removed, making sure that he does not have an elevated postvoid residual. If he did, then he would have to have either an SP tube or suprapubic tube inserted or the indwelling Corbett catheter reinserted. So, I would consider a voiding trial and see if he presents with retention or not after that. In terms of treatment for this, we will call the Lab and asked them to do the susceptibility profile to see what we can use for discharge planning. Job ID: [id number]
--- NOTE | 2019-06-06 15:31 | PDOC.HOSPP ---
- Subjective Encounter Date: 06/06/19 Encounter Time: 13:00 Subjective: Patient seen and examined for Aspiration Pneumonia/Bacteremia. No cough/SOB. Tolerating PEG tube feeding. No new complaints. No overnight events - Objective Vital Signs & Weight: Vital Signs (12 hours) Temp Pulse Resp BP BP Pulse Ox 06/06/19 12:53 84 181/92 H 06/06/19 08:00 94 L 06/06/19 07:04 98.2 F 84 16 171/88 H 94 L 06/06/19 06:28 94 L 06/06/19 06:26 87 16 Weight Admit Weight 202 lb 3.2 oz Weight 202 lb 3.2 oz I&O: 06/05/19 06/06/19 06/07/19 06:59 06:59 06:59 Intake Total 2215 300 100 Output Total 1800 1300 Balance 415 -1000 100 Result Diagrams: 06/06/19 05:11 06/06/19 05:11 Additional Labs: Accuchecks 06/06/19 06/06/19 06/05/19 11:21 04:56 21:06 POC Glucose 160 H 147 H 141 H 06/05/19 16:56 POC Glucose 159 H ROS - Review of Systems Cardiovascular: denies: chest pain, palpitations, orthopnea, paroxysmal noc. dyspnea, edema, light headedness, other Gastrointestinal: denies: nausea, vomitting, abdominal pain, diarrhea, constipation, melena, hematochezia, other Genitourinary: denies: dysuria, frequency, incontinence, hematuria, retention, other - Medication Medications: Active Medications Generic Name Dose Route Start Last Admin Trade Name Salvadorq PRN Reason Stop Dose Admin Albuterol/Ipratropium 3 ml 06/01/19 13:00 06/06/19 06:26 Duoneb NEB 3 ml [id number] ACOSTA Administration Apixaban 5 mg 06/01/19 21:00 06/06/19 08:59 Eliquis PER TUBE 5 mg BID ACOSTA Administration Aspirin 81 mg 06/06/19 09:00 06/06/19 09:02 Aspirin Chewable PER TUBE 81 mg DAILY ACOSTA Administration Atorvastatin Calcium 80 mg 06/01/19 21:00 06/05/19 20:18 Lipitor PER TUBE 80 mg HS ACOSTA Administration Clopidogrel Bisulfate 75 mg 06/01/19 09:00 06/06/19 09:02 Plavix PER TUBE 75 mg DAILY ACOSTA Administration Cyanocobalamin 1,000 mcg 06/01/19 09:00 06/06/19 09:01 Vitamin B-12 PER TUBE 1,000 mcg DAILY ACOSTA Administration Escitalopram Oxalate 10 mg 06/01/19 09:00 06/06/19 09:02 Lexapro PER TUBE 10 mg DAILY ACOSAT Administration Famotidine 20 mg 06/01/19 09:00 06/06/19 09:02 Pepcid PER TUBE 20 mg BID ACOSTA Administration Hydralazine HCl 10 mg 06/01/19 09:21 06/06/19 12:53 Apresoline SLOW IVP 10 mg Q4H PRN Administration SBP > 180 and HR < 70 Vancomycin HCl 1.25 gm/ Sodium 250 mls @ 166.667 mls/hr 06/01/19 22:00 09:02 Chloride IVPB 250 mls 1000,2200 ACOSTA Administration Insulin Human Regular 0 units 06/03/19 13:12 06/04/19 05:32 Humulin R SC 2 unit .MILD SLIDING SCALE PRN Administration Mild Correctional Scale Isosorbide Dinitrate 10 mg 06/01/19 09:00 06/06/19 09:01 Isordil PER TUBE 10 mg BID ACOSTA Administration Levetiracetam 1,000 mg 06/01/19 21:00 06/06/19 08:57 Keppra Oral Solution PER TUBE 1,000 mg BID ACOSTA Administration Memantine 5 mg 06/02/19 09:00 06/06/19 09:01 Namenda PER TUBE 5 mg DAILY ACOSTA Administration Nystatin 500,000 units 06/02/19 09:00 06/06/19 12:38 Mycostatin SSW 500,000 units QID ACOSTA Administration Potassium Chloride 20 meq 06/01/19 09:00 06/06/19 08:59 Klor-Con PER TUBE 20 meq BID ACOSTA Administration Saccharomyces Boulardii 250 mg 06/02/19 09:00 06/06/19 09:01 Florastor PO 250 mg DAILY ACOSTA Administration Thiamine HCl 250 mg 06/01/19 09:00 06/06/19 08:59 Thiamine PER TUBE 250 mg DAILY ACOSTA Administration - Exam NAD Neck: supple, no JVD Heart: RRR, no rubs Respiratory: CTAB, no wheezes, rales (at bases), rhonchi ( at bases) Gastrointestinal: soft, non-tender, normal bowel sounds Hosp A/P - Plan IMPRESSION: 1. Sepsis with acute organ dysfunction secondary to Aspiration pneumonia/ CN Staph bacteremia (1 of 2) 2. Catheter associated urinary tract infection - CN Staph 3. Lactic acidosis on admission. 4. Hypokalemia. 5. History of cerebrovascular accident with residual left-sided hemiplegia - On aspirin, Plavix, and Eliquis. 6. Chronic anemia. 7. Hypertension. (was hypotensive in the emergency room) 8. Coronary artery disease. 9. Diabetes mellitus type 2 - on insulin sliding scale. 10. Mild intermittent asthma. 11. Hyperlipidemia. 12. Seizure disorder. PLAN: Cont IV vancomycin. Continue tube feeding. Await ID input Cont other meds as above Cont PT/OT
[2019-06-06] MEDS: Atorvastatin Calcium 40 MG TAB PER TUBE SCH (20:55)
[2019-06-07] MEDS: Famotidine 20 MG TAB PER TUBE SCH ×2 (09:08→20:13)
[2019-06-07] MEDS: Thiamine 100 MG TAB PER TUBE SCH (09:09)
[2019-06-07] MEDS: Escitalopram Oxalate 10 mg Tablet PER TUBE SCH (09:09)
[2019-06-07] MEDS: Isosorbide Dinitrate 20 MG TAB PER TUBE SCH ×2 (09:11→20:14)
[2019-06-07] MEDS: Aspirin Chewable 81 MG TAB PER TUBE SCH (09:11)
[2019-06-07] MEDS: Clopidogrel Bisulfate 75 MG TAB PER TUBE SCH (09:11)
[2019-06-07] MEDS: Apixaban 5 MG TAB PER TUBE SCH ×2 (09:11→20:14)
[2019-06-07] MEDS: levETIRAcetam 500 mg/5 ml Oral Solution PER TUBE SCH ×2 (09:12→20:11)
[2019-06-07] MEDS: Saccharomyces boulardii 250 MG CAP PO SCH (09:12)
[2019-06-07] MEDS: Cyanocobalamin (Vitamin B-12) 1,000 MCG TAB PER TUBE SCH (09:12)
[2019-06-07] MEDS: Nystatin 500,000 UNITS/5 ML UDCUP SSW SCH ×4 (09:28→20:11)
[2019-06-07 09:38] LABS: Vancomycin, Trough 20.3 ug/mL
[2019-06-07] MEDS: Vancomycin HCl 1.25 GM in Sodium Chloride 0.9% 250 ML 250 ML IVPB SCH (10:37)
--- NOTE | 2019-06-07 17:09 | PDOC.HOSPP ---
- Subjective Encounter Date: 06/07/19 (f/u bacteremia) Encounter Time: 17:07 Subjective: No overnight events per RN. Pt denies any pain/n/v - Objective Vital Signs & Weight: Vital Signs (12 hours) Temp Pulse Resp BP Pulse Ox 06/07/19 14:09 90 16 96 06/07/19 08:00 96 06/07/19 07:49 98.0 F 88 18 156/88 H 96 06/07/19 06:39 85 16 96 Weight Admit Weight 202 lb 3.2 oz Weight 202 lb 3.2 oz I&O: 06/06/19 06/07/19 06/08/19 06:59 06:59 06:59 Intake Total 300 2120 Output Total 1300 2400 Balance -1000 -280 Result Diagrams: 06/06/19 05:11 06/06/19 05:11 Additional Labs: Accuchecks 06/07/19 06/07/19 06/07/19 15:53 11:49 04:41 POC Glucose 132 H 170 H 158 H 06/06/19 06/06/19 20:24 15:40 POC Glucose 164 H 144 H ROS - Medication Medications: Active Medications Generic Name Dose Route Start Last Admin Trade Name Freq PRN Reason Stop Dose Admin Albuterol/Ipratropium 3 ml 06/01/19 13:00 06/07/19 14:09 Duoneb NEB 3 ml [id number] ACOSTA Administration Apixaban 5 mg 06/01/19 21:00 06/07/19 09:11 Eliquis PER TUBE 5 mg BID ACOSTA Administration Aspirin 81 mg 06/06/19 09:00 06/07/19 09:11 Aspirin Chewable PER TUBE 81 mg DAILY ACOSTA Administration Atorvastatin Calcium 80 mg 06/01/19 21:00 06/06/19 20:55 Lipitor PER TUBE 80 mg HS ACOSTA Administration Clopidogrel Bisulfate 75 mg 06/01/19 09:00 06/07/19 09:11 Plavix PER TUBE 75 mg DAILY ACOSTA Administration Cyanocobalamin 1,000 mcg 06/01/19 09:00 06/07/19 09:12 Vitamin B-12 PER TUBE 1,000 mcg DAILY ACOSTA Administration Escitalopram Oxalate 10 mg 06/01/19 09:00 06/07/19 09:09 Lexapro PER TUBE 10 mg DAILY ACOSTA Administration Famotidine 20 mg 06/01/19 09:00 06/07/19 09:08 Pepcid PER TUBE 20 mg BID ACOSTA Administration Hydralazine HCl 10 mg 06/01/19 09:21 06/06/19 12:53 Apresoline SLOW IVP 10 mg Q4H PRN Administration SBP > 180 and HR < 70 Insulin Human Regular 0 units 06/03/19 13:12 06/04/19 05:32 Humulin R SC 2 unit .MILD SLIDING SCALE PRN Administration Mild Correctional Scale Isosorbide Dinitrate 10 mg 06/01/19 09:00 06/07/19 09:11 Isordil PER TUBE 10 mg BID ACOSTA Administration Levetiracetam 1,000 mg 06/01/19 21:00 06/07/19 09:12 Keppra Oral Solution PER TUBE 1,000 mg BID ACOSTA Administration Memantine 5 mg 06/02/19 09:00 06/07/19 09:08 Namenda PER TUBE 5 mg DAILY ACOSTA Administration Nystatin 500,000 units 06/02/19 09:00 06/07/19 16:07 Mycostatin SSW 500,000 units QID ACOSTA Administration Potassium Chloride 20 meq 06/01/19 09:00 06/07/19 09:12 Klor-Con PER TUBE 20 meq BID ACOSTA Administration Saccharomyces Boulardii 250 mg 06/02/19 09:00 06/07/19 09:12 Florastor PO 250 mg DAILY ACOSTA Administration Thiamine HCl 250 mg 06/01/19 09:00 06/07/19 09:09 Thiamine PER TUBE 250 mg DAILY ACOSTA Administration - Exam NAD Heart: RRR, no murmur, no gallops Respiratory: CTAB, no wheezes, no rales, no ronchi Gastrointestinal: soft, non-tender, non-distended, normal bowel sounds Extremities: no cyanosis, no clubbing Neurological - other findings: left hemiplegia Psychiatric - other findings: affect is flat Hosp A/P (1) Sepsis Code(s): A41.9 - SEPSIS, UNSPECIFIED ORGANISM Status: Resolved Qualifiers: Sepsis type: sepsis due to unspecified organism Plan: 1. Aspiration Pneumonia, Bacteremia, UTI 2. Plan: 1. Appreciate ID consult 2. BP's not well controlled - resume carvedilol and lisinopril, continue isosorbide 3. blood sugars well controlled 4. Re-engage palliative care tomorrow as pt's affect is blunted, and is currently on lexapro 5. Remove harris cath in the AM per Dr. Rogers - to see if this is necessary. D/ w Thierry who will be here tomorrow and will plan to remove in AM, monitor with bladder scan and i/o cath if needed dvt prophy - fully anticoag gi prophy - code status Full (2) Bacteremia Code(s): R78.81 - BACTEREMIA Status: Acute (3) Aspiration pneumonia Code(s): J69.0 - PNEUMONITIS DUE TO INHALATION OF FOOD AND VOMIT Status: Acute (4) UTI (urinary tract infection) due to urinary indwelling catheter Code(s): T83.511A - I/I REACT D/T INDWELLING URETHRAL CATHETER, INIT; N39.0 - URINARY TRACT INFECTION, SITE NOT SPECIFIED Status: Acute (5) Anemia, normocytic normochromic Code(s): D64.9 - ANEMIA, UNSPECIFIED Status: Chronic (6) DM2 (diabetes mellitus, type 2) Status: Chronic Qualifiers: Diabetes mellitus terminal carman insulin use: without skilled nursing use (7) H/O: CVA (cerebrovascular accident) Code(s): Z86.73 - PRSNL HX OF TIA (TIA), AND CEREB INFRC W/O RESID DEFICITS Status: Chronic (8) History of pulmonary embolism Code(s): Z86.711 - PERSONAL HISTORY OF PULMONARY EMBOLISM Status: Chronic (9) Hypertension Code(s): I10 - ESSENTIAL (PRIMARY) HYPERTENSION Status: Chronic Qualifiers: Hypertension type: essential hypertension (10) CAD (coronary artery disease) Code(s): I25.10 - ATHSCL HEART DISEASE OF [place] CORONARY ARTERY W/O ANG PCTRS Status: Chronic Qualifiers: Coronary Disease-Associated Artery/Lesion type: [place] artery Associated angina: without angina - Plan Plan: - bp's elevated - resume carvedilol and lisinopril, and titrate to effect. Continue current meds as ordered - Appreciate ID consult - Dr. Rogers asking labs for susceptibility profile - will order voiding trial tomorrow= remove harris, bladder scan and i/o cath if needed - Will ask Dr. Green about triple therapy with eliquis, aspirin, plavix - if this is needed - will ask Pall Care to re-engage, assist with mood as affect is flat today. Pt is on lexapro - may need outpatient f/u and adjustment of this dvt prophy - fully anticoagulated gi prophy - on famotidine code status full Pt remains at high risk in current condition. Anticipate a few more days to determine antibiotics type and duration.
[2019-06-07] MEDS: Carvedilol 3.125 MG TAB PO SCH (17:23)
[2019-06-07] MEDS: Atorvastatin Calcium 40 MG TAB PER TUBE SCH (20:13)
[2019-06-07] MEDS: Vancomycin HCl 1 GM in Premix Bag 1 BAG IVPB SCH (21:16)
[2019-06-08 06:40] LABS: #Basophils 0.1 thou/uL (0.0-0.2); #Eosinphils 0.4 thou/uL (0.0-0.7); #Monocytes 0.7 thou/uL (0.11-0.59); #Neutrophils 4.7 thou/uL (1.40-6.50); %Basophils 1.2 % (0.0-1.0); %Eosinophils 5.3 % (0.0-10.0); %Lymphocytes 25.3 % (21.0-51.0); %Monocytes 8.3 % (0.0-10.0); %Neutrophils 59.9 % (42.0-75.0); Mean Corpuscular HGB CONC 31.3 g/dL (32.0-36.0); Mean Corpuscular Hemoglobin 26.3 pg (27.0-31.0); Mean Corpuscular Volume 83.9 fL (78.0-98.0); Mean Platelet Volume 8.3 fL (7.4-10.4); Platelet Count 293 thou/uL (130-400); RBC Distribution Width 16.2 % (11.5-14.5); White Blood Cell (WBC) Count 7.8 thou/uL (4.8-10.8)
[2019-06-08 06:48] LABS: Anion Gap 13 mmol/L (10-20); BUN (Urea Nitrogen) 20 mg/dL (8.4-25.7); Calc. Creatinine Clearance 127 mL/min (70-130); Calcium 10.2 mg/dL (7.8-10.44); Carbon Dioxide 26 mmol/L (22-29); Chloride 105 mmol/L (98-107); Estimated GFR-MDRD Greater than 90; Glucose 136 mg/dL (70-105); Potassium 4.1 mmol/L (3.5-5.1); Sodium 140 mmol/L (136-145)
[2019-06-08] MEDS ORDERED: Lisinopril 10 MG TAB PO SCH (09:00)
[2019-06-08] MEDS: Carvedilol 3.125 MG TAB PO SCH (09:22)
[2019-06-08] MEDS: levETIRAcetam 500 mg/5 ml Oral Solution PER TUBE SCH ×2 (09:22→20:29)
[2019-06-08] MEDS: Saccharomyces boulardii 250 MG CAP PO SCH (09:22)
[2019-06-08] MEDS: Cyanocobalamin (Vitamin B-12) 1,000 MCG TAB PER TUBE SCH (09:22)
[2019-06-08] MEDS: Clopidogrel Bisulfate 75 MG TAB PER TUBE SCH (09:23)
[2019-06-08] MEDS: Isosorbide Dinitrate 20 MG TAB PER TUBE SCH ×2 (09:23→20:29)
[2019-06-08] MEDS: Escitalopram Oxalate 10 mg Tablet PER TUBE SCH (09:23)
[2019-06-08] MEDS: Thiamine 100 MG TAB PER TUBE SCH (09:23)
[2019-06-08] MEDS: Apixaban 5 MG TAB PER TUBE SCH ×2 (09:23→20:28)
[2019-06-08] MEDS: Famotidine 20 MG TAB PER TUBE SCH ×2 (09:25→20:28)
[2019-06-08] MEDS: Nystatin 500,000 UNITS/5 ML UDCUP SSW SCH ×4 (09:29→20:29)
[2019-06-08] MEDS: Vancomycin HCl 1 GM in Premix Bag 1 BAG IVPB SCH (09:30)
[2019-06-08] MEDS: Aspirin Chewable 81 MG TAB PER TUBE SCH (09:37)
--- NOTE | 2019-06-08 13:53 | PDOC.PALCO ---
Palliative Care Consult - Consult Details Requesting Physician: Dr Ingram Reason for Consult: symptom management Family Members Present: None - Pertinent HPI Mr Ndiaye is a 59 year old male who is a resident at a shelter facility who was brought to the emergency room after projectile vomiting when receiving feedings via the g-tube. Evaluation of patient in er required admission secondary to pneumonia, anemia, hypokalemia, hypertension. - Pertinent PMH Diabetes, CAD, Hyperlipidemia, hypertension, UTI, dysphagia, aphasia, asthma, epilepsy - Social History Smoking Status: Never smoker Smoking: no tobacco exposure Alcohol Use: none Drug Use History: none Living Situation: shelter resident - Medications MAR Reviewed: Yes - Allergies Allergies/Adverse Reactions: Allergies Allergy/AdvReac Type Severity Reaction Status Date / Time No Known Allergies Allergy Verified 05/31/19 21:56 - Subjective patient sleeping, difficult to arouse. Peg in place. Flat affect. Palliative Care Consult for evaluation of antidepressant/blunted affect. - Objective Vital Signs: Vital Signs - Most Recent Temp Pulse Resp BP Pulse Ox 97.9 F 76 16 174/86 H 91 L 06/08/19 07:46 06/08/19 12:26 06/08/19 12:26 06/08/19 09:24 06/08/19 12:26 Palliative Performance Scale: 30 - Physical Exam Constitutional: confusion HEENT: moist MMs, EOMI Cardiovascular: RRR Gastrointestinal: soft, positive bowel sounds Deviation from normal: mildly distended, g-tube Musculoskeletal: pulses present Deviation from normal: flat/blunted affect - Problem List (1) Palliative care encounter Code(s): Z51.5 - ENCOUNTER FOR PALLIATIVE CARE Current Visit: Yes Status: Acute (2) Depressed affect Code(s): R45.89 - OTHER SYMPTOMS AND SIGNS INVOLVING EMOTIONAL STATE Current Visit: Yes Status: Acute - Plan/Recommendations Plan: Assessed patient. Discontinued SSRI secondary to blunted affect and transitioned to SNRI via g-tube with desire to have increase in therapeutic effect and improved mood, [40] minutes spent on this encounter with >50% of the time in counseling and coordination of care. Thank you for this very appropriate consult.
--- NOTE | 2019-06-08 15:04 | CT ---
EXAM: CTA of the chest HISTORY: Hypoxia and left hemiparesis COMPARISON: 03/07/2019 TECHNIQUE: Multiple contiguous axial images were obtained a CTA of the chest with contrast per pulmon floridalma embolism protocol. 3-D oblique MIP reformats and direct coronal reformats were performed. FINDINGS: HEART: Biventricular cardiomegaly. Hypertrophy of the left ventricular wall. PULMONARY ARTERIES: Normal in caliber without filling defects to suggest pulmonary emboli. MEDIASTINUM: No hilar or mediastinal lymphadenopathy. LUNGS: The previously seen bilateral lower lobe infiltrates have significantly improved. Atelectasis is seen in the dependent aspect of both lung bases. There is a 1.4 cm area of nodular opacity in the right lower lobe. PLEURAL SPACE: No pleural effusion or pneumothorax. CHEST WALL SOFT TISSUES: Unremarkable VISUALIZED OSSEOUS STRUCTURES: Degenerative changes in the spine VISUALIZED SUBDIAPHRAGMATIC STRUCTURES: Unremarkable IMPRESSION: 1. No evidence of pulmonary thromboembolism 2. Right lower lobe nodule should be followed with a repeat CT in 3-6 months to ensure stability.
--- NOTE | 2019-06-08 15:31 | PRG ---
DATE OF SERVICE: 06/08/2019 SUBJECTIVE: The patient denies any headaches. No shortness of breath or abdominal pain. OBJECTIVE: VITAL SIGNS: T-max 98.5. Other vital signs are slight elevation of systolic blood pressure, O2 saturation 91%. HEENT: Ocular movements conjugate. NEUROLOGIC: Unchanged. LUNGS: Symmetric air entry with faint crackles in the right base. HEART: S1 and S2. Regular rate. ABDOMEN: Soft, not distended. LABORATORY DATA: White cell count 7.8, hemoglobin 10, platelets 293. Creatinine 0.82. The cultures have been further processed by lab and there are two coagulase negative Staph in the blood culture, one Staphylococcus warneri, the other Staphylococcus epidermidis. Urine culture organism was not further evaluated because the specimen had been discarded. ASSESSMENT AND DISCUSSION: Type 2 diabetes; hypertension; recent cerebrovascular accident with dense left hemiplegia; neurogenic bladder; chronic indwelling Corbett catheter, now has been removed; coagulase-negative Staph bacteremia, different organism. This suggests that this sample was contaminated by skin organisms rather than true bacteremia. Therefore, we will have to find another explanation for the symptoms that led to patient admission. The main issues would be aspiration pneumonia or thromboembolism in view of his left dense hemiparesis. We will complete workup with a duplex ultrasound or a CT angio to rule out PE. Job ID: [id number] [facility]
--- NOTE | 2019-06-08 16:02 | PDOC.HOSPP ---
- Subjective Encounter Date: 06/08/19 (f/u bacteremia) Encounter Time: 16:00 Subjective: Pt without complaints, states he is ready to go home and asking when that will be. RN denies any overnight events. Harris cath was removed, pt has voided and saturated briefs, no bladder scan needed. - Objective Vital Signs & Weight: Vital Signs (12 hours) Temp Pulse Resp BP BP Pulse Ox 06/08/19 12:26 76 16 91 L 06/08/19 09:24 174/86 H 06/08/19 08:00 95 06/08/19 07:46 97.9 F 87 22 H 174/86 H 95 06/08/19 06:54 82 16 92 L Weight Admit Weight 202 lb 3.2 oz Weight 202 lb 3.2 oz I&O: 06/07/19 06/08/19 06/09/19 06:59 06:59 06:59 Intake Total 2120 1660 100 Output Total 2400 1400 Balance -280 260 100 Result Diagrams: 06/08/19 06:09 06/08/19 06:09 Additional Labs: Accuchecks 06/08/19 06/08/19 06/07/19 12:09 04:31 19:52 POC Glucose 174 H 141 H 139 H 06/07/19 15:53 POC Glucose 132 H ROS - Medication Medications: Active Medications Generic Name Dose Route Start Last Admin Trade Name Freq PRN Reason Stop Dose Admin Albuterol/Ipratropium 3 ml 06/01/19 13:00 06/08/19 12:26 Duoneb NEB 3 ml [id number] ACOSTA Administration Apixaban 5 mg 06/01/19 21:00 06/08/19 09:23 Eliquis PER TUBE 5 mg BID ACOSTA Administration Aspirin 81 mg 06/06/19 09:00 06/08/19 09:37 Aspirin Chewable PER TUBE 81 mg DAILY ACOSTA Administration Atorvastatin Calcium 80 mg 06/01/19 21:00 06/07/19 20:13 Lipitor PER TUBE 80 mg HS ACOSTA Administration Cyanocobalamin 1,000 mcg 06/01/19 09:00 06/08/19 09:22 Vitamin B-12 PER TUBE 1,000 mcg DAILY ACOSTA Administration Famotidine 20 mg 06/01/19 09:00 06/08/19 09:25 Pepcid PER TUBE 20 mg BID ACOSTA Administration Hydralazine HCl 10 mg 06/01/19 09:21 06/06/19 12:53 Apresoline SLOW IVP 10 mg Q4H PRN Administration SBP > 180 and HR < 70 Insulin Human Regular 0 units 06/03/19 13:12 06/04/19 05:32 Humulin R SC 2 unit .MILD SLIDING SCALE PRN Administration Mild Correctional Scale Isosorbide Dinitrate 10 mg 06/01/19 09:00 06/08/19 09:23 Isordil PER TUBE 10 mg BID ACOSTA Administration Levetiracetam 1,000 mg 06/01/19 21:00 06/08/19 09:22 Keppra Oral Solution PER TUBE 1,000 mg BID ACOSTA Administration Loratadine 10 mg 06/01/19 09:21 06/07/19 20:15 Claritin PER TUBE 10 mg DAILYPRN PRN Administration Sinus Symptoms Memantine 5 mg 06/02/19 09:00 06/08/19 09:22 Namenda PER TUBE 5 mg DAILY ACOSTA Administration Nystatin 500,000 units 06/02/19 09:00 06/08/19 14:33 Mycostatin SSW 500,000 units QID ACOSTA Administration Potassium Chloride 20 meq 06/01/19 09:00 06/08/19 09:30 Klor-Con PER TUBE 20 meq BID ACOSTA Administration Saccharomyces Boulardii 250 mg 06/02/19 09:00 06/08/19 09:22 Florastor PO 250 mg DAILY ACOSTA Administration Thiamine HCl 250 mg 06/01/19 09:00 06/08/19 09:23 Thiamine PER TUBE 250 mg DAILY ACOSTA Administration - Exam NAD Heart: RRR, no murmur, no gallops, no rubs Respiratory: CTAB, no wheezes, no rales, no ronchi Gastrointestinal: soft, non-tender, non-distended, normal bowel sounds Extremities: no cyanosis, no clubbing, no edema Neurological: hemiplegia (left sided) Hosp A/P (1) Sepsis Code(s): A41.9 - SEPSIS, UNSPECIFIED ORGANISM Status: Resolved Qualifiers: Sepsis type: sepsis due to unspecified organism (2) Bacteremia Code(s): R78.81 - BACTEREMIA Status: Acute (3) Aspiration pneumonia Code(s): J69.0 - PNEUMONITIS DUE TO INHALATION OF FOOD AND VOMIT Status: Acute (4) UTI (urinary tract infection) due to urinary indwelling catheter Code(s): T83.511A - I/I REACT D/T INDWELLING URETHRAL CATHETER, INIT; N39.0 - URINARY TRACT INFECTION, SITE NOT SPECIFIED Status: Acute (5) Anemia, normocytic normochromic Code(s): D64.9 - ANEMIA, UNSPECIFIED Status: Chronic (6) DM2 (diabetes mellitus, type 2) Status: Chronic Qualifiers: Diabetes mellitus group home insulin use: without bus and trolley inspecting dispatcher use (7) H/O: CVA (cerebrovascular accident) Code(s): Z86.73 - PRSNL HX OF TIA (TIA), AND CEREB INFRC W/O RESID DEFICITS Status: Chronic (8) History of pulmonary embolism Code(s): Z86.711 - PERSONAL HISTORY OF PULMONARY EMBOLISM Status: Chronic (9) Hypertension Code(s): I10 - ESSENTIAL (PRIMARY) HYPERTENSION Status: Chronic Qualifiers: Hypertension type: essential hypertension Qualified Code(s): I10 - Essential (primary) hypertension (10) CAD (coronary artery disease) Code(s): I25.10 - ATHSCL HEART DISEASE OF [place] CORONARY ARTERY W/O ANG PCTRS Status: Chronic Qualifiers: Coronary Disease-Associated Artery/Lesion type: [place] artery Associated angina: without angina - Plan Plan: - bp's improved but still elevated - both carvedilol and lisinopril are increased - Appreciate ID consult - Dr. Rogers ordered CT scan today which is neg for infiltrate and Vanc d/c. Will inquire if additional abx are needed. - No harris cath indicated - bladder scan if not voiding or any concerns at any time - d/w Dr. Adames the aspirin/plavix/eliquis - there is no indication for plavix and I will d/c. Continue low dose aspirin for secondary stroke risk reduction - Called Cardiology and pt has not seen any of the cardiologists as an outpatient, no documentation of cardiac stents on the chart - Appreciate Pall Care eval today and changing to SNRI to address the flat affect dvt prophy - fully anticoagulated gi prophy - on famotidine code status full Pt cleared for discharge - communicated at the end of day with welfare case worker to see if he can return to rehab. Richa will inquire.
[2019-06-08] MEDS ORDERED: Carvedilol 3.125 MG TAB PER TUBE SCH (17:00)
[2019-06-08] MEDS: Lisinopril 10 MG TAB PER TUBE SCH (20:28)
[2019-06-08] MEDS: Atorvastatin Calcium 40 MG TAB PER TUBE SCH (20:28)
[2019-06-08] MEDS: Venlafaxine HCl 25 MG TAB PER TUBE SCH (20:30)
[2019-06-09] MEDS ORDERED: Carvedilol 3.125 MG TAB PER TUBE SCH (07:31)
[2019-06-09] MEDS ORDERED: Carvedilol 6.25 MG TAB PER TUBE SCH (08:00)
[2019-06-09] MEDS: Apixaban 5 MG TAB PER TUBE SCH (09:12)
[2019-06-09] MEDS: Saccharomyces boulardii 250 MG CAP PO SCH (09:12)
[2019-06-09] MEDS: Nystatin 500,000 UNITS/5 ML UDCUP SSW SCH ×2 (09:12→12:11)
[2019-06-09] MEDS: Isosorbide Dinitrate 20 MG TAB PER TUBE SCH (09:12)
[2019-06-09] MEDS: Venlafaxine HCl 25 MG TAB PER TUBE SCH (09:13)
[2019-06-09] MEDS: Aspirin Chewable 81 MG TAB PER TUBE SCH (09:13)
[2019-06-09] MEDS: Lisinopril 10 MG TAB PER TUBE SCH (09:13)
[2019-06-09] MEDS: Thiamine 100 MG TAB PER TUBE SCH (09:13)
[2019-06-09] MEDS: Famotidine 20 MG TAB PER TUBE SCH (09:13)
[2019-06-09] MEDS: Cyanocobalamin (Vitamin B-12) 1,000 MCG TAB PER TUBE SCH (09:14)
[2019-06-09] MEDS: levETIRAcetam 500 mg/5 ml Oral Solution PER TUBE SCH (10:00)
--- NOTE | 2019-06-09 11:44 | PDOC.HOSPP ---
- Subjective Encounter Date: 06/09/19 (f/u bacteremia) Encounter Time: 11:40 Subjective: pt c/o left hip pain. Denies any n/v/abd pain/cp/sob - Objective Vital Signs & Weight: Vital Signs (12 hours) Temp Pulse Resp BP BP Pulse Ox 06/09/19 09:14 154/80 H 06/09/19 09:13 154/80 H 06/09/19 07:06 81 16 95 06/09/19 07:05 98.4 F 81 18 154/80 H 95 Weight Admit Weight 202 lb 3.2 oz Weight 202 lb 3.2 oz I&O: 06/08/19 06/09/19 06/10/19 06:59 06:59 06:59 Intake Total 1660 3100 Output Total 1400 Balance 260 3100 Result Diagrams: 06/08/19 06:09 06/08/19 06:09 Additional Labs: Accuchecks 06/09/19 06/09/19 06/08/19 10:48 04:36 20:17 POC Glucose 178 H 143 H 126 H 06/08/19 06/08/19 16:57 12:09 POC Glucose 117 H 174 H ROS - Medication Medications: Active Medications Generic Name Dose Route Start Last Admin Trade Name Freq PRN Reason Stop Dose Admin Albuterol/Ipratropium 3 ml 06/01/19 13:00 06/09/19 07:06 Duoneb NEB 3 ml [id number] ACOSTA Administration Apixaban 5 mg 06/01/19 21:00 06/09/19 09:12 Eliquis PER TUBE 5 mg BID ACOSTA Administration Aspirin 81 mg 06/06/19 09:00 06/09/19 09:13 Aspirin Chewable PER TUBE 81 mg DAILY ACOSTA Administration Atorvastatin Calcium 80 mg 06/01/19 21:00 06/08/19 20:28 Lipitor PER TUBE 80 mg HS ACOSTA Administration Carvedilol 12.5 mg 06/09/19 08:00 06/09/19 09:14 Coreg PER TUBE 12.5 mg BID-WM ACOSTA Administration Cyanocobalamin 1,000 mcg 06/01/19 09:00 06/09/19 09:14 Vitamin B-12 PER TUBE 1,000 mcg DAILY ACOSTA Administration Famotidine 20 mg 06/01/19 09:00 06/09/19 09:13 Pepcid PER TUBE 20 mg BID ACOSTA Administration Hydralazine HCl 10 mg 06/01/19 09:21 06/06/19 12:53 Apresoline SLOW IVP 10 mg Q4H PRN Administration SBP > 180 and HR < 70 Insulin Human Regular 0 units 06/03/19 13:12 06/04/19 05:32 Humulin R SC 2 unit .MILD SLIDING SCALE PRN Administration Mild Correctional Scale Isosorbide Dinitrate 10 mg 06/01/19 09:00 06/09/19 09:12 Isordil PER TUBE 10 mg BID ACOSTA Administration Levetiracetam 1,000 mg 06/01/19 21:00 06/09/19 10:00 Keppra Oral Solution PER TUBE 1,000 mg BID ACOSTA Administration Lisinopril 10 mg 06/08/19 21:00 06/09/19 09:13 Zestril PER TUBE 10 mg BID ACOSTA Administration Loratadine 10 mg 06/01/19 09:21 06/07/19 20:15 Claritin PER TUBE 10 mg DAILYPRN PRN Administration Sinus Symptoms Memantine 5 mg 06/02/19 09:00 06/09/19 09:13 Namenda PER TUBE 5 mg DAILY ACOSTA Administration Nystatin 500,000 units 06/02/19 09:00 06/09/19 09:12 Mycostatin SSW 500,000 units QID ACOSTA Administration Potassium Chloride 20 meq 06/01/19 09:00 06/09/19 09:12 Klor-Con PER TUBE 20 meq BID ACOSTA Administration Saccharomyces Boulardii 250 mg 06/02/19 09:00 06/09/19 09:12 Florastor PO 250 mg DAILY ACOSTA Administration Thiamine HCl 250 mg 06/01/19 09:00 06/09/19 09:13 Thiamine PER TUBE 250 mg DAILY ACOSTA Administration Venlafaxine HCl 25 mg 06/08/19 21:00 06/09/19 09:13 Effexor PER TUBE 25 mg BID ACOSTA Administration - Exam NAD Heart: RRR, no murmur, no gallops, no rubs Respiratory: CTAB, no wheezes, no rales, no ronchi Gastrointestinal: soft, non-tender, non-distended, normal bowel sounds Extremities: no cyanosis, no clubbing, no edema Extremeties - other findings: ttp along the left hip joint without palpable abnormality Neurological - other findings: left hemiplegia unchanged Psychiatric - other findings: affect remains flat Hosp A/P (1) Sepsis Code(s): A41.9 - SEPSIS, UNSPECIFIED ORGANISM Status: Resolved Qualifiers: Sepsis type: sepsis due to unspecified organism (2) Bacteremia Code(s): R78.81 - BACTEREMIA Status: Acute (3) Aspiration pneumonia Code(s): J69.0 - PNEUMONITIS DUE TO INHALATION OF FOOD AND VOMIT Status: Acute (4) UTI (urinary tract infection) due to urinary indwelling catheter Code(s): T83.511A - I/I REACT D/T INDWELLING URETHRAL CATHETER, INIT; N39.0 - URINARY TRACT INFECTION, SITE NOT SPECIFIED Status: Acute (5) Anemia, normocytic normochromic Code(s): D64.9 - ANEMIA, UNSPECIFIED Status: Chronic (6) DM2 (diabetes mellitus, type 2) Status: Chronic Qualifiers: Diabetes mellitus half-way insulin use: without extermination inspector use (7) H/O: CVA (cerebrovascular accident) Code(s): Z86.73 - PRSNL HX OF TIA (TIA), AND CEREB INFRC W/O RESID DEFICITS Status: Chronic (8) History of pulmonary embolism Code(s): Z86.711 - PERSONAL HISTORY OF PULMONARY EMBOLISM Status: Chronic (9) Hypertension Code(s): I10 - ESSENTIAL (PRIMARY) HYPERTENSION Status: Chronic Qualifiers: Hypertension type: essential hypertension Qualified Code(s): I10 - Essential (primary) hypertension (10) CAD (coronary artery disease) Code(s): I25.10 - ATHSCL HEART DISEASE OF [place] CORONARY ARTERY W/O ANG PCTRS Status: Chronic Qualifiers: Coronary Disease-Associated Artery/Lesion type: [place] artery Associated angina: without angina - Plan Plan: - hip pain -needs XR. If negative, anticipate he can return to nursing facility with PT/OT - bp's remain elevated - return to usual dose of carviedilol, continue lisinopril and isosorbide at home dosing, and resume amlodipine at home dosing - Appreciate ID consult - per Dr. Rogers - no further abx indicated. Neg CT scan. Corbett cath to remain out - d/w Dr. Adames yesterday the aspirin/plavix/eliquis - there is no indication for plavix. Continue low dose aspirin for secondary stroke risk reduction. - PE about 3 months ago - continue eliquis - will need f/u with either PCP or Pulmonology to determine duration of eliquis - Appreciate [facility] Care eval yesterday - changed to SNRI - will need titration of this medication in the outpatient setting dvt prophy - fully anticoagulated gi prophy - on famotidine code status full anticipate d/c to NH if XR is normal. Called son with an update- he requested I call his sister - no answer at number on chart.
[2019-06-09] MEDS: Insulin Regular 300 UNITS/3 ML VIAL SC PRN (11:45)
--- NOTE | 2019-06-09 13:05 | RAD ---
TWO VIEWS LEFT HIP: 06/09/19 PROVIDED CLINICAL HISTORY: Left hip pain. FINDINGS: No comparisons. No evidence for fracture or other acute osseous abnormality. Left hip degenerative ch anges are seen. There is acetabular over coverage, which may predispose to femoral-acetabular impinge ment. IMPRESSION: No evidence for an acute osseous abnormality. Chronic findings as above. POS: TPC
[2019-06-09 16:14] VITALS: BP 159/87; TEMP 98.4
--- NOTE | 2019-06-10 01:36 | DIS ---
DATE OF ADMISSION: 05/31/2019 DATE OF DISCHARGE: 06/09/2019 DISCHARGE DISPOSITION: Nursing facility. MEDICATIONS: Reconciled at discharge. Discontinued medications are: 1. Plavix as the patient does not require dual anti-platelet therapy, especially given that he is on a full anticoagulation for PE. 2. Escitalopram, this was discontinued and venlafaxine was started. New medications: 1. Florastor 250 mg p.o. daily for one month. 2. Venlafaxine 25 mg b.i.d., this can be titrated to effect over the next week to few months. Medications to resume: 1. Amlodipine 10 mg daily. 2. Apixaban 5 mg b.i.d. 3. Aspirin 81 mg daily. 4. Atorvastatin 80 mg at bedtime. 5. Carvedilol 12.5 mg b.i.d. 6. Vitamin B12 1000 mcg daily. 7. Famotidine 20 mg b.i.d. 8. Isosorbide dinitrate 10 mg b.i.d. 9. Lisinopril 20 mg daily. 10. Memantine 5 mg daily. 11. Glucerna tube feeds. 12. Nystatin 4 times daily. 13. Potassium chloride 20 mEq b.i.d. 14. Thiamine 250 mg daily. 15. Keppra 1000 mg b.i.d. FINAL DIAGNOSES: 1. Aspiration pneumonia. 2. Positive blood culture, however, not considered bacteremia given coag- negative staph. 3. Urinary tract infection with chronic indwelling Corbett catheter that has since been removed. 4. Right lower lobe nodule that needs followup in 3-6 months with imaging. SECONDARY DIAGNOSES: 1. Diabetes mellitus type 2. 2. Recent stroke with left hemiplegia. 3. Recent diagnosis of pulmonary embolus. 4. Dysphagia with PEG tube. 5. Hypertension. 6. Chronic anemia. 7. Seizure disorder. 8. Coronary artery disease. HISTORY OF PRESENT ILLNESS: Mr. Ndiaye is a 59-year-old male with the above medical problems, who presented to the emergency room with nausea, vomiting, diarrhea. The patient was admitted, started on broad-spectrum antibiotics. HOSPITAL COURSE: The patient was managed on vancomycin while here, in consultation with Dr. Rogers of Infectious Disease. He has overall responded well. His chest x-ray on admission was concerning for pneumonia and the patient is at risk given the history of stroke, dysphagia and left hemiplegia. Through this hospitalization, his cultures have been followed. The blood culture shows Staph warneri and Staph epidermidis. The urine culture showed coagulase-negative Staph and the other blood culture was negative at [address] angiogram was performed yesterday which was negative for PE, it does show a right lower lobe nodule 1.4 cm that does need followup in 3-6 months. The patient has been on dual anti-platelet therapy since his stroke, and started on Eliquis in February for diagnosis of PE. I reviewed the chart and do not see an indication to continue dual anti-platelet therapy and discussed this with Dr. Adames. Because of that, the Plavix was discontinued. For secondary stroke reduction, the patient will remain on low-dose aspirin, and for the PE, he will remain on Eliquis. The duration of treatment with Eliquis will need to be determined in the outpatient setting either by his primary care provider or in conjunction with Pulmonology. There was no evidence of PE on CT angiogram performed here. The patient was complaining of left hip pain today. An x-ray was performed which showed chronic findings, degenerative changes, but no acute process. I recommend that he continue working with physical therapy, especially in the context of the left hemiplegia. As for mood, his affect has been flat and I'm uncertain of his baseline. Palliative Care was consulted who recommended change from the escitalopram over to venlafaxine and this was started yesterday. I recommend that the venlafaxine be titrated to effect every week or so. The patient's blood pressure has been elevated here. He was resumed on his medications which were titrated back to his usual doses and he has tolerated this well. This should be continued in the outpatient setting. For the pulmonary nodule identified on CT angiogram yesterday, a repeat CT is recommended in 3-6 months. All of the information above was reviewed with the patient's daughter on the day of discharge for her awareness of medication changes and the reasoning behind it, aware of the transfer back to the facility, as well as awareness of the risk of recurrent aspiration pneumonia given the known dysphagia associated with the stroke. We discussed also that the PEG tube does not protective against an aspiration. The patient is overall improved, afebrile, and does meet criteria for discharge. One final note - the patient was admitted with an indwelling Corbett catheter which was removed here. The nursing staff reports that he is voiding normally, soaking briefs and there have been no signs of bladder distention. In-and-out catheterization was not needed. PHYSICAL EXAMINATION: Please see the note on the chart for today. RIOS FINDINGS AND TEST RESULTS: CBC; 7.8, 10.0, 31.9, 293. Chemistry yesterday; 140, 4.1, 105, 26, 20, 0.82, 136. Calcium was 10.2. LFTs; T bilirubin 1, AST 10, ALT 9, alkaline phosphatase 67, total protein 7.4, albumin 3.4. Urinalysis shows present leuk esterase, 11-20 white blood cells, 2+ nitrites. Urine culture showed coag-negative staph. Blood culture showed Staph warneri and Staph epidermidis with multi-drug resistance for both, and both sensitive to vancomycin. Other blood culture negative. Hip x-ray today shows chronic findings and degenerative changes with the risk of impingement, but no acute process. CT angiogram performed on 06/08, shows no evidence of PE. Right lower lobe nodule. Follow up with a repeat CT scan in 3-6 months. Chest x-ray on 06/04, shows improved aeration of the left lung base. No new abnormalities. Chest x-ray on 05/31, shows bibasilar interstitial and alveolar opacities, correlate for multilobar pneumonia versus aspiration. DIET: Tube feeds. ACTIVITY: Encouraged with PT and OT as well as Speech Therapy. CODE STATUS: Full. DISCHARGE DISPOSITION: Back to [facility]. I reviewed with the patient's daughter this hospitalization, medication changes , the importance of followup. No questions or further needs at the end of evaluation. Total time coordinating discharge is 45 minutes. Job ID: [id number] MTDD
[2019-06-10] MEDS ORDERED: Amlodipine 10 MG TAB PO SCH (09:00)
--- NOTE | 2019-06-12 12:46 | EKG ---
Test Reason : Blood Pressure : / mmHG Vent. Rate : 065 BPM Atrial Rate : 065 BPM P-R Int : 186 ms QRS Dur : 102 ms QT Int : 462 ms P-R-T Axes : 042 -13 -27 degrees QTc Int : 480 ms Normal sinus rhythm Prolonged QT Abnormal ECG Confirmed by JONAH LATIF, MICHAEL ([id number]), book editor MEREDITH NEAL ([id number]) on 06/12/2019 12:45:52 PM Referred By: Confirmed By:MICHAEL MCKENZIE MD
== END 2019-06-09 16:19 | DRG 871 ==
LOC: ERS 13:52 → T4-A 17:55
PROVIDERS: ADMIT Internal Medicine; ATTEND Internal Medicine
DX: A41.9 Sepsis, unspecified organism (principal); J69.0 Pneumonitis due to inhalation of food and vomit; N39.0 Urinary tract infection, site not specified; T83.511A Infection and inflammatory reaction due to indwelling urethral catheter, initial encounter; I69.354 Hemiplegia and hemiparesis following cerebral infarction affecting left non-dominant side; E87.2 Acidosis; R65.20 Severe sepsis without septic shock; Z51.5 Encounter for palliative care; I25.10 Atherosclerotic heart disease of native coronary artery without angina pectoris; E78.5 Hyperlipidemia, unspecified; I10 Essential (primary) hypertension; R13.12 Dysphagia, oropharyngeal phase; G40.909 Epilepsy, unspecified, not intractable, without status epilepticus; J45.20 Mild intermittent asthma, uncomplicated; D64.9 Anemia, unspecified; E87.6 Hypokalemia; E11.65 Type 2 diabetes mellitus with hyperglycemia; K21.9 Gastro-esophageal reflux disease without esophagitis; R45.89 Other symptoms and signs involving emotional state; Z86.711 Personal history of pulmonary embolism; I25.2 Old myocardial infarction; I69.398 Other sequelae of cerebral infarction; Z79.82 Long term (current) use of aspirin; Z79.899 Other long term (current) drug therapy; Z79.01 Long term (current) use of anticoagulants; I69.391 Dysphagia following cerebral infarction
CPT/HCPCS: 36415; 36416; 71045; 71275; 80048; 80053; 80202; 81003; 81015; 83605; 83735; 85007; 85014; 85018; 85025; 85027; 85049; 87040; 87077; 87086; 87149; 87186; 93005; 94640; 96360; 96365; 96375; J0360; J1815; J2405; J2543; J3370; J3480; J3490; J7050; J7620

== ENCOUNTER 2019-07-15 13:06 | Inpatient (IN) | payer MEDICARE ==
[2019-07-15 14:47] LABS: #Basophils 0.1 thou/uL (0.0-0.2); #Eosinphils 0.1 thou/uL (0.0-0.7); #Monocytes 0.8 thou/uL (0.11-0.59); #Neutrophils 5.2 thou/uL (1.40-6.50); %Basophils 0.7 % (0.0-1.0); %Eosinophils 1.2 % (0.0-10.0); %Lymphocytes 24.4 % (21.0-51.0); %Monocytes 9.3 % (0.0-10.0); %Neutrophils 64.4 % (42.0-75.0); Hemoglobin 11.8 g/dL (14.0-18.0); Mean Corpuscular HGB CONC 32.9 g/dL (32.0-36.0); Mean Corpuscular Hemoglobin 28.3 pg (27.0-31.0); Mean Platelet Volume 8.8 fL (7.4-10.4); Platelet Count 255 thou/uL (130-400); RBC Distribution Width 13.9 % (11.5-14.5); Red Blood Cell (RBC) Count 4.16 mill/uL (4.70-6.10); White Blood Cell (WBC) Count 8.1 thou/uL (4.8-10.8)
[2019-07-15 15:09] LABS: ALT (SGPT) 28 U/L (8-55); AST (SGOT) 20 U/L (5-34); Albumin 4.4 g/dL (3.5-5.0); Alkaline Phosphatase 78 U/L (40-150); Anion Gap 11 mmol/L (10-20); BUN (Urea Nitrogen) 27 mg/dL (8.4-25.7); Bilirubin, Total 0.9 mg/dL (0.2-1.2); Calc. Creatinine Clearance 0 mL/min (70-130); Calcium 10.3 mg/dL (7.8-10.44); Carbon Dioxide 26 mmol/L (22-29); Chloride 102 mmol/L (98-107); Estimated GFR-MDRD 80; Globulin 3.6 g/dL (2.4-3.5); Glucose 143 mg/dL (70-105); Potassium 4.3 mmol/L (3.5-5.1); Sodium 135 mmol/L (136-145)
--- NOTE | 2019-07-15 15:32 | CT ---
CT OF BRAIN 07/15/19 PROVIDED CLINICAL HISTORY: Near syncope. FINDINGS: Comparison is made with the study dated 03/31/19. The ventricular system appears unchanged in size and morphology. There is no evidence for intracrania l hemorrhage or mass effect. Diffuse cerebral and cerebellar volume loss are redemonstrated. Chronic microvascular ischemic changes are again noted. The extracranial soft tissues and osseous structures demonstrate no significant abnormality. IMPRESSION: No evidence for intracranial hemorrhage or mass effect. POS: OFF
--- NOTE | 2019-07-15 17:06 | RAD ---
AP PELVIS: HISTORY: fall, pelvic pain, hip pain FINDINGS: No definite fracture or dislocation is identified. There is high clinical suspicion for fracture, further evaluation with MRI or CT scan should be perfo rmed.
--- NOTE | 2019-07-15 17:50 | PDOC.HHP ---
Hospitalist HPI - History of Present Illness hypotension, drooling, slurred speech History of Present Illness: This is a 59 year old male with past medical history of dementia, CVA four months ago, hypertension, hyperlipidemia, anemia, CHF who presented to ER with syncopal episode and hypotension. Patient is limited historian so history gathered from half-way nurse. Patient was getting therapy this morning and after being transferred from the bed to the wheelchair, the therapist noticed he became slightly unresponsive, diaphoretic, clammy and drooling from his mouth. They had difficulty holding his head up and his speech seemed more slurred than usual. Blood glucose was 155, oxygen saturation 89%, but normally he is 97% on room air, BP was 87/50. The nurse placed him in Trendelenburg position after which he became responsive and his BP came up to 116/68. Nurse did not think it was seizure since his eyes were open at time and had no myoclonic jerks. Per nurse at the nursing facility this has happened before. The patient had no complaints at the time. He ambulates with cane/walker and has chronic left sided hemiparesis from an old stroke from four months ago. He did not have any recent falls. He is baseline incontinent of urine and bowel, but urinates frequently per nurse. He takes three antihypertensive medications and took all of them this morning. Patient at baseline is fed by PEG tube. ED Course: The patient had an EKG which showed normal sinus rhythm. CT head showed no acute disease. Labs showed chronic anemia, mild hyponatremia with sodium 135 and elevated BUN. The patient reportedly had an improvement in his speech per ER doctor and while ambulating to the bathroom fell on his left hip. Hip Xray showed no acute fracture. The patient does complain of mild left hip pain. Hospitalist ROS - Review of Systems Constitutional: denies: fever, chills Eyes: denies: vision change ENT: denies: ear pain Respiratory: denies: cough, dry, shortness of breath Cardiovascular: denies: chest pain, palpitations Gastrointestinal: denies: nausea, vomiting, abdominal pain, diarrhea, constipation Genitourinary: denies: dysuria, frequency, incontinence Musculoskeletal: denies: neck pain, shoulder pain Skin: denies: rash, lesions Neurological: reports: other (hemiplegia left leg) Hospitalist History - Past Medical History Source: patient, half-way record Cardiac: reports: CAD, HTN, ID Pulmonary: reports: deep vein thrombosis COMPUTER SCIENCE PROFESSOR: reports: CVA, Dementia, Seizure Gastrointestinal: reports: Other (dysphagia) Heme/Onc: reports: Anemia NOS Hepatobiliary: reports: no pertinent history Psych: reports: no pertinent history Musculoskeletal: reports: no pertinent history Rheumatologic: reports: no pertinent history Infectious Disease: reports: no pertinent history ENT: reports: no pertinent history Renal/: reports: no pertinent history Endocrine: reports: Diabetes Dermatology: reports: no pertinent history - Past Surgical History Other Surgical History: PEG tube placement - Family History Family History: reports: cardiac disorder - Social History Smoking Status: Smoker, status unknown Alcohol: reports: None Drugs: reports: none Living Situation: [facility] Domestic Violence: Negative Activity level: uses cane/walker - Exam General Appearance: NAD (slightly drowsy initially but responsive to commands with prompting) Eye: PERRL, anicteric sclera ENT: normocephalic atraumatic Neck: supple, symmetric, no JVD Heart: RRR, no murmur Respiratory: CTAB, no wheezes, no rales Gastrointestinal: soft, non-tender, non-distended Extremities: no cyanosis, no clubbing, no edema Skin: normal turgor, no lesions, no rashes Neurological: cranial nerve grossly intact, hemiplegia (left sided hemiplegia which per half-way is baseline), speech deficit (has some mild dysarthria but patient is able to speak in short sentences) Musculoskeletal: normal tone Musculoskeletal - other findings: 4/5 muscle strength upper extremities and right lower extremity. 0/5 LLE Psychiatric: oriented to person, oriented to place, oriented to time (Flat affect) Hospitalist Results - Labs Result Diagrams: 07/15/19 14:19 07/15/19 14:19 Lab results: WBC 8.1 thou/uL (4.8-10.8) 07/15/19 14:19 Hgb 11.8 g/dL (14.0-18.0) L 07/15/19 14:19 Hct 35.8 % (42.0-52.0) L 07/15/19 14:19 MCV 86.0 fL (78.0-98.0) 07/15/19 14:19 Plt Count 255 thou/uL (130-400) 07/15/19 14:19 Neutrophils % 64.4 % (42.0-75.0) 07/15/19 14:19 Sodium 135 mmol/L (136-145) L 07/15/19 14:19 Potassium 4.3 mmol/L (3.5-5.1) 07/15/19 14:19 Chloride 102 mmol/L (98-107) 07/15/19 14:19 Carbon Dioxide 26 mmol/L (22-29) 07/15/19 14:19 BUN 27 mg/dL (8.4-25.7) H 07/15/19 14:19 Creatinine 1.14 mg/dL (0.7-1.3) 07/15/19 14:19 Glucose 143 mg/dL (70-105) H 07/15/19 14:19 Calcium 10.3 mg/dL (7.8-10.44) 07/15/19 14:19 Total Bilirubin 0.9 mg/dL (0.2-1.2) 07/15/19 14:19 AST 20 U/L (5-34) 07/15/19 14:19 ALT 28 U/L (8-55) 07/15/19 14:19 Alkaline Phosphatase 78 U/L (40-150) 07/15/19 14:19 Troponin I Less than 0.010 ng/mL (< 0.028) 07/15/19 14:19 B-Natriuretic Peptide 17.3 pg/mL (0-100) 07/15/19 14:19 Serum Total Protein 8.0 g/dL (6.0-8.3) 07/15/19 14:19 Albumin 4.4 g/dL (3.5-5.0) 07/15/19 14:19 - EKG Interpretation EKG: EKG: normal sinus rhythm, prolonged QT interval Hospitalist H&P A/P - Problem (1) Hypotension Status: Acute (2) Near syncope Status: Acute (3) Fall Code(s): W19.XXXA - UNSPECIFIED FALL, INITIAL ENCOUNTER Status: Acute - Plan Plan: This is a 59 year old male with past medical history of stroke four months ago, who presented with syncopal event at half-way, hypotension and worsening dsyarthria which has since improved in ED, admitted for evaluation of TIA versus syncope Possible syncopal event versus TIA vs stroke - patient with diaphoresis, clamminess, hypotension during therapy which resolved with Trendelenburg. Could be vasovagal syncope? Will check troponin x 3 , monitor on telemetry, repeat ECHO. Last showed severe concentric LVH - continue aspirin - had worsening dysarthria which has now improved some. CT head negative, will check MRI brain - will order speech therapy, OT S/p fall on left hip - Xray left hip negative. CT hip recommended by radiology, will order Hypotension - resolved - could be from antihypertensives vs vasovagal syncope - will hold antihypertensives for now Hyponatremia -sodium 135, resume tube feeds Anemia - chronic, improved at 11.1. Check iron, B12, folate in am CAD s/p ID - continue aspirin, statin Hyperlipidemia - continue atorvastatin GERD - famotidine Dysphagia - patiet has failed multiple barium swallows in the past. on PEG tube - continue glucerna 1.5 nuvia QID Dementia - continue memantine Depression - venlafaxine DVT - continue eliquis Seizures - continue keppra, check keppra level Code status: full code
--- NOTE | 2019-07-15 18:16 | CT ---
EXAM: CT pelvis without contrast HISTORY: Fall with left leg weakness. Patient is on a blood thinner. COMPARISON: None TECHNIQUE: Multiple contiguous axial images were obtained and a CT of the pelvis without contrast. Sa gittal and coronal reformats were performed. FINDINGS: No pelvic fractures are seen. No fracture of either proximal femur is seen. Moderate bilat eral hip degenerative changes are seen. Severe degenerative changes are seen in the lower lumbar spine. There appears to be mild bony narrowi ng of the central canal and moderate to severe bony narrowing of the neural foramina in the lower lumbar spine. There is fusion of the sacroiliac joints. The visualized intrapelvic structures are unremarkable. The soft tissues surrounding the pelvis are u nremarkable. IMPRESSION: No evidence of hip or pelvic fracture.
[2019-07-15] MEDS: Nystatin 500,000 UNITS/5 ML UDCUP SSW SCH (21:56)
[2019-07-15] MEDS: Venlafaxine HCl 25 MG TAB PER TUBE SCH (21:56)
[2019-07-15] MEDS: Apixaban 5 MG TAB PO SCH (21:56)
[2019-07-15] MEDS: Famotidine 20 MG TAB PER TUBE SCH (21:56)
[2019-07-15] MEDS: Atorvastatin Calcium 40 MG TAB PER TUBE SCH (21:56)
[2019-07-15] MEDS: levETIRAcetam 500 MG TAB PO SCH (21:56)
[2019-07-15 22:12] VITALS: BMI 28.7
[2019-07-15 22:37] LABS: Troponin I Less than 0.010 ng/mL (< 0.028)
[2019-07-16 05:30] LABS: #Basophils 0.1 thou/uL (0.0-0.2); #Eosinphils 0.1 thou/uL (0.0-0.7); #Lymphocytes 1.9 thou/uL (1.20-3.40); #Monocytes 0.6 thou/uL (0.11-0.59); #Neutrophils 3.4 thou/uL (1.40-6.50); %Basophils 0.9 % (0.0-1.0); %Eosinophils 1.9 % (0.0-10.0); %Lymphocytes 31.1 % (21.0-51.0); %Monocytes 10.1 % (0.0-10.0); %Neutrophils 55.9 % (42.0-75.0); Mean Corpuscular HGB CONC 33.3 g/dL (32.0-36.0); Mean Corpuscular Hemoglobin 28.7 pg (27.0-31.0); Mean Corpuscular Volume 85.9 fL (78.0-98.0); Mean Platelet Volume 8.4 fL (7.4-10.4); Platelet Count 242 thou/uL (130-400); RBC Distribution Width 13.8 % (11.5-14.5); Red Blood Cell (RBC) Count 3.85 mill/uL (4.70-6.10); White Blood Cell (WBC) Count 6.1 thou/uL (4.8-10.8)
[2019-07-16 05:52] LABS: ALT (SGPT) 26 U/L (8-55); AST (SGOT) 17 U/L (5-34); Albumin 4.2 g/dL (3.5-5.0); Alkaline Phosphatase 68 U/L (40-150); Anion Gap 14 mmol/L (10-20); BUN (Urea Nitrogen) 20 mg/dL (8.4-25.7); Bilirubin, Total 1.2 mg/dL (0.2-1.2); Calc. Creatinine Clearance 132 mL/min (70-130); Calcium 9.9 mg/dL (7.8-10.44); Carbon Dioxide 25 mmol/L (22-29); Chloride 103 mmol/L (98-107); Estimated GFR-MDRD Greater than 90; Globulin 3.1 g/dL (2.4-3.5); Glucose 137 mg/dL (70-105); Iron 58 ug/dL (65-175); Iron Binding Capacity, Total 319 mcg/dL (261-462); Potassium 3.7 mmol/L (3.5-5.1); Protein, Total 7.3 g/dL (6.0-8.3); Sodium 138 mmol/L (136-145)
[2019-07-16 06:25] LABS: Vitamin B12 Greater than 2000 pg/mL (211-911)
--- NOTE | 2019-07-16 09:13 | PDOC.HOSPP ---
- Subjective Encounter Date: 07/16/19 Encounter Time: 09:10 Subjective: The patient complains of left arm pain that's been going on for the past few weeks. He states it occurred after a fall. Unable to state severity since he is a limited historian. He has no other complaints. No dizziness, chest pain, or lightheadedness. UA not obtained yet, patient states he does urinate on his own but per custodial is incontinent at times and patient wears diapers. - Objective Vital Signs & Weight: Vital Signs (12 hours) Temp Pulse Resp BP Pulse Ox 07/16/19 07:21 98.3 F 70 16 145/83 H 94 L 07/16/19 03:45 98.2 F 76 16 159/92 H 99 07/15/19 23:36 98.1 F 75 16 153/92 H 98 Weight Weight 217 lb 8 oz I&O: 07/15/19 07/16/19 07/17/19 06:59 06:59 06:59 Intake Total 316 Balance 316 Result Diagrams: 07/16/19 05:13 07/16/19 05:14 Additional Labs: Accuchecks 07/16/19 06:10 POC Glucose 146 H Hospitalist ROS - Review of Systems Cardiovascular: denies: chest pain, palpitations Gastrointestinal: denies: nausea, vomiting - Medication Medications: Active Medications Generic Name Dose Route Start Last Admin Trade Name Freq PRN Reason Stop Dose Admin Apixaban 5 mg 07/15/19 21:00 07/15/19 21:56 Eliquis PO 5 mg BID ACOSTA Administration Atorvastatin Calcium 80 mg 07/15/19 21:00 07/15/19 21:56 Lipitor PER TUBE 80 mg HS ACOSTA Administration Famotidine 20 mg 07/15/19 21:00 07/15/19 21:56 Pepcid PER TUBE 20 mg BID ACOSTA Administration Levetiracetam 1,000 mg 07/15/19 21:00 07/15/19 21:56 Keppra PO 1,000 mg BID ACOSTA Administration Nystatin 500,000 units 07/15/19 21:00 07/15/19 21:56 Mycostatin SSW 500,000 units QID ACOSTA Administration Venlafaxine HCl 25 mg 07/15/19 21:00 07/15/19 21:56 Effexor PER TUBE 25 mg BID ACOSTA Administration - Exam Eye: PERRL, anicteric sclera ENT: normocephalic atraumatic, no oropharyngeal lesions Neck: no JVD Heart: RRR, no murmur, no gallops Respiratory: CTAB, no wheezes, no rales Gastrointestinal: soft, non-tender, non-distended Extremities: no cyanosis, no clubbing, no edema Neurological: hemiplegia (left sided hemiplegia.) Musculoskeletal - other findings: has pain on passive raise of L arm + tenderness Psychiatric: A&O x 3, oriented to person, oriented to place, flat affect Hosp A/P (1) Hypotension Status: Acute Qualifiers: Hypotension type: hypotension due to drug Qualified Code(s): I95.2 - Hypotension due to drugs Plan: resolved, holding BP meds, resumed tube feeds of glucerna. ECHO ordered and pending (2) Near syncope Status: Acute Plan: - possibly vasovagal event versus cardiac. Troponins negative x 3. ECHO is currently pending. MRI brain pending to rule out stroke - continue aspirin - PT/OT/speech therapy for dysarthria (3) Fall Code(s): W19.XXXA - UNSPECIFIED FALL, INITIAL ENCOUNTER Status: Acute Qualifiers: Encounter type: subsequent encounter Qualified Code(s): W19.XXXD - Unspecified fall, subsequent encounter Plan: - PTOT. Xray left hip negative, CT hip negative for fracture. (4) Left upper arm pain Code(s): M79.622 - PAIN IN LEFT UPPER ARM Status: Acute Plan: Plan for left upper arm X ray given pain with passive arm raise and tenderness - Plan #Hyponatremia : resolved #Anemia of chronic disease: H&H stable at 11.1 ferritin elevated, iron sat mildly low,iron normal, B12 > 2000, folate normal. Continue to monitor #CAD s/p RI: continue aspirin, statin #Hyperlipidemia: continue atorvastatin #GERD: famotidine #Dysphagia with chronic protein/calorie malnutrition: continue PEG tube #Dementia: memantine #Depression: continue venlaxafine #DVT: continue eliquis # Seizures: continue keppra
--- NOTE | 2019-07-16 10:06 | MRI ---
MRI BRAIN WITHOUT CONTRAST: Date: 07/16/19 INDICATION: Dysarthria. On anticoagulant therapy. Presyncopal episode. Correlation made to CT head 07/15/19 and prior MRI brain 01/20/19. The 01/20/19 MRI brain revealed an acute right thalamic infarct and old right basal ganglia infarct. FINDINGS: Motion artifact degrades all sequences. Moderate chronic ischemia white matter changes appear stable from the prior MRI exam. No evidence of restricted diffusion. No evidence of acute infarct or mass. Hemosiderin n right basal ganglia on susceptibility imaging is stable. IMPRESSION: Moderate chronic ischemic white matter change. No evidence of acute infarct. No significant interval change. POS: [facility]
[2019-07-16] MEDS: Nystatin 500,000 UNITS/5 ML UDCUP SSW SCH ×2 (10:16→14:26)
[2019-07-16] MEDS: Thiamine 100 MG TAB PER TUBE SCH (10:16)
[2019-07-16] MEDS: Famotidine 20 MG TAB PER TUBE SCH ×2 (10:18→20:13)
[2019-07-16] MEDS: Aspirin 81 mg Enteric Coated Tablet PER TUBE SCH (10:19)
[2019-07-16] MEDS: Apixaban 5 MG TAB PO SCH ×2 (10:19→20:13)
[2019-07-16] MEDS: levETIRAcetam 500 MG TAB PO SCH (10:20)
[2019-07-16] MEDS: Venlafaxine HCl 25 MG TAB PER TUBE SCH ×2 (10:20→20:12)
[2019-07-16] MEDS: Cyanocobalamin (Vitamin B-12) 1,000 MCG TAB PER TUBE SCH (10:21)
[2019-07-16] MEDS ORDERED: Acetaminophen 325 MG TAB PER TUBE PRN (13:08)
--- NOTE | 2019-07-16 14:35 | RAD ---
LEFT FOREARM 2 VIEWS: Date: 07/16/19 INDICATION: Unable to self-manipulate arm; pain involving the left arm after a fall. COMPARISON: None. FINDINGS: No acute fracture or subluxation is evident. Radiocapitellar alignment appears within normal limits. Enthesopathic change is seen off the olecranon. IMPRESSION: No acute osseous abnormality. POS: OFF
[2019-07-16 15:00] LABS: Bacteria/HPF None Seen HPF (None Seen); Bilirubin Negative (Negative); Blood, Urine Negative (Negative); Clarity Clear (Clear); Glucose, Urine (Dipstick) Normal (Negative); Leukocyte Negative Leu/uL (Negative); Nitrite Negative (Negative); Protein, Urine (Dipstick) Negative (Neg-Trace); RBC/HPF 0-3 HPF (0-3); Squamous Epithelial None Seen HPF (0-3); Urobilinogen Normal mg/dL (Less than 2); WBC/HPF 0-3 HPF (0-3)
[2019-07-16 15:02] LABS: Urine Culture Reflex No No
[2019-07-16] MEDS: Carvedilol 6.25 MG TAB PO SCH (18:06)
[2019-07-16] MEDS ORDERED: HumaLOG 300 UNITS/3 ML VIAL SC PRN (19:00)
[2019-07-16] MEDS ORDERED: Dextrose 50% Abboject 50 ML SYRINGE IVP PRN (19:00)
[2019-07-16] MEDS ORDERED: Dextrose 5% in Water 1,000 ML IV PRN (19:00)
[2019-07-16] MEDS: levETIRAcetam 500 MG TAB PER TUBE SCH (20:13)
[2019-07-16] MEDS: Atorvastatin Calcium 40 MG TAB PER TUBE SCH (20:13)
[2019-07-17] MEDS: Aspirin 81 mg Enteric Coated Tablet PER TUBE SCH (10:17)
[2019-07-17] MEDS: Venlafaxine HCl 25 MG TAB PER TUBE SCH (10:17)
[2019-07-17] MEDS: Carvedilol 6.25 MG TAB PO SCH (10:18)
[2019-07-17] MEDS: Thiamine 100 MG TAB PER TUBE SCH (10:18)
[2019-07-17] MEDS: Apixaban 5 MG TAB PO SCH (10:18)
[2019-07-17] MEDS: Famotidine 20 MG TAB PER TUBE SCH (10:18)
[2019-07-17] MEDS: levETIRAcetam 500 MG TAB PER TUBE SCH (10:20)
[2019-07-17] MEDS: Cyanocobalamin (Vitamin B-12) 1,000 MCG TAB PER TUBE SCH (10:21)
--- NOTE | 2019-07-17 14:38 | DIS ---
DATE OF ADMISSION: 07/15/2019 DATE OF DISCHARGE: 07/17/2019 PRIMARY CARE PROVIDER: Marco Antonio Saldana MD DISCHARGE DIAGNOSES: 1. Near syncope. 2. Hypotension. 3. Hyponatremia. CONDITION: Condition of the patient on the day of discharge: Stable. I assessed Mr. Ndiaye on the day of discharge. He denies any chest pain or shortness of breath. Vital signs are stable. S1 and S2 are heard, regular. Lungs are clear to auscultation bilaterally. DISCHARGE MEDICATIONS: 1. Aspirin 81 mg daily. 2. Lipitor 80 mg daily. 3. Coreg 12.5 mg 2 times a day. 4. Pepcid 20 mg 2 times a day. 5. Namenda 5 mg daily. 6. Glucerna as directed. 7. Nystatin 500,000 units swish and swallow q.i.d. 8. Thiamine 250 mg daily. 9. Amlodipine dose decreased to 5 mg daily. 10. Apixaban 5 mg 2 times a day. 11. Isosorbide dinitrate dose decreased to 5 mg 2 times a day. 12. Keppra 1000 mg 2 times a day. 13. Lisinopril dose decreased to 5 mg daily. 14. Florastor 250 mg daily. 15. Effexor 25 mg 2 times a day. FOLLOWUP APPOINTMENTS: The patient is advised to follow up with primary care provider in 3 days' time. He is also advised to have his blood pressure and heart rate checked 3 times a day and blood pressure medications to be titrated by primary care provider. HOSPITAL COURSE: Mr. Ndiaye is a pleasant 59-year-old gentleman, who was admitted to [facility] on July 15, 2019, for near syncope and hypotension. Please refer to Dr. Vaughn's history and physical note dated July 15, 2019, for further details. CT scan of the pelvis did not show any evidence of hip or pelvic fracture. X-rays of the left forearm did not show any acute osseous abnormality. 2D echocardiogram showed left ventricular ejection fraction of 55% to 60%, E/A flow reversal suggestive of diastolic dysfunction, normal right ventricular size and function, moderately dilated left atrium, mildly enlarged right atrium size, trace mitral regurgitation, structurally normal aortic valve, mild tricuspid regurgitation, and mild pulmonic regurgitation. MRI of the brain did not show any evidence of acute infarct. The patient's blood pressures were low at the time of admission. His blood pressure medications were held. They are slowly being reintroduced. His potassium level was normal during this hospitalization. Therefore, potassium supplementation was discontinued. His vitamin B12 level was elevated at greater than 2000. Therefore, vitamin B12 supplementation was discontinued. Many thanks for allowing me to participate in your patient's care. Please feel free to contact me with any questions or concerns. [email or web address] from where the patient was admitted to the hospital. TIME SPENT: Total amount of time spent in coordinating this discharge: 32 minutes. Job ID: [id number]
[2019-07-17 15:29] VITALS: BP 155/82; TEMP 97.4
[2019-07-17] MEDS ORDERED: Isosorbide Dinitrate 5 MG TAB PO SCH (21:00)
[2019-07-18] MEDS ORDERED: Lisinopril 5 MG TAB PO SCH (09:00)
[2019-07-18] MEDS ORDERED: Amlodipine 5 MG TAB PO SCH (09:00)
--- NOTE | 2019-07-20 10:34 | PQF ---
[employer] Customer Account Executive Crystal Reports [facility] HospitalMOISES PIERRE [id number] [address] [place] [address] [id number] CLINICAL DOCUMENTATION CLARIFICATION FORM: POST DISCHARGE Addendum to original discharge summary date: ____ Late entry note date: __ Date: 07/20/2019 ATTN: MOISES ARIAS Please exercise your independent, professional judgment in responding to the clarification form. Clinical indicators are provided on the bottom of this form for your review Please check appropriate box(s): [ x ] Protein Calorie Malnutrition: [ ] Mild [ x ] Moderate [ ] Severe [ ] Other diagnosis [ ] Unable to determine CLINICAL INDICATORS - SIGNS / SYMPTOMS / LABS - Dysphagia with chronic protein/calorie malnutrition-Hospital PN, 07/16, Lizabeth Amos MD - Anemia of chronic disease- -Hospital PN, 07/16, Lizabeth Amos MD - Albumin:4.2, Total Protein:7.3- Laboratory, 07/15 - Hypotension- DS, 07/17, Moises Arias MD -- BMI:28.7- Vital signs RISK FACTORS -Left sided hemiplegia--Hospital PN, 07/16, Lizabeth Amos MD -Hyponatremia--Hospital PN, 07/16, Lizabeth Amos MD -GERD--Hospital PN, 07/16, Lizabeth Amos MD TREATMENT: -Continue PEG tube--Hospital PN, 07/16, Lizabeth Amos MD -Nut.Tx gluc.intoler.Lac-Fr, soy 1000ml-DEC, 07/01 Moderate Malnutrition (in acute illness) Energy Intake: <75% of estimated energy requirement for > 7 days Weight Loss: 1-2%/1 week; 5%/ 1 month; 7.5%/3 months Other: mild body fat loss; mild muscle mass loss; mild fluid accumulation; Severe Malnutrition (in acute illness) Energy Intake: < 50% of estimated energy requirement for > 5 days Weight Loss: >1-2%/1 week; >5%/1 month; >7.5%/3 months Other: moderate body fat loss; moderate muscle mass loss; moderate- severe fluid accumulation; measurably reduced logistics planning engineer strength Moderate Malnutrition (in chronic illness) Energy Intake: <75% of estimated energy requirement for >1 month Weight Loss: 5%/1 month; 7.5%/3 months; 10%/6 months; 20%/1 year [employer] Customer Account Executive Crystal Reports Winform ViewerOther: mild body fat loss; mild muscle mass loss; mild fluid accumulation Severe Malnutrition (in chronic illness) Energy Intake: <75% of estimated energy requirement for >1 month Weight Loss: >5%/1 month; >7.5%/3 months; >10%/6 months; >20%/1 year Other: severe body fat loss; severe muscle mass loss; severe fluid accumulation ; measurably reduced logistics planning engineer strength (This form is maintained as a part of the permanent medical record) 2014 [employer]. All Rights Reserved Kourtney Ramos [not provided] [not provided] LENAD
--- NOTE | 2019-07-22 08:11 | PQF ---
[employer] Flavorings Compounder Crystal Reports [facility]RE[facility] [id number] [facility] [id number] CLINICAL DOCUMENTATION CLARIFICATION FORM: POST DISCHARGE Addendum to original discharge summary date: ____ Late entry note date: __ DATE: 07/22/2019 ATTN:MOISES VILLARREAL Please exercise your independent, professional judgment in responding to the clarification form. Clinical indicators are provided on the bottom of this form for your review Please check appropriate box(s): [ ] Poisoning by antihypertensive drugs intentionally [ x ] Adverse effect of antihypertensive drug [ ] Other diagnosis [ ] Unable to determine For continuity of documentation, please document condition throughout progress notes and discharge summary. Thank You. CLINICAL INDICATORS - SIGNS / SYMPTOMS / LABS - He takes three antihypertensive medications and took all pf them this morning- H&P, 07/15, Lizabeth alarcon MD - possible syncope event TIA vs Stroke--H&P, 07/15, Lizabeth alarcon MD - Hypotensive could be from antihypertensives vs vasovagal syncope--H&P, 07/15, Lizabeth alarcon MD - Hypotension due to drug--Hospital PN,07/16, Lizabeth Alarcon MD - Drooling , slurred speech--H&P, 07/15Lizabeth MD RISKS: - PMH: Hypertension: ED record, Audrey Capellan MD - Fall- -H&P, 07/15, Lizabeth alarcon MD TREATMENT: - Hold antihypertensives - Advise to have his BP check (This form is maintained as a part of the permanent medical record) 2014 [employer]. All Rights Reserved Kourtney Ramos [not provided] [not provided] MTDD
== END 2019-07-17 16:18 | DRG 312 ==
LOC: ERS 13:06 → 2SE 16:20
PROVIDERS: ADMIT Pediatrics; ATTEND Pediatrics
DX: I95.2 Hypotension due to drugs (principal); E87.1 Hypo-osmolality and hyponatremia; E44.0 Moderate protein-calorie malnutrition; R55 Syncope and collapse; E11.9 Type 2 diabetes mellitus without complications; R13.10 Dysphagia, unspecified; I25.10 Atherosclerotic heart disease of native coronary artery without angina pectoris; I10 Essential (primary) hypertension; E78.5 Hyperlipidemia, unspecified; J45.909 Unspecified asthma, uncomplicated; E87.5 Hyperkalemia; F03.90 Unspecified dementia, unspecified severity, without behavioral disturbance, psychotic disturbance, mood disturbance, and anxiety; G40.909 Epilepsy, unspecified, not intractable, without status epilepticus; K21.9 Gastro-esophageal reflux disease without esophagitis; T46.5X5A Adverse effect of other antihypertensive drugs, initial encounter; D63.8 Anemia in other chronic diseases classified elsewhere; F32.9 Major depressive disorder, single episode, unspecified; W19.XXXD Unspecified fall, subsequent encounter; Z93.1 Gastrostomy status; Z86.73 Personal history of transient ischemic attack (TIA), and cerebral infarction without residual deficits; Z87.440 Personal history of urinary (tract) infections; Z99.3 Dependence on wheelchair; I25.2 Old myocardial infarction; Y92.091 Bathroom in other non-institutional residence as the place of occurrence of the external cause; Z86.718 Personal history of other venous thrombosis and embolism; Z79.01 Long term (current) use of anticoagulants; Z68.28 Body mass index [BMI] 28.0-28.9, adult; Y92.9 Unspecified place or not applicable
CPT/HCPCS: 36415; 36416; 70450; 70551; 72170; 72192; 80053; 80177; 81001; 82607; 82728; 82746; 83540; 83550; 83880; 84484; 85025; 93005; 93306

== ENCOUNTER 2019-08-21 00:09 | Observation (INO) | payer MEDICARE, MEDICAID ==
[2019-08-21 00:36] LABS: #Basophils 0.1 thou/uL (0.0-0.2); #Eosinphils 0.2 thou/uL (0.0-0.7); #Lymphocytes 1.7 thou/uL (1.20-3.40); #Monocytes 0.5 thou/uL (0.11-0.59); #Neutrophils 4.5 thou/uL (1.40-6.50); %Basophils 0.8 % (0.0-1.0); %Eosinophils 3.5 % (0.0-10.0); %Lymphocytes 24.1 % (21.0-51.0); %Neutrophils 64.6 % (42.0-75.0); Hemoglobin 12.4 g/dL (14.0-18.0); Mean Corpuscular HGB CONC 33.2 g/dL (32.0-36.0); Mean Corpuscular Hemoglobin 29.4 pg (27.0-31.0); Mean Corpuscular Volume 88.7 fL (78.0-98.0); Mean Platelet Volume 8.3 fL (7.4-10.4); Platelet Count 262 thou/uL (130-400); RBC Distribution Width 12.3 % (11.5-14.5); Red Blood Cell (RBC) Count 4.22 mill/uL (4.70-6.10)
[2019-08-21 00:42] LABS: INR-International Normal Ratio 1.4; PTT 36.7 SEC (22.9-36.1); Prothrombin Time 16.6 SEC (12.0-14.7)
[2019-08-21] MEDS ORDERED: Morphine 4 MG/ML VIAL ONE (00:44)
[2019-08-21] MEDS ORDERED: Ondansetron PF 4 MG/2 ML Vial ONE (00:44)
[2019-08-21 00:57] LABS: ALT (SGPT) 35 U/L (8-55); AST (SGOT) 24 U/L (5-34); Albumin 4.8 g/dL (3.5-5.0); Alkaline Phosphatase 93 U/L (40-110); Anion Gap 13 mmol/L (10-20); BUN (Urea Nitrogen) 22 mg/dL (8.4-25.7); Bilirubin, Total 1.2 mg/dL (0.2-1.2); Calc. Creatinine Clearance 0 mL/min (70-130); Calcium 10.7 mg/dL (7.8-10.44); Carbon Dioxide 30 mmol/L (22-29); Chloride 100 mmol/L (98-107); Estimated GFR-MDRD Greater than 90; Globulin 3.9 g/dL (2.4-3.5); Glucose 139 mg/dL (70-105); Potassium 3.9 mmol/L (3.5-5.1); Protein, Total 8.7 g/dL (6.0-8.3); Sodium 139 mmol/L (136-145)
[2019-08-21 01:31] LABS: Bacteria/HPF None Seen HPF (None Seen); Bilirubin Negative (Negative); Blood, Urine Negative (Negative); Clarity Clear (Clear); Glucose, Urine (Dipstick) Normal (Negative); Leukocyte Negative Leu/uL (Negative); Nitrite Negative (Negative); Protein, Urine (Dipstick) 30 mg/dL (Neg-Trace); RBC/HPF 0-3 HPF (0-3); Squamous Epithelial 0-3 HPF (0-3); Urobilinogen Normal mg/dL (Less than 2); WBC/HPF 0-3 HPF (0-3); Yeast-Hyphae Rare HPF (None Seen)
[2019-08-21] MEDS ORDERED: Acetaminophen 325 MG TAB PO PRN (04:07)
[2019-08-21] MEDS ORDERED: Senokot S 8.6-50 MG TAB PO PRN (04:07)
[2019-08-21] MEDS ORDERED: Morphine 2 MG/ML SYRINGE SLOW IVP PRN (04:21)
--- NOTE | 2019-08-21 04:51 | HP ---
PRIMARY CARE PROVIDER: Marco Antonio Saldana MD CHIEF COMPLAINT: Left lower extremity pain. HISTORY OF PRESENT ILLNESS: Mr. Ndiaye is a pleasant 59-year-old gentleman, who was seen at [facility] on August 21, 2019. He is a resident at [facility]. He had an unwitnessed fall yesterday. The patient reports that he was trying to ambulate when his left lower extremity gave away. He does have a history of left-sided paralysis. The patient denies any chest pain or shortness of breath. He denies any nausea or vomiting. He reports pain in his left hip and ankle, sharp, nonradiating, worse with movement, currently 8/10. The pain is improved with rest. There is no accompanying nausea or vomiting. REVIEW OF SYSTEMS: All systems were reviewed and found to be negative except for the pertinent positives mentioned above. PAST MEDICAL HISTORY: Coronary artery disease, hypertension, myocardial infarction, deep vein thrombosis, cerebrovascular accident, dementia, seizure, dysphagia, anemia, and diabetes mellitus. PAST SURGICAL HISTORY: PEG tube placement. FAMILY HISTORY: Significant for heart disease. SOCIAL HISTORY: The patient denies tobacco use, alcohol use or recreational drug use. CODE STATUS: I discussed his code status. He is full code. ALLERGIES: NO KNOWN DRUG ALLERGIES. MEDICATIONS: As described on my discharge summary dated July 17, 2019. PHYSICAL EXAMINATION: GENERAL: On examination, Mr. Ndiaye is awake and alert, in mild distress. VITAL SIGNS: Blood pressure 127/76, pulse 68, respiratory rate 11, and oxygen saturation 99% on room air. He is afebrile. EYES: No scleral icterus, no conjunctival pallor. ENT: Moist mucosal membranes. No oropharyngeal erythema or exudates. NECK: Supple, nontender, trachea is midline. RESPIRATORY: Accessory muscles of breathing are not active. Chest wall movements are symmetric bilaterally. Lungs are clear to auscultation without wheeze, rhonchi or crepitations. CARDIOVASCULAR: S1 and S2 are heard, regular. Peripheral pulses palpable. NEUROLOGIC: He has left-sided hemiparesis. MUSCULOSKELETAL: Left lower extremity appears to be shortened and externally rotated. SKIN: No rashes. LYMPHATIC: No cervical lymphadenopathy. PSYCHIATRIC: Normal mood, normal affect, the patient is oriented to person only, not to place or time. LABORATORY DATA: Mr. Ndiaye's labs and investigations were reviewed. I reviewed his electrocardiogram, which shows normal sinus rhythm, no ST changes to suggest an acute coronary syndrome. I also reviewed his noncontrast CT scan of the brain, which does not show any intracranial bleed. He also had x-rays of the left femur, knee, ankle, and CT scan of pelvis and cervical spine. No fractures were reported. The official reports are pending. He has normal white count, normocytic anemia with hemoglobin of 12.4, normal platelet count, INR 1.4, normal sodium, normal potassium, elevated calcium of 10.7, normal total bilirubin, normal AST and normal ALT. Urinalysis is positive for yeast and protein. ASSESSMENT AND PLAN: Mr. Ndiaye is a pleasant 59-year-old gentleman, who was seen at [facility] on August 21, 2019. His problem list includes: 1. Left lower extremity pain: Mr. Ndiaye has left lower extremity pain, which started following a fall. Emergency room physician discussed his case with Orthopedic Surgery Service. CT scan did not show any fracture. The plan is to get MRI. The patient is being admitted to Hospitalist Service, Orthopedic Service will consult. For now, the patient needs analgesics. 2. History of cerebrovascular accident: Resume apixaban if no surgery is planned following the MRI. 3. Coronary artery disease: Appears to be stable. 4. Hypertension: Resume home medications, monitor vital signs, and titrate antihypertensives as needed. 5. History of seizures: Continue Keppra. 6. Dementia: Continue memantine. 7. History of depression: Moderate, stable, continue escitalopram. Many thanks for allowing me to participate in your patient's care. Please feel free to contact me with any questions or concerns. LEVEL OF RISK: High. LEVEL OF COMPLEXITY: High. Job ID: [id number]
[2019-08-21 04:59] VITALS: BMI 34.1
--- NOTE | 2019-08-21 07:52 | CT ---
PRELIMINARY REPORT/[facility]/EMERGENCY AFTER HOURS PROCEDURE: PROCEDURE INFORMATION: Exam: CT Head Without Contrast Exam date and time: 08/21/2019 12:48 AM Clinical history: 59 years old, male; Injury or trauma; Fall; Initial encounter; Blunt trauma (contus ions or hematomas); Without loss of consciousness; Patient HX: PT states he was standing up from his wheelchair to get into bed when his leg gave out and he fell. C/O pain to left hip and left ankle. De nies any other injuries or complaints. History of CVA. Takes eliquis and asa. No alleviating factors. Aggravated by movement and palpation. TECHNIQUE: Imaging protocol: Computed tomography of the head without contrast. COMPARISON: No relevant prior studies available. FINDINGS: Brain: Scattered areas of hypoattenuation, likely chronic small vessel ischemic change, demyelination , or gliosis. There is parenchymal atrophy. Old lacunar infarctions within the basal ganglia bilatera lly. No mass, hemorrhage, or acute infarction. No mass, hemorrhage, or acute infarction. Ventricles: Normal. Bones/joints: Normal. Sinuses: Normal as visualized. Mastoid air cells: Normal as visualized. Soft tissues: Unremarkable. Vasculature: Atherosclerotic vascular calcifications. IMPRESSION: No acute intracranial abnormality. Thank you for allowing us to participate in the care of your patient. Dictated and Authenticated by: Serge Etienne MD 08/21/2019 1:20 AM Central Time ([place] & [place]) FINAL REPORT CT BRAIN WITHOUT CONTRAST: I agree with the preliminary report given by Angle. POS: [facility]
--- NOTE | 2019-08-21 08:09 | CT ---
PRELIMINARY REPORT/[facility]/EMERGENCY AFTER HOURS PROCEDURE: PROCEDURE INFORMATION: Exam: CT Cervical Spine Without Contrast Exam date and time: 08/21/2019 12:48 AM Clinical history: 59 years old, male; Injury or trauma; Fall; Initial encounter; Blunt trauma; Patien t HX: PT states he was standing up from his wheelchair to get into bed when his leg gave out and he f ell. C/O pain to left hip and left ankle. Denies any other injuries or complaints. History of CVA. Ta kes eliquis and asa. No alleviating factors. Aggravated by movement and palpation. TECHNIQUE: Imaging protocol: Computed tomography images of the cervical spine without contrast. COMPARISON: No relevant prior studies available. FINDINGS: Vertebrae: Discectomy with fusion at C5-6 level. Discs/Spinal canal/Neural foramina: Moderate multilevel degenerative disc disease. Moderate multileve l bilateral facet and uncovertebral arthropathy. Soft tissues: Normal. Lungs: Lung apices are normal. IMPRESSION: No acute cervical spine abnormality. Thank you for allowing us to participate in the care of your patient. Dictated and Authenticated by: Serge Etienne MD 08/21/2019 1:22 AM Central Time ([place] & [place]) FINAL REPORT CT CERVICAL SPINE WITH CORONAL AND SAGITTAL REFORMATIONS: I agree with the preliminary report given by Angle. POS: [facility]
--- NOTE | 2019-08-21 08:21 | CT ---
PRELIMINARY REPORT/[facility]/EMERGENCY AFTER HOURS PROCEDURE: PROCEDURE INFORMATION: Exam: CT Pelvis Without Contrast; Skeletal Exam date and time: 08/21/2019 12:51 AM Clinical history: 59 years old, male; Injury or trauma; Fall; Initial encounter; Blunt trauma (contus ions or hematomas); Patient HX: PT states he was standing up from his wheelchair to get into bed when his leg gave out and he fell. C/O pain to left hip and left ankle. Denies any other injuries or comp laints. History of CVA. Takes eliquis and asa. No alleviating factors. Aggravated by movement and pal pation. TECHNIQUE: Imaging protocol: Computed tomography images of the pelvis without contrast. Exam focused on the skel etal structures. COMPARISON: No relevant prior studies available. FINDINGS: Stomach and bowel: Gas and fluid-filled distal sigmoid colon, possibly diarrhea. Appendix: Appendix normal. Bones/joints: No acute fracture or dislocation. Degenerative changes of the hips and sacroiliac joint s. Multilevel lumbar spine degenerative changes. Soft tissues: Small fat containing left inguinal hernia. IMPRESSION: 1. No acute fracture or dislocation. 2. Gas and fluid-filled distal sigmoid colon, possibly diarrhea. Thank you for allowing us to participate in the care of your patient. Dictated and Authenticated by: Serge Etienne MD 08/21/2019 1:27 AM Central Time ([place] & [place]) CT PELVIS WITHOUT CONTRAST: I agree with the preliminary report given by Angle. POS: [facility]
--- NOTE | 2019-08-21 08:32 | RAD ---
3 views left ankle: 08/21/2019 COMPARISON: None HISTORY: Fall, pain FINDINGS: There is enthesophyte formation involving the origin of plantar aponeurosis and insertion o f Achilles tendon. Dorsal degenerative change noted involving the midfoot. No acute fracture or evidence of dislocation. There is joint space narrowing involving the tibiotalar articulation. IMPRESSION: Chronic findings as above. No displaced fracture or dislocation.
--- NOTE | 2019-08-21 08:42 | RAD ---
LEFT FEMUR 2 VIEWS: Date: 08/21/19 HISTORY: Fall, left hip pain. FINDINGS/IMPRESSION: The left femur appears intact. POS: [facility]
--- NOTE | 2019-08-21 08:42 | RAD ---
LEFT KNEE 4 VIEWS: Date: 08/21/19 HISTORY: Fall, left knee pain. FINDINGS/IMPRESSION: Mild degenerative changes are present. No acute fracture or dislocation is identified. POS: [facility]
--- NOTE | 2019-08-21 09:40 | CON ---
DATE OF CONSULTATION: REQUESTING PHYSICIAN: Karl Arias MD CONSULTING PHYSICIAN: Valentino Ibrahim MD REASON FOR CONSULTATION: Question of left hip injury. BRIEF CLINICAL HISTORY: Montrell is a 59-year-old male, who was brought from his intermediate yesterday evening after an unwitnessed fall. The patient complained bitterly of pain to staff and therefore, he was transported via EMS to [facility]. Plain radiographs and CT examination of the hip and pelvis were negative for fracture. I spoke with the emergency room staff last night regarding this finding, but it was transmitted to me that the patient was quite uncomfortable and painful and requiring morphine for pain control and he requested our opinion on the mismatch of severe pain, inability to stand and walk and mismatch with studies. I recommended to go ahead and admitting to the Medicine Service and we would consult on the patient clinically in the morning. I have reviewed the studies. CT examination is negative for fracture, both by interpretation and my personal review. Also, plain radiographs demonstrate a little bit of deepening of the socket, but overall he still has preservation of cartilage for a man of his age. On exam, the patient does not speak much. He communicates, but acknowledges with nodding, but otherwise he does not verbalize. Unable to examine the right and left lower extremity. There is no spasticity noted. He definitely has some atrophy in the left lower extremity relative to the right and he is a large muscular man. Flexion and extension of the hip non-provocative, shuck, and loading of the hip are again non-provocative internal and external rotation or non-provocative maneuvers. He has adequate dorsiflexion, inversion, eversion. Follows commands relatively well, but he appears very frail by examination techniques and poor effort is noted. I do not know if this is his baseline. IMAGING STUDIES: Two views of left femur demonstrate little bit deepening of the hip socket, but preservation of the cartilage space. No acute fractures identified. A CT examination of the pelvis, again no fractures identified. No acute processes are seen. Pelvis appears to be intact, especially on the left. IMPRESSION: Negative examination clinically and radiographically for fracture. The clinical exam corroborates radiographic findings of no bony injury. PLAN: I will go ahead and cancel the MRI for today. I do not think this is necessary in lieu of sensitivity of CT examination and also clinical examination being underwhelming. I will discuss with Medicine regarding allowing the patient to return to the intermediate for his baseline activities and fall precautions. But at this point, there is not a fracture identified for orthopedic surgical treatment. Job ID: [id number]
[2019-08-21 14:12] VITALS: TEMP 97.9
[2019-08-21 18:30] VITALS: BP 172/78
--- NOTE | 2019-08-21 19:03 | DIS ---
DATE OF ADMISSION: 08/21/2019 DATE OF DISCHARGE: 08/21/2019 DISCHARGE DIAGNOSES: 1. Left lower extremity pain, likely musculoskeletal fracture ruled out. 2. 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 3. Coronary artery disease, chronic and stable. 4. Hypertension, stable. 5. Seizure disorder. 6. Dementia. 7. Depression. CONSULTATIONS: Dr. Florence with Orthopedic Surgery Service. PERTINENT LABORATORY AND X-RAY FINDINGS: Calcium 10.7, albumin 4.8. CBC within normal limits. CT of the brain without contrast dated 08/21/2019, showed no acute intracranial process. Chronic small vessel ischemic changes noted. CT of the cervical spine dated 08/21/2019, showed no acute process. CT of the pelvis dated 08/21/2019, showed no acute fracture or dislocation. Three views of the left ankle dated 08/21/2019, showed no acute fracture or dislocation. Four views of the left knee dated 08/21/2019, showed mild degenerative changes without acute fracture or dislocation. Two views of the left femur dated 08/21/2019, showed no acute fracture. HOSPITAL COURSE: The patient was observed after presenting with left lower extremity pain after unwitnessed fall. The patient underwent extensive imaging studies of the left lower extremity showing no evidence of fracture or dislocation. Clinical exam was also unremarkable. The patient was evaluated by the Orthopedic Surgery Service without recommendations for any intervention and symptomatic support. No current evidence to suggest acute fracture or dislocation involving the left lower extremity. The patient remained clinically stable during the hospital course. Stable vital signs throughout the observation. I have examined the patient at the time of discharge with disposition and followup instructions given. The patient clinically stable and [facility]. DISCHARGE MEDICATIONS: 1. Amlodipine 5 mg per PEG tube daily. 2. Eliquis 5 mg per PEG tube b.i.d. 3. Enteric-coated aspirin 81 mg per PEG tube daily. 4. Lipitor 80 mg per PEG tube at bedtime. 5. Coreg 12.5 mg per PEG tube b.i.d. 6. Vitamin B12 of 1000 mcg per PEG tube daily. 7. Pepcid 20 mg per PEG tube b.i.d. 8. Isosorbide dinitrate 5 mg per PEG tube b.i.d. 9. Keppra 1000 mg per PEG tube b.i.d. 10. Zestril 5 mg per PEG tube daily. 11. Namenda 5 mg per PEG tube daily. 12. Potassium chloride 20 mEq per PEG tube b.i.d. 13. Florastor 250 mg per PEG tube daily. 14. Vitamin B1 of 250 mg per PEG tube daily. 15. Effexor 25 mg per PEG tube b.i.d. FOLLOWUP: The patient may follow up with his primary care provider, Dr. Saldana. CONDITION ON DISCHARGE: Fair. ACTIVITY: Ad-denise. DIET: Heart healthy. CODE STATUS: Full. DIS[facility]ITION[facility]. Job ID: [id number]
== END 2019-08-21 18:30 | disposition home or self-care (01) ==
LOC: ERS 00:09 → SURG B 03:05
PROVIDERS: ADMIT Internal Medicine; ATTEND Internal Medicine
DX: M25.552 Pain in left hip (principal); M25.572 Pain in left ankle and joints of left foot; I69.354 Hemiplegia and hemiparesis following cerebral infarction affecting left non-dominant side; I25.10 Atherosclerotic heart disease of native coronary artery without angina pectoris; I10 Essential (primary) hypertension; G40.909 Epilepsy, unspecified, not intractable, without status epilepticus; F03.90 Unspecified dementia, unspecified severity, without behavioral disturbance, psychotic disturbance, mood disturbance, and anxiety; F32.9 Major depressive disorder, single episode, unspecified; I25.2 Old myocardial infarction; E11.9 Type 2 diabetes mellitus without complications; Z86.718 Personal history of other venous thrombosis and embolism; Z79.01 Long term (current) use of anticoagulants; Z79.82 Long term (current) use of aspirin; Z79.899 Other long term (current) drug therapy; Z93.1 Gastrostomy status; Z98.1 Arthrodesis status; W18.30XA Fall on same level, unspecified, initial encounter; Y92.129 Unspecified place in nursing home as the place of occurrence of the external cause
CPT/HCPCS: 51701; 70450; 72125; 72192; 73552; 73564; 73610; 80053; 85025; 85610; 85730; 93005; 96374; 96375; 99285; G0378 ×2; 81003; 81015; J2270; J2405

== ENCOUNTER 2019-11-17 16:12 | Emergency (ER) | payer MEDICAID, MEDICARE ==
[2019-11-17] MEDS ORDERED: Ondansetron PF 4 MG/2 ML Vial ONE (17:39)
[2019-11-17 17:41] LABS: #Basophils 0.1 thou/uL (0.0-0.2); #Eosinphils 0.1 thou/uL (0.0-0.7); #Lymphocytes 1.3 thou/uL (1.20-3.40); #Monocytes 0.7 thou/uL (0.11-0.59); #Neutrophils 5.9 thou/uL (1.40-6.50); %Basophils 0.7 % (0.0-1.0); %Eosinophils 1.6 % (0.0-10.0); %Lymphocytes 16.6 % (21.0-51.0); %Monocytes 8.7 % (0.0-10.0); %Neutrophils 72.5 % (42.0-75.0); Hemoglobin 11.3 g/dL (14.0-18.0); Mean Corpuscular HGB CONC 33.1 g/dL (32.0-36.0); Mean Corpuscular Hemoglobin 29.5 pg (27.0-31.0); Mean Corpuscular Volume 89.2 fL (78.0-98.0); Mean Platelet Volume 8.5 fL (7.4-10.4); Platelet Count 215 thou/uL (130-400); Red Blood Cell (RBC) Count 3.84 mill/uL (4.70-6.10); White Blood Cell (WBC) Count 8.1 thou/uL (4.8-10.8)
[2019-11-17 18:00] LABS: ALT (SGPT) 30 U/L (8-55); AST (SGOT) 19 U/L (5-34); Alkaline Phosphatase 98 U/L (40-110); Anion Gap 11 mmol/L (10-20); BUN (Urea Nitrogen) 16 mg/dL (8.4-25.7); Bilirubin, Total 1.5 mg/dL (0.2-1.2); CK (CPK) 127 U/L (30-200); Calc. Creatinine Clearance 0 mL/min (70-130); Calcium 9.6 mg/dL (7.8-10.44); Carbon Dioxide 32 mmol/L (22-29); Chloride 101 mmol/L (98-107); Estimated GFR-MDRD Greater than 90; Globulin 3.6 g/dL (2.4-3.5); Glucose 134 mg/dL (70-105); Potassium 3.3 mmol/L (3.5-5.1); Protein, Total 7.6 g/dL (6.0-8.3); Sodium 141 mmol/L (136-145)
[2019-11-17 19:19] LABS: Bilirubin Negative (Negative); Blood, Urine Negative (Negative); Clarity Clear (Clear); Glucose, Urine (Dipstick) Normal (Negative); Leukocyte Negative Leu/uL (Negative); Nitrite Negative (Negative); Protein, Urine (Dipstick) 20 mg/dL (Neg-Trace); Urobilinogen Normal mg/dL (Less than 2)
== END 2019-11-17 20:25 | disposition home or self-care (01) ==
LOC: ERS 16:12
DX: R11.10 Vomiting, unspecified (principal); E11.9 Type 2 diabetes mellitus without complications; I25.2 Old myocardial infarction; D64.9 Anemia, unspecified; G40.909 Epilepsy, unspecified, not intractable, without status epilepticus; I20.9 Angina pectoris, unspecified; E87.5 Hyperkalemia; E78.5 Hyperlipidemia, unspecified; I10 Essential (primary) hypertension; Z86.73 Personal history of transient ischemic attack (TIA), and cerebral infarction without residual deficits; Z79.82 Long term (current) use of aspirin; Z79.899 Other long term (current) drug therapy
CPT/HCPCS: 36415; 51701; 80053; 81003; 82550; 84484; 85025; 93005; 96361; 96374; J2405

== ENCOUNTER 2020-08-27 20:24 | Inpatient (IN) | payer MEDICARE, MEDICAID, OTHER ==
[2020-08-27 21:14] LABS: #Lymphocytes 0.8 thou/uL (1.20-3.40); #Monocytes 0.3 thou/uL (0.11-0.59); #Neutrophils 9.1 thou/uL (1.40-6.50); %Basophils 0.1 % (0.0-1.0); %Lymphocytes 7.4 % (21.0-51.0); %Monocytes 3.2 % (0.0-10.0); %Neutrophils 89.3 % (42.0-75.0); Hemoglobin 10.1 g/dL (14.0-18.0); Mean Corpuscular HGB CONC 32.9 g/dL (32.0-36.0); Mean Corpuscular Hemoglobin 30.4 pg (27.0-31.0); Mean Corpuscular Volume 92.5 fL (78.0-98.0); Mean Platelet Volume 8.8 fL (7.4-10.4); Platelet Count 232 thou/uL (130-400); RBC Distribution Width 11.4 % (11.5-14.5); Red Blood Cell (RBC) Count 3.32 mill/uL (4.70-6.10); White Blood Cell (WBC) Count 10.2 thou/uL (4.8-10.8)
--- NOTE | 2020-08-27 21:18 | RAD ---
Chest AP view INDICATION: History of Covid positive status with absent bowel sounds COMPARISON: Prior chest radiograph dated June 14, 2019 FINDINGS: Lungs: The lungs are clear Cardiac silhouette: Stable moderate cardiomegaly Pulmonary vasculature: Normal Pleural spaces: No pleural effusion or pneumothorax is demonstrated. Upper abdomen: There is a gas-filled loops of colon within the upper abdomen, similar to the prior e xam. Osseous structures: No acute osseous abnormality. Additional findings: None. IMPRESSION: Stable moderate cardiomegaly.
[2020-08-27 21:33] LABS: ALT (SGPT) 27 U/L (8-55); AST (SGOT) 25 U/L (5-34); Albumin 3.2 g/dL (3.5-5.0); Alkaline Phosphatase 65 U/L (40-110); Anion Gap 14 mmol/L (10-20); BUN (Urea Nitrogen) 33 mg/dL (8.4-25.7); Bilirubin, Total 1.4 mg/dL (0.2-1.2); Calc. Creatinine Clearance 0 mL/min (70-130); Carbon Dioxide 36 mmol/L (22-29); Chloride 102 mmol/L (98-107); Estimated GFR-MDRD 74; Globulin 4.1 g/dL (2.4-3.5); Glucose 334 mg/dL (70-105); Lipase 33 U/L (8-78); Protein, Total 7.3 g/dL (6.0-8.3); Sodium 150 mmol/L (136-145)
[2020-08-27] MEDS ORDERED: Potassium Chloride 20 MEQ/100 ML PREMIX BAG ONE (22:01)
[2020-08-27 22:41] LABS: Bacteria/HPF None Seen HPF (None Seen); Bilirubin Negative (Negative); Blood, Urine Negative (Negative); Clarity Clear (Clear); Glucose, Urine (Dipstick) 150 mg/dL (Negative); Ketone, Urine Negative (Negative); Leukocyte Negative Leu/uL (Negative); Mucous/LPF Rare LPF (<2+); Nitrite Negative (Negative); Protein, Urine (Dipstick) 100 mg/dL (Neg-Trace); RBC/HPF 0-3 HPF (0-3); Renal Epithelial 0-3 HPF (None Seen); Specific Gravity, Urine 1.021 (1.002-1.036); Squamous Epithelial 0-3 HPF (0-3); Urobilinogen Normal mg/dL (Less than 2); WBC/HPF 0-3 HPF (0-3)
[2020-08-28] MEDS ORDERED: Sodium Chloride 0.9% 1,000 ML IV SCH (01:45)
[2020-08-28] MEDS ORDERED: Potassium ACETATE 40 MEQ/20 ML VIAL IV SCH (02:15)
[2020-08-28] MEDS ORDERED: Potassium Chloride 40 MEQ in Sodium Chloride 0.9% 250 ML 250 ML IVPB SCH ×2 (02:30→06:30)
[2020-08-28 03:15] VITALS: BMI 25.0
[2020-08-28] MEDS ORDERED: Calcium Carbonate 500 MG ChewTAB PO PRN (03:17)
[2020-08-28] MEDS ORDERED: Ondansetron ODT 4 MG TAB PO PRN (03:17)
[2020-08-28] MEDS ORDERED: Acetaminophen 325 MG TAB PO PRN (03:17)
[2020-08-28] MEDS ORDERED: Acetaminophen 650 MG Suppository PR PRN (03:17)
[2020-08-28] MEDS ORDERED: Ondansetron PF 4 MG/2 ML Vial IVP PRN (03:17)
[2020-08-28] MEDS ORDERED: Guaifenesin DM 100-10/5 ML UDCUP PO PRN (03:17)
[2020-08-28] MEDS ORDERED: Sodium Chloride 0.45% 1,000 ML IV SCH (03:30)
--- NOTE | 2020-08-28 03:38 | PDOC.HHP ---
Hospitalist HPI - History of Present Illness patient brought due to absent bowel sound and increasing o2 requirements History of Present Illness: Case of an 60y/o with pmhx of cva with L sided hemiplegia, cad, dementia, hld, htn, epilepsy, hx of dvt on elliquis, epilepsy and DM who is covid 19+, [facility] to [facility] 02 needs and concerns for absent bowel sound. at the ed patient was evaluated and found to by hypokalemic and hypernatremic as well as with increasing 02 needs for which hospitalist was called for further evaluation and management Hospitalist ROS - Review of Systems ROS unobtainable: due to mental status All other systems reviewed; all pertinent +/- noted in HPI/Subj - Medication Medications: Active Medications Generic Name Dose Route Start Last Admin Trade Name Freq PRN Reason Stop Dose Admin Potassium Chloride 40 meq/ 270 mls @ 67.5 mls/hr 08/28/20 02:30 08/28/20 02:51 Sodium Chloride IVPB 08/28/20 06:29 270 mls NOW [facility] Administration Hospitalist History - Past Medical History Heme/Onc: reports: Anemia NOS Hepatobiliary: reports: no pertinent history Psych: reports: no pertinent history Musculoskeletal: reports: no pertinent history Rheumatologic: reports: no pertinent history Renal/: reports: no pertinent history Endocrine: reports: Diabetes Dermatology: reports: no pertinent history - Past Surgical History Other Surgical History: peg placement - Family History Family History: reports: diabetes mellitus, hypertension - Social History Alcohol: reports: None Drugs: reports: none - Exam General Appearance: ill appearing Eye: PERRL, anicteric sclera ENT: normocephalic atraumatic, no oropharyngeal lesions Neck: supple, symmetric, no JVD Heart: RRR, no murmur, no gallops Respiratory: CTAB, no wheezes, no rales Gastrointestinal: soft, non-tender, normal bowel sounds, distended Extremities: no cyanosis, no clubbing, no edema Skin: normal turgor, no lesions Neurological: no new deficit, facial droop, hemiplegia Musculoskeletal: normal tone, no muscle wasting Psychiatric: normal affect, normal behavior Hospitalist Results - Labs Result Diagrams: 08/27/20 21:01 08/27/20 21:01 Lab results: WBC 10.2 thou/uL (4.8-10.8) 08/27/20 21:01 Hgb 10.1 g/dL (14.0-18.0) L 08/27/20 21:01 Hct 30.7 % (42.0-52.0) L 08/27/20 21:01 MCV 92.5 fL (78.0-98.0) 08/27/20 21:01 Plt Count 232 thou/uL (130-400) 08/27/20 21:01 Neutrophils % 89.3 % (42.0-75.0) H 08/27/20 21:01 Sodium 150 mmol/L (136-145) H 08/27/20 21: Potassium 2.0 mmol/L (3.5-5.1) L* 08/27/20 21: Chloride 102 mmol/L (98-107) 08/27/20 21: Carbon Dioxide 36 mmol/L (22-29) H 08/27/20 21:01 BUN 33 mg/dL (8.4-25.7) H 08/27/20 21:01 Creatinine 1.22 mg/dL (0.7-1.3) 08/27/20 21: Glucose 334 mg/dL (70-105) H 08/27/20 21:01 Calcium 9.0 mg/dL (7.8-10.44) 08/27/20 21:01 Total Bilirubin 1.4 mg/dL (0.2-1.2) H 08/27/20 21:01 AST 25 U/L (5-34) 08/27/20 21: ALT 27 U/L (8-55) 08/27/20 21: Alkaline Phosphatase 65 U/L (40-110) 08/27/20 21:01 Serum Total Protein 7.3 g/dL (6.0-8.3) 08/27/20 21: Albumin 3.2 g/dL (3.5-5.0) L 08/27/20 21: Lipase 33 U/L (8-78) 08/27/20 21:01 Urine Ketones Negative mg/dL (Negative) 08/27/20 22:22 Urine Blood Negative (Negative) 08/27/20 22:22 Urine Nitrite Negative (Negative) 08/27/20 22:22 Ur Leukocyte Esterase Negative Guerda/uL (Negative) 08/27/20 22:22 Urine RBC 0-3 HPF (0-3) 08/27/20 22:22 Urine WBC 0-3 HPF (0-3) 08/27/20 22:22 Ur Squamous Epith Cells 0-3 HPF (0-3) 08/27/20 22:22 Urine Bacteria None Seen HPF (None Seen) 08/27/20 22:22 Hospitalist H&P A/P - Problem (1) COVID-19 Code(s): U07.1 - COVID-19 Status: Acute (2) Hypernatremia Code(s): E87.0 - HYPEROSMOLALITY AND HYPERNATREMIA Status: Acute (3) Hypokalemia Code(s): E87.6 - HYPOKALEMIA Status: Acute (4) CAD (coronary artery disease) Code(s): I25.10 - ATHSCL HEART DISEASE OF [place] CORONARY ARTERY W/O ANG PCTRS Status: Chronic Qualifiers: Coronary Disease-Associated Artery/Lesion type: [place] artery Associated angina: without angina (5) DM2 (diabetes mellitus, type 2) Status: Chronic Qualifiers: Diabetes mellitus shelter insulin use: without shelter use (6) Dyslipidemia Code(s): E78.5 - HYPERLIPIDEMIA, UNSPECIFIED Status: Chronic (7) H/O: CVA (cerebrovascular accident) Code(s): Z86.73 - PRSNL HX OF TIA (TIA), AND CEREB INFRC W/O RESID DEFICITS Status: Chronic (8) History of pulmonary embolism Code(s): Z86.711 - PERSONAL HISTORY OF PULMONARY EMBOLISM Status: Chronic (9) Hypertension Code(s): I10 - ESSENTIAL (PRIMARY) HYPERTENSION Status: Chronic Qualifiers: Hypertension type: essential hypertension Qualified Code(s): I10 - Essential (primary) hypertension (10) Seizure as late effect of cerebrovascular accident (CVA) Code(s): I69.398 - OTHER SEQUELAE OF CEREBRAL INFARCTION; R56.9 - UNSPECIFIED CONVULSIONS Status: Chronic (11) PEG tube malfunction Code(s): K94.23 - GASTROSTOMY MALFUNCTION Status: Acute - Plan Plan: 60y/o male with the stated pmhx who comes to hospital due to increasing 02 requirements from covid and concerns for decreased bowel sounds covid 19 - positive a few days ago - 02 supplementation - decadron 6mg ivd - id consulted - f/u inflammation markers - on AC w elliquis hypokalemia - at 2 given 40mg at ed, will give another 80 - magnesium at adequate levels hypernatremia - likely secondary to dehydration - rehydration w 0.45nss - f/u bmp malfunctioning peg - bs are present - last bowel movement was yesterday - GI consulted - nurse unable to flush liquids just air dm - long acting insuling -ss+ acc cva/cad/htn/epilepsy/hx of dvt - continue home meds when able
[2020-08-28] MEDS ORDERED: Potassium Chloride 20 MEQ TAB PO SCH (03:45)
[2020-08-28] MEDS ORDERED: Dextrose 5% in Water 1,000 ML IV PRN (04:04)
[2020-08-28] MEDS ORDERED: Dextrose 50% Abboject 50 ML SYRINGE SLOW IVP PRN (04:04)
[2020-08-28 05:19] LABS: ALT (SGPT) 29 U/L (8-55); AST (SGOT) 26 U/L (5-34); Albumin 3.3 g/dL (3.5-5.0); Alkaline Phosphatase 69 U/L (40-110); Anion Gap 14 mmol/L (10-20); BUN (Urea Nitrogen) 31 mg/dL (8.4-25.7); Bilirubin, Total 1.4 mg/dL (0.2-1.2); CRP (Inflammatory) 15.14 mg/dL (= or < 0.5); Calc. Creatinine Clearance 90 mL/min (70-130); Calcium 9.3 mg/dL (7.8-10.44); Carbon Dioxide 36 mmol/L (22-29); Chloride 105 mmol/L (98-107); Estimated GFR-MDRD 82; Globulin 4.4 g/dL (2.4-3.5); Glucose 333 mg/dL (70-105); Protein, Total 7.7 g/dL (6.0-8.3); Sodium 153 mmol/L (136-145)
[2020-08-28 05:22] LABS: Potassium 2.4 mmol/L (3.5-5.1)
[2020-08-28 05:31] LABS: Band 8 % (5-11); Hemoglobin 10.6 g/dL (14.0-18.0); Lymphocytes 5 % (21-51); MDiff Complete? YES; Mean Corpuscular Volume 90.9 fL (78.0-98.0); Mean Platelet Volume 9.3 fL (7.4-10.4); Monocytes 3 % (0-10); Neutrophil 84 % (42-75); Platelet Count 239 thou/uL (130-400); Platelet Morphology Comment Appears Adequate; RBC Distribution Width 11.6 % (11.5-14.5); Red Blood Cell (RBC) Count 3.52 mill/uL (4.70-6.10)
[2020-08-28] MEDS ORDERED: Furosemide 20 MG/2 ML VIAL SLOW IVP SCH ×2 (06:00→17:15)
[2020-08-28] MEDS: HumaLOG 300 UNITS/3 ML VIAL SC PRN ×2 (06:27→23:40)
[2020-08-28] MEDS: Dexamethasone 4 mg/ml Vial SLOW IVP SCH (07:59)
[2020-08-28] MEDS ORDERED: Potassium Chloride 20 MEQ in Lactated Ringer's 1,000 ML IV SCH (09:00)
[2020-08-28] MEDS ORDERED: Doxycycline 100 MG in Syringe 0 ML IVPB SCH (09:00)
[2020-08-28] MEDS ORDERED: Cholecalciferol (Vitamin D3) 400 UNITS TAB PER TUBE SCH (09:00)
[2020-08-28] MEDS ORDERED: Sodium Bicarbonate Tab 325 MG TAB PER TUBE PRN (10:08)
[2020-08-28] MEDS ORDERED: Pancrelipase DR 12,000 1 CAP PER TUBE PRN (10:08)
--- NOTE | 2020-08-28 11:53 | PDOC.HOSPP ---
- Subjective Encounter Date: 08/28/20 Subjective: No new issues. Pt was sleeping when I was in his room. - Objective Vital Signs & Weight: Vital Signs (12 hours) Temp Pulse Resp BP Pulse Ox 08/28/20 08:27 98.4 F 66 18 164/88 H 95 08/28/20 07:22 96 08/28/20 05:01 99.2 F 67 16 177/87 H 96 08/28/20 03:17 97 08/28/20 01:43 99.1 F 73 18 148/73 H 97 Weight Admit Weight 194 lb 14.4 oz Weight 194 lb 14.4 oz Result Diagrams: 08/28/20 04:30 08/28/20 04:30 Hospitalist ROS - Review of Systems ROS unobtainable: due to mental status - Medication Medications: Active Medications Generic Name Dose Route Start Last Admin Trade Name Freq PRN Reason Stop Dose Admin Dexamethasone 6 mg 08/28/20 09:00 08/28/20 07:59 Dexamethasone 4 Mg/Ml Vial SLOW IVP 6 mg DAILY [facility] Administration Insulin Human Lispro 0 units 08/28/20 04:04 08/28/20 06:27 Humalog 300 Units/3 Ml Vial SC 6 units .MODERATE SLIDING SC PRN Administration Moderate Correctional Scale Sodium Chloride 10 ml 08/28/20 09:00 08/28/20 07:59 Flush - Normal Saline 10 Ml Syringe IVF 10 ml Q12HR [facility]STA Administration Sodium Chloride 10 ml 08/28/20 01:45 08/28/20 07:59 Flush - Normal Saline 10 Ml Syringe IVF 10 ml PRN PRN Administration Saline Flush - Exam General Appearance: ill appearing Eye: PERRL, anicteric sclera ENT: normocephalic atraumatic, dry oral mucosa Neck: supple, symmetric, no JVD, no thyromegaly Heart: RRR, no murmur, no gallops, no rubs Respiratory: CTAB, no wheezes, no rales, no ronchi Gastrointestinal: soft, normal bowel sounds, distended Gastrointestinal - other findings: PEG tube noted. Abd is slightly distended Extremities: no cyanosis, no clubbing, no edema Skin: no lesions, no rashes Neurological - other findings: Unable to access Musculoskeletal: normal tone, diffuse muscle atrophy Psychiatric: somnolent Psychiatric - other findings: Unable to access Hosp A/P (1) COVID-19 Code(s): U07.1 - COVID-19 Status: Acute Plan: Pt appears fairly stable now. Have added abx dexamethasone,VIt C and D, Zinc and nebs. will monitor for symp improvement. Will attempt to d/c additional IVF. Will give Lasix and give more fluid via PEG once established to be working. (2) Hypernatremia Code(s): E87.0 - HYPEROSMOLALITY AND HYPERNATREMIA Status: Acute Plan: Likely from dehydration. Will give more free water via PEG once established to be working adequately. (3) PEG tube malfunction Code(s): K94.23 - GASTROSTOMY MALFUNCTION Status: Acute Plan: Evaluated by GI and said to working. Will get CT A/P to r/o any other abn. (4) Aspiration pneumonia Code(s): J69.0 - PNEUMONITIS DUE TO INHALATION OF FOOD AND VOMIT Status: Acute Plan: Cont current abx and nebs. (5) Hypokalemia Code(s): E87.6 - HYPOKALEMIA Status: Acute Plan: Still very low levels noted. Will cont to replace K. Monitor K levels. (6) DM2 (diabetes mellitus, type 2) Status: Chronic Qualifiers: Diabetes mellitus termite control servicer insulin use: without termite control servicer use Plan: Fairly controlled. Will cont home meds. Cover with SSI. (7) Dyslipidemia Code(s): E78.5 - HYPERLIPIDEMIA, UNSPECIFIED Status: Chronic Plan: Cont Statins. (8) GERD (gastroesophageal reflux disease) Code(s): K21.9 - GASTRO-ESOPHAGEAL REFLUX DISEASE WITHOUT ESOPHAGITIS Status: Chronic Qualifiers: Esophagitis presence: without esophagitis Qualified Code(s): K21.9 - Gastro-esophageal reflux disease without esophagitis Plan: Cont with Pepcid (9) H/O: CVA (cerebrovascular accident) Code(s): Z86.73 - PRSNL HX OF TIA (TIA), AND CEREB INFRC W/O RESID DEFICITS Status: Chronic Plan: Cont med mgt and supportive. (10) Hypertension Code(s): I10 - ESSENTIAL (PRIMARY) HYPERTENSION Status: Chronic Qualifiers: Hypertension type: essential hypertension Qualified Code(s): I10 - Essent ial (primary) hypertension Plan: Uncontrolled, will adjust med for better BP control. - Plan continue antibiotics PPx: SCDs and Pepcid. CODE: FULL. Dispo: Await CT A/P, cont current mgt.
[2020-08-28] MEDS ORDERED: Ondansetron ODT 4 MG TAB PER TUBE PRN (12:05)
[2020-08-28] MEDS ORDERED: Polyvinyl Alcohol 1.4%/Povidone 0.6% Opth Drops EA EYE PRN (12:05)
[2020-08-28] MEDS ORDERED: Acetaminophen 325 MG TAB PER TUBE PRN (12:09)
[2020-08-28] MEDS: Piperacillin/Tazobactam 3.375 GM in Sodium Chloride 0.9% 100 ML IVPB SCH ×2 (12:14→20:09)
--- NOTE | 2020-08-28 12:24 | CT ---
CT ABDOMEN NONCONTRAST CT PELVIS NONCONTRAST: (Urolithiasis protocol) DATE: 08/28/2020 HISTORY: 60-year-old male with abdominal pain and distention. Rule out obstruction. COMPARISON: 02/04/2019 TECHNIQUE: IV injection of iodinated contrast media: None Oral contrast media: None FINDINGS: Other than for urolithiasis, the lack of IV and oral contrast limits the evaluation. There is a new PEG tube in the lumen of a decompressed stomach. There is a new finding distention of the rectosigmoid colon by combination of the large amount of hig h density stool throughout the rectum and rectosigmoid junction, and large amount of gas throughout the redundant sigmoid colon. This dual in the rectosigmoid junction and rectum appear to be high dens ity fluid, and this forms an air-fluid level in the sigmoid colon. There is a moderate to large amount of stool throughout the rest of the colon which is not dilated. Appendix is normal. No small bowel dilation. Distended urinary bladder with normal, thin guerrero. No hydronephrosis. No renal, ureteral, or bladder calculus. Mixture of groundglass densities and platelike densities in the bases of the lower lobes of the bilat eral lungs, worse than previously. No pneumoperitoneum. No abdominal aortic aneurysm. 4. Visualization of pancreas. No hepatosplenomegaly. No abdominal aortic aneurysm. Combination of DISH and high-grade lumbar spondylosis. IMPRESSION: 1) distention of the rectosigmoid colon by large amount of gas proximally and large amount of what ap pears to be high density liquid stool distally. Therapeutic decompression should be considered with rectal catheter. 2) groundglass densities and platelike densities at the bases of bilateral lower lobes. 3) percutaneous gastrostomy tube within decompressed stomach. 4) no evidence of small bowel obstruction
[2020-08-28 13:09] LABS: SARS-CoV-2 MS2 Positive; SARS-CoV-2 N Gene Positive; SARS-CoV-2 S Gene Positive; SARS-CoV-2 by NAA DETECTED (NotDetected); SARS-CoV-2 orf1ab Positive
[2020-08-28] MEDS: Apixaban 5 MG TAB PER TUBE SCH (13:48)
[2020-08-28] MEDS: Aspirin 81 mg Enteric Coated Tablet PER TUBE SCH (13:48)
[2020-08-28] MEDS: Lisinopril 5 MG TAB PER TUBE SCH (13:48)
[2020-08-28] MEDS: Carvedilol 6.25 MG TAB PER TUBE SCH (13:49)
[2020-08-28] MEDS: Amlodipine 5 MG TAB PER TUBE SCH (13:49)
[2020-08-28] MEDS: Zinc Sulfate 220 MG CAP PER TUBE SCH (13:50)
[2020-08-28] MEDS: Ascorbic Acid 500 mg Chewable Tablet PER TUBE SCH (13:50)
[2020-08-28] MEDS: levETIRAcetam 500 mg/5 ml Oral Solution PER TUBE SCH (15:36)
[2020-08-28] MEDS: Venlafaxine HCl 25 MG TAB PER TUBE SCH (15:37)
[2020-08-28] MEDS: Mineral Oil ENEMA PR SCH ×2 (17:30→18:01)
[2020-08-28] MEDS ORDERED: FLU VACC QS2020-21(6MOS UP)/PF 60 MCG/0.5 ML SYRINGE IM ONE (21:00)
[2020-08-28] MEDS ORDERED: Famotidine 20 MG TAB PER TUBE SCH (21:00)
--- NOTE | 2020-08-28 21:14 | CON ---
DATE OF CONSULTATION: 08/28/2020 REASON FOR CONSULTATION: COVID infection. HISTORY OF PRESENT ILLNESS: A 60-year-old has a history of prior CVA, swallowing dysfunction, gastrostomy tube and vascular dementia as well as type 2 diabetes, who [facility] and he was transferred over here because of worsening hypoxemia. The duration of illness is about 11 days. He is currently lying supine in bed. He establishes eye contact, but does not answer questions or follow commands. Apparently, he has had no diarrhea. No seizure activity. PAST MEDICAL HISTORY: Prior CVA; left-sided hemiplegia; swallowing dysfunction; gastrostomy tube feeding; vascular dementia; hypertension; epilepsy; deep vein thrombosis, on Eliquis, and type 2 diabetes. PAST SURGICAL HISTORY: Gastrostomy tube placement. FAMILY HISTORY: Diabetes and hypertension. SOCIAL HISTORY: Former smoker. He used to drink, but evidently not anymore since his disability. PHYSICAL EXAMINATION: VITAL SIGNS: T-max 99.2, BP 160/70, heart rate 67, respiratory rate 18, O2 saturation 95% on 2.5 L nasal cannula O2. SKIN: Does not have any areas of skin breakdown. He has a gastrostomy tube exit site, appears normal and is voiding spontaneously. HEENT: Ocular movements are conjugate. No nystagmus. Pupils are 2 mm and reactive. Oral cavity, moist, quite a few teeth in place with some decay and gum disease. NECK: Supple. LUNGS: With no obvious crackles or wheezing. HEART: S1, S2. Regular rate without murmurs. ABDOMEN: Soft, not distended or tender. No ascites. No bladder distention. No joint inflammatory activity. He has left hemiparesis, which is quite significant. Hyperreflexia on the left side. He is able to establish eye contact, but does not answer questions, not even by signs. LABORATORY DATA: White cell count was 10 and now is 12, hemoglobin 10, platelets 239 with 84% neutrophils and D-dimer 0.41. Sodium 153, ferritin 1355. CRP 15.14. Urinalysis was normal, and a chest x-ray with cardiomegaly, no infiltrates noted. ASSESSMENT: Hypertension, vascular dementia, diabetes type 2, and COVID infection without obvious areas of pneumonia at this point in time. He has some elevated inflammatory markers and we will have to continue monitoring for deterioration. He is going into the middle of the second week of illness. He has been started on Decadron. He is not eligible for antiviral treatment and I would recommend discontinuation of antimicrobial therapy. Job ID: [id number]
[2020-08-29] MEDS: Apixaban 5 MG TAB PER TUBE SCH ×3 (00:34→21:52)
[2020-08-29] MEDS: Atorvastatin Calcium 40 MG TAB PER TUBE SCH ×2 (00:35→21:52)
[2020-08-29] MEDS: Insulin Glargine 10 UNITS in Pre-Filled Syringe 1 EACH SC SCH ×2 (00:35→21:54)
[2020-08-29] MEDS: Carvedilol 6.25 MG TAB PER TUBE SCH ×3 (00:35→21:52)
[2020-08-29] MEDS: Isosorbide Dinitrate 5 MG TAB PO SCH ×3 (00:35→21:52)
[2020-08-29] MEDS: Famotidine 20 MG TAB PER TUBE SCH ×3 (00:35→21:52)
[2020-08-29] MEDS: Venlafaxine HCl 25 MG TAB PER TUBE SCH ×3 (00:36→21:53)
[2020-08-29] MEDS: levETIRAcetam 500 mg/5 ml Oral Solution PER TUBE SCH ×3 (00:36→21:51)
[2020-08-29] MEDS: Piperacillin/Tazobactam 3.375 GM in Sodium Chloride 0.9% 100 ML IVPB SCH ×2 (02:11→11:13)
[2020-08-29 05:02] LABS: #Monocytes 0.6 thou/uL (0.11-0.59); #Neutrophils 11.9 thou/uL (1.40-6.50); %Basophils 0.1 % (0.0-1.0); %Lymphocytes 7.6 % (21.0-51.0); %Monocytes 4.4 % (0.0-10.0); %Neutrophils 87.9 % (42.0-75.0); Hemoglobin 10.7 g/dL (14.0-18.0); Mean Corpuscular HGB CONC 33.2 g/dL (32.0-36.0); Mean Corpuscular Hemoglobin 30.3 pg (27.0-31.0); Mean Corpuscular Volume 91.5 fL (78.0-98.0); Mean Platelet Volume 9.1 fL (7.4-10.4); Platelet Count 250 thou/uL (130-400); RBC Distribution Width 11.6 % (11.5-14.5); Red Blood Cell (RBC) Count 3.51 mill/uL (4.70-6.10); White Blood Cell (WBC) Count 13.6 thou/uL (4.8-10.8)
[2020-08-29 05:10] LABS: Anion Gap 12 mmol/L (10-20); BUN (Urea Nitrogen) 29 mg/dL (8.4-25.7); Calc. Creatinine Clearance 107 mL/min (70-130); Calcium 9.3 mg/dL (7.8-10.44); Carbon Dioxide 34 mmol/L (22-29); Chloride 111 mmol/L (98-107); Estimated GFR-MDRD Greater than 90; Glucose 240 mg/dL (70-105); Sodium 155 mmol/L (136-145)
[2020-08-29 05:16] LABS: Potassium 2.4 mmol/L (3.5-5.1)
[2020-08-29] MEDS ORDERED: Furosemide 20 MG/2 ML VIAL SLOW IVP SCH (06:00)
[2020-08-29] MEDS: HumaLOG 300 UNITS/3 ML VIAL SC PRN ×4 (06:56→21:49)
[2020-08-29] MEDS ORDERED: Potassium Chloride 20 MEQ TAB PER TUBE SCH ×2 (08:45→18:00)
[2020-08-29] MEDS: Aspirin 81 mg Enteric Coated Tablet PER TUBE SCH (10:14)
[2020-08-29] MEDS: Thiamine 100 MG TAB PER TUBE SCH (10:14)
[2020-08-29] MEDS: Cholecalciferol 1,000 UNITS (25 MCG) TAB PER TUBE SCH (10:16)
[2020-08-29] MEDS: Saccharomyces boulardii 250 MG CAP PER TUBE SCH (10:16)
[2020-08-29] MEDS: Amlodipine 5 MG TAB PER TUBE SCH (10:17)
[2020-08-29] MEDS: Zinc Sulfate 220 MG CAP PER TUBE SCH (10:17)
[2020-08-29] MEDS: Ascorbic Acid 500 mg Chewable Tablet PER TUBE SCH (10:17)
[2020-08-29] MEDS: Lisinopril 5 MG TAB PER TUBE SCH (10:18)
--- NOTE | 2020-08-29 11:09 | PDOC.HOSPP ---
- Subjective Encounter Date: 08/29/20 Subjective: The patient was seen and examined. He had multiple bowel movements yesterday. The patient saturating well on room air today. - Objective Vital Signs & Weight: Vital Signs (12 hours) Temp Pulse Resp BP Pulse Ox 08/29/20 09:50 97.9 F 65 18 167/84 H 94 L 08/29/20 03:41 98.4 F 64 18 144/72 H 96 Weight Admit Weight 194 lb 14.4 oz Weight 194 lb 14.4 oz I&O: 08/28/20 08/29/20 08/30/20 06:59 06:59 06:59 Intake Total 474 237 Balance 474 237 Result Diagrams: 08/29/20 04:21 08/29/20 04:21 Additional Labs: Accuchecks 08/29/20 08/28/20 10:32 23:22 POC Glucose 210 H 259 H Hospitalist ROS - Medication Medications: Active Medications Generic Name Dose Route Start Last Admin Trade Name Freq PRN Reason Stop Dose Admin Amlodipine Besylate 5 mg 08/28/20 09:00 08/29/20 10:17 Amlodipine 5 Mg Tab PER TUBE 5 mg DAILY A[facility]STA Administration Apixaban 5 mg 08/28/20 09:00 08/29/20 10:19 Apixaban 5 Mg Tab PER TUBE Not Given BID ACOSTA Ascorbic Acid 1,000 mg 08/28/20 09:00 08/29/20 10:17 Ascorbic Acid 500 Mg Chewable Tablet PER TUBE 1,000 mg DAILY A[facility]STA Administration Aspirin 81 mg 08/28/20 09:00 08/29/20 10:14 Aspirin 81 Mg Enteric Coated Tablet PER TUBE 81 mg DAILY A[facility]STA Administration Atorvastatin Calcium 80 mg 08/28/20 21:00 08/29/20 00:35 Atorvastatin Calcium 40 Mg Tab PER TUBE 80 mg HS A[facility]STA Administration Carvedilol 6.25 mg 08/28/20 09:00 08/29/20 10:17 Carvedilol 6.25 Mg Tab PER TUBE 6.25 mg BID A[facility]STA Administration Cholecalciferol 2,000 units 08/29/20 09:00 08/29/20 10:16 Cholecalciferol 1,000 Units (25 Mcg) Tab PER TUBE 2,000 units DAILY [facility]STA Administration Famotidine 20 mg 08/28/20 21:00 08/29/20 10:17 Famotidine 20 Mg Tab PER TUBE 20 mg BID [facility] Administration Insulin Glargine 10 units/ 0.1 mls @ 0 mls/hr 08/28/20 21:00 08/29/20 00:35 Miscellaneous Medication SC 0.1 mls HS A[facility]STA Administration Insulin Human Lispro 0 units 08/28/20 04:04 08/29/20 06:56 Humalog 300 Units/3 Ml Vial SC 4 units .MODERATE SLIDING SC PRN Administration Moderate Correctional Scale Isosorbide Dinitrate 5 mg 08/28/20 21:00 08/29/20 10:16 Isosorbide Dinitrate 5 Mg Tab PO 5 mg BID [facility] Administration Levetiracetam 1,000 mg 08/28/20 09:00 08/29/20 10:18 Levetiracetam 500 Mg/5 Ml Oral Solution PER TUBE 1,000 mg BID [facility] Administration Lisinopril 5 mg 08/28/20 09:00 08/29/20 10:18 Lisinopril 5 Mg Tab PER TUBE 5 mg DAILY [facility] Administration Memantine 5 mg 08/28/20 09:00 08/29/20 10:17 Memantine Hcl 5 Mg Tab PER TUBE 5 mg DAILY [facility] Administration Saccharomyces Boulardii 250 mg 08/29/20 09:00 08/29/20 10:16 Saccharomyces Boulardii 250 Mg Cap PER TUBE 250 mg DAILY [facility] Administration Sodium Chloride 10 ml 08/28/20 09:00 08/29/20 00:36 Flush - Normal Saline 10 Ml Syringe IVF 10 ml Q12HR [facility] Administration Sodium Chloride 10 ml 08/28/20 01:45 08/28/20 12:15 Flush - Normal Saline 10 Ml Syringe IVF 10 ml PRN PRN Administration Saline Flush Thiamine HCl 250 mg 08/29/20 09:00 08/29/20 10:14 Thiamine 100 Mg Tab PER TUBE 250 mg DAILY [facility] Administration Venlafaxine HCl 25 mg 08/28/20 09:00 08/29/20 10:19 Venlafaxine Hcl 25 Mg Tab PER TUBE 25 mg BID [facility] Administration Zinc Sulfate 220 mg 08/28/20 09:00 08/29/20 10:17 Zinc Sulfate 220 Mg Cap PER TUBE 220 mg DAILY [facility] Administration - Exam General Appearance: awake alert ENT: normocephalic atraumatic Neck: supple, no JVD Heart: RRR Respiratory: normal chest expansion, no tachypnea Gastrointestinal: soft Neurological: cranial nerve grossly intact Hosp A/P (1) COVID-19 Code(s): U07.1 - COVID-19 Status: Acute (2) Hypernatremia Code(s): E87.0 - HYPEROSMOLALITY AND HYPERNATREMIA Status: Acute (3) PEG tube malfunction Code(s): K94.23 - GASTROSTOMY MALFUNCTION Status: Acute (4) Hypokalemia Code(s): E87.6 - HYPOKALEMIA Status: Acute (5) CAD (coronary artery disease) Code(s): I25.10 - ATHSCL HEART DISEASE OF [place] CORONARY ARTERY W/O ANG PCTRS Status: Chronic Qualifiers: Coronary Disease-Associated Artery/Lesion type: [place] artery Associated angina: without angina (6) DM2 (diabetes mellitus, type 2) Status: Chronic Qualifiers: 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 Changes dexamethasone to be administered through the PEG tube. Increase water flushes 300 mL every 4 hours and replace potassium with a total of 120 mEq throughout the day. If his condition stabilizes, we will plan to discharge him tomorrow.
[2020-08-29] MEDS: Potassium Chloride 20 MEQ in Premix Bag 1 BAG IVPB SCH ×2 (11:11→11:12)
[2020-08-29] MEDS: Dexamethasone 4 mg/ml Vial SLOW IVP SCH (11:13)
[2020-08-29 13:49] LABS: Potassium 2.9 mmol/L (3.5-5.1)
--- NOTE | 2020-08-29 14:49 | RAD ---
KUB: 08/29/[address] of the abdomen and pelvis performed 08/28/2020. FINDINGS: Gaseous distention of the bowel FINDINGS: There is a left upper quadrant gastrostomy tube. Supine imaging limits assessment for free intraperitoneal air and small bowel obstruction. There is prominent gaseous distention of the colon throughout the abdomen/pelvis, most prominent within the mid right abdomen, similar when compared to the 08/28/2020 exam. Dense stool overlies the lateral left abdomen. IMPRESSION: Prominent gaseous distention of the colon, not significantly changed when compared to rec ent CT exam.
[2020-08-30 04:26] LABS: Hemoglobin 10.4 g/dL (14.0-18.0); Platelet Count 293 thou/uL (130-400)
[2020-08-30 04:42] LABS: Anion Gap 13 mmol/L (10-20); BUN (Urea Nitrogen) 29 mg/dL (8.4-25.7); Calc. Creatinine Clearance 121 mL/min (70-130); Calcium 9.1 mg/dL (7.8-10.44); Carbon Dioxide 35 mmol/L (22-29); Chloride 107 mmol/L (98-107); Estimated GFR-MDRD Greater than 90; Glucose 213 mg/dL (70-105); Sodium 152 mmol/L (136-145)
[2020-08-30 04:53] LABS: Potassium 2.5 mmol/L (3.5-5.1)
[2020-08-30] MEDS: HumaLOG 300 UNITS/3 ML VIAL SC PRN ×3 (05:16→17:40)
[2020-08-30] MEDS ORDERED: Furosemide 20 MG TAB PER TUBE SCH (09:00)
[2020-08-30] MEDS: Amlodipine 5 MG TAB PER TUBE SCH (10:50)
[2020-08-30] MEDS: Isosorbide Dinitrate 5 MG TAB PO SCH ×2 (10:50→20:13)
[2020-08-30] MEDS: Ascorbic Acid 500 mg Chewable Tablet PER TUBE SCH (10:50)
[2020-08-30] MEDS: levETIRAcetam 500 mg/5 ml Oral Solution PER TUBE SCH ×2 (10:50→20:12)
[2020-08-30] MEDS: Famotidine 20 MG TAB PER TUBE SCH ×2 (10:51→20:13)
[2020-08-30] MEDS: Thiamine 100 MG TAB PER TUBE SCH (10:51)
[2020-08-30] MEDS: Dexamethasone 4 MG TAB PER TUBE SCH (10:52)
[2020-08-30] MEDS: Saccharomyces boulardii 250 MG CAP PER TUBE SCH (10:52)
[2020-08-30] MEDS: Aspirin 81 mg Enteric Coated Tablet PER TUBE SCH (10:52)
[2020-08-30] MEDS: Cholecalciferol 1,000 UNITS (25 MCG) TAB PER TUBE SCH (10:53)
[2020-08-30] MEDS: Zinc Sulfate 220 MG CAP PER TUBE SCH (10:53)
[2020-08-30] MEDS: Carvedilol 6.25 MG TAB PER TUBE SCH ×2 (10:53→20:13)
[2020-08-30] MEDS: Venlafaxine HCl 25 MG TAB PER TUBE SCH ×2 (10:54→20:14)
[2020-08-30] MEDS: Apixaban 5 MG TAB PER TUBE SCH ×2 (10:54→20:13)
[2020-08-30] MEDS: Lisinopril 5 MG TAB PER TUBE SCH (10:54)
[2020-08-30] MEDS: Potassium Chloride 20 MEQ TAB PER TUBE SCH ×3 (13:00→20:13)
--- NOTE | 2020-08-30 13:22 | PDOC.HOSPP ---
- Subjective Encounter Date: 08/30/20 - Objective Vital Signs & Weight: Vital Signs (12 hours) Temp Pulse Resp BP Pulse Ox 08/30/20 10:54 73 08/30/20 10:50 73 08/30/20 10:35 98.5 F 77 17 174/87 H 93 L 08/30/20 04:12 98.8 F 73 24 H 174/82 H 93 L Weight Admit Weight 194 lb 14.4 oz Weight 194 lb 14.4 oz I&O: 08/29/20 08/30/20 08/31/20 06:59 06:59 06:59 Intake Total 474 3633 1137 Balance 474 3633 1137 Result Diagrams: 08/30/20 04:09 08/30/20 04:09 Additional Labs: Accuchecks 08/30/20 08/30/20 08/29/20 10:27 01:18 16:52 POC Glucose 188 H 192 H 207 H 08/28/20 06:04 POC Glucose 276 H Hospitalist ROS - Medication Medications: Active Medications Generic Name Dose Route Start Last Admin Trade Name Alize PRN Reason Stop Dose Admin Amlodipine Besylate 5 mg 08/28/20 09:00 08/30/20 10:50 Amlodipine 5 Mg Tab PER TUBE 5 mg DAILY [facility] Administration Apixaban 5 mg 08/28/20 09:00 08/30/20 10:54 Apixaban 5 Mg Tab PER TUBE 5 mg BID [facility] Administration Ascorbic Acid 1,000 mg 08/28/20 09:00 08/30/20 10:50 Ascorbic Acid 500 Mg Chewable Tablet PER TUBE 1,000 mg DAILY [facility] Administration Aspirin 81 mg 08/28/20 09:00 08/30/20 10:52 Aspirin 81 Mg Enteric Coated Tablet PER TUBE 81 mg DAILY [facility] Administration Atorvastatin Calcium 80 mg 08/28/20 21:00 08/29/20 21:52 Atorvastatin Calcium 40 Mg Tab PER TUBE 80 mg HS [facility] Administration Carvedilol 6.25 mg 08/28/20 09:00 08/30/20 10:53 Carvedilol 6.25 Mg Tab PER TUBE 6.25 mg BID [facility] Administration Cholecalciferol 2,000 units 08/29/20 09:00 08/30/20 10:53 Cholecalciferol 1,000 Units (25 Mcg) Tab PER TUBE 2,000 units DAILY [facility] Administration Dexamethasone 6 mg 08/30/20 08:00 08/30/20 10:52 Dexamethasone 4 Mg Tab PER TUBE 6 mg QAM-WM [facility] Administration Famotidine 20 mg 08/28/20 21:00 08/30/20 10:51 Famotidine 20 Mg Tab PER TUBE 20 mg BID [facility] Administration Furosemide 20 mg 08/30/20 09:00 08/30/20 10:55 Furosemide 20 Mg Tab PER TUBE Not Given DAILY [facility] Insulin Glargine 10 units/ 0.1 mls @ 0 mls/hr 08/28/20 21:00 08/29/20 21:54 Miscellaneous Medication SC 0.1 mls HS [facility] Administration Insulin Human Lispro 0 units 08/28/20 04:04 08/30/20 11:24 Humalog 300 Units/3 Ml Vial SC 2 units .MODERATE SLIDING SC PRN Administration Moderate Correctional Scale Isosorbide Dinitrate 5 mg 08/28/20 21:00 08/30/20 10:50 Isosorbide Dinitrate 5 Mg Tab PO 5 mg BID [facility] Administration Levetiracetam 1,000 mg 08/28/20 09:00 08/30/20 10:50 Levetiracetam 500 Mg/5 Ml Oral Solution PER TUBE 1,000 mg BID [facility] Administration Lisinopril 5 mg 08/28/20 09:00 08/30/20 10:54 Lisinopril 5 Mg Tab PER TUBE 5 mg DAILY [facility] Administration Memantine 5 mg 08/28/20 09:00 08/30/20 10:52 Memantine Hcl 5 Mg Tab PER TUBE 5 mg DAILY [facility] Administration Potassium Chloride 40 meq 08/30/20 13:00 08/30/20 13:00 Potassium Chloride 20 Meq Tab PER TUBE 08/30/20 21:01 40 meq Q4HR [facility] Administration Saccharomyces Boulardii 250 mg 08/29/20 09:00 08/30/20 10:52 Saccharomyces Boulardii 250 Mg Cap PER TUBE 250 mg DAILY [facility] Administration Sodium Chloride 10 ml 08/28/20 09:00 08/30/20 10:54 Flush - Normal Saline 10 Ml Syringe IVF 10 ml Q12HR [facility] Administration Sodium Chloride 10 ml 08/28/20 01:45 08/28/20 12:15 Flush - Normal Saline 10 Ml Syringe IVF 10 ml PRN PRN Administration Saline Flush Thiamine HCl 250 mg 08/29/20 09:00 08/30/20 10:51 Thiamine 100 Mg Tab PER TUBE 250 mg DAILY [facility] Administration Venlafaxine HCl 25 mg 08/28/20 09:00 08/30/20 10:54 Venlafaxine Hcl 25 Mg Tab PER TUBE 25 mg BID [facility] Administration Zinc Sulfate 220 mg 08/28/20 09:00 08/30/20 10:53 Zinc Sulfate 220 Mg Cap PER TUBE 220 mg DAILY [facility] Administration - Exam ENT: normocephalic atraumatic, no oropharyngeal lesions Neck: supple, no JVD Respiratory: normal chest expansion, no tachypnea Gastrointestinal: soft Extremities: no cyanosis, no clubbing Neurological: cranial nerve grossly intact Hosp A/P (1) COVID-19 Code(s): U07.1 - COVID-19 Status: Acute (2) Hypernatremia Code(s): E87.0 - HYPEROSMOLALITY AND HYPERNATREMIA Status: Acute (3) PEG tube malfunction Code(s): K94.23 - GASTROSTOMY MALFUNCTION Status: Acute (4) Hypokalemia Code(s): E87.6 - HYPOKALEMIA Status: Acute (5) CAD (coronary artery disease) Code(s): I25.10 - ATHSCL HEART DISEASE OF [place] CORONARY ARTERY W/O ANG PCTRS Status: Chronic Qualifiers: Coronary Disease-Associated Artery/Lesion type: [place] artery Associated angina: without angina (6) DM2 (diabetes mellitus, type 2) Status: Chronic Qualifiers: Diabetes mellitus alf insulin use: without buttermaker use - Plan The patient saturating well on room air. Hyponatremia is improving with increased water flushes. Hypokalemia is persistent. Hold Lasix and replace potassium.
[2020-08-30] MEDS: Atorvastatin Calcium 40 MG TAB PER TUBE SCH (20:13)
[2020-08-30] MEDS: Insulin Glargine 10 UNITS in Pre-Filled Syringe 1 EACH SC SCH (20:14)
[2020-08-31] MEDS: Dexamethasone 4 MG TAB PER TUBE SCH (08:17)
[2020-08-31] MEDS: Amlodipine 5 MG TAB PER TUBE SCH (08:18)
[2020-08-31] MEDS: Apixaban 5 MG TAB PER TUBE SCH (08:18)
[2020-08-31] MEDS: Cholecalciferol 1,000 UNITS (25 MCG) TAB PER TUBE SCH (08:19)
[2020-08-31] MEDS: Carvedilol 6.25 MG TAB PER TUBE SCH (08:19)
[2020-08-31] MEDS: Aspirin 81 mg Enteric Coated Tablet PER TUBE SCH (08:19)
[2020-08-31] MEDS: Ascorbic Acid 500 mg Chewable Tablet PER TUBE SCH (08:19)
[2020-08-31] MEDS: Saccharomyces boulardii 250 MG CAP PER TUBE SCH (08:20)
[2020-08-31] MEDS: Isosorbide Dinitrate 5 MG TAB PO SCH (08:20)
[2020-08-31] MEDS: Lisinopril 5 MG TAB PER TUBE SCH (08:20)
[2020-08-31] MEDS: levETIRAcetam 500 mg/5 ml Oral Solution PER TUBE SCH (08:20)
[2020-08-31] MEDS: Famotidine 20 MG TAB PER TUBE SCH (08:20)
[2020-08-31] MEDS: Thiamine 100 MG TAB PER TUBE SCH (08:21)
[2020-08-31] MEDS: Venlafaxine HCl 25 MG TAB PER TUBE SCH (08:21)
[2020-08-31] MEDS: Zinc Sulfate 220 MG CAP PER TUBE SCH (08:21)
[2020-08-31 09:55] LABS: Anion Gap 14 mmol/L (10-20); BUN (Urea Nitrogen) 24 mg/dL (8.4-25.7); Calc. Creatinine Clearance 118 mL/min (70-130); Calcium 8.9 mg/dL (7.8-10.44); Carbon Dioxide 31 mmol/L (22-29); Chloride 107 mmol/L (98-107); Estimated GFR-MDRD Greater than 90; Glucose 289 mg/dL (70-105); Potassium 3.4 mmol/L (3.5-5.1); Sodium 149 mmol/L (136-145)
[2020-08-31 10:21] LABS: Hemoglobin 10.7 g/dL (14.0-18.0); Mean Corpuscular HGB CONC 30.8 g/dL (32.0-36.0); Mean Corpuscular Hemoglobin 29.1 pg (27.0-31.0); Mean Corpuscular Volume 94.6 fL (78.0-98.0); Mean Platelet Volume 9.4 fL (7.4-10.4); Platelet Count 289 thou/uL (130-400); RBC Distribution Width 11.8 % (11.5-14.5); Red Blood Cell (RBC) Count 3.68 mill/uL (4.70-6.10); White Blood Cell (WBC) Count 14.2 thou/uL (4.8-10.8)
[2020-08-31 11:12] LABS: Band 1 % (5-11); Lymphocytes 7 % (21-51); Monocytes 7 % (0-10); Neutrophil 85 % (42-75); Platelet Morphology Comment Appears Adequate; Polychromasia SLIGHT = 2-3 cells (100X) (0-2/hpf)
[2020-08-31 11:13] LABS: MDiff Complete? YES
[2020-08-31] MEDS: HumaLOG 300 UNITS/3 ML VIAL SC PRN (18:12)
[2020-08-31 19:30] VITALS: BP 173/86; TEMP 99
--- NOTE | 2020-09-01 01:22 | DIS ---
DATE OF ADMISSION: 08/29/2020 DATE OF DISCHARGE: 08/31/2020 DISCHARGE DIAGNOSIS: 1. Coronavirus disease 2019 infection. 2. Hypernatremia. 3. Dehydration. 4. Hypokalemia. 5. PEG tube malfunction. 6. Coronary artery disease. 7. Diabetes mellitus type 2. DISCHARGE MEDICATIONS: The patient will continue his home medications. DISCHARGE INSTRUCTIONS: The patient will require at least 1500 mL of water flushes a day, divided evenly throughout the day. HISTORY OF PRESENT ILLNESS AND HOSPITAL COURSE: The patient is a 60-year-old male with past medical history of CVA with residual left-sided weakness; coronary artery disease; dementia; hypertension; hyperlipidemia; epilepsy; and DVT, on Eliquis, who was known to be COVID-19 positive and was sent to the hospital from his alf resident due to increased oxygen requirement and concerns for absent bowel sounds. The patient was found to be hypokalemic and hypernatremic. His PEG tube was checked by GI and was found to be functioning correctly. The patient was managed with supplemental oxygen and was hydrated through the PEG tube by increasing water flushes. He did have multiple bowel movements and his abdominal distention improved with correction of the hypokalemia, which was likely causing some degree of ileus. The patient's hypoxia was resolved within 48 hours. He was managed with Decadron during his hospital stay. At this time, he is stable for discharge back to the nursing facility. We recommend rechecking potassium level in 48 hours and replace as needed. Job ID: [id number]
--- NOTE | 2020-09-02 16:41 | EKG ---
Test Reason : Blood Pressure : / mmHG Vent. Rate : 075 BPM Atrial Rate : 075 BPM P-R Int : 160 ms QRS Dur : 102 ms QT Int : 426 ms P-R-T Axes : 020 -23 -72 degrees QTc Int : 475 ms Normal sinus rhythm Prolonged QT Abnormal ECG Confirmed by MICHAEL MCKENZIE MD ([id number]), editorial specialist PING ARMAS ([id number]) on 09/02/2020 4:41:23 PM Referred By: Confirmed By:MICHAEL MCKENZIE MD
== END 2020-08-31 20:50 | DRG 177 ==
LOC: ERS 20:24 → 2SW 08-28 01:38 → ERS 08-28 01:39 → 2SW 08-28 01:39 → OBSVTOIN 08-29 10:22
PROVIDERS: ADMIT Internal Medicine; ATTEND Internal Medicine
DX: U07.1 COVID-19 (principal); J69.0 Pneumonitis due to inhalation of food and vomit; I69.354 Hemiplegia and hemiparesis following cerebral infarction affecting left non-dominant side; E87.0 Hyperosmolality and hypernatremia; K94.23 Gastrostomy malfunction; K56.7 Ileus, unspecified; E11.9 Type 2 diabetes mellitus without complications; I25.10 Atherosclerotic heart disease of native coronary artery without angina pectoris; K21.9 Gastro-esophageal reflux disease without esophagitis; F01.50 Vascular dementia, unspecified severity, without behavioral disturbance, psychotic disturbance, mood disturbance, and anxiety; E78.5 Hyperlipidemia, unspecified; E87.6 Hypokalemia; G40.909 Epilepsy, unspecified, not intractable, without status epilepticus; I10 Essential (primary) hypertension; Z86.718 Personal history of other venous thrombosis and embolism; I25.2 Old myocardial infarction; Z79.82 Long term (current) use of aspirin; Z79.899 Other long term (current) drug therapy; Z79.01 Long term (current) use of anticoagulants; Z86.711 Personal history of pulmonary embolism; E86.0 Dehydration
CPT/HCPCS: 36415; 36416; 36600; 51701; 71045; 74018; 74176; 80048; 80053; 81003; 81015; 82728; 83690; 83735; 84145; 85007; 85014; 85018; 85025; 85027; 85049; 85379; 86140; 87635; 93005; 96365; 96366; 96375; G0378; J1100; J1815; J1940; J2543; J3480; J3490; J7050; J7120; J8540; U0003

== ENCOUNTER 2020-09-04 03:19 | Inpatient (IN) | payer MEDICARE, MEDICAID ==
[2020-09-04 04:37] LABS: Hemoglobin 10.9 g/dL (14.0-18.0); Mean Corpuscular HGB CONC 32.2 g/dL (32.0-36.0); Mean Corpuscular Volume 93.1 fL (78.0-98.0); Mean Platelet Volume 9.4 fL (7.4-10.4); Platelet Count 388 thou/uL (130-400); RBC Distribution Width 13.6 % (11.5-14.5); Red Blood Cell (RBC) Count 3.65 mill/uL (4.70-6.10); White Blood Cell (WBC) Count 13.3 thou/uL (4.8-10.8)
[2020-09-04 04:44] LABS: ALT (SGPT) 26 U/L (8-55); AST (SGOT) 21 U/L (5-34); Albumin 3.2 g/dL (3.5-5.0); Alkaline Phosphatase 85 U/L (40-110); BUN (Urea Nitrogen) 26 mg/dL (8.4-25.7); Bilirubin, Total 1.2 mg/dL (0.2-1.2); Calc. Creatinine Clearance 0 mL/min (70-130); Calcium 8.9 mg/dL (7.8-10.44); Estimated GFR-MDRD 67; Globulin 4.3 g/dL (2.4-3.5); Glucose 485 mg/dL (70-105); Protein, Total 7.5 g/dL (6.0-8.3)
[2020-09-04 04:50] LABS: Chloride 107 mmol/L (98-107); Potassium 2.5 mmol/L (3.5-5.1)
[2020-09-04 04:53] LABS: Anion Gap 17 mmol/L (10-20); Carbon Dioxide 34 mmol/L (22-29); Sodium 155 mmol/L (136-145)
[2020-09-04] MEDS ORDERED: Aspirin Chewable 81 MG TAB ONE (05:00)
[2020-09-04 05:06] LABS: CKMB 1.5 ng/mL (0-6.6)
[2020-09-04 05:10] LABS: RBC Morphology Normal
[2020-09-04 05:11] LABS: #Eosinphils 0.1 thou/uL (0.0-0.7); #Lymphocytes 1.6 thou/uL (1.20-3.40); #Monocytes 0.9 thou/uL (0.11-0.59); #Neutrophils 10.6 thou/uL (1.40-6.50); %Basophils 0.4 % (0.0-1.0); %Eosinophils 0.9 % (0.0-10.0); %Lymphocytes 12.3 % (21.0-51.0); %Monocytes 6.5 % (0.0-10.0); %Neutrophils 79.9 % (42.0-75.0)
--- NOTE | 2020-09-04 07:39 | CT ---
PRELIMINARY REPORT/[facility]/EMERGENCY AFTER HOURS PROCEDURE EXAM: CTA Chest with Intravenous Contrast CT Abdomen and Pelvis with Intravenous Contrast. CLINICAL HISTORY: PT COMING FROM LOCATED [facility]IN [facility] COMPLAINING OF SOB. PT BREATHING 18 PER MIN. THIS IS CTA THX AND VENOUS ABD/PEL TECHNIQUE: Axial CTA images of the chest, CT images of the abdomen and pelvis with intravenous contrast. Three-d imensional MIP/volume rendered reformations were performed. CONTRAST: With; ISOVUE 370,100mL COMPARISON: None provided. FINDINGS: CTA CHEST : Pulmonary arteries: The pulmonary arteries are adequately opacified. No pulmonary embolism. Lungs: There are moderately extensive patchy peripheral groundglass airspace opacities within both upper and lower lobes and lingula with mild involvement of the right middle lobe. There is bibasilar linear atelectasis or scarring. Pleural spaces: No pleural effusion. No pneumothorax. Heart and mediastinum: No cardiomegaly. No significant pericardial effusion. Calcified coronary atherosclerosis is seen. Aorta: No acute finding. No aortic aneurysm. CT ABDOMEN: Liver: Unremarkable. No mass. Gallbladder and bile ducts: No calcified stone. No ductal dilation. Pancreas: Unremarkable. No ductal dilation. Spleen: Unremarkable. Adrenals: No mass. Kidneys and ureters: The kidneys enhance symmetrically. No hydronephrosis. No solid mass. There is a 2.3 cm cyst with the mid to inferior aspect of the right kidney. Stomach and bowel: No obstruction. No bowel wall thickening. No CT evidence of acute diverticulitis. PEG tube noted in place. Appendix: No CT evidence for appendicitis. CT PELVIS: Bladder: Unremarkable. Reproductive: Unremarkable as visualized. Peritoneum: No free fluid. No free air. Lymph nodes: No lymphadenopathy. Bones and soft tissues: No acute osseous abnormality. The soft tissues are unremarkable. Extensive lumbosacral degenerative changes are seen from L3-S1. IMPRESSION: 1. Moderately extensive patchy airspace disease within both lungs, suspect typical or atypical infec tion. Highly suspicious for COVID19 pneumonia. 2. No CT evidence of acute abdominal or pelvic process. ELECTRONICALLY SIGNED BY: Joseph Hoff MD Sep 04, 2020 6:02:29 AM [employer]BOR[employer] OPERATIONS SUPERINTENDENT This report is intended for review by the ordering physician only, in accordance of law. If you recei ve this report in error, please call [facility] at [phone]. FINAL REPORT Exam: CT angiogram of the chest HISTORY: Shortness of breath. Tachypnea. COMPARISON: 06/08/2019 TECHNIQUE: CT angiogram of the chest is performed in the axial plane. Three-dimensional reformatted i mages are submitted for interpretation FINDINGS: Mediastinum: No mass, lymphadenopathy or hematoma. HEART: Normal size. No significant pericardial fluid. Aorta: No aneurysm or dissection Upper solid abdominal viscera: No abnormality enhancement. Pleural spaces: No effusion Esophagus: There appears be an air-fluid level in the proximal thoracic esophagus. Trachea and central bronchi: There is debris in the trachea with what appears to be a possible air-fl uid level. Lung parenchyma: Peripheral groundglass opacities. Stable scarring and atelectasis in the lower lobes . Pneumothorax: None Osseous structures: No lytic or blastic lesions Pulmonary arteries: Adequate contrast opacification pulmonary arterial system to the level of segment al arteries. No filling defect to suggest pulmonary embolism IMPRESSION: 1. This report is in disagreement with initial report by [facility]. 2. Peripheral groundglass opacities throughout the lung parenchyma. Evaluate for COVID pneumonia. 3. No evidence of pulmonary artery embolism to the level of the segmental arteries. 4. Possible air-fluid level/debris in the trachea, incompletely evaluated. Direct visualization is re commended. Results of study discussed with Dr. Nesbitt 09/04/2020 at 7:37 AM Code CR Code QD Transcribed Date/Time: 09/04/2020 7:44 AM
[2020-09-04 07:50] LABS: Troponin I 0.129 ng/mL (< 0.028)
--- NOTE | 2020-09-04 07:53 | CT ---
PRELIMINARY REPORT/[facility]/EMERGENCY AFTER HOURS PROCEDURE: EXAM: CTA Chest with Intravenous Contrast CT Abdomen and Pelvis with Intravenous Contrast. CLINICAL HISTORY: PT COMING FROM [facility] COMPLAINING OF SOB. PT BREATHING 18 PER MIN. THIS IS CTA THX AND VENOUS ABD/PEL TECHNIQUE: Axial CTA images of the chest, CT images of the abdomen and pelvis with intravenous contrast. Three-d imensional MIP/volume rendered reformations were performed. CONTRAST: With; ISOVUE 370,100mL COMPARISON: None provided. FINDINGS: CTA CHEST : Pulmonary arteries: The pulmonary arteries are adequately opacified. No pulmonary embolism. Lungs: There are moderately extensive patchy peripheral groundglass airspace opacities within both upper and lower lobes and lingula with mild involvement of the right middle lobe. There is bibasilar linear atelectasis or scarring. Pleural spaces: No pleural effusion. No pneumothorax. Heart and mediastinum: No cardiomegaly. No significant pericardial effusion. Calcified coronary atherosclerosis is seen. Aorta: No acute finding. No aortic aneurysm. CT ABDOMEN: Liver: Unremarkable. No mass. Gallbladder and bile ducts: No calcified stone. No ductal dilation. Pancreas: Unremarkable. No ductal dilation. Spleen: Unremarkable. Adrenals: No mass. Kidneys and ureters: The kidneys enhance symmetrically. No hydronephrosis. No solid mass. There is a 2.3 cm cyst with the mid to inferior aspect of the right kidney. Stomach and bowel: No obstruction. No bowel wall thickening. No CT evidence of acute diverticulitis. PEG tube noted in place. Appendix: No CT evidence for appendicitis. CT PELVIS: Bladder: Unremarkable. Reproductive: Unremarkable as visualized. Peritoneum: No free fluid. No free air. Lymph nodes: No lymphadenopathy. Bones and soft tissues: No acute osseous abnormality. The soft tissues are unremarkable. Extensive lumbosacral degenerative changes are seen from L3-S1. IMPRESSION: 1. Moderately extensive patchy airspace disease within both lungs, suspect typical or atypical infec tion. Highly suspicious for COVID19 pneumonia. 2. No CT evidence of acute abdominal or pelvic process. ELECTRONICALLY SIGNED BY: Joseph Hoff MD Sep 04, 2020 6:02:29 AM CRACKING STILL OPERATOR This report is intended for review by the ordering physician only, in accordance of law. If you recei ve this report in error, please call [facility] at [phone]. FINAL REPORT EMERGENCY AFTER HOURS CT ABDOMEN AND PELVIS WITH CONTRAST: FINDINGS/IMPRESSION: I agree with the findings and impression given in the preliminary report per [facility] physici an. 1. There are patchy areas of air space opacity in the lung bases consistent with COVID pneumonia. 2. No evidence of acute intra-abdominal/pelvic abnormality. 3. Right renal cyst. POS: EAA
--- NOTE | 2020-09-04 07:59 | RAD ---
RADIOGRAPH CHEST 1 VIEW: DATE: 09/04/2020 TIME: 3:51 AM HISTORY: 60-year-old male with dyspnea COMPARISON: 08/27/2020 FINDINGS: New finding of bilateral patchy mild to moderate scattered peripheral and central infiltrates. Cardio megaly. No pneumothorax. IMPRESSION: Multifocal scattered patchy bilateral infiltrates: Suspicious for COVID-19 pneumonia.
[2020-09-04] MEDS ORDERED: Sodium Chloride 0.9% 1,000 ML IV SCH (08:00)
[2020-09-04] MEDS ORDERED: Ondansetron PF 4 MG/2 ML Vial IVP PRN (08:59)
[2020-09-04] MEDS ORDERED: Iopamidol 370 76% 100 ML VIAL ONE (09:03)
[2020-09-04] MEDS ORDERED: Polyvinyl Alcohol 1.4%/Povidone 0.6% Opth Drops EA EYE PRN (09:05)
[2020-09-04] MEDS ORDERED: Dextrose 50% Abboject 50 ML SYRINGE SLOW IVP PRN (09:11)
[2020-09-04] MEDS ORDERED: Dextrose 5% in Water 1,000 ML IV PRN (09:11)
[2020-09-04] MEDS ORDERED: Potassium Chloride 40 MEQ in Premix Bag 1 BAG IVPB SCH (09:15)
[2020-09-04] MEDS ORDERED: Sodium Chloride 0.45% 1,000 ML IV SCH (09:15)
--- NOTE | 2020-09-04 09:22 | PDOC.HHP ---
Hospitalist HPI - History of Present Illness Increased work of breathing History of Present Illness: PCP: [facility] resident The patient is a 60-year-old male with a past medical history significant for CVA with left-sided hemiplegia, dysphagia and aphasia, DVT (on Eliquis), RI, HTN, HLD, DM type II, epilepsy, GERD and unspecified dementia that presents to the emergency department via EMS for the above complaint. The patient is aphasic, so he is able to nod his head yes/no to most questions. Most of the H&P was taken from ER documentation and nursing notes. The patient was recently discharged from our hospital on 08/31/2020, with a diagnosis of COVID-19 infection along with hypernatremia and hypokalemia thought to be from dehydration. The patient was discharged back to [facility] and has been in his usual state of health. Apparently last night, nursing staff felt that the patient's work of breathing was increased. EMS was called and the patient was brought to the emergency department. There is no documentation of any fever. No documentation of any wheezing or cough. No documentation of any abdominal pain, nausea, vomiting, diarrhea. No documentation of any chest pain, heart palpitations or lightheadedness. ED Course: Patient presented temperature 100, BP 147/93, HR 92, RR 15, SPO2 92% on room air.Improved 96% on 2 LNC. EKG normal sinus rhythm, 93 bpm. CXR consistent for Covid. CTA chest positive for moderately extensive patchy airspace disease within both lungs, highly suspicious for COVID-[address] abdomen pelvis negative for any acute process. WBCs 13.3, lymphocytopenia. Sodium 155, potassium 2.5, glucose 485. Medication ministration: K-Dur 60 mEq x 1 dose Aspirin 324 mg 1 L normal saline Hospitalist ROS - Review of Systems ROS unobtainable: due to mental status All other systems reviewed; all pertinent +/- noted in HPI/Subj - Medication Medications: 1. Acetaminophen 650 mg per tube every 4 hours as needed 2. Zofran ODT 4 mg per tube every 6 hours as needed. 3. Lisinopril 5 mg per tube daily 4. Amlodipine 5 mg per tube daily 5. Eliquis 5 mg per tube twice daily 6. Artificial tears 1 drop each eye twice daily 7. Aspirin 81 mg per tube daily 8. Atorvastatin 80 mg per tube at bedtime 9. Carvedilol 6.25 mg per tube twice daily 10. Famotidine 20 mg per tube twice daily 11. Isordil 5 mg per 2 twice daily 12. Keppra oral solution 10 mils per tube twice daily 13. Namenda 5 mg per tube daily 14. Florastor 250 mg per tube daily 15. Thiamine 250 mg per tube daily 16. Effexor 25 mg per tube twice daily Allergies: NKDA Hospitalist History - Past Medical History Source: patient, RN notes reviewed, [facility] record Cardiac: reports: CAD, HTN, RI, Hyperlipidemia Pulmonary: reports: deep vein thrombosis (On Eliquis) [employer]: reports: CVA (Left-sided hemiparesis, dysphagia, aphasia), Dementia (Unspecified), Seizure (Epilepsy) Gastrointestinal: reports: GERD Heme/Onc: reports: Anemia NOS Hepatobiliary: reports: no pertinent history Psych: reports: no pertinent history Musculoskeletal: reports: no pertinent history Rheumatologic: reports: no pertinent history Renal/: reports: no pertinent history Endocrine: reports: Diabetes (Type II) Dermatology: reports: no pertinent history - Family History Other Family History: Noncontributory to this case - Social History Smoking Status: Unknown if ever smoked Alcohol: reports: None Drugs: reports: none Living Situation: Custodial Occupation: Does not work, disabled Activity level: wheelchair bound - Exam General Appearance: NAD, awake alert. negative: ill appearing General - other findings: Nods head yes/no, aphasic Eye: PERRL, anicteric sclera ENT: normocephalic atraumatic Neck: supple, symmetric, no JVD Heart: RRR, no murmur, no gallops, no rubs, normal peripheral pulses Respiratory: normal chest expansion, no tachypnea, rhonchi. negative: wheezes Gastrointestinal: soft, non-tender, normal bowel sounds, no bruit, no guarding, no rigidity Extremities: no cyanosis Skin: no rashes Neurological: no new deficit, hemiplegia (Left hemiplegia, baseline), speech d eficit (Expressive aphasia, baseline) Musculoskeletal: generalized weakness Psychiatric - other findings: Alert, nods yes no Hospitalist Results - Labs Result Diagrams: 09/04/20 04:04 09/04/20 14:04 Lab results: WBC 13.3 thou/uL (4.8-10.8) H 09/04/20 04:04 Hgb 10.9 g/dL (14.0-18.0) L 09/04/20 04:04 Hct 34.0 % (42.0-52.0) L 09/04/20 04:04 MCV 93.1 fL (78.0-98.0) 09/04/20 04:04 Plt Count 388 thou/uL (130-400) 09/04/20 04:04 Neutrophils % 79.9 % (42.0-75.0) H 09/04/20 04:04 Sodium 155 mmol/L (136-145) H 09/04/20 04:04 Potassium 2.5 mmol/L (3.5-5.1) L* 09/04/20 04:04 Chloride 107 mmol/L (98-107) 09/04/20 04:04 Carbon Dioxide 34 mmol/L (22-29) H 09/04/20 04:04 BUN 26 mg/dL (8.4-25.7) H 09/04/20 04:04 Creatinine 1.33 mg/dL (0.7-1.3) H 09/04/20 04:04 Glucose 485 mg/dL (70-105) H 09/04/20 04:04 Calcium 8.9 mg/dL (7.8-10.44) 09/04/20 04:04 Total Bilirubin 1.2 mg/dL (0.2-1.2) 09/04/20 04:04 AST 21 U/L (5-34) 09/04/20 04:04 ALT 26 U/L (8-55) 09/04/20 04:04 Alkaline Phosphatase 85 U/L (40-110) 09/04/20 04:04 CK-MB (CK-2) 1.5 ng/mL (0-6.6) 09/04/20 04:04 Troponin I 0.129 ng/mL (< 0.028) H 09/04/20 07:06 B-Natriuretic Peptide 194.3 pg/mL (0-100) H 09/04/20 04:04 Serum Total Protein 7.5 g/dL (6.0-8.3) 09/04/20 04:04 Albumin 3.2 g/dL (3.5-5.0) L 09/04/20 04:04 - EKG Interpretation EKG: Normal sinus rhythm, 93 bpm - Radiology Interpretation Chest x-ray Status: report reviewed by me Additional Comment: Multifocal scattered patchy bilateral infiltrates, suspicious for COVID-[address] scan - chest Status: report reviewed by me Additional Comment: 1. This report is in disagreement with initial report by direct radiology. 2. Peripheral groundglass opacities throughout the lung parenchyma. Evaluate for Covid pneumonia. 3. No evidence of pulmonary artery embolism to the level of the segmental arteries. 4. Possible air-fluid level/debris in the trachea, incompletely evaluated. Direct visualization is recommended. CT scan - abdomen Status: report reviewed by me Additional Comment: 1. Moderately extensive patchy airspace disease within both lungs, suspected typical or atypical infection. Highly suspicious for COVID-[address] evidence of acute abdominal or pelvic process. Hospitalist H&P A/P - Problem (1) Pneumonia due to COVID-19 virus Code(s): U07.1 - COVID-19; J12.89 - OTHER VIRAL PNEUMONIA Status: Acute (2) Dysphagia Code(s): R13.10 - DYSPHAGIA, UNSPECIFIED Status: Chronic (3) Elevated troponin Code(s): R77.8 - OTHER SPECIFIED ABNORMALITIES OF PLASMA PROTEINS Status: Acute (4) PRAMOD (acute kidney injury) Code(s): N17.9 - ACUTE KIDNEY FAILURE, UNSPECIFIED Status: Acute (5) Hypernatremia Code(s): E87.0 - HYPEROSMOLALITY AND HYPERNATREMIA Status: Acute (6) Hypokalemia Code(s): E87.6 - HYPOKALEMIA Status: Acute (7) Diarrhea Code(s): R19.7 - DIARRHEA, UNSPECIFIED Status: Acute (8) CVA (cerebral vascular accident) Code(s): I63.9 - CEREBRAL INFARCTION, UNSPECIFIED Status: Chronic (9) DVT (deep venous thrombosis) Code(s): I82.409 - ACUTE EMBOLISM AND THOMBOS UNSP DEEP VN UNSP LOWER EXTREMITY Status: Chronic (10) HTN (hypertension) Code(s): I10 - ESSENTIAL (PRIMARY) HYPERTENSION Status: Chronic (11) HLD (hyperlipidemia) Code(s): E78.5 - HYPERLIPIDEMIA, UNSPECIFIED Status: Chronic (12) DM2 (diabetes mellitus, type 2) Status: Chronic (13) Epilepsy Code(s): G40.909 - EPILEPSY, UNSP, NOT INTRACTABLE, WITHOUT STATUS EPILEPTICUS Status: Chronic - Plan Plan: 60/M with PMH recent Covid 19 infection presents for increased work of breathing. Presented tachycardic, mildly hypoxic, with NL temperature, BP, RR. EKG NSR, no ST elevations. Troponin 0.134, 0.129, BNP 194 CXR positive Covid pneumonia. CTA chest consistent for Covid 19 pneumonia infection. Incidental finding, possible air fluid level/debris in the trachea. CT abdomen pelvis no acute process. Sodium 155, potassium 2.5, glucose 485. WBC 13.3, lymphocytopenia #Pneumonia due to COVID-19 virus Appears stable. Upon assessment, no respiratory distress on 2 L nasal cannula. WBC improved from previous discharge, 14.2 down to 13.3. Check baseline acute phase reactants. Isolation precautions. Patient anticoagulated on Eliquis home medication. #Dysphagia Concern for aspiration PNA, will start Unasyn IVPB. Air-fluid level/debris (incidental finding on CT) Recommend direct visualization follow-up. Consult Pulmonary. #Elevated troponin EKG NSR, no ST elevations Likely demand ischemia 0.134, 0.129baseline appears to be 0.013. Trend troponins. Continue aspirin and statin home medication. #PRAMOD Presented creatinine 1.33, was 0.84 on 08/31/2020. Likely due to dehydration. Start half-normal saline IV fluid resuscitation. #Hypernatremia Presented sodium 155, corrected for elevated glucose 160. Continue IV fluid resuscitation with 1/2 NS Follow-up BMP. #Hypokalemia Presented potassium 2.5. Given K-Dur 60 mEq in ED. We will give 40 mEq IVPB. Check magnesium level. Follow-up BMP. #Diarrhea Mucoid stool per nursing, suspicious for C. Diff infection. Check stool for C diff. enteric precautions. #CVA Chronic, stable. #DVT Chronic, stable. On Eliquis. #HTN Restart home medications when reconciled by nursing. We will hold home dose of lisinopril. #HLD Restart home dose of statin. #DM2 Moderate ISS. Accu-Cheks every 6 hours. #Epilepsy Chronic, stable. Restart home dose of Keppra. No DVT prophylaxis. Pepcid for GI prophylaxis. Full code. Discussed the case with Dr. Bass.
[2020-09-04] MEDS ORDERED: Acetaminophen 650 MG/20.3 ML UDCUP PER TUBE PRN (09:50)
[2020-09-04] MEDS: HumaLOG 300 UNITS/3 ML VIAL SC PRN ×3 (11:30→18:23)
[2020-09-04 11:51] LABS: Troponin I 0.099 ng/mL (< 0.028)
[2020-09-04] MEDS ORDERED: Ampicillin/Sulbactam 1.5 GM in Sodium Chloride 0.9% 100 ML IVPB SCH (12:00)
[2020-09-04 12:03] LABS: BUN (Urea Nitrogen) 25 mg/dL (8.4-25.7); Calc. Creatinine Clearance 0 mL/min (70-130); Estimated GFR-MDRD 71; Glucose 441 mg/dL (70-105)
[2020-09-04 12:24] LABS: CRP (Inflammatory) 0.98 mg/dL (= or < 0.5); Magnesium 2.6 mg/dL (1.6-2.6)
[2020-09-04 12:30] LABS: Anion Gap 19 mmol/L (10-20); Carbon Dioxide 32 mmol/L (22-29); Chloride 110 mmol/L (98-107); Sodium 158 mmol/L (136-145)
[2020-09-04] MEDS ORDERED: FLU VACC QS2020-21(6MOS UP)/PF 60 MCG/0.5 ML SYRINGE IM ONE (12:45)
[2020-09-04] MEDS ORDERED: Potassium Chloride 40 MEQ in Sodium Chloride 0.9% 250 ML 250 ML IVPB SCH (12:45)
[2020-09-04 13:36] LABS: Bacteria/HPF None Seen HPF (None Seen); Bilirubin Negative (Negative); Blood, Urine Negative (Negative); Clarity Clear (Clear); Glucose, Urine (Dipstick) Greater than 1000 mg/dL (Negative); Ketone, Urine Negative (Negative); Leukocyte Negative Leu/uL (Negative); Nitrite Negative (Negative); Protein, Urine (Dipstick) 20 mg/dL (Neg-Trace); RBC/HPF 0-3 HPF (0-3); Squamous Epithelial None Seen HPF (0-3); Urobilinogen Normal mg/dL (Less than 2); WBC/HPF 0-3 HPF (0-3)
[2020-09-04] MEDS ORDERED: D5 1/2 NS w/10 mEq KCl 1,000 ML/1,000 ML BAG IV SCH (13:45)
[2020-09-04] MEDS: Sodium Chloride 0.45% 1,000 ML IV SCH (14:34)
--- NOTE | 2020-09-04 14:56 | CON ---
DATE OF CONSULTATION: 09/04/2020 REASON FOR CONSULTATION: Tracheal secretions. HISTORY OF PRESENT ILLNESS: The patient is a 60-year-old male, who was brought into the hospitalist group for continued treatment of COVID-19 infection. I think he was diagnosed on 08/28/2020. He is yet to be hypoxic. It is not clear to me why he was readmitted. CT scan was obtained showing some density in this posterior trachea and I have been asked to evaluate him for that. The patient has had a stroke in the past and it is very difficult to understand his speech or if he understands what I am saying. PAST MEDICAL HISTORY: 1. Stroke. 2. Coronary artery disease. 3. Myocardial infarction. 4. Hypertension. 5. Hyperlipidemia. 6. DVT. 7. Seizure disorder. 8. Gastroesophageal reflux. 9. Diabetes mellitus type 2. ALLERGIES: NONE. SOCIAL HISTORY: Unclear. MEDICATIONS: Prior to admission, reviewed. See history and physical. Of note, the patient was taking Eliquis at the time of admission. REVIEW OF SYSTEMS: Not obtainable secondary to the patient's aphasia. PHYSICAL EXAMINATION: VITAL SIGNS: At the time of this dictation, there are no current vital signs on his record, but history and physical indicates his O2 saturation was 92% on room air. His temperature is 100.0, blood pressure is 147/93. GENERAL: He is a middle-aged male, who is in no distress. HEENT: Unremarkable. NECK: No JVD. LUNGS: Fairly clear breath sounds. CARDIAC: S1 and S2. Regular. ABDOMEN: Soft. EXTREMITIES: No edema. He has hemiparesis in the left side. LABORATORY DATA: White blood cell count 13, hematocrit 34, and platelet count 388. D-dimer 1.28. Sodium 158, potassium 3, chloride 110, CO2 of 32, BUN 25, creatinine 1.2, glucose 441. Ferritin 616. C-reactive protein 0.98. I reviewed the CT scan personally. ASSESSMENT: 1. Density in trachea - likely secretions due to COVID-19 pneumonia versus secretions due to chronic aspiration. 2. COVID-19 pneumonia. RECOMMENDATIONS: In this situation, there is really no benefit from bronchoscopy. That would put the physician and OR personnel in danger situation . I would recommend treating his COVID pneumonia with steroids and continue his anticoagulation, any type of bronchoscopic procedures would be reserved to be performed in the situation only if the patient got worse and ended up intubated. Please call with additional questions. Job ID: [id number]
[2020-09-04 14:57] LABS: Anion Gap 12 mmol/L (10-20); BUN (Urea Nitrogen) 24 mg/dL (8.4-25.7); Calc. Creatinine Clearance 90 mL/min (70-130); Carbon Dioxide 37 mmol/L (22-29); Chloride 112 mmol/L (98-107); Estimated GFR-MDRD 80; Glucose 368 mg/dL (70-105); Potassium 3.3 mmol/L (3.5-5.1); Sodium 158 mmol/L (136-145)
[2020-09-04] MEDS ORDERED: Isosorbide Dinitrate 5 MG TAB PO SCH (21:00)
[2020-09-04] MEDS: Atorvastatin Calcium 40 MG TAB PER TUBE SCH (21:12)
[2020-09-04] MEDS: Famotidine 20 MG TAB PER TUBE SCH (21:12)
[2020-09-04] MEDS: Carvedilol 6.25 MG TAB PER TUBE SCH (21:12)
[2020-09-04] MEDS: Ampicillin/Sulbactam 1.5 GM in Sodium Chloride 0.9% 100 ML IVPB SCH (21:12)
[2020-09-04] MEDS: Apixaban 5 MG TAB PER TUBE SCH (21:13)
[2020-09-04] MEDS: Venlafaxine HCl 25 MG TAB PER TUBE SCH (21:13)
[2020-09-04] MEDS: levETIRAcetam 500 mg/5 ml Oral Solution PER TUBE SCH (21:13)
[2020-09-05] MEDS: Ampicillin/Sulbactam 1.5 GM in Sodium Chloride 0.9% 100 ML IVPB SCH ×4 (03:37→22:11)
[2020-09-05 05:29] LABS: Anion Gap 13 mmol/L (10-20); BUN (Urea Nitrogen) 29 mg/dL (8.4-25.7); Calc. Creatinine Clearance 97 mL/min (70-130); Calcium 9.1 mg/dL (7.8-10.44); Carbon Dioxide 34 mmol/L (22-29); Chloride 114 mmol/L (98-107); Estimated GFR-MDRD 87; Glucose 312 mg/dL (70-105); Sodium 158 mmol/L (136-145)
[2020-09-05 05:56] LABS: #Basophils 0.1 thou/uL (0.0-0.2); #Eosinphils 0.2 thou/uL (0.0-0.7); #Lymphocytes 2.1 thou/uL (1.20-3.40); #Monocytes 0.9 thou/uL (0.11-0.59); #Neutrophils 12.1 thou/uL (1.40-6.50); %Basophils 0.6 % (0.0-1.0); %Eosinophils 1.2 % (0.0-10.0); %Lymphocytes 13.6 % (21.0-51.0); %Neutrophils 78.6 % (42.0-75.0); Hemoglobin 11.7 g/dL (14.0-18.0); Mean Corpuscular Hemoglobin 30.3 pg (27.0-31.0); Mean Corpuscular Volume 94.7 fL (78.0-98.0); Platelet Count 338 thou/uL (130-400); RBC Distribution Width 15.2 % (11.5-14.5); Red Blood Cell (RBC) Count 3.86 mill/uL (4.70-6.10); White Blood Cell (WBC) Count 15.4 thou/uL (4.8-10.8)
[2020-09-05] MEDS: Sodium Chloride 0.45% 1,000 ML IV SCH (05:57)
[2020-09-05] MEDS: HumaLOG 300 UNITS/3 ML VIAL SC PRN ×2 (05:57→12:47)
[2020-09-05 06:44] LABS: Target Cells SLIGHT = 2-5 cells (100X) (0-1/hpf)
[2020-09-05] MEDS ORDERED: Ondansetron ODT 4 MG TAB PER TUBE PRN (07:34)
[2020-09-05] MEDS ORDERED: Loratadine 10 MG TAB PER TUBE PRN (07:36)
[2020-09-05] MEDS ORDERED: Bisacodyl 10 MG SUPP PR PRN (07:36)
[2020-09-05] MEDS ORDERED: Sodium Chloride 0.65% Nasal 44 ML BOT EA NARE PRN (07:36)
[2020-09-05] MEDS ORDERED: Senokot S 8.6-50 MG TAB PER TUBE PRN (07:36)
[2020-09-05] MEDS ORDERED: Cepastat Lozenges 1 LOZ PO PRN (07:36)
[2020-09-05] MEDS ORDERED: Acetaminophen 650 MG Suppository PR PRN (07:36)
[2020-09-05] MEDS ORDERED: Diabetic Tussin 200 MG/10 ML UDCUP PER TUBE PRN (07:36)
[2020-09-05] MEDS ORDERED: hydrALAZINE 20 MG/ML VIAL SLOW IVP PRN (07:36)
[2020-09-05] MEDS ORDERED: Metoclopramide HCl 10 MG/2 ML VIAL IVP PRN (07:36)
[2020-09-05] MEDS ORDERED: Calcium Carbonate 500 MG ChewTAB PER TUBE PRN (07:36)
[2020-09-05] MEDS ORDERED: Potassium Chloride 20 MEQ TAB PER TUBE SCH (07:45)
[2020-09-05 08:17] LABS: Magnesium 2.6 mg/dL (1.6-2.6); Phosphorus 2.2 mg/dL (2.3-4.7)
[2020-09-05] MEDS ORDERED: Acetaminophen 325 MG TAB PER TUBE PRN (08:31)
[2020-09-05] MEDS ORDERED: Zinc Sulfate 220 MG CAP PO SCH (09:00)
[2020-09-05] MEDS ORDERED: Ascorbic Acid 500 mg Chewable Tablet PO SCH (09:00)
[2020-09-05] MEDS: NPH, Human Insulin Isophane 300 UNIT/3 ML VIAL SC SCH ×2 (10:01→22:12)
[2020-09-05] MEDS: Saccharomyces boulardii 250 MG CAP PER TUBE SCH (10:03)
[2020-09-05] MEDS: Dexamethasone 4 MG TAB PER TUBE SCH (10:03)
[2020-09-05] MEDS: Venlafaxine HCl 25 MG TAB PER TUBE SCH ×2 (10:03→22:10)
[2020-09-05] MEDS: Thiamine 100 MG TAB PER TUBE SCH (10:04)
[2020-09-05] MEDS: Ascorbic Acid 500 mg Chewable Tablet PER TUBE SCH (10:05)
[2020-09-05] MEDS: Amlodipine 5 MG TAB PER TUBE SCH (10:05)
[2020-09-05] MEDS: Carvedilol 6.25 MG TAB PER TUBE SCH ×2 (10:05→22:10)
[2020-09-05] MEDS: Famotidine 20 MG TAB PER TUBE SCH ×2 (10:05→22:09)
[2020-09-05] MEDS: Aspirin Chewable 81 MG TAB PER TUBE SCH (10:05)
[2020-09-05] MEDS: Lisinopril 5 MG TAB PER TUBE SCH (10:06)
[2020-09-05] MEDS: Zinc Sulfate 220 MG CAP PER TUBE SCH (10:06)
[2020-09-05] MEDS: Apixaban 5 MG TAB PER TUBE SCH ×2 (10:07→22:11)
[2020-09-05] MEDS: Isosorbide Dinitrate 5 MG TAB PO SCH ×2 (10:07→22:10)
[2020-09-05] MEDS: levETIRAcetam 500 mg/5 ml Oral Solution PER TUBE SCH ×2 (10:07→22:09)
[2020-09-05] MEDS: Dextrose 5% in Water 1,000 ML IV SCH (10:08)
--- NOTE | 2020-09-05 10:58 | PDOC.HOSPP ---
- Subjective Encounter Date: 09/05/20 Encounter Time: 08:40 Subjective: Patient seen and examined. No new complaints. No overnight events - Objective Vital Signs & Weight: Vital Signs (12 hours) Temp Pulse Resp BP Pulse Ox 09/05/20 04:00 98.8 F 91 24 H 159/57 H 95 Weight Admit Weight 201 lb 11.2 oz Weight 201 lb 11.2 oz I&O: 09/04/20 09/05/20 09/06/20 06:59 06:59 06:59 Intake Total 2513 Output Total 230 Balance 2283 Result Diagrams: 09/05/20 04:56 09/05/20 04:56 Additional Labs: Accuchecks 09/04/20 09/04/20 09/04/20 23:25 21:42 18:05 POC Glucose 199 H 172 H 296 H Radiology Reviewed by me: Yes EKG Reviewed by me: Yes Hospitalist ROS - Review of Systems ROS unobtainable: due to mental status - Medication Medications: Active Medications Generic Name Dose Route Start Last Admin Trade Name Freq PRN Reason Stop Dose Admin Amlodipine Besylate 5 mg 09/05/20 09:00 09/05/20 10:05 Amlodipine 5 Mg Tab PER TUBE 5 mg DAILY ACOSTA Administration Apixaban 5 mg 09/04/20 21:00 09/05/20 10:07 Apixaban 5 Mg Tab PER TUBE 5 mg BID ACOSTA Administration Ascorbic Acid 1,000 mg 09/05/20 09:00 09/05/20 10:05 Ascorbic Acid 500 Mg Chewable Tablet PER TUBE 1,000 mg DAILY ACOSTA Administration Aspirin 81 mg 09/05/20 09:00 09/05/20 10:05 Aspirin Chewable 81 Mg Tab PER TUBE 81 mg DAILY ACOSTA Administration Atorvastatin Calcium 80 mg 09/04/20 21:00 09/04/20 21:12 Atorvastatin Calcium 40 Mg Tab PER TUBE 80 mg HS ACOSTA Administration Carvedilol 6.25 mg 09/04/20 21:00 09/05/20 10:05 Carvedilol 6.25 Mg Tab PER TUBE 6.25 mg BID ACOSTA Administration Dexamethasone 6 mg 09/05/20 08:00 09/05/20 10:03 Dexamethasone 4 Mg Tab PER TUBE 6 mg QAM-WM ACOSTA Administration Famotidine 20 mg 09/04/20 21:00 09/05/20 10:05 Famotidine 20 Mg Tab PER TUBE 20 mg BID ACOSTA Administration Ampicillin Sodium/Sulbactam 100 mls @ 200 mls/hr 09/04/20 21:00 09/05/20 10:09 Sodium 1.5 gm/ Sodium Chloride IVPB 100 mls 0300,0900,1500,2100 ACOSTA Administration Dextrose/Water 1,000 mls @ 75 mls/hr 09/05/20 07:45 09/05/20 10:08 D5w IV 1,000 mls .[id number] ACOSTA Administration Insulin Human Lispro 0 units 09/04/20 09:11 09/05/20 05:57 Humalog 300 Units/3 Ml Vial SC 8 unit .MODERATE SLIDING SC PRN Administration Moderate Correctional Scale Insulin Human Lispro 0 units 09/04/20 09:11 09/04/20 11:30 Humalog 300 Units/3 Ml Vial SC 5 unit .BEDTIME SLIDING SC PRN Administration Bedtime Correctional Scale Insulin Human NPH 10 unit 09/05/20 09:00 09/05/20 10:01 Nph, Human Insulin Isophane 300 Unit/3 Ml Vial SC 10 unit BID A[facility]STA Administration Isosorbide Dinitrate 5 mg 09/05/20 09:00 09/05/20 10:07 Isosorbide Dinitrate 5 Mg Tab PO 5 mg BID A[facility]STA Administration Levetiracetam 1,000 mg 09/04/20 21:00 09/05/20 10:07 Levetiracetam 500 Mg/5 Ml Oral Solution PER TUBE 1,000 mg BID A[facility]STA Administration Lisinopril 5 mg 09/05/20 09:00 09/05/20 10:06 Lisinopril 5 Mg Tab PER TUBE 5 mg DAILY A[facility]STA Administration Memantine 5 mg 09/05/20 09:00 09/05/20 10:06 Memantine Hcl 5 Mg Tab PER TUBE 5 mg DAILY A[facility]STA Administration Saccharomyces Boulardii 250 mg 09/05/20 09:00 09/05/20 10:03 Saccharomyces Boulardii 250 Mg Cap PER TUBE 250 mg DAILY A[facility]STA Administration Sodium Chloride 10 ml 09/04/20 09:00 09/05/20 10:11 Flush - Normal Saline 10 Ml Syringe IVF Not Given Q12HR A[facility]STA Thiamine HCl 250 mg 09/05/20 09:00 09/05/20 10:04 Thiamine 100 Mg Tab PER TUBE 250 mg DAILY A[facility]STA Administration Venlafaxine HCl 25 mg 09/04/20 21:00 09/05/20 10:03 Venlafaxine Hcl 25 Mg Tab PER TUBE 25 mg BID A[facility]STA Administration Zinc Sulfate 220 mg 09/05/20 09:00 09/05/20 10:06 Zinc Sulfate 220 Mg Cap PER TUBE 220 mg DAILY A[facility]STA Administration - Exam General Appearance: NAD, awake alert Eye: PERRL, anicteric sclera ENT: normocephalic atraumatic, dry oral mucosa Neck: symmetric, no JVD Heart: RRR, no murmur, no gallops, no rubs Respiratory: no wheezes, no rales, no ronchi Gastrointestinal: soft, non-tender, non-distended, normal bowel sounds Gastrointestinal - other findings: PEG tube in place Extremities: no clubbing, no edema Skin: normal turgor, no lesions Neurological: no new deficit Musculoskeletal: normal tone, normal strength Psychiatric: normal affect Hosp A/P (1) Pneumonia due to COVID-19 virus Code(s): U07.1 - COVID-19; J12.89 - OTHER VIRAL PNEUMONIA Status: Acute (2) Hypophosphatemia Code(s): E83.39 - OTHER DISORDERS OF PHOSPHORUS METABOLISM Status: Acute (3) Hypernatremia Code(s): E87.0 - HYPEROSMOLALITY AND HYPERNATREMIA Status: Acute (4) Hypokalemia Code(s): E87.6 - HYPOKALEMIA Status: Acute (5) Anemia, normocytic normochromic Code(s): D64.9 - ANEMIA, UNSPECIFIED Status: Chronic (6) CAD (coronary artery disease) Code(s): I25.10 - ATHSCL HEART DISEASE OF [place] CORONARY ARTERY W/O ANG PCTRS Status: Chronic Qualifiers: Coronary Disease-Associated Artery/Lesion type: [place] artery Associated angina: without angina (7) Chronic anticoagulation Code(s): Z79.01 - GROUP HOME (CURRENT) USE OF ANTICOAGULANTS Status: Chronic (8) DM2 (diabetes mellitus, type 2) Status: Chronic Qualifiers: Diabetes mellitus intermediate insulin use: without extermination inspector use (9) Dyslipidemia Code(s): E78.5 - HYPERLIPIDEMIA, UNSPECIFIED Status: Chronic (10) GERD (gastroesophageal reflux disease) Code(s): K21.9 - GASTRO-ESOPHAGEAL REFLUX DISEASE WITHOUT ESOPHAGITIS Status: Chronic Qualifiers: Esophagitis presence: without esophagitis Qualified Code(s): K21.9 - Gastro-esophageal reflux disease without esophagitis (11) H/O: CVA (cerebrovascular accident) Code(s): Z86.73 - PRSNL HX OF TIA (TIA), AND CEREB INFRC W/O RESID DEFICITS Status: Chronic (12) History of pulmonary embolism Code(s): Z86.711 - PERSONAL HISTORY OF PULMONARY EMBOLISM Status: Chronic (13) Hypertension Code(s): I10 - ESSENTIAL (PRIMARY) HYPERTENSION Status: Chronic Qualifiers: Hypertension type: essential hypertension Qualified Code(s): I10 - Essential (primary) hypertension (14) Oropharyngeal dysphagia Code(s): R13.12 - DYSPHAGIA, OROPHARYNGEAL PHASE Status: Chronic (15) Physical deconditioning Code(s): R53.81 - OTHER MAL[place]ISE Status: Chronic (16) Seizure as late effect of cerebrovascular accident (CVA) Code(s): I69.398 - OTHER SEQUELAE OF CEREBRAL INFARCTION; R56.9 - UNSPECIFIED CONVULSIONS Status: Chronic - Plan old records reviewed/req, continue antibiotics, respiratory therapy Plan Continue vitamin supplementation with vitamin C and zinc sulfate Continue empiric Unasyn to cover anaerobic organism given suspected aspiration pneumonia along with COVID-19 pneumonia Change IV fluid to dextrose with water at 75 mill per hour Replace potassium and phosphate We will repeat labs tomorrow We will closely monitor for any deterioration, Add insulin 70/30 10 units subcu twice daily for proper hyperglycemia control His usp medication has been reconciled
[2020-09-05] MEDS ORDERED: Potassium Phosphate 15 MMOL in Sodium Chloride 0.9% 250 ML 250 ML IVPB SCH (11:00)
[2020-09-05] MEDS: Atorvastatin Calcium 40 MG TAB PER TUBE SCH (22:10)
[2020-09-06] MEDS: Ampicillin/Sulbactam 1.5 GM in Sodium Chloride 0.9% 100 ML IVPB SCH ×4 (04:24→22:23)
[2020-09-06] MEDS: Dextrose 5% in Water 1,000 ML IV SCH (04:25)
[2020-09-06] MEDS: HumaLOG 300 UNITS/3 ML VIAL SC PRN ×3 (05:05→17:13)
[2020-09-06 06:02] LABS: Anion Gap 13 mmol/L (10-20); BUN (Urea Nitrogen) 34 mg/dL (8.4-25.7); Calc. Creatinine Clearance 85 mL/min (70-130); Calcium 9.1 mg/dL (7.8-10.44); Carbon Dioxide 34 mmol/L (22-29); Chloride 109 mmol/L (98-107); Estimated GFR-MDRD 74; Glucose 423 mg/dL (70-105); Sodium 153 mmol/L (136-145)
[2020-09-06 06:06] LABS: Potassium 2.9 mmol/L (3.5-5.1)
[2020-09-06 06:17] LABS: #Lymphocytes 1.7 thou/uL (1.20-3.40); #Monocytes 0.7 thou/uL (0.11-0.59); #Neutrophils 11.9 thou/uL (1.40-6.50); %Basophils 0.1 % (0.0-1.0); %Eosinophils 0.2 % (0.0-10.0); %Lymphocytes 11.8 % (21.0-51.0); %Monocytes 5.1 % (0.0-10.0); %Neutrophils 82.7 % (42.0-75.0); Hemoglobin 10.4 g/dL (14.0-18.0); Mean Corpuscular Hemoglobin 29.5 pg (27.0-31.0); Mean Corpuscular Volume 95.3 fL (78.0-98.0); Mean Platelet Volume 9.9 fL (7.4-10.4); Platelet Count 341 thou/uL (130-400); RBC Distribution Width 14.9 % (11.5-14.5); Red Blood Cell (RBC) Count 3.52 mill/uL (4.70-6.10); White Blood Cell (WBC) Count 14.3 thou/uL (4.8-10.8)
[2020-09-06] MEDS ORDERED: Potassium Chloride 20 MEQ in Premix Bag 1 BAG IVPB SCH (06:30)
[2020-09-06] MEDS: levETIRAcetam 500 mg/5 ml Oral Solution PER TUBE SCH ×2 (08:23→22:25)
[2020-09-06] MEDS: Thiamine 100 MG TAB PER TUBE SCH (08:24)
[2020-09-06] MEDS: Isosorbide Dinitrate 5 MG TAB PO SCH ×2 (08:25→22:25)
[2020-09-06] MEDS: Famotidine 20 MG TAB PER TUBE SCH ×2 (08:25→22:25)
[2020-09-06] MEDS: Saccharomyces boulardii 250 MG CAP PER TUBE SCH (08:25)
[2020-09-06] MEDS: Zinc Sulfate 220 MG CAP PER TUBE SCH (08:25)
[2020-09-06] MEDS: Ascorbic Acid 500 mg Chewable Tablet PER TUBE SCH (08:25)
[2020-09-06] MEDS: Carvedilol 6.25 MG TAB PER TUBE SCH ×2 (08:25→22:24)
[2020-09-06] MEDS: Amlodipine 5 MG TAB PER TUBE SCH (08:25)
[2020-09-06] MEDS: Lisinopril 5 MG TAB PER TUBE SCH (08:25)
[2020-09-06] MEDS: Apixaban 5 MG TAB PER TUBE SCH ×2 (08:26→22:23)
[2020-09-06] MEDS: NPH, Human Insulin Isophane 300 UNIT/3 ML VIAL SC SCH (08:26)
[2020-09-06] MEDS: Venlafaxine HCl 25 MG TAB PER TUBE SCH ×2 (08:26→22:30)
[2020-09-06] MEDS: Aspirin Chewable 81 MG TAB PER TUBE SCH (08:26)
[2020-09-06] MEDS: Dexamethasone 4 MG TAB PER TUBE SCH (08:26)
[2020-09-06] MEDS ORDERED: Insulin Glargine 10 UNITS in Pre-Filled Syringe 1 EACH SC SCH (10:00)
[2020-09-06] MEDS ORDERED: Insulin Glargine 5 UNITS in Pre-Filled Syringe 1 EACH SC SCH (10:15)
[2020-09-06] MEDS: HumaLOG 300 UNITS/3 ML VIAL SC SCH ×2 (12:33→17:06)
--- NOTE | 2020-09-06 16:44 | PDOC.HOSPP ---
- Subjective Encounter Date: 09/06/20 Encounter Time: 11:15 Subjective: Patient awake however not oriented. - Objective Vital Signs & Weight: Vital Signs (12 hours) Temp Pulse Resp BP Pulse Ox 09/06/20 11:50 97.6 F 82 20 157/84 H 95 09/06/20 08:30 97.8 F 92 20 169/92 H 97 Weight Admit Weight 201 lb 11.2 oz Weight 221 lb I&O: 09/05/20 09/06/20 09/07/20 06:59 06:59 06:59 Intake Total 2513 1828 2598 Output Total 230 Balance 2283 1828 2598 Result Diagrams: 09/06/20 05:25 09/06/20 05:25 Additional Labs: Accuchecks 09/06/20 09/06/20 09/06/20 11:47 04:57 00:35 POC Glucose 322 H 368 H 354 H 09/05/20 09/05/20 22:21 17:33 POC Glucose 331 H 222 H Hospitalist ROS - Review of Systems Other: Unable to obtain - Medication Medications: Active Medications Generic Name Dose Route Start Last Admin Trade Name Freq PRN Reason Stop Dose Admin Amlodipine Besylate 5 mg 09/05/20 09:00 09/06/20 08:25 Amlodipine 5 Mg Tab PER TUBE 5 mg DAILY [facility] Administration Apixaban 5 mg 09/04/20 21:00 09/06/20 08:26 Apixaban 5 Mg Tab PER TUBE 5 mg BID [facility] Administration Ascorbic Acid 1,000 mg 09/05/20 09:00 09/06/20 08:25 Ascorbic Acid 500 Mg Chewable Tablet PER TUBE 1,000 mg DAILY [facility] Administration Aspirin 81 mg 09/05/20 09:00 09/06/20 08:26 Aspirin Chewable 81 Mg Tab PER TUBE 81 mg DAILY [facility] Administration Atorvastatin Calcium 80 mg 09/04/20 21:00 09/05/20 22:10 Atorvastatin Calcium 40 Mg Tab PER TUBE 80 mg HS [facility] Administration Carvedilol 6.25 mg 09/04/20 21:00 09/06/20 08:25 Carvedilol 6.25 Mg Tab PER TUBE 6.25 mg BID [facility] Administration Dexamethasone 6 mg 09/05/20 08:00 09/06/20 08:26 Dexamethasone 4 Mg Tab PER TUBE 6 mg QAM-WM [facility] Administration Famotidine 20 mg 09/04/20 21:00 09/06/20 08:25 Famotidine 20 Mg Tab PER TUBE 20 mg BID [facility] Administration Ampicillin Sodium/Sulbactam 100 mls @ 200 mls/hr 09/04/20 21:00 09/06/20 15:53 Sodium 1.5 gm/ Sodium Chloride IVPB 100 mls 0300,0900,1500,2100 [facility] Administration Insulin Human Lispro 0 units 09/04/20 09:11 09/06/20 12:33 Humalog 300 Units/3 Ml Vial SC 8 unit .MODERATE SLIDING SC PRN Administration Moderate Correctional Scale Insulin Human Lispro 0 units 09/04/20 09:11 09/04/20 11:30 Humalog 300 Units/3 Ml Vial SC 5 unit .BEDTIME SLIDING SC PRN Administration Bedtime Correctional Scale Insulin Human Lispro 5 units 09/06/20 12:00 09/06/20 12:33 Humalog 300 Units/3 Ml Vial SC 5 unit TID-WM [facility] Administration Isosorbide Dinitrate 5 mg 09/05/20 09:00 09/06/20 08:25 Isosorbide Dinitrate 5 Mg Tab PO 5 mg BID [facility] Administration Levetiracetam 1,000 mg 09/04/20 21:00 09/06/20 08:23 Levetiracetam 500 Mg/5 Ml Oral Solution PER TUBE 1,000 mg BID [facility] Administration Lisinopril 5 mg 09/05/20 09:00 09/06/20 08:25 Lisinopril 5 Mg Tab PER TUBE 5 mg DAILY [facility] Administration Memantine 5 mg 09/05/20 09:00 09/06/20 08:25 Memantine Hcl 5 Mg Tab PER TUBE 5 mg DAILY [facility] Administration Saccharomyces Boulardii 250 mg 09/05/20 09:00 09/06/20 08:25 Saccharomyces Boulardii 250 Mg Cap PER TUBE 250 mg DAILY [facility] Administration Sodium Chloride 10 ml 09/04/20 09:00 09/06/20 08:27 Flush - Normal Saline 10 Ml Syringe IVF 10 ml Q12HR [facility] Administration Thiamine HCl 250 mg 09/05/20 09:00 09/06/20 08:24 Thiamine 100 Mg Tab PER TUBE 250 mg DAILY [facility] Administration Venlafaxine HCl 25 mg 09/04/20 21:00 11/11/20 08:26 Venlafaxine Hcl 25 Mg Tab PER TUBE 25 mg BID [facility] Administration Zinc Sulfate 220 mg 09/05/20 09:00 09/06/20 08:25 Zinc Sulfate 220 Mg Cap PER TUBE 220 mg DAILY [facility] Administration - Exam Heart: negative: RRR, no murmur, no gallops, no rubs, normal peripheral pulses, irregular, diminshed peripheral pulses, murmur present, II/IV, III/IV Respiratory: negative: CTAB, no wheezes, no rales, no ronchi, normal chest ex pansion, no tachypnea, normal percussion, rales, rhonchi, tachypneic, wheezes Gastrointestinal: negative: soft, non-tender, non-distended, normal bowel sounds, no palpable masses, no hepatomegaly, no splenomegaly, no bruit, no guarding, no rigidity, tender to palpation, distended, diminished bowl sounds, voluntary guarding Extremities: 1+ LE edema Psychiatric - other findings: Patient awake however not oriented. Hosp A/P (1) Pneumonia due to COVID-19 virus Code(s): U07.1 - COVID-19; J12.89 - OTHER VIRAL PNEUMONIA Status: Acute (2) CVA (cerebral vascular accident) Code(s): I63.9 - CEREBRAL INFARCTION, UNSPECIFIED Status: Chronic (3) DM2 (diabetes mellitus, type 2) Status: Chronic (4) DVT (deep venous thrombosis) Code(s): I82.409 - ACUTE EMBOLISM AND THOMBOS UNSP DEEP VN UNSP LOWER EXTREMITY Status: Chronic (5) Dysphagia Code(s): R13.10 - DYSPHAGIA, UNSPECIFIED Status: Chronic (6) HLD (hyperlipidemia) Code(s): E78.5 - HYPERLIPIDEMIA, UNSPECIFIED Status: Chronic (7) HTN (hypertension) Code(s): I10 - ESSENTIAL (PRIMARY) HYPERTENSION Status: Chronic (8) Depressed affect Code(s): R45.89 - OTHER SYMPTOMS AND SIGNS INVOLVING EMOTIONAL STATE Status: Acute (9) Hypernatremia Code(s): E87.0 - HYPEROSMOLALITY AND HYPERNATREMIA Status: Acute - Plan Patient was recently discharged from the hospital diagnosed with Covid pneumonia. Per H&P patient was noted to have increased work of breathing by the correction nurse. Patient has been 95 to 98% on 1 to 2 L. We will start him on free water for hypernatremia. We will stop the D5 water given his elevated blood sugars. Patient's CTA does indicate debris in the trachea however given his positive Covid I do not think he is amendable for any bronchoscopy currently. I will continue patient on antibiotics for aspiration pneumonia. He does have an elevated leukocytosis
[2020-09-06] MEDS: Atorvastatin Calcium 40 MG TAB PER TUBE SCH (22:29)
[2020-09-07] MEDS: HumaLOG 300 UNITS/3 ML VIAL SC PRN ×4 (00:36→18:00)
[2020-09-07] MEDS: Ampicillin/Sulbactam 1.5 GM in Sodium Chloride 0.9% 100 ML IVPB SCH (03:23)
[2020-09-07 05:34] LABS: #Lymphocytes 1.7 thou/uL (1.20-3.40); #Monocytes 0.9 thou/uL (0.11-0.59); #Neutrophils 13.4 thou/uL (1.40-6.50); %Basophils 0.2 % (0.0-1.0); %Eosinophils 0.2 % (0.0-10.0); %Lymphocytes 10.3 % (21.0-51.0); %Monocytes 5.6 % (0.0-10.0); %Neutrophils 83.7 % (42.0-75.0); Hemoglobin 10.3 g/dL (14.0-18.0); Mean Corpuscular HGB CONC 30.9 g/dL (32.0-36.0); Mean Corpuscular Hemoglobin 29.6 pg (27.0-31.0); Mean Corpuscular Volume 95.8 fL (78.0-98.0); Mean Platelet Volume 9.7 fL (7.4-10.4); Platelet Count 321 thou/uL (130-400); RBC Distribution Width 15.3 % (11.5-14.5)
[2020-09-07 05:44] LABS: Hemoglobin A1c 7.3 % (4.0-6.0)
[2020-09-07 05:56] LABS: Anion Gap 12 mmol/L (10-20); BUN (Urea Nitrogen) 32 mg/dL (8.4-25.7); Calc. Creatinine Clearance 107 mL/min (70-130); Calcium 8.9 mg/dL (7.8-10.44); Carbon Dioxide 33 mmol/L (22-29); Chloride 112 mmol/L (98-107); Estimated GFR-MDRD 88; Glucose 267 mg/dL (70-105); Sodium 154 mmol/L (136-145)
[2020-09-07] MEDS ORDERED: Potassium Chloride 10 MEQ in Premix Bag 1 BAG IVPB SCH (08:45)
[2020-09-07] MEDS ORDERED: Potassium Chloride 20 MEQ TAB PO SCH (08:45)
[2020-09-07] MEDS ORDERED: Insulin Glargine 5 UNITS in Pre-Filled Syringe 1 EACH SC SCH (09:00)
[2020-09-07] MEDS ORDERED: Insulin Glargine 10 UNITS in Pre-Filled Syringe 1 EACH SC SCH (09:00)
[2020-09-07] MEDS: Aspirin Chewable 81 MG TAB PER TUBE SCH (10:00)
[2020-09-07] MEDS: Isosorbide Dinitrate 5 MG TAB PO SCH ×2 (10:01→22:01)
[2020-09-07] MEDS: levETIRAcetam 500 mg/5 ml Oral Solution PER TUBE SCH ×2 (10:01→22:02)
[2020-09-07] MEDS: Dexamethasone 4 MG TAB PER TUBE SCH (10:02)
[2020-09-07] MEDS: Ascorbic Acid 500 mg Chewable Tablet PER TUBE SCH (10:02)
[2020-09-07] MEDS: Lisinopril 5 MG TAB PER TUBE SCH (10:02)
[2020-09-07] MEDS: Famotidine 20 MG TAB PER TUBE SCH ×2 (10:03→22:00)
[2020-09-07] MEDS: Amlodipine 5 MG TAB PER TUBE SCH (10:03)
[2020-09-07] MEDS: Zinc Sulfate 220 MG CAP PER TUBE SCH (10:04)
[2020-09-07] MEDS: Thiamine 100 MG TAB PER TUBE SCH (10:04)
[2020-09-07] MEDS: Apixaban 5 MG TAB PER TUBE SCH ×2 (10:04→22:01)
[2020-09-07] MEDS: Venlafaxine HCl 25 MG TAB PER TUBE SCH ×2 (10:05→22:00)
[2020-09-07] MEDS: Carvedilol 6.25 MG TAB PER TUBE SCH ×2 (10:05→22:00)
[2020-09-07] MEDS: HumaLOG 300 UNITS/3 ML VIAL SC SCH ×3 (10:06→17:59)
[2020-09-07] MEDS: Insulin Glargine 10 UNITS in Pre-Filled Syringe 1 EACH SC SCH (10:06)
[2020-09-07] MEDS: Piperacillin/Tazobactam 3.375 GM in Sodium Chloride 0.9% 100 ML IVPB SCH ×3 (10:07→22:02)
[2020-09-07] MEDS: Saccharomyces boulardii 250 MG CAP PER TUBE SCH (10:07)
--- NOTE | 2020-09-07 11:41 | RAD ---
XR Abdomen 1 View/[facility] History: Abdominal distention Comparison: Radiograph September 06, 2020. CT examination September 04, 2020 Findings: No nasogastric tube is appreciated. Moderate dilatation of the sigmoid colon. A gastrostomy tube is noted of the left upper quadrant of the abdomen. Evaluation for free air is limited without an upright exam. Impression: Continued dilatation of the redundant sigmoid colon.
--- NOTE | 2020-09-07 14:25 | PDOC.HOSPP ---
- Subjective Encounter Date: 09/07/20 Encounter Time: 11:15 Subjective: pt up in bed only speaks a few sentences. - Objective Vital Signs & Weight: Vital Signs (12 hours) Temp Pulse Resp BP Pulse Ox 09/07/20 10:30 97.7 F 92 12 176/98 H 96 09/07/20 03:41 99.1 F 85 16 173/88 H 95 Weight Admit Weight 201 lb 11.2 oz Weight 215 lb 6.4 oz I&O: 09/06/20 09/07/20 09/08/20 06:59 06:59 06:59 Intake Total 1828 5873 437 Balance 1828 5873 437 Result Diagrams: 09/07/20 05:07 09/07/20 05:07 Additional Labs: Accuchecks 09/07/20 09/07/20 09/07/20 13:33 06:01 00:30 POC Glucose 274 H 269 H 238 H 09/06/20 09/06/20 22:35 17:12 POC Glucose 245 H 288 H Hospitalist ROS - Review of Systems Other: unable to obtain - Medication Medications: Active Medications Generic Name Dose Route Start Last Admin Trade Name Freq PRN Reason Stop Dose Admin Amlodipine Besylate 5 mg 09/05/20 09:00 09/07/20 10:03 Amlodipine 5 Mg Tab PER TUBE 5 mg DAILY [facility] Administration Apixaban 5 mg 09/04/20 21:00 09/07/20 10:04 Apixaban 5 Mg Tab PER TUBE 5 mg BID [facility] Administration Ascorbic Acid 1,000 mg 09/05/20 09:00 09/07/20 10:02 Ascorbic Acid 500 Mg Chewable Tablet PER TUBE 1,000 mg DAILY [facility] Administration Aspirin 81 mg 09/05/20 09:00 09/07/20 10:00 Aspirin Chewable 81 Mg Tab PER TUBE 81 mg DAILY [facility] Administration Atorvastatin Calcium 80 mg 09/04/20 21:00 09/06/20 22:29 Atorvastatin Calcium 40 Mg Tab PER TUBE 80 mg HS [facility] Administration Carvedilol 6.25 mg 09/04/20 21:00 09/07/20 10:05 Carvedilol 6.25 Mg Tab PER TUBE 6.25 mg BID [facility] Administration Dexamethasone 6 mg 09/05/20 08:00 09/07/20 10:02 Dexamethasone 4 Mg Tab PER TUBE 6 mg QAM-WM [facility] Administration Famotidine 20 mg 09/04/20 21:00 09/07/20 10:03 Famotidine 20 Mg Tab PER TUBE 20 mg BID [facility] Administration Insulin Glargine 10 units/ 0.1 mls @ 0 mls/hr 09/07/20 09:00 09/07/20 10:06 Miscellaneous Medication SC 0.1 mls QAM [facility] Administration Piperacillin Sod/Tazobactam 100 mls @ 200 mls/hr 09/07/20 10:00 09/07/20 10:07 Sod 3.375 gm/ Sodium Chloride IVPB 100 mls 0400,1000,1600,2200 [facility] Administration Insulin Human Lispro 0 units 09/04/20 09:11 09/07/20 13:35 Humalog 300 Units/3 Ml Vial SC 6 unit .MODERATE SLIDING SC PRN Administration Moderate Correctional Scale Insulin Human Lispro 0 units 09/04/20 09:11 09/04/20 11:30 Humalog 300 Units/3 Ml Vial SC 5 unit .BEDTIME SLIDING SC PRN Administration Bedtime Correctional Scale Insulin Human Lispro 5 units 09/06/20 12:00 09/07/20 13:34 Humalog 300 Units/3 Ml Vial SC 5 unit TID-WM [facility] Administration Isosorbide Dinitrate 5 mg 09/05/20 09:00 09/07/20 10:01 Isosorbide Dinitrate 5 Mg Tab PO 5 mg BID [facility] Administration Levetiracetam 1,000 mg 09/04/20 21:00 09/07/20 10:01 Levetiracetam 500 Mg/5 Ml Oral Solution PER TUBE 1,000 mg BID [facility] Administration Lisinopril 5 mg 09/05/20 09:00 09/07/20 10:02 Lisinopril 5 Mg Tab PER TUBE 5 mg DAILY [facility] Administration Memantine 5 mg 09/05/20 09:00 09/07/20 10:05 Memantine Hcl 5 Mg Tab PER TUBE 5 mg DAILY [facility] Administration Saccharomyces Boulardii 250 mg 09/05/20 09:00 09/07/20 10:07 Saccharomyces Boulardii 250 Mg Cap PER TUBE 250 mg DAILY [facility] Administration Sodium Chloride 10 ml 09/04/20 09:00 09/07/20 10:07 Flush - Normal Saline 10 Ml Syringe IVF 10 ml Q12HR [facility] Administration Thiamine HCl 250 mg 09/05/20 09:00 09/07/20 10:04 Thiamine 100 Mg Tab PER TUBE 250 mg DAILY [facility] Administration Venlafaxine HCl 25 mg 09/04/20 21:00 09/07/20 10:05 Venlafaxine Hcl 25 Mg Tab PER TUBE 25 mg BID [facility] Administration Zinc Sulfate 220 mg 09/05/20 09:00 09/07/20 10:04 Zinc Sulfate 220 Mg Cap PER TUBE 220 mg DAILY [facility] Administration - Exam Heart: negative: RRR, no murmur, no gallops, no rubs, normal peripheral pulses, irregular, diminshed peripheral pulses, murmur present, II/IV, III/IV Respiratory: negative: CTAB, no wheezes, no rales, no ronchi, normal chest expansion, no tachypnea, normal percussion, rales, rhonchi, tachypneic, wheezes Gastrointestinal: soft, normal bowel sounds, distended Gastrointestinal - other findings: peg tube in place Extremities: 1+ LE edema Hosp A/P (1) Pneumonia due to COVID-19 virus Code(s): U07.1 - COVID-19; J12.89 - OTHER VIRAL PNEUMONIA Status: Acute (2) CVA (cerebral vascular accident) Code(s): I63.9 - CEREBRAL INFARCTION, UNSPECIFIED Status: Chronic (3) DM2 (diabetes mellitus, type 2) Status: Chronic (4) DVT (deep venous thrombosis) Code(s): I82.409 - ACUTE EMBOLISM AND THOMBOS UNSP DEEP VN UNSP LOWER EXTREMITY Status: Chronic (5) Dysphagia Code(s): R13.10 - DYSPHAGIA, UNSPECIFIED Status: Chronic (6) HLD (hyperlipidemia) Code(s): E78.5 - HYPERLIPIDEMIA, UNSPECIFIED Status: Chronic (7) HTN (hypertension) Code(s): I10 - ESSENTIAL (PRIMARY) HYPERTENSION Status: Chronic (8) Depressed affect Code(s): R45.89 - OTHER SYMPTOMS AND SIGNS INVOLVING EMOTIONAL STATE Status: Acute (9) Hypernatremia Code(s): E87.0 - HYPEROSMOLALITY AND HYPERNATREMIA Status: Acute - Plan Patient was recently discharged from the hospital diagnosed with Covid pneumonia. Per H&P patient was noted to have increased work of breathing by the long term nurse. Patient has been 95 to 98% on 1 to 2 L. We will start him on free water for hypernatremia. We will stop the D5 water given his elevated blood sugars. Patient's CTA does indicate debris in the trachea however given his positive Covid I do not think he is amendable for any bronchoscopy currently. I will continue patient on antibiotics for aspiration pneumonia. He does have an elevated leukocytosis / Pt's abdomen more distended today. He is passing gas per nursing staff. He is having bowl movement but they appear mucusy. will check stool studies. will increase his free water to tid. will replace electrolytes. will switch his abx to zosyn. He does have a elevated wbc but no fever.
[2020-09-07] MEDS: Atorvastatin Calcium 40 MG TAB PER TUBE SCH (22:00)
[2020-09-08] MEDS: HumaLOG 300 UNITS/3 ML VIAL SC PRN ×4 (01:47→18:36)
[2020-09-08 05:15] LABS: #Lymphocytes 1.6 thou/uL (1.20-3.40); #Monocytes 0.9 thou/uL (0.11-0.59); #Neutrophils 14.3 thou/uL (1.40-6.50); %Basophils 0.1 % (0.0-1.0); %Eosinophils 0.2 % (0.0-10.0); %Lymphocytes 9.4 % (21.0-51.0); %Monocytes 5.3 % (0.0-10.0); Mean Corpuscular HGB CONC 31.8 g/dL (32.0-36.0); Mean Corpuscular Hemoglobin 29.9 pg (27.0-31.0); Mean Corpuscular Volume 94.2 fL (78.0-98.0); Platelet Count 285 thou/uL (130-400); RBC Distribution Width 15.3 % (11.5-14.5); Red Blood Cell (RBC) Count 3.33 mill/uL (4.70-6.10); White Blood Cell (WBC) Count 16.8 thou/uL (4.8-10.8)
[2020-09-08] MEDS: Piperacillin/Tazobactam 3.375 GM in Sodium Chloride 0.9% 100 ML IVPB SCH ×4 (05:16→20:30)
[2020-09-08 05:48] LABS: ALT (SGPT) 31 U/L (8-55); Albumin 2.9 g/dL (3.5-5.0); Alkaline Phosphatase 111 U/L (40-110); BUN (Urea Nitrogen) 31 mg/dL (8.4-25.7); Calc. Creatinine Clearance 101 mL/min (70-130); Estimated GFR-MDRD 84; Globulin 4.4 g/dL (2.4-3.5); Glucose 294 mg/dL (70-105)
[2020-09-08 06:36] LABS: Calcium 8.7 mg/dL (7.8-10.44); Chloride 112 mmol/L (98-107); Potassium 3.3 mmol/L (3.5-5.1); Sodium 155 mmol/L (136-145)
[2020-09-08 06:37] LABS: Protein, Total 6.9 g/dL (6.0-8.3)
[2020-09-08 06:39] LABS: Anion Gap 16 mmol/L (10-20); Bilirubin, Total 0.9 mg/dL (0.2-1.2); Carbon Dioxide 30 mmol/L (22-29)
[2020-09-08 06:42] LABS: AST (SGOT) 27 U/L (5-34)
[2020-09-08] MEDS ORDERED: Lisinopril 5 MG TAB PER TUBE SCH (09:07)
[2020-09-08] MEDS ORDERED: HumaLOG 300 UNITS/3 ML VIAL SC SCH (09:08)
[2020-09-08] MEDS ORDERED: Electrolyte Replacement Protoc 1 EACH EACH FS SCH (09:15)
[2020-09-08] MEDS ORDERED: Potassium Chloride 20 MEQ TAB PO SCH (09:15)
[2020-09-08] MEDS ORDERED: Potassium Chloride 10 MEQ/100 ML PREMIX BAG IVPB SCH (09:45)
[2020-09-08] MEDS: Famotidine 20 MG TAB PER TUBE SCH ×2 (09:51→20:29)
[2020-09-08] MEDS: Zinc Sulfate 220 MG CAP PER TUBE SCH (09:51)
[2020-09-08] MEDS: Saccharomyces boulardii 250 MG CAP PER TUBE SCH (09:51)
[2020-09-08] MEDS: Amlodipine 5 MG TAB PER TUBE SCH (09:51)
[2020-09-08] MEDS: Ascorbic Acid 500 mg Chewable Tablet PER TUBE SCH (09:51)
[2020-09-08] MEDS: Isosorbide Dinitrate 5 MG TAB PO SCH ×2 (09:51→20:29)
[2020-09-08] MEDS: Venlafaxine HCl 25 MG TAB PER TUBE SCH ×2 (09:51→20:30)
[2020-09-08] MEDS: Thiamine 100 MG TAB PER TUBE SCH (09:52)
[2020-09-08] MEDS: Aspirin Chewable 81 MG TAB PER TUBE SCH (09:54)
[2020-09-08] MEDS: Dexamethasone 4 MG TAB PER TUBE SCH (09:55)
[2020-09-08] MEDS: Apixaban 5 MG TAB PER TUBE SCH ×2 (09:56→20:30)
[2020-09-08] MEDS: levETIRAcetam 500 mg/5 ml Oral Solution PER TUBE SCH ×2 (09:56→20:29)
[2020-09-08] MEDS: Carvedilol 6.25 MG TAB PER TUBE SCH ×3 (10:06→20:30)
[2020-09-08] MEDS: Lisinopril 10 MG TAB PER TUBE SCH (10:07)
[2020-09-08] MEDS: Insulin Glargine 10 UNITS in Pre-Filled Syringe 1 EACH SC SCH (10:28)
[2020-09-08] MEDS: HumaLOG 300 UNITS/3 ML VIAL SC SCH ×3 (10:32→18:35)
[2020-09-08] MEDS: Lisinopril 5 MG TAB PER TUBE SCH (10:32)
--- NOTE | 2020-09-08 14:36 | PDOC.HOSPP ---
- Subjective Encounter Date: 09/08/20 Encounter Time: 11:45 Subjective: pt up in bed awake follows commands. - Objective Vital Signs & Weight: Vital Signs (12 hours) Temp Pulse Resp BP Pulse Ox 09/08/20 12:00 97.5 F L 83 12 153/88 H 94 L 09/08/20 10:32 71 09/08/20 10:30 97.6 F 83 12 173/89 H 95 09/08/20 04:00 98.1 F 71 22 H 178/86 H 94 L Weight Admit Weight 201 lb 11.2 oz Weight 223 lb 9.6 oz I&O: 09/07/20 09/08/20 09/09/20 06:59 06:59 06:59 Intake Total 5873 5633 437 Balance 5873 5633 437 Result Diagrams: 09/08/20 04:44 09/08/20 04:44 Additional Labs: Accuchecks 09/08/20 09/08/20 09/08/20 12:05 09:00 05:22 POC Glucose 255 H 237 H 259 H 09/08/20 09/07/20 09/07/20 00:04 16:49 12:29 POC Glucose 273 H 275 H 270 H Hospitalist ROS - Review of Systems Other: unable to obtain - Medication Medications: Active Medications Generic Name Dose Route Start Last Admin Trade Name Freq PRN Reason Stop Dose Admin Amlodipine Besylate 5 mg 09/05/20 09:00 09/08/20 09:51 Amlodipine 5 Mg Tab PER TUBE 5 mg DAILY [facility] Administration Apixaban 5 mg 09/04/20 21:00 09/08/20 09:56 Apixaban 5 Mg Tab PER TUBE 5 mg BID [facility] Administration Ascorbic Acid 1,000 mg 09/05/20 09:00 09/08/20 09:51 Ascorbic Acid 500 Mg Chewable Tablet PER TUBE 1,000 mg DAILY [facility] Administration Aspirin 81 mg 09/05/20 09:00 09/08/20 09:54 Aspirin Chewable 81 Mg Tab PER TUBE 81 mg DAILY [facility] Administration Atorvastatin Calcium 80 mg 09/04/20 21:00 09/07/20 22:00 Atorvastatin Calcium 40 Mg Tab PER TUBE 80 mg HS [facility] Administration Carvedilol 12.5 mg 09/08/20 09:00 09/08/20 10:06 Carvedilol 6.25 Mg Tab PER TUBE 12.5 mg BID [facility] Administration Dexamethasone 6 mg 09/05/20 08:00 09/08/20 09:55 Dexamethasone 4 Mg Tab PER TUBE 6 mg QAM-WM [facility] Administration Famotidine 20 mg 09/04/20 21:00 09/08/20 09:51 Famotidine 20 Mg Tab PER TUBE 20 mg BID [facility] Administration Insulin Glargine 10 units/ 0.1 mls @ 0 mls/hr 09/07/20 09:00 09/08/20 10:28 Miscellaneous Medication SC 0.1 mls QAM [facility] Administration Piperacillin Sod/Tazobactam 100 mls @ 200 mls/hr 09/07/20 10:00 09/08/20 10:29 Sod 3.375 gm/ Sodium Chloride IVPB 100 mls 0400,1000,1600,2200 [facility] Administration Insulin Human Lispro 0 units 09/04/20 09:11 09/08/20 13:32 Humalog 300 Units/3 Ml Vial SC 6 unit .MODERATE SLIDING SC PRN Administration Moderate Correctional Scale Insulin Human Lispro 0 units 09/04/20 09:11 09/08/20 01:47 Humalog 300 Units/3 Ml Vial SC 3 unit .BEDTIME SLIDING SC PRN Administration Bedtime Correctional Scale Insulin Human Lispro 8 units 09/08/20 09:05 09/08/20 13:31 Humalog 300 Units/3 Ml Vial SC 8 units TID-WM [facility] Administration Isosorbide Dinitrate 5 mg 09/05/20 09:00 09/08/20 09:51 Isosorbide Dinitrate 5 Mg Tab PO 5 mg BID [facility] Administration Levetiracetam 1,000 mg 09/04/20 21:00 09/08/20 09:56 Levetiracetam 500 Mg/5 Ml Oral Solution PER TUBE 1,000 mg BID [facility] Administration Lisinopril 10 mg 09/08/20 09:00 09/08/20 10:07 Lisinopril 10 Mg Tab PER TUBE 10 mg DAILY [facility] Administration Memantine 5 mg 09/05/20 09:00 09/08/20 09:56 Memantine Hcl 5 Mg Tab PER TUBE 5 mg DAILY [facility] Administration Saccharomyces Boulardii 250 mg 09/05/20 09:00 09/08/20 09:51 Saccharomyces Boulardii 250 Mg Cap PER TUBE 250 mg DAILY [facility] Administration Sodium Chloride 10 ml 09/04/20 09:00 09/08/20 09:57 Flush - Normal Saline 10 Ml Syringe IVF 10 ml Q12HR [facility] Administration Thiamine HCl 250 mg 09/05/20 09:00 09/08/20 09:52 Thiamine 100 Mg Tab PER TUBE 250 mg DAILY [facility] Administration Venlafaxine HCl 25 mg 09/04/20 21:00 09/08/20 09:51 Venlafaxine Hcl 25 Mg Tab PER TUBE 25 mg BID [facility] Administration Zinc Sulfate 220 mg 09/05/20 09:00 09/08/20 09:51 Zinc Sulfate 220 Mg Cap PER TUBE 220 mg DAILY [facility] Administration - Exam Heart: negative: RRR, no murmur, no gallops, no rubs, normal peripheral pulses, irregular, diminshed peripheral pulses, murmur present, II/IV, III/IV Respiratory: negative: CTAB, no wheezes, no rales, no ronchi, normal chest expansion, no tachypnea, normal percussion, rales, rhonchi, tachypneic, wheezes Gastrointestinal: soft, normal bowel sounds Gastrointestinal - other findings: distention but improved since yest Extremities: 1+ LE edema Hosp A/P (1) Pneumonia due to COVID-19 virus Code(s): U07.1 - COVID-19; J12.89 - OTHER VIRAL PNEUMONIA Status: Acute (2) CVA (cerebral vascular accident) Code(s): I63.9 - CEREBRAL INFARCTION, UNSPECIFIED Status: Chronic (3) DM2 (diabetes mellitus, type 2) Status: Chronic (4) DVT (deep venous thrombosis) Code(s): I82.409 - ACUTE EMBOLISM AND THOMBOS UNSP DEEP VN UNSP LOWER EXTREMITY Status: Chronic (5) Dysphagia Code(s): R13.10 - DYSPHAGIA, UNSPECIFIED Status: Chronic (6) HLD (hyperlipidemia) Code(s): E78.5 - HYPERLIPIDEMIA, UNSPECIFIED Status: Chronic (7) HTN (hypertension) Code(s): I10 - ESSENTIAL (PRIMARY) HYPERTENSION Status: Chronic (8) Depressed affect Code(s): R45.89 - OTHER SYMPTOMS AND SIGNS INVOLVING EMOTIONAL STATE Status: Acute (9) Hypernatremia Code(s): E87.0 - HYPEROSMOLALITY AND HYPERNATREMIA Status: Acute - Plan Patient was recently discharged from the hospital diagnosed with Covid pneumonia. Per H&P patient was noted to have increased work of breathing by the [facility] nurse. Patient has been 95 to 98% on 1 to 2 L. We will start him on free water for hypernatremia. We will stop the D5 water given his elevated blood sugars. Patient's CTA does indicate debris in the trachea however given his positive Covid I do not think he is amendable for any bronchoscopy currently. I will continue patient on antibiotics for aspiration pneumonia. He does have an elevated leukocytosis 09/07 Pt's abdomen more distended today. He is passing gas per nursing staff. He is having bowl movement but they appear mucusy. will check stool studies. will increase his free water to tid. will replace electrolytes. will switch his abx to zosyn. He does have a elevated wbc but no fever. 09/08 pt's stool yest was very mucusy but today per nursing has normal brown color. His cxr indicated dilated sigmoid colon but he is passing gas. No residuals. will continue abx he still has a elevated wbc. will increase his free water to 400ml tid. stool studies negative.
[2020-09-08] MEDS: Loperamide HCl 2 MG CAP PER TUBE PRN (18:34)
[2020-09-08] MEDS: Atorvastatin Calcium 40 MG TAB PER TUBE SCH (20:30)
[2020-09-09] MEDS: HumaLOG 300 UNITS/3 ML VIAL SC PRN ×4 (01:25→18:21)
[2020-09-09] MEDS: Piperacillin/Tazobactam 3.375 GM in Sodium Chloride 0.9% 100 ML IVPB SCH ×4 (05:17→22:47)
[2020-09-09 06:15] LABS: ALT (SGPT) 34 U/L (8-55); AST (SGOT) 26 U/L (5-34); Albumin 3.1 g/dL (3.5-5.0); Alkaline Phosphatase 132 U/L (40-110); Anion Gap 12 mmol/L (10-20); BUN (Urea Nitrogen) 34 mg/dL (8.4-25.7); Bilirubin, Total 0.7 mg/dL (0.2-1.2); Calc. Creatinine Clearance 99 mL/min (70-130); Calcium 8.6 mg/dL (7.8-10.44); Carbon Dioxide 34 mmol/L (22-29); Chloride 109 mmol/L (98-107); Estimated GFR-MDRD 79; Globulin 3.6 g/dL (2.4-3.5); Glucose 319 mg/dL (70-105); Protein, Total 6.7 g/dL (6.0-8.3); Sodium 152 mmol/L (136-145)
[2020-09-09 06:19] LABS: Potassium 2.7 mmol/L (3.5-5.1)
[2020-09-09] MEDS: Aspirin Chewable 81 MG TAB PER TUBE SCH (07:28)
[2020-09-09] MEDS: Isosorbide Dinitrate 5 MG TAB PO SCH ×2 (07:28→19:49)
[2020-09-09] MEDS: levETIRAcetam 500 mg/5 ml Oral Solution PER TUBE SCH ×2 (07:28→19:49)
[2020-09-09] MEDS: Famotidine 20 MG TAB PER TUBE SCH ×2 (07:28→19:49)
[2020-09-09] MEDS: Amlodipine 5 MG TAB PER TUBE SCH (07:29)
[2020-09-09] MEDS: Venlafaxine HCl 25 MG TAB PER TUBE SCH ×2 (07:29→19:50)
[2020-09-09] MEDS: Lisinopril 10 MG TAB PER TUBE SCH (07:29)
[2020-09-09] MEDS: Loperamide HCl 2 MG CAP PER TUBE PRN (07:29)
[2020-09-09] MEDS: Thiamine 100 MG TAB PER TUBE SCH (07:30)
[2020-09-09] MEDS: Saccharomyces boulardii 250 MG CAP PER TUBE SCH (07:30)
[2020-09-09] MEDS: Zinc Sulfate 220 MG CAP PER TUBE SCH (07:30)
[2020-09-09] MEDS: Ascorbic Acid 500 mg Chewable Tablet PER TUBE SCH (07:30)
[2020-09-09] MEDS: Apixaban 5 MG TAB PER TUBE SCH ×2 (07:31→19:50)
[2020-09-09] MEDS: Dexamethasone 4 MG TAB PER TUBE SCH (07:31)
[2020-09-09] MEDS: Carvedilol 6.25 MG TAB PER TUBE SCH ×2 (07:32→19:50)
[2020-09-09] MEDS ORDERED: Amlodipine 5 MG TAB PER TUBE SCH (08:45)
[2020-09-09] MEDS ORDERED: Isosorbide Dinitrate 5 MG TAB PO SCH ×2 (08:45→09:00)
[2020-09-09] MEDS ORDERED: Amlodipine 10 MG TAB PER TUBE SCH (09:00)
[2020-09-09] MEDS: HumaLOG 300 UNITS/3 ML VIAL SC SCH ×3 (10:01→18:19)
--- NOTE | 2020-09-09 10:01 | RAD ---
Acute abdominal series INDICATION: Abdominal distention COMPARISON: KUB dated September 07, [address] of the abdomen and pelvis dated September 04, 2020 FINDINGS: CHEST: LUNGS: Clear. Cardiomediastinal silhouette: Stable cardiomegaly Pleural effusion or pneumothorax: Negative. Pneumoperitoneum: Negative. ABDOMEN: Bowel gas pattern: There is stable gas-filled dilatation of a redundant sigmoid colon. Gastrostomy tu be is seen within the left upper quadrant of the abdomen. Abnormal calcifications: None Osseous structures: There is scattered degenerative and osteoarthritic change present. Additional findings: None. IMPRESSION: 1. Stable exam
[2020-09-09] MEDS: Insulin Glargine 10 UNITS in Pre-Filled Syringe 1 EACH SC SCH (10:26)
--- NOTE | 2020-09-09 14:49 | PDOC.HOSPP ---
- Subjective Encounter Date: 09/09/20 Encounter Time: 11:15 Subjective: pt up in bed no complains - Objective Vital Signs & Weight: Vital Signs (12 hours) Temp Pulse Resp BP Pulse Ox 09/09/20 07:44 97.2 F L 89 12 172/83 H 93 L 09/09/20 04:00 98.6 F 75 14 171/90 H 96 Weight Admit Weight 201 lb 11.2 oz Weight 223 lb 8 oz I&O: 09/08/20 09/09/20 09/10/20 06:59 06:59 06:59 Intake Total 5633 4333 Balance 5633 4333 Result Diagrams: 09/08/20 04:44 09/09/20 05:33 Additional Labs: Accuchecks 09/09/20 09/09/20 09/09/20 13:21 08:11 00:57 POC Glucose 279 H 276 H 251 H 09/08/20 09/08/20 20:36 18:30 POC Glucose 251 H 258 H Hospitalist ROS - Review of Systems Other: unable to obtain - Medication Medications: Active Medications Generic Name Dose Route Start Last Admin Trade Name Freq PRN Reason Stop Dose Admin Apixaban 5 mg 09/04/20 21:00 09/09/20 07:31 Apixaban 5 Mg Tab PER TUBE 5 mg BID ACOSTA Administration Ascorbic Acid 1,000 mg 09/05/20 09:00 09/09/20 07:30 Ascorbic Acid 500 Mg Chewable Tablet PER TUBE 1,000 mg DAILY ACOSTA Administration Aspirin 81 mg 09/05/20 09:00 09/09/20 07:28 Aspirin Chewable 81 Mg Tab PER TUBE 81 mg DAILY ACOSTA Administration Atorvastatin Calcium 80 mg 09/04/20 21:00 09/08/20 20:30 Atorvastatin Calcium 40 Mg Tab PER TUBE 80 mg HS ACOSTA Administration Carvedilol 12.5 mg 09/08/20 09:00 09/09/20 07:32 Carvedilol 6.25 Mg Tab PER TUBE 12.5 mg BID ACOSTA Administration Dexamethasone 6 mg 09/05/20 08:00 09/09/20 07:31 Dexamethasone 4 Mg Tab PER TUBE 6 mg QAM-WM ACOSTA Administration Famotidine 20 mg 09/04/20 21:00 09/09/20 07:28 Famotidine 20 Mg Tab PER TUBE 20 mg BID ACOSTA Administration Insulin Glargine 10 units/ 0.1 mls @ 0 mls/hr 09/07/20 09:00 09/09/20 10:26 Miscellaneous Medication SC 0.1 mls QAM ACOSTA Administration Piperacillin Sod/Tazobactam 100 mls @ 200 mls/hr 09/07/20 10:00 09/09/20 09:59 Sod 3.375 gm/ Sodium Chloride IVPB 100 mls 0400,1000,1600,2200 ACOSTA Administration Insulin Human Lispro 0 units 09/04/20 09:11 09/09/20 13:18 Humalog 300 Units/3 Ml Vial SC 6 unit .MODERATE SLIDING SC PRN Administration Moderate Correctional Scale Insulin Human Lispro 0 units 09/04/20 09:11 09/08/20 01:47 Humalog 300 Units/3 Ml Vial SC 3 unit .BEDTIME SLIDING SC PRN Administration Bedtime Correctional Scale Insulin Human Lispro 10 units 09/09/20 07:38 09/09/20 13:18 Humalog 300 Units/3 Ml Vial SC 10 units TID-WM ACOSTA Administration Levetiracetam 1,000 mg 09/04/20 21:00 09/09/20 07:28 Levetiracetam 500 Mg/5 Ml Oral Solution PER TUBE 1,000 mg BID ACOSTA Administration Lisinopril 10 mg 09/08/20 09:00 09/09/20 07:29 Lisinopril 10 Mg Tab PER TUBE 10 mg DAILY ACOSTA Administration Loperamide HCl 2 mg 09/05/20 07:36 09/09/20 07:29 Loperamide Hcl 2 Mg Cap PER TUBE 2 mg PRN PRN Administration Diarrhea/Loose Stools Memantine 5 mg 09/05/20 09:00 09/09/20 07:29 Memantine Hcl 5 Mg Tab PER TUBE 5 mg DAILY ACOSTA Administration Saccharomyces Boulardii 250 mg 09/05/20 09:00 09/09/20 07:30 Saccharomyces Boulardii 250 Mg Cap PER TUBE 250 mg DAILY ACOSTA Administration Sodium Chloride 10 ml 09/04/20 09:00 09/09/20 07:28 Flush - Normal Saline 10 Ml Syringe IVF 10 ml Q12HR ACOSTA Administration Thiamine HCl 250 mg 09/05/20 09:00 09/09/20 07:30 Thiamine 100 Mg Tab PER TUBE 250 mg DAILY ACOSTA Administration Venlafaxine HCl 25 mg 09/04/20 21:00 09/09/20 07:29 Venlafaxine Hcl 25 Mg Tab PER TUBE 25 mg BID ACOSTA Administration Zinc Sulfate 220 mg 09/05/20 09:00 09/09/20 07:30 Zinc Sulfate 220 Mg Cap PER TUBE 220 mg DAILY ACOSTA Administration - Exam Respiratory: negative: CTAB, no wheezes, no rales, no ronchi, normal chest expansion, no tachypnea, normal percussion, rales, rhonchi, tachypneic, wheezes Gastrointestinal: negative: soft, non-tender, non-distended, normal bowel sounds, no palpable masses, no hepatomegaly, no splenomegaly, no bruit, no guarding, no rigidity, tender to palpation, distended, diminished bowl sounds, voluntary guarding Extremities: negative: no cyanosis, no clubbing, no edema, 1+ LE edema, 2+ LE edema, clubbing Hosp A/P (1) Pneumonia due to COVID-19 virus Code(s): U07.1 - COVID-19; J12.89 - OTHER VIRAL PNEUMONIA Status: Acute (2) CVA (cerebral vascular accident) Code(s): I63.9 - CEREBRAL INFARCTION, UNSPECIFIED Status: Chronic (3) DM2 (diabetes mellitus, type 2) Status: Chronic (4) DVT (deep venous thrombosis) Code(s): I82.409 - ACUTE EMBOLISM AND THOMBOS UNSP DEEP VN UNSP LOWER EXTREMITY Status: Chronic (5) Dysphagia Code(s): R13.10 - DYSPHAGIA, UNSPECIFIED Status: Chronic (6) HLD (hyperlipidemia) Code(s): E78.5 - HYPERLIPIDEMIA, UNSPECIFIED Status: Chronic (7) HTN (hypertension) Code(s): I10 - ESSENTIAL (PRIMARY) HYPERTENSION Status: Chronic (8) Depressed affect Code(s): R45.89 - OTHER SYMPTOMS AND SIGNS INVOLVING EMOTIONAL STATE Status: Acute (9) Hypernatremia Code(s): E87.0 - HYPEROSMOLALITY AND HYPERNATREMIA Status: Acute - Plan Patient was recently discharged from the hospital diagnosed with Covid pneumonia. Per H&P patient was noted to have increased work of breathing by the [facility] nurse. Patient has been 95 to 98% on 1 to 2 L. We will start him on free water for hypernatremia. We will stop the D5 water given his elevated blood sugars. Patient's CTA does indicate debris in the trachea however given his positive Covid I do not think he is amendable for any bronchoscopy currently. I will continue patient on antibiotics for aspiration pneumonia. He does have an elevated leukocytosis 09/07 Pt's abdomen more distended today. He is passing gas per nursing staff. He is having bowl movement but they appear mucusy. will check stool studies. will increase his free water to tid. will replace electrolytes. will switch his abx to zosyn. He does have a elevated wbc but no fever. 09/08 pt's stool yest was very mucusy but today per nursing has normal brown color. His cxr indicated dilated sigmoid colon but he is passing gas. No residuals. will continue abx he still has a elevated wbc. will increase his free water to 400ml tid. stool studies negative. 09/09 pt's hypernatemia is improving. will check labs in am. will continue current abx for now. kub no acute process noted. will replace K.
[2020-09-09 16:25] LABS: Anion Gap 12 mmol/L (10-20); BUN (Urea Nitrogen) 32 mg/dL (8.4-25.7); Calc. Creatinine Clearance 104 mL/min (70-130); Calcium 8.7 mg/dL (7.8-10.44); Carbon Dioxide 33 mmol/L (22-29); Chloride 110 mmol/L (98-107); Estimated GFR-MDRD 83; Glucose 289 mg/dL (70-105); Potassium 3.1 mmol/L (3.5-5.1); Sodium 152 mmol/L (136-145)
[2020-09-09] MEDS: Atorvastatin Calcium 40 MG TAB PER TUBE SCH (19:50)
[2020-09-10] MEDS: HumaLOG 300 UNITS/3 ML VIAL SC PRN ×2 (00:29→06:58)
[2020-09-10] MEDS: Piperacillin/Tazobactam 3.375 GM in Sodium Chloride 0.9% 100 ML IVPB SCH ×2 (04:14→10:23)
[2020-09-10 08:07] LABS: #Eosinphils 0.3 thou/uL (0.0-0.7); #Lymphocytes 1.6 thou/uL (1.20-3.40); #Monocytes 0.8 thou/uL (0.11-0.59); #Neutrophils 15.3 thou/uL (1.40-6.50); %Basophils 0.2 % (0.0-1.0); %Eosinophils 1.6 % (0.0-10.0); %Lymphocytes 9.1 % (21.0-51.0); %Monocytes 4.2 % (0.0-10.0); %Neutrophils 84.8 % (42.0-75.0); Hemoglobin 10.1 g/dL (14.0-18.0); Mean Corpuscular HGB CONC 32.5 g/dL (32.0-36.0); Mean Corpuscular Hemoglobin 30.9 pg (27.0-31.0); Mean Corpuscular Volume 95.3 fL (78.0-98.0); Mean Platelet Volume 10.4 fL (7.4-10.4); Platelet Count 239 thou/uL (130-400); RBC Distribution Width 15.8 % (11.5-14.5); Red Blood Cell (RBC) Count 3.27 mill/uL (4.70-6.10)
[2020-09-10 08:20] LABS: ALT (SGPT) 46 U/L (8-55); AST (SGOT) 34 U/L (5-34); Albumin 2.8 g/dL (3.5-5.0); Alkaline Phosphatase 135 U/L (40-110); Anion Gap 17 mmol/L (10-20); BUN (Urea Nitrogen) 29 mg/dL (8.4-25.7); Bilirubin, Total 0.8 mg/dL (0.2-1.2); Calc. Creatinine Clearance 122 mL/min (70-130); Calcium 8.3 mg/dL (7.8-10.44); Carbon Dioxide 29 mmol/L (22-29); Chloride 110 mmol/L (98-107); Estimated GFR-MDRD Greater than 90; Globulin 3.5 g/dL (2.4-3.5); Glucose 306 mg/dL (70-105); Potassium 4.6 mmol/L (3.5-5.1); Protein, Total 6.3 g/dL (6.0-8.3); Sodium 151 mmol/L (136-145)
[2020-09-10] MEDS: HumaLOG 300 UNITS/3 ML VIAL SC SCH ×4 (10:11→17:04)
[2020-09-10] MEDS: Insulin Glargine 15 UNITS in Pre-Filled Syringe 1 EACH SC SCH (10:14)
[2020-09-10] MEDS: Venlafaxine HCl 25 MG TAB PER TUBE SCH ×2 (10:23→21:37)
[2020-09-10] MEDS: levETIRAcetam 500 mg/5 ml Oral Solution PER TUBE SCH ×2 (10:25→21:37)
[2020-09-10] MEDS: Dexamethasone 4 MG TAB PER TUBE SCH (10:25)
[2020-09-10] MEDS: Amlodipine 10 MG TAB PER TUBE SCH (10:26)
[2020-09-10] MEDS: Apixaban 5 MG TAB PER TUBE SCH ×2 (10:26→21:36)
[2020-09-10] MEDS: Ascorbic Acid 500 mg Chewable Tablet PER TUBE SCH (10:26)
[2020-09-10] MEDS: Carvedilol 6.25 MG TAB PER TUBE SCH ×2 (10:27→21:37)
[2020-09-10] MEDS: Aspirin Chewable 81 MG TAB PER TUBE SCH (10:27)
[2020-09-10] MEDS: Lisinopril 10 MG TAB PER TUBE SCH (10:27)
[2020-09-10] MEDS: Isosorbide Dinitrate 5 MG TAB PO SCH ×2 (10:27→21:37)
[2020-09-10] MEDS: Famotidine 20 MG TAB PER TUBE SCH ×2 (10:27→21:36)
[2020-09-10] MEDS: Saccharomyces boulardii 250 MG CAP PER TUBE SCH (10:28)
[2020-09-10] MEDS: Thiamine 100 MG TAB PER TUBE SCH (10:28)
[2020-09-10] MEDS: Zinc Sulfate 220 MG CAP PER TUBE SCH (10:28)
--- NOTE | 2020-09-10 15:50 | PDOC.HOSPP ---
- Subjective Encounter Date: 09/10/20 Encounter Time: 11:15 Subjective: pt up in bed does not appear in any distress - Objective Vital Signs & Weight: Vital Signs (12 hours) Temp Pulse Resp BP Pulse Ox 09/10/20 10:00 97.5 F L 67 18 182/94 H 94 L 09/10/20 04:47 98.3 F 68 18 169/85 H 94 L Weight Admit Weight 201 lb 11.2 oz Weight 225 lb 9.6 oz I&O: 09/09/20 09/10/20 09/11/20 06:59 06:59 06:59 Intake Total 4333 5433 1674 Balance 4333 5433 1674 Result Diagrams: 09/10/20 07:33 09/10/20 07:33 Additional Labs: Accuchecks 09/10/20 09/10/20 09/10/20 13:14 06:47 00:21 POC Glucose 230 H 269 H 244 H 09/09/20 17:57 POC Glucose 253 H Hospitalist ROS - Review of Systems Other: unable to obtain - Medication Medications: Active Medications Generic Name Dose Route Start Last Admin Trade Name Freq PRN Reason Stop Dose Admin Amlodipine Besylate 10 mg 09/10/20 09:00 09/10/20 10:26 Amlodipine 10 Mg Tab PER TUBE 10 mg DAILY ACOSTA Administration Apixaban 5 mg 09/04/20 21:00 09/10/20 10:26 Apixaban 5 Mg Tab PER TUBE 5 mg BID ACOSTA Administration Ascorbic Acid 1,000 mg 09/05/20 09:00 09/10/20 10:26 Ascorbic Acid 500 Mg Chewable Tablet PER TUBE 1,000 mg DAILY ACOSTA Administration Aspirin 81 mg 09/05/20 09:00 09/10/20 10:27 Aspirin Chewable 81 Mg Tab PER TUBE 81 mg DAILY ACOSTA Administration Atorvastatin Calcium 80 mg 09/04/20 21:00 09/09/20 19:50 Atorvastatin Calcium 40 Mg Tab PER TUBE 80 mg HS ACOSTA Administration Carvedilol 12.5 mg 09/08/20 09:00 09/10/20 10:27 Carvedilol 6.25 Mg Tab PER TUBE 12.5 mg BID ACOSTA Administration Famotidine 20 mg 09/04/20 21:00 09/10/20 10:27 Famotidine 20 Mg Tab PER TUBE 20 mg BID ACOSTA Administration Hydralazine HCl 10 mg 09/05/20 07:36 09/09/20 18:48 Hydralazine 20 Mg/Ml Vial SLOW IVP 10 mg Q4H PRN Administration SBP > 180 and HR < 70 Insulin Glargine 15 units/ 0.15 mls @ 0 mls/hr 09/10/20 09:00 09/10/20 10:14 Miscellaneous Medication SC 0.15 mls QAM ACOSTA Administration Insulin Human Lispro 0 units 09/04/20 09:11 09/10/20 06:58 Humalog 300 Units/3 Ml Vial SC 6 unit .MODERATE SLIDING SC PRN Administration Moderate Correctional Scale Insulin Human Lispro 0 units 09/04/20 09:11 09/08/20 01:47 Humalog 300 Units/3 Ml Vial SC 3 unit .BEDTIME SLIDING SC PRN Administration Bedtime Correctional Scale Insulin Human Lispro 15 units 09/10/20 12:00 09/10/20 13:08 Humalog 300 Units/3 Ml Vial SC 15 unit TID-WM ACOSTA Administration Isosorbide Dinitrate 10 mg 09/09/20 21:00 09/10/20 10:27 Isosorbide Dinitrate 5 Mg Tab PO 10 mg BID ACOSTA Administration Levetiracetam 1,000 mg 09/04/20 21:00 09/10/20 10:25 Levetiracetam 500 Mg/5 Ml Oral Solution PER TUBE 1,000 mg BID ACOSTA Administration Lisinopril 10 mg 09/08/20 09:00 09/10/20 10:27 Lisinopril 10 Mg Tab PER TUBE 10 mg DAILY ACOSTA Administration Loperamide HCl 2 mg 09/05/20 07:36 09/09/20 07:29 Loperamide Hcl 2 Mg Cap PER TUBE 2 mg PRN PRN Administration Diarrhea/Loose Stools Memantine 5 mg 09/05/20 09:00 09/10/20 10:28 Memantine Hcl 5 Mg Tab PER TUBE 5 mg DAILY ACOSTA Administration Saccharomyces Boulardii 250 mg 09/05/20 09:00 09/10/20 10:28 Saccharomyces Boulardii 250 Mg Cap PER TUBE 250 mg DAILY ACOSTA Administration Sodium Chloride 10 ml 09/04/20 09:00 09/10/20 10:28 Flush - Normal Saline 10 Ml Syringe IVF 10 ml Q12HR ACOSTA Administration Thiamine HCl 250 mg 09/05/20 09:00 09/10/20 10:28 Thiamine 100 Mg Tab PER TUBE 250 mg DAILY ACOSTA Administration Venlafaxine HCl 25 mg 09/04/20 21:00 09/10/20 10:23 Venlafaxine Hcl 25 Mg Tab PER TUBE 25 mg BID ACOSTA Administration Zinc Sulfate 220 mg 09/05/20 09:00 09/10/20 10:28 Zinc Sulfate 220 Mg Cap PER TUBE 220 mg DAILY ACOSTA Administration - Exam Neck: negative: supple, symmetric, no JVD, no thyromegaly, no lymphadenopathy, no carotid bruit, JVD Heart: negative: RRR, no murmur, no gallops, no rubs, normal peripheral pulses, irregular, diminshed peripheral pulses, murmur present, II/IV, III/IV Respiratory: negative: CTAB, no wheezes, no rales, no ronchi, normal chest expansion, no tachypnea, normal percussion, rales, rhonchi, tachypneic, wheezes Gastrointestinal: soft, normal bowel sounds Gastrointestinal - other findings: peg tube in place Hosp A/P (1) Pneumonia due to COVID-19 virus Code(s): U07.1 - COVID-19; J12.89 - OTHER VIRAL PNEUMONIA Status: Acute (2) CVA (cerebral vascular accident) Code(s): I63.9 - CEREBRAL INFARCTION, UNSPECIFIED Status: Chronic (3) DM2 (diabetes mellitus, type 2) Status: Chronic (4) DVT (deep venous thrombosis) Code(s): I82.409 - ACUTE EMBOLISM AND THOMBOS UNSP DEEP VN UNSP LOWER EXTREMITY Status: Chronic (5) Dysphagia Code(s): R13.10 - DYSPHAGIA, UNSPECIFIED Status: Chronic (6) HLD (hyperlipidemia) Code(s): E78.5 - HYPERLIPIDEMIA, UNSPECIFIED Status: Chronic (7) HTN (hypertension) Code(s): I10 - ESSENTIAL (PRIMARY) HYPERTENSION Status: Chronic (8) Depressed affect Code(s): R45.89 - OTHER SYMPTOMS AND SIGNS INVOLVING EMOTIONAL STATE Status: Acute (9) Hypernatremia Code(s): E87.0 - HYPEROSMOLALITY AND HYPERNATREMIA Status: Acute - Plan Patient was recently discharged from the hospital diagnosed with Covid pneumonia. Per H&P patient was noted to have increased work of breathing by the [facility] nurse. Patient has been 95 to 98% on 1 to 2 L. We will start him on free water for hypernatremia. We will stop the D5 water given his elevated blood sugars. Patient's CTA does indicate debris in the trachea however given his positive Covid I do not think he is amendable for any bronchoscopy currently. I will continue patient on antibiotics for aspiration pneumonia. He does have an elevated leukocytosis 09/07 Pt's abdomen more distended today. He is passing gas per nursing staff. He is having bowl movement but they appear mucusy. will check stool studies. will increase his free water to tid. will replace electrolytes. will switch his abx to zosyn. He does have a elevated wbc but no fever. 09/08 pt's stool yest was very mucusy but today per nursing has normal brown color. His cxr indicated dilated sigmoid colon but he is passing gas. No resid uals. will continue abx he still has a elevated wbc. will increase his free water to 400ml tid. stool studies negative. 09/09 pt's hypernatemia is improving. will check labs in am. will continue cur rent abx for now. kub no acute process noted. will replace K. 09/10 hypernatremia continues to improve. will await ID's recommendation. possible discharge in the next 24-48hr once his wbc improve
--- NOTE | 2020-09-10 18:17 | CON ---
DATE OF CONSULTATION: 09/10/2020 REASON FOR CONSULTATION: Leukocytosis. HISTORY OF PRESENT ILLNESS: A 60-year-old who was diagnosed with COVID pneumonia at the beginning of August, was mild in intensity and he was treated with Decadron and [facility]. So he has been on Decadron since August 28, and discharge diagnosis was coronavirus disease infection, hypernatremia, volume depletion, PEG tube malfunction, type 2 diabetes, coronary artery disease. He continued on Decadron in the jail and he has returned to this hospital on September 04 because of increased work of breathing. The history was limited because of patient's cognitive dysfunction from prior CVA, and on arrival his BP 140/90, pulse 92, respirations 15, temperature 100, O2 saturation 92% on room air. The exam was not particularly remarkable except for edema in lower extremity. At the jail, he was on atorvastatin, lisinopril, Coreg, Keppra, Norvasc, famotidine, memantine, thiamine, Zofran, Eliquis. 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 SOCIAL HISTORY: [facility] resident. ALLERGIES: NONE. MEDICATIONS: Here in the hospital, he is receiving 1. Norvasc. 2. Eliquis. 3. Lipitor. 4. Dulcolax. 5. Tums. 6. Coreg. 7. Decadron. 8. Pepcid. 9. Insulin. 10. Zosyn. 11. Thiamine. PHYSICAL EXAMINATION: VITAL SIGNS: He has been afebrile since admission. Blood pressure 180/90, heart rate 67, respiratory rate 18, O2 saturation 94% on room air. GENERAL: Appears comfortable at rest. He has the gastrostomy exit site with no significant inflammatory changes. There is hyperpigmentation, but no induration or drainage and he is voiding in the diaper. He is somewhat apathetic. He will look around and sometimes briefly establish eye contact but not for sustained period of time. I cannot really communicate with him or could not communicate with him well. HEENT: His pupils are reactive and about 2 mm. Oral cavity is difficult to examine because of lack of cooperation. NECK: There is no jugular vein distention. Neck appears supple. LUNGS: Symmetric air entry. HEART: S1, S2. Regular rate. No S3 or S4. ABDOMEN: [id number]-[id number] distended, tympanitic. No evidence of ascites. No bladder distention or maybe a question of bladder distention. No organomegaly. EXTREMITIES: No joint inflammatory activity. No edema, maybe trace edema in lower extremities. Pulses 1+ in dorsalis pedis. Plantar responses are indifferent. He has sustained clonus in the left side. NEUROLOGIC: He is awake, but does not interact with the examiner in a meaningful form. LABORATORY DATA: White cell count is 13,000 on the , started at 10 on August 27 and has been going up since, now is 18,000 with a predominance of mature neutrophils. D-dimer 1.01. Sodium 151, creatinine 0.94. Liver profile normal except for alkaline phosphatase 135, albumin 2.8. CRP last checked was less than 0.5 on September 06. There is a ferritin here checked on , which is 388. The patient had a repeat imaging study of the chest with a CT and showed some scattered ground-glass opacities, a little bit more frequently distributed than the original CT scan. He had an abdomen and pelvis CT on admission, which demonstrated airspace disease in lungs, but no acute intraabdominal process. Since admission he is saturating at 94 consistently, sometimes 93 and is in room air O2. ASSESSMENT: 1. Severe neurological dysfunction with dementia following multiple CVAs with vegetative state. 2. COVID infection with pneumonia diagnosed at the beginning of this month and treated with Decadron. I do not think he received antiviral treatment. It is not clear to me the duration of therapy. The patient is unable to communicate and I tried to reach out to the jail staff, but they have not called me back yet. 3. Readmission because of perceived tachypnea. 4. Neutrophilia. DISCUSSION: The most likely reason for neutrophilia is the prescription of Decadron. He has been taking Decadron for a while now and I would recommend discontinuing this medication at this point. He does have some increase in the infiltrates identified on CT scan this admission. This could be residual from the last admission. Despite the risk factors, he has had a surprisingly mild course of his COVID and he is not eligible for antivirals at this point in time and would not benefit from it. I do not think he would benefit from continuation of corticosteroids either. I would just recommend discontinuation of the Zosyn as well. Job ID: [id number]
[2020-09-10] MEDS: Atorvastatin Calcium 40 MG TAB PER TUBE SCH (21:36)
[2020-09-11 05:34] LABS: #Eosinphils 0.1 thou/uL (0.0-0.7); #Lymphocytes 1.7 thou/uL (1.20-3.40); #Monocytes 0.7 thou/uL (0.11-0.59); #Neutrophils 12.2 thou/uL (1.40-6.50); %Basophils 0.3 % (0.0-1.0); %Eosinophils 0.9 % (0.0-10.0); %Lymphocytes 11.3 % (21.0-51.0); %Monocytes 4.4 % (0.0-10.0); %Neutrophils 83.1 % (42.0-75.0); Hemoglobin 9.6 g/dL (14.0-18.0); Mean Corpuscular HGB CONC 31.4 g/dL (32.0-36.0); Mean Corpuscular Hemoglobin 29.3 pg (27.0-31.0); Mean Corpuscular Volume 93.4 fL (78.0-98.0); Mean Platelet Volume 10.9 fL (7.4-10.4); Platelet Count 172 thou/uL (130-400); RBC Distribution Width 16.4 % (11.5-14.5); Red Blood Cell (RBC) Count 3.28 mill/uL (4.70-6.10); White Blood Cell (WBC) Count 14.7 thou/uL (4.8-10.8)
[2020-09-11 05:36] LABS: Anion Gap 15 mmol/L (10-20); BUN (Urea Nitrogen) 26 mg/dL (8.4-25.7); Calc. Creatinine Clearance 135 mL/min (70-130); Calcium 8.2 mg/dL (7.8-10.44); Carbon Dioxide 30 mmol/L (22-29); Chloride 108 mmol/L (98-107); Estimated GFR-MDRD Greater than 90; Glucose 294 mg/dL (70-105); Potassium 3.8 mmol/L (3.5-5.1); Sodium 149 mmol/L (136-145)
[2020-09-11] MEDS: HumaLOG 300 UNITS/3 ML VIAL SC PRN (05:53)
[2020-09-11] MEDS: levETIRAcetam 500 mg/5 ml Oral Solution PER TUBE SCH ×2 (10:34→22:54)
[2020-09-11] MEDS: Amlodipine 10 MG TAB PER TUBE SCH (10:34)
[2020-09-11] MEDS: Aspirin Chewable 81 MG TAB PER TUBE SCH (10:35)
[2020-09-11] MEDS: Isosorbide Dinitrate 5 MG TAB PO SCH ×2 (10:35→22:52)
[2020-09-11] MEDS: Zinc Sulfate 220 MG CAP PER TUBE SCH (10:35)
[2020-09-11] MEDS: Saccharomyces boulardii 250 MG CAP PER TUBE SCH (10:36)
[2020-09-11] MEDS: Carvedilol 6.25 MG TAB PER TUBE SCH ×2 (10:36→22:53)
[2020-09-11] MEDS: Famotidine 20 MG TAB PER TUBE SCH ×2 (10:36→22:53)
[2020-09-11] MEDS: Thiamine 100 MG TAB PER TUBE SCH (10:38)
[2020-09-11] MEDS: Ascorbic Acid 500 mg Chewable Tablet PER TUBE SCH (10:39)
[2020-09-11] MEDS: Insulin Glargine 15 UNITS in Pre-Filled Syringe 1 EACH SC SCH (10:40)
[2020-09-11] MEDS: Venlafaxine HCl 25 MG TAB PER TUBE SCH ×2 (10:40→22:54)
[2020-09-11] MEDS: HumaLOG 300 UNITS/3 ML VIAL SC SCH ×3 (10:41→18:28)
[2020-09-11] MEDS: Apixaban 5 MG TAB PER TUBE SCH ×2 (10:43→22:53)
[2020-09-11] MEDS: Lisinopril 10 MG TAB PER TUBE SCH (10:44)
[2020-09-11 11:08] VITALS: BMI 28.8
--- NOTE | 2020-09-11 14:36 | PDOC.HOSPP ---
- Subjective Encounter Date: 09/11/20 Encounter Time: 12:30 Subjective: pt up in bed awake - Objective Vital Signs & Weight: Vital Signs (12 hours) Temp Pulse Resp BP Pulse Ox 09/11/20 10:50 98.6 F 80 20 178/86 H 96 09/11/20 10:34 73 09/11/20 06:05 98.3 F 73 18 138/73 94 L Weight Admit Weight 201 lb 11.2 oz Weight 224 lb 4.8 oz I&O: 09/10/20 09/11/20 09/12/20 06:59 06:59 06:59 Intake Total 6904 7361 Balance 5433 4559 Result Diagrams: 09/11/20 05:13 09/11/20 05:13 Additional Labs: Accuchecks 09/11/20 09/10/20 09/10/20 12:20 21:44 17:10 POC Glucose 291 H 186 H 197 H Hospitalist ROS - Review of Systems Other: unable to obtain - Medication Medications: Active Medications Generic Name Dose Route Start Last Admin Trade Name Freq PRN Reason Stop Dose Admin Amlodipine Besylate 10 mg 09/10/20 09:00 09/11/20 10:34 Amlodipine 10 Mg Tab PER TUBE 10 mg DAILY CAOSTA Administration Apixaban 5 mg 09/04/20 21:00 09/11/20 10:43 Apixaban 5 Mg Tab PER TUBE 5 mg BID ACOSTA Administration Ascorbic Acid 1,000 mg 09/05/20 09:00 09/11/20 10:39 Ascorbic Acid 500 Mg Chewable Tablet PER TUBE 1,000 mg DAILY ACOSTA Administration Aspirin 81 mg 09/05/20 09:00 09/11/20 10:35 Aspirin Chewable 81 Mg Tab PER TUBE 81 mg DAILY ACOSTA Administration Atorvastatin Calcium 80 mg 09/04/20 21:00 09/10/20 21:36 Atorvastatin Calcium 40 Mg Tab PER TUBE 80 mg HS ACOSTA Administration Carvedilol 12.5 mg 09/08/20 09:00 09/11/20 10:36 Carvedilol 6.25 Mg Tab PER TUBE 12.5 mg BID ACOSTA Administration Famotidine 20 mg 09/04/20 21:00 09/11/20 10:36 Famotidine 20 Mg Tab PER TUBE 20 mg BID ACOSTA Administration Hydralazine HCl 10 mg 09/05/20 07:36 09/09/20 18:48 Hydralazine 20 Mg/Ml Vial SLOW IVP 10 mg Q4H PRN Administration SBP > 180 and HR < 70 Insulin Glargine 15 units/ 0.15 mls @ 0 mls/hr 09/10/20 09:00 09/11/20 10:40 Miscellaneous Medication SC 0.15 mls QAM ACOSTA Administration Insulin Human Lispro 0 units 09/04/20 09:11 09/11/20 05:53 Humalog 300 Units/3 Ml Vial SC 6 unit .MODERATE SLIDING SC PRN Administration Moderate Correctional Scale Insulin Human Lispro 0 units 09/04/20 09:11 09/08/20 01:47 Humalog 300 Units/3 Ml Vial SC 3 unit .BEDTIME SLIDING SC PRN Administration Bedtime Correctional Scale Insulin Human Lispro 15 units 09/10/20 12:00 09/11/20 14:24 Humalog 300 Units/3 Ml Vial SC 15 unit TID-WM ACOSTA Administration Isosorbide Dinitrate 10 mg 09/09/20 21:00 09/11/20 10:35 Isosorbide Dinitrate 5 Mg Tab PO 10 mg BID ACOSTA Administration Levetiracetam 1,000 mg 09/04/20 21:00 09/11/20 10:34 Levetiracetam 500 Mg/5 Ml Oral Solution PER TUBE 1,000 mg BID ACOSTA Administration Lisinopril 10 mg 09/08/20 09:00 09/11/20 10:44 Lisinopril 10 Mg Tab PER TUBE 10 mg DAILY ACOSTA Administration Loperamide HCl 2 mg 09/05/20 07:36 09/09/20 07:29 Loperamide Hcl 2 Mg Cap PER TUBE 2 mg PRN PRN Administration Diarrhea/Loose Stools Memantine 5 mg 09/05/20 09:00 09/11/20 10:36 Memantine Hcl 5 Mg Tab PER TUBE 5 mg DAILY ACOSTA Administration Saccharomyces Boulardii 250 mg 09/05/20 09:00 09/11/20 10:36 Saccharomyces Boulardii 250 Mg Cap PER TUBE 250 mg DAILY ACOSTA Administration Sodium Chloride 10 ml 09/04/20 09:00 09/11/20 10:44 Flush - Normal Saline 10 Ml Syringe IVF 10 ml Q12HR ACOSTA Administration Thiamine HCl 250 mg 09/05/20 09:00 09/11/20 10:38 Thiamine 100 Mg Tab PER TUBE 250 mg DAILY ACOSTA Administration Venlafaxine HCl 25 mg 09/04/20 21:00 09/11/20 10:40 Venlafaxine Hcl 25 Mg Tab PER TUBE 25 mg BID ACOSTA Administration Zinc Sulfate 220 mg 09/05/20 09:00 09/11/20 10:35 Zinc Sulfate 220 Mg Cap PER TUBE 220 mg DAILY ACOSTA Administration - Exam Neck: negative: supple, symmetric, no JVD, no thyromegaly, no lymphadenopathy, no carotid bruit, JVD Heart: negative: RRR, no murmur, no gallops, no rubs, normal peripheral pulses, irregular, diminshed peripheral pulses, murmur present, II/IV, III/IV Respiratory: negative: CTAB, no wheezes, no rales, no ronchi, normal chest expansion, no tachypnea, normal percussion, rales, rhonchi, tachypneic, wheezes Gastrointestinal: negative: soft, non-tender, non-distended, normal bowel sounds, no palpable masses, no hepatomegaly, no splenomegaly, no bruit, no guarding, no rigidity, tender to palpation, distended, diminished bowl sounds, voluntary guarding Extremities: 1+ LE edema Hosp A/P (1) Pneumonia due to COVID-19 virus Code(s): U07.1 - COVID-19; J12.89 - OTHER VIRAL PNEUMONIA Status: Acute (2) CVA (cerebral vascular accident) Code(s): I63.9 - CEREBRAL INFARCTION, UNSPECIFIED Status: Chronic (3) DM2 (diabetes mellitus, type 2) Status: Chronic (4) DVT (deep venous thrombosis) Code(s): I82.409 - ACUTE EMBOLISM AND THOMBOS UNSP DEEP VN UNSP LOWER EXTREMITY Status: Chronic (5) Dysphagia Code(s): R13.10 - DYSPHAGIA, UNSPECIFIED Status: Chronic (6) HLD (hyperlipidemia) Code(s): E78.5 - HYPERLIPIDEMIA, UNSPECIFIED Status: Chronic (7) HTN (hypertension) Code(s): I10 - ESSENTIAL (PRIMARY) HYPERTENSION Status: Chronic (8) Depressed affect Code(s): R45.89 - OTHER SYMPTOMS AND SIGNS INVOLVING EMOTIONAL STATE Status: Acute (9) Hypernatremia Code(s): E87.0 - HYPEROSMOLALITY AND HYPERNATREMIA Status: Acute - Plan Patient was recently discharged from the hospital diagnosed with Covid pneumonia. Per H&P patient was noted to have increased work of breathing by the [facility] nurse. Patient has been 95 to 98% on 1 to 2 L. We will start him on free water for hypernatremia. We will stop the D5 water given his elevated blood sugars. Patient's CTA does indicate debris in the trachea however given his positive Covid I do not think he is amendable for any bronchoscopy currently. I will continue patient on antibiotics for aspiration pneumonia. He does have an elevated leukocytosis 09/07 Pt's abdomen more distended today. He is passing gas per nursing staff. He is having bowl movement but they appear mucusy. will check stool studies. will increase his free water to tid. will replace electrolytes. will switch his abx to zosyn. He does have a elevated wbc but no fever. 09/08 pt's stool yest was very mucusy but today per nursing has normal brown color. His cxr indicated dilated sigmoid colon but he is passing gas. No residuals. will continue abx he still has a elevated wbc. will increase his free water to 400ml tid. stool studies negative. 09/09 pt's hypernatemia is improving. will check labs in am. will continue current abx for now. kub no acute process noted. will replace K. 09/10 hypernatremia continues to improve. will await ID's recommendation. possible discharge in the next 24-48hr once his wbc improve 09/11 pt off steroids and abx will monitor wbc which is trending down. pt's hypernatremia is improving. will discharge if he continues to improve.
[2020-09-11] MEDS: Atorvastatin Calcium 40 MG TAB PER TUBE SCH (22:53)
[2020-09-12 05:16] LABS: #Basophils 0.1 thou/uL (0.0-0.2); #Eosinphils 0.3 thou/uL (0.0-0.7); #Lymphocytes 1.6 thou/uL (1.20-3.40); #Monocytes 0.7 thou/uL (0.11-0.59); #Neutrophils 9.2 thou/uL (1.40-6.50); %Basophils 0.6 % (0.0-1.0); %Eosinophils 2.3 % (0.0-10.0); %Lymphocytes 13.4 % (21.0-51.0); %Monocytes 5.6 % (0.0-10.0); %Neutrophils 78.1 % (42.0-75.0); Hemoglobin 10.3 g/dL (14.0-18.0); Mean Corpuscular HGB CONC 31.6 g/dL (32.0-36.0); Mean Corpuscular Hemoglobin 29.9 pg (27.0-31.0); Mean Corpuscular Volume 94.5 fL (78.0-98.0); Mean Platelet Volume 10.9 fL (7.4-10.4); Platelet Count 259 thou/uL (130-400); RBC Distribution Width 16.9 % (11.5-14.5); Red Blood Cell (RBC) Count 3.45 mill/uL (4.70-6.10); White Blood Cell (WBC) Count 11.7 thou/uL (4.8-10.8)
[2020-09-12 05:37] LABS: ALT (SGPT) 54 U/L (8-55); AST (SGOT) 40 U/L (5-34); Alkaline Phosphatase 124 U/L (40-110); Anion Gap 13 mmol/L (10-20); BUN (Urea Nitrogen) 28 mg/dL (8.4-25.7); Bilirubin, Total 0.8 mg/dL (0.2-1.2); Calc. Creatinine Clearance 141 mL/min (70-130); Calcium 8.4 mg/dL (7.8-10.44); Carbon Dioxide 32 mmol/L (22-29); Chloride 104 mmol/L (98-107); Estimated GFR-MDRD Greater than 90; Globulin 3.2 g/dL (2.4-3.5); Glucose 200 mg/dL (70-105); Magnesium 2.4 mg/dL (1.6-2.6); Protein, Total 6.2 g/dL (6.0-8.3); Sodium 146 mmol/L (136-145)
[2020-09-12 05:42] LABS: Potassium 2.5 mmol/L (3.5-5.1)
[2020-09-12] MEDS: HumaLOG 300 UNITS/3 ML VIAL SC PRN (06:42)
[2020-09-12] MEDS ORDERED: Potassium Chloride 40 MEQ in Sodium Chloride 0.9% 250 ML 250 ML IVPB SCH (06:45)
[2020-09-12] MEDS ORDERED: Potassium Chloride 10 MEQ in Premix Bag 1 BAG IVPB SCH (07:30)
[2020-09-12] MEDS: Aspirin Chewable 81 MG TAB PER TUBE SCH (07:52)
[2020-09-12] MEDS: Lisinopril 10 MG TAB PER TUBE SCH (07:52)
[2020-09-12] MEDS: Venlafaxine HCl 25 MG TAB PER TUBE SCH (07:52)
[2020-09-12] MEDS: Isosorbide Dinitrate 5 MG TAB PO SCH (07:52)
[2020-09-12] MEDS: Zinc Sulfate 220 MG CAP PER TUBE SCH (07:52)
[2020-09-12] MEDS: Saccharomyces boulardii 250 MG CAP PER TUBE SCH (07:53)
[2020-09-12] MEDS: Amlodipine 10 MG TAB PER TUBE SCH (07:53)
[2020-09-12] MEDS: Carvedilol 6.25 MG TAB PER TUBE SCH (07:53)
[2020-09-12] MEDS: Apixaban 5 MG TAB PER TUBE SCH (07:53)
[2020-09-12] MEDS: Famotidine 20 MG TAB PER TUBE SCH (07:53)
[2020-09-12] MEDS: Ascorbic Acid 500 mg Chewable Tablet PER TUBE SCH (07:53)
[2020-09-12] MEDS: Thiamine 100 MG TAB PER TUBE SCH (07:54)
[2020-09-12] MEDS: HumaLOG 300 UNITS/3 ML VIAL SC SCH ×3 (07:56→17:01)
[2020-09-12] MEDS: levETIRAcetam 500 mg/5 ml Oral Solution PER TUBE SCH (08:06)
[2020-09-12] MEDS: Insulin Glargine 15 UNITS in Pre-Filled Syringe 1 EACH SC SCH (10:51)
[2020-09-12 17:10] VITALS: BP 156/84; TEMP 98.6
--- NOTE | 2020-09-13 03:03 | DIS ---
DATE OF ADMISSION: 09/04/2020 DATE OF DISCHARGE: 09/12/2020 DISCHARGE DIAGNOSES: 1. Hypernatremia. 2. Pneumonia secondary to COVID. 3. Cerebrovascular accident. 4. Diabetes. 5. Leukocytosis. 6. Dysphasia. 7. Hyperlipidemia. 8. Hypertension. HOSPITAL COURSE: Patient is a 60-year-old male, who was recently discharged from the hospital for COVID pneumonia, who comes back to the hospital with increased work of breathing. He never required oxygenation while he was in the hospital. He was initially put on steroids and underwent a CTA. Patient did not have a fever here. He was noted to have significant amount of hypernatremia. His free-water was increased and his continued to improve throughout the hospital stay. He initially had some mucous stools which were checked and his stools were negative for Clostridium difficile. No wbc's either. He continued to tolerate his feedings without any problems. At this time, he continued to have elevated white count. He was initially put on antibiotics. The CTA indicated that he does have some debris in the trachea and recommended a direct visualization. However, given the fact that he was COVID, no procedure was performed on this patient. His antibiotics were stopped, his steroids were discontinued since they were greater than 10 days and at this time his WBCs improved without any intervention. Patient was then discharged back to the group home. He also had a CT of abdomen and pelvis, which did show some moderately extensive patchy air airspace disease of both lungs. No acute abdominal or pelvic process was noted. DISCHARGE MEDICATIONS: Patient's home medications will be resumed. 1. He is going to be on potassium 20 mEq daily. His potassium here in the hospital was low. 2. Thiamine 250 mg daily. 3. Effexor 25 mg b.i.d. 4. Tylenol 650 as needed. 5. Amlodipine 5 mg daily. 6. Eliquis 5 mg b.i.d. 7. Aspirin 81 mg daily. 8. Carvedilol 6.25 b.i.d. 9. Atorvastatin 80 mg at bedtime. 10. Isosorbide 5 mg daily. 11. Pepcid 20 mg daily. 12. Lisinopril 5 mg daily. 13. Namenda 5 mg daily. 14. Keppra 10 mL b.i.d. 15. Florastor 250 mg daily. PHYSICAL EXAMINATION: VITAL SIGNS: 98.6, 85, 16, 95% on room air, and 156/84. GENERAL: He is awake, alert, and oriented x3. Does not appear in distress. CV: S1, S2 present. No murmurs, rubs, or gallops. DISPOSITION: He will be discharged home. RECOMMENDATIONS: To check his BMP every two days. Patient was significantly hypernatremic. I have recommended them to use 400 mg t.i.d. in addition to 100 mL flushes before and after medications, which has significantly improved his hypernatremia. His potassium level was 2.5 and potassium was replaced. Started him on potassium supplement and recommend to follow up as an outpatient also. Patient was seen and examined on the day of discharge. Job ID: [id number]
--- NOTE | 2020-09-16 16:15 | EKG ---
Test Reason : SOB Blood Pressure : / mmHG Vent. Rate : 093 BPM Atrial Rate : 093 BPM P-R Int : 158 ms QRS Dur : 100 ms QT Int : 406 ms P-R-T Axes : 042 -32 -11 degrees QTc Int : 504 ms Normal sinus rhythm Left axis deviation Possible Anterior infarct , age undetermined Prolonged QT Abnormal ECG Confirmed by MARIA ELENA BHATT M.D. ([id number]), telegraph editor PING ARMAS ([id number]) on 09/16/2020 4:15:44 PM Referred By: Confirmed By:MARIA ELENA BHATT M.D.
== END 2020-09-12 18:15 | DRG 177 ==
LOC: ERS 03:19 → 2SW 06:09 → OBSVTOIN 06:09
PROVIDERS: ADMIT Internal Medicine; ATTEND Internal Medicine
PROC: 8E0ZXY6 Isolation (ICD-10-PCS; principal; 2020-09-04)
DX: U07.1 COVID-19 (principal); J12.89 Other viral pneumonia; E87.0 Hyperosmolality and hypernatremia; I69.354 Hemiplegia and hemiparesis following cerebral infarction affecting left non-dominant side; N17.9 Acute kidney failure, unspecified; I25.10 Atherosclerotic heart disease of native coronary artery without angina pectoris; E78.5 Hyperlipidemia, unspecified; I10 Essential (primary) hypertension; G40.909 Epilepsy, unspecified, not intractable, without status epilepticus; J45.909 Unspecified asthma, uncomplicated; K21.9 Gastro-esophageal reflux disease without esophagitis; F03.90 Unspecified dementia, unspecified severity, without behavioral disturbance, psychotic disturbance, mood disturbance, and anxiety; E11.9 Type 2 diabetes mellitus without complications; E87.6 Hypokalemia; R79.89 Other specified abnormal findings of blood chemistry; R19.7 Diarrhea, unspecified; E83.39 Other disorders of phosphorus metabolism; D64.9 Anemia, unspecified; R45.89 Other symptoms and signs involving emotional state; R13.12 Dysphagia, oropharyngeal phase; I69.320 Aphasia following cerebral infarction; I69.391 Dysphagia following cerebral infarction; I25.2 Old myocardial infarction; Z87.440 Personal history of urinary (tract) infections; Z86.718 Personal history of other venous thrombosis and embolism; Z79.01 Long term (current) use of anticoagulants; Z79.899 Other long term (current) drug therapy; Z79.82 Long term (current) use of aspirin; Z86.711 Personal history of pulmonary embolism; I69.398 Other sequelae of cerebral infarction; Z28.21 Immunization not carried out because of patient refusal
CPT/HCPCS: 36415; 36416; 71045; 71275; 74018; 74022; 74177; 80048; 80053; 81001; 82553; 82728; 83036; 83615; 83630; 83735; 83880; 83930; 83935; 84100; 84300; 84484; 85025; 85379; 86140; 87045; 87046; 87081; 87324; 87427; 87449; 93005; J0295; J0360; J1815; J2543; J3480; J3490; J7050; J8540; Q9967